=== PATIENT | female | born 1950 | race Caucasian/White ===

== ENCOUNTER 2023-05-15 15:44 | Inpatient (IN) | payer OTHER, SELFPAY ==
[2023-05-15] VITALS (9 sets, daily range): BP systolic 95–138; BP diastolic 51–61; BMI 40.7
--- NOTE | 2023-05-15 12:07 | ED.GENMED ---
History of Present Illness
<Rosenda Franco PA-C - Last Filed: 05/15/23 16:54>
General
Chief Complaint: Fatigue
Source: patient, snf and snf records
Exam Limitations: none
Time Seen by Provider: 05/15/23 12:07
Nursing documentation reviewed up to this point in time: agreed with
Travel History
Have you had any contact with someone who has COVID-19?: No
Do you have any symptoms of coronavirus? Fever > 100 degrees, chills, cough, shortness of breath, sore throat, loss of taste or smell, muscle aches, or headache?: No
History of Present Illness
History of Present Illness:
This is a 73-year-old female with a history of PE, hypertension, chronic kidney disease, asthma, dysphagia on TPN, presents to emergency department from senior living facility with complaints of fatigue. Patient does not provide much history and
only shakes her head yes or no to questions, but will occasionally provide an answer. When asked why she is here, she says she does not know. Asked her about the fatigue reported from the nursing facility, and she does state that she has been
tired the past few days. She denies shortness of breath, abdominal pain, dysuria, chest pain. Spoke to senior living facility on the phone who reports that patient has been feeling fatigued for the past few days and started developing a fever
yesterday. They stated that her fever was 102 F last night and they subsequently gave her Tylenol. They performed a chest x-ray, blood cultures, UA, and those results are currently pending. She was given a dose of ceftriaxone last night. At the
time, did not have a clear source of the fever. They sent her to the emergency department today due to the fact that she is ill-appearing and still has fevers. Of note, she was discharged from [facility] on May 06 for septic shock, encrusted right
ureteral stent,
Past History
<Rosenda Franco PA-C - Last Filed: 05/15/23 16:54>
Past History
ED Past Medical History: Asthma, HTN, Renal failure, Hypothyroidism and Other (ureteral stents, PE, ARF, One kidney, IVC filter, Cellulitis, UTI, Pancreatitis)
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
Social History
Tobacco: Non-smoker
Alcohol: None
Personal: Single
Living: alone
Family History
Family History: Other (Mother with endometrial cancer, father with coronary disease)
Review of Systems
<Rosenda Franco PA-C - Last Filed: 05/15/23 16:54>
Review of Systems
All Other Systems: ROS reviewed and negative except as documented in HPI and ROS
Phy Exam
<Rosenda Franco PA-C - Last Filed: 05/15/23 16:54>
Physical Exam
Physical Exam:
Vitals: Patient is febrile
General: Patient is very ill appearing, pale
Skin: warm and dry, no rashes or lesions
Peripheral Vascular: No lower extremity edema, extensive discoloration bilaterally from chronic venous stasis. 2+ DP/PT pulses b/l.
Cardiac: regular rate and rhythm, no murmurs
Pulm: normal respiratory effort, no wheezes, rales, or rhonchi
Abdomen: Umbilical hernia present. Abdomen non-tender to palpation. Small area of healing ecchymosis below the umbilicus.
Neuro: awake and alert. Oriented to person but not time. CN II-XII intact. GCS 15.
Course
<Rosenda Franco PA-C - Last Filed: 05/15/23 16:54>
Orders/Labs/Results
Orders:
Orders
05/15/23 12:02
EKG [Electrocardiogram (*1)] Urgent
Reason for Study: Fatigue / Weakness
Cardiac Monitoring- Treatment ONCE
EKG- Treatment ONCE
IV Insert/Care/Rem.- Treatment PRN
Straight cath- Treatment ONCE
O2 Therapy [RESP] Urgent
Titrate/Wean O2 to maintain O2 sat greater than (%): 93
Special Instructions: TO MAINTAIN CONTINUOUS O2 SATS > OR = 93%
Pulse Ox/cont/shift [RESP] Urgent
Quantity: 1
Special Instructions: CONTINUOUS
05/15/23 12:03
EKG- Treatment ONCE
CR Chest - 2 Views Urgent
Comment:
Reason For Exam: suspected infection
05/15/23 12:09
Complete Blood Count/With Diff Urgent
Comprehensive Metabolic Panel Urgent
Lactic Acid Q4H
Comment: ON ICE, CANCEL 2ND ORDER IF FIRST LACTIC ACID LEVEL <2
Urinalysis Reflex To Culture Urgent
Date Specimen was Collected: 05/15/23
Time Specimen was Collected: 12:03
Urine Microscopic Reflex Cult Urgent
Blood Culture Q30M
GABRIELLA Source: Blood/Venous
Specimen Description:
Comment: FROM 2 SEPARATE SITES
Blood Culture Q30M
GABRIELLA Source: Blood/Venous
Specimen Description:
Comment: FROM 2 SEPARATE SITES
Urine Culture Urgent
GABRIELLA Source: U
Specimen Description:
Date Specimen was Collected: 05/15/23
Time Specimen was Collected: 12:03
05/15/23 12:31
COVID-19 Antigen Urgent
Source: Nasal Swab
Influenza A+B Rapid Molecular Urgent
GABRIELLA Source: Nasal Swab
Specimen Description:
05/15/23 12:57
Blood Culture Urgent
GABRIELLA Source: Blood/Venous
Specimen Description:
05/15/23 13:04
Acetaminophen [Tylenol/Feverall] 325 mg RECTAL NOW STA
05/15/23 13:20
Cefepime HCl [Maxipime] 1,000 mg IV NOW STA
05/15/23 13:27
Prothrombin Time Urgent
05/15/23 13:28
Sterile Water [Sterile Water For Injection] 10 ml .ROUTE .[facility]
05/15/23 13:32
Vancomycin [Vancocin] 2,000 mg 0.9% Sodium Chloride 500 ml [Nss] 500 ml IV NOW
05/15/23 13:45
Vancomycin [Vancocin] 2,000 mg 0.9% Sodium Chloride 500 ml [Nss] 500 ml IV NOW
05/15/23 14:24
Admit/Transfer Patient As Directed
Co-Sign Provider:
Level of Care: Inpatient admission
Assign to:: Medical/Surgical
Physician / Group: Jaz newell
Diagnosis: UTI
Reason for Hospitalization: UTI
Expected length of stay greater than two midnights?: Yes
ELOS- Estimated Length of Stay in days: 3
I certify the patient meets the requirements for IP care: Yes
05/15/23 14:30
Code Status As Directed
Resuscitation Status: Do not resuscitate
Reached after discussion with pt or family/Healthcare POA: Yes
DNR Bracelet Application ONCE
05/15/23 14:44
INFECTIOUS DISEASE CONSULT Routine
Consulting Provider: Steven Ruano
Was physician already notified: Yes
Abnormal Lab Results
05/15/23 05/15/23
12:09 13:27
RBC 2.74 L 10^6/uL
(4.20-5.40)
Hgb 7.8 L g/dL
(12.0-16.0)
Hct 26.2 L %
(37.0-47.0)
MCHC 29.8 L g/dL
(33.0-37.0)
RDW 16.9 H %
(11.5-14.5)
MPV 11.0 H fL
(7.4-10.4)
Absolute Neuts (auto) 7.8 H 10^3/uL
(1.4-6.5)
Absolute Lymphs (auto) 1.0 L 10^3/uL
(1.2-3.4)
Absolute Monos (auto) 1.1 H 10^3/uL
(0.1-0.6)
Neutrophils % 77.6 H %
(42.2-75.2)
Lymphocytes % 9.5 L %
(20.5-51.1)
Monocytes % 10.6 H %
(1.7-9.3)
PT 19.1 H Sec
(11.4-14.6)
Chloride 116 H mmol/L
(98-107)
Carbon Dioxide 21 L mmol/L
(22-30)
BUN 63 H mg/dl
(7-17)
Glucose 111 H mg/dl
(70-99)
Lactic Acid 0.6 L mmol/L
(0.7-2.0)
Albumin 2.9 L g/dl
(3.5-5.0)
Ur Occult Blood Reflex 3+ A
(Negative)
Urine Nitrite (Reflex) Positive A
(Negative)
Leukocyte Esterase Rfl 2+ A
(Negative)
Urine RBC 11-15 A /HPF
(0-2)
Urine WBC (Reflex) 21-25 A /HPF
(0-5)
Urine Bacteria (Reflex) Moderate A
(Negative)
05/15/23 12:09
05/15/23 12:09
Vital Signs
Initial and Last Documented VS:
Initial Vital Signs
Temp Pulse Resp BP Pulse Ox
100.9 F H 84 13 120/58 91
05/15/23 12:06 05/15/23 12:06 05/15/23 12:06 05/15/23 12:06 05/15/23 12:06
Last Documented Vital Signs
Temp Pulse Resp BP Pulse Ox
100.9 F H 83 19 117/58 98
05/15/23 12:06 05/15/23 16:15 05/15/23 16:15 05/15/23 16:02 05/15/23 16:15
<Fredi Solomon, DO - Last Filed: 05/15/23 13:11>
Orders/Labs/Results
Orders:
Orders
05/15/23 12:02
EKG [Electrocardiogram (*1)] Urgent
Reason for Study: Fatigue / Weakness
Cardiac Monitoring- Treatment ONCE
EKG- Treatment ONCE
IV Insert/Care/Rem.- Treatment PRN
Straight cath- Treatment ONCE
O2 Therapy [RESP] Urgent
Titrate/Wean O2 to maintain O2 sat greater than (%): 93
Special Instructions: TO MAINTAIN CONTINUOUS O2 SATS > OR = 93%
Pulse Ox/cont/shift [RESP] Urgent
Quantity: 1
Special Instructions: CONTINUOUS
05/15/23 12:03
EKG- Treatment ONCE
CR Chest - 2 Views Urgent
Comment:
Reason For Exam: suspected infection
05/15/23 12:09
Complete Blood Count/With Diff Urgent
Comprehensive Metabolic Panel Urgent
Lactic Acid Q4H
Comment: ON ICE, CANCEL 2ND ORDER IF FIRST LACTIC ACID LEVEL <2
Urinalysis Reflex To Culture Urgent
Date Specimen was Collected: 05/15/23
Time Specimen was Collected: 12:03
Urine Microscopic Reflex Cult Urgent
Blood Culture Q30M
GABRIELLA Source: Blood/Venous
Specimen Description:
Comment: FROM 2 SEPARATE SITES
Blood Culture Q30M
GABRIELLA Source: Blood/Venous
Specimen Description:
Comment: FROM 2 SEPARATE SITES
Urine Culture Urgent
GABRIELLA Source: U
Specimen Description:
Date Specimen was Collected: 05/15/23
Time Specimen was Collected: 12:03
05/15/23 12:31
COVID-19 Antigen Urgent
Source: Nasal Swab
Influenza A+B Rapid Molecular Urgent
GABRIELLA Source: Nasal Swab
Specimen Description:
05/15/23 12:57
Blood Culture Urgent
GABRIELLA Source: Blood/Venous
Specimen Description:
05/15/23 13:04
Acetaminophen [Tylenol/Feverall] 325 mg RECTAL NOW STA
05/15/23 13:20
Cefepime HCl [Maxipime] 1,000 mg IV NOW STA
05/15/23 13:27
Prothrombin Time Urgent
05/15/23 13:28
Sterile Water [Sterile Water For Injection] 10 ml .ROUTE .[facility]
05/15/23 13:32
Vancomycin [Vancocin] 2,000 mg 0.9% Sodium Chloride 500 ml [Nss] 500 ml IV NOW
05/15/23 13:45
Vancomycin [Vancocin] 2,000 mg 0.9% Sodium Chloride 500 ml [Nss] 500 ml IV NOW
05/15/23 14:24
Admit/Transfer Patient As Directed
Co-Sign Provider:
Level of Care: Inpatient admission
Assign to:: Medical/Surgical
Physician / Group: Jaz newell
Diagnosis: UTI
Reason for Hospitalization: UTI
Expected length of stay greater than two midnights?: Yes
ELOS- Estimated Length of Stay in days: 3
I certify the patient meets the requirements for IP care: Yes
05/15/23 14:30
Code Status As Directed
Resuscitation Status: Do not resuscitate
Reached after discussion with pt or family/Healthcare POA: Yes
DNR Bracelet Application ONCE
05/15/23 14:44
INFECTIOUS DISEASE CONSULT Routine
Consulting Provider: Steven Ruano
Was physician already notified: Yes
Abnormal Lab Results
05/15/23 05/15/23
12:09 13:27
RBC 2.74 L 10^6/uL
(4.20-5.40)
Hgb 7.8 L g/dL
(12.0-16.0)
Hct 26.2 L %
(37.0-47.0)
MCHC 29.8 L g/dL
(33.0-37.0)
RDW 16.9 H %
(11.5-14.5)
MPV 11.0 H fL
(7.4-10.4)
Absolute Neuts (auto) 7.8 H 10^3/uL
(1.4-6.5)
Absolute Lymphs (auto) 1.0 L 10^3/uL
(1.2-3.4)
Absolute Monos (auto) 1.1 H 10^3/uL
(0.1-0.6)
Neutrophils % 77.6 H %
(42.2-75.2)
Lymphocytes % 9.5 L %
(20.5-51.1)
Monocytes % 10.6 H %
(1.7-9.3)
PT 19.1 H Sec
(11.4-14.6)
Chloride 116 H mmol/L
(98-107)
Carbon Dioxide 21 L mmol/L
(22-30)
BUN 63 H mg/dl
(7-17)
Glucose 111 H mg/dl
(70-99)
Lactic Acid 0.6 L mmol/L
(0.7-2.0)
Albumin 2.9 L g/dl
(3.5-5.0)
Ur Occult Blood Reflex 3+ A
(Negative)
Urine Nitrite (Reflex) Positive A
(Negative)
Leukocyte Esterase Rfl 2+ A
(Negative)
Urine RBC 11-15 A /HPF
(0-2)
Urine WBC (Reflex) 21-25 A /HPF
(0-5)
Urine Bacteria (Reflex) Moderate A
(Negative)
05/15/23 12:09
05/15/23 12:09
Vital Signs
Initial and Last Documented VS:
Initial Vital Signs
Temp Pulse Resp BP Pulse Ox
100.9 F H 84 13 120/58 91
05/15/23 12:06 05/15/23 12:06 05/15/23 12:06 05/15/23 12:06 05/15/23 12:06
Last Documented Vital Signs
Temp Pulse Resp BP Pulse Ox
100.9 F H 83 19 117/58 98
05/15/23 12:06 05/15/23 16:15 05/15/23 16:15 05/15/23 16:02 05/15/23 16:15
<Rosenda Franco PA-C - Last Filed: 05/15/23 16:54>
MDM/Problems Addressed
Differential Diagnosis Includes:
ddx PICC line infection, urinary tract infection, influenza, bronchitis, pneumonia, asthma exacerbation
MDM/Problems Addressed:
fatigue
fever
Chronic conditions affecting care: HTN, Asthma and Other (DVT/PE on warfarin)
<Rosenda Franco PA-C - Last Filed: 05/15/23 16:54>
*Pulse Oximetry
Comment: patient 91% on RA, placed on 3L with O2 sat 100%
*EKG
Interpreted by ED Provider?: Yes
EKG Intrepretation Date: 05/15/23
Interpretation: abnormal
Comparison EKG: changes noted (new fusion complexes)
Heart Rate: 85
Rate: normal
Rhythm: sinus
[place]: right axis deviation
Interval: normal interval
QRS Pattern: normal QRS
Ischemia: no ischemia
*Critical Care Note
Total Time (30-74mins, 75-104mins- exclusive of procedures): Not Applicable
Data Reviewed
Review of Other/Old Records Reveals: Discharge Summary (reviewed discharge summary from 03/19/23)
<Rosenda Franco PA-C - Last Filed: 05/15/23 16:54>
Patient Management
Escalation/DeEscalation of care consider admission/obs:
This is a 73 y/o female with a PMH of PE, DVT, hypertension, UTI sepsis is presenting emergency department today with complaints of fatigue and fever. Fever and fatigue started yesterday. Patient is slightly confused and is not able to answer all
questions. Spoke to snf who gave patient 1 dose of ceftriaxone yesterday because of her fever however fever has not resolved. Patient has no other symptoms. On exam, patient is pale, very ill-appearing, however has no abdominal
tenderness on exam, has normal respiratory effort, regular rate and rhythm on cards exam. Patient found to have UTI here, considering patient has PICC line will switch to IV vancomycin and Maxipime and admit to hospital for treatment and further
workup
ED Attending Note
<Rosenda Franco PA-C - Last Filed: 05/15/23 16:54>
-
Portions of this chart may have been created with voice recognition software.� Occasional wrong word or��sound alike� substitutions may have occurred due to the inherent limitations of voice recognition software.
<Fredi Solomon DO - Last Filed: 05/15/23 13:11>
ED Attending Note
Patient seen and examined by attending physician: Yes
I performed the substantive portion of visit, reviewed & personally made and approve the management plan that is documented in note by myself or MIKAYLA.: Yes
I performed a history and physical exam of patient and discussed management with resident, I reviewed resident's note and agree with documented findings and plan of care.: Yes
ED Attending Note:
I evaluated patient. Patient is chronically ill-appearing. I spoke to her sister at bedside. She had a Tmax of 101.1 at the facility in [place]. Temperature here today is 100.9. She recently had septic shock and was transferred to [place] as
there was concern for bowel obstruction however she was managed nonoperatively and sister nini does not want her to go back to [place]. Hemoglobin slightly lower than before, white count normal today, lactic is normal. They had already given her
Rocephin at the facility. Will switch to Maxipime and give a dose of vancomycin as she also has a PICC line. I did ask the nurse to obtain a culture from itself.
Discharge Plan
Departure
Patient Disposition: Admit
Date of Disposition: 05/15/23
Time of Disposition: 13:47
Admit to doctor: Dr. Newell
Presentation/result/management discussed w/ accepting MD/DO: Hospitalist
Condition: Fair
Discharge Problem:
Urinary tract infection, Altered mental status
Interventions
Interventions:
*Risk Screen - Suicide Last Done: 05/15/23 12:25
*General Assessment Last Done: 05/15/23 12:26
*Neglect/Abuse Screening Last Done: 05/15/23 12:25
ED- Fall Risk Assessment Last Done: 05/15/23 12:25
*ED COVID-19 Vaccine History Last Done: 05/15/23 12:24
[2023-05-15 12:21] LABS: % Basophils 0.4 % (0-2); % Eosinophils 1.5 % (0-6); % Immature Granulocytes 0.4 % (0-0.5); % Lymphocytes 9.5 % (20.5-51.1); % Monocytes 10.6 % (1.7-9.3); % Neutrophils 77.6 % (42.2-75.2); Absolute Eosinophils 0.2 10^3/uL (0-0.7); Absolute Monocytes 1.1 10^3/uL (0.1-0.6); Absolute Neutrophils 7.8 10^3/uL (1.4-6.5); Hematocrit 26.2 % (37.0-47.0); Hemoglobin 7.8 g/dL (12.0-16.0); Mean Corp Hgb Conc. 29.8 g/dL (33.0-37.0); Mean Corpuscular Hgb 28.5 pg (27.0-31.0); Mean Corpuscular Volume 95.6 fL (81.0-99.0); Nucleated Red Blood Cells % 0 %; Platelet Count 262 10^3/uL (130-400); Red Blood Cell Count 2.74 10^6/uL (4.20-5.40); Red Cell Dist. Width 16.9 % (11.5-14.5)
[2023-05-15 12:33] LABS: ALT (SGPT) 19 U/L (0-35); AST (SGOT) 28 U/L (14-36); Albumin 2.9 g/dl (3.5-5.0); Alkaline Phosphatase 70 U/L (38-126); Blood Urea Nitrogen 63 mg/dl (7-17); Calcium 8.4 mg/dl (8.4-10.2); Carbon Dioxide 21 mmol/L (22-30); Chloride 116 mmol/L (98-107); Estimated Creatinine Clearance 70 ml/min; Glucose 111 mg/dl (70-99); Potassium 3.9 mmol/L (3.5-5.1); Sodium 140 mmol/L (135-145); Total Bilirubin 0.7 mg/dl (0.2-1.3); Total Protein 6.4 g/dl (6.3-8.2); eGFR > 60.00
[2023-05-15 12:34] LABS: Lactic Acid 0.6 mmol/L (0.7-2.0)
[2023-05-15 12:53] LABS: Urine Albumin Trace (Neg - Trace); Urine Bilirubin Negative (Negative); Urine Character Clear (Clear); Urine Color Yellow; Urine Glucose Negative (Negative); Urine Ketone Negative (Negative); Urine Leukocyte 2+ (Negative); Urine Nitrite Positive (Negative); Urine Occult Blood 3+ (Negative); Urine Specific Gravity 1.015 (<1.030); Urine Urobilinogen Negative (Neg - 1+)
[2023-05-15 13:01] LABS: Urine Squamous Cell 16-20 /LPF (Few)
[2023-05-15 13:02] LABS: Urine Urothelial Cell 0-2 /LPF (FEW)
[2023-05-15 13:03] LABS: Urine White Cell 21-25 /HPF (0-5)
[2023-05-15 13:05] LABS: Urine Bacteria Moderate (Negative)
[2023-05-15 13:14] LABS: COVID-19 Antigen Negative (Negative)
[2023-05-15] MEDS: MAXIPIME 1000 MG IV (13:30)
[2023-05-15] MEDS: TYLENOL/FEVERALL 325 MG RECTAL (13:31)
--- NOTE | 2023-05-15 13:47 | HPS.HSE ---
Addendum entered and electronically signed by Jaz Zheng MD 05/15/23 16:56:
pt seen and examined--agree with PIANO REFINISHER note
GENERAL: chronically ill appearing female in no apparent distress, severely kyphotic and chin touches chest
HEENT: NC/AT--O2 NC in place
HEART: regular rate and rhythm, +S1, +S2
LUNGS : clear to auscultation bilaterally
ABDOM: soft, nontender, nondistended, + bowel sounds
EXT: no cyanosis, clubbing, or edema
NEUROLOGIC: grossly intact
SKIN: has right arm double lumen PICC in place
Fever/fatigue likely from urinary tract infection--other source could be PICC line (watch cultures for now)---History of complicated UTI with exchange right ureteral stent removal--Received a dose of ceftriaxone last night [place]--cont vanco/cefepime
here-Tylenol as needed for fever--PT/OT consult
Anemia of chronic disease--Hemoglobin 7.8--will check in AM, may need transfusion if still low--no active bleeding
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
HX PE/DVT on Warfarin--Daily PT/INR
HX Asthma/ COPD or restrictive lug dz due to severe thoracic spine kyphosis--Chronic respiratory failure--Patient using 2 L of oxygen--Continue supplemental oxygen to keep sat greater than 92- cont Nebs from home
Hypothyroid--cont synthroid
Dysphagia/ recurrent aspiration-- will ask speech to eval--chronic TPN not answer...may need GOC discussion moving forward
hx Incisional hernia with bowel obstruction--resolved
CODE STATUS--DNR
Original Note:
Family Physician
-
Family Physician: Nga Petty
Chief Complaint
-
fever
fatigue
History of Present Illness
73-year-old female with a history of PE, hypertension, chronic kidney disease, asthma, dysphagia on TPN, [facility] with complaints of fatigue, fever and weakness. she was noted to have temp of 102
last night. she was started on ceftriaxone last night. � She denies shortness of breath, abdominal pain, dysuria, chest pain. [facility] performed a chest x-ray, blood cultures, UA, and those results are currently pending.�she was admitted here in February
with complicated UTI due to overdue with exchange of right ureteral stents. patient was admitted to [facility] with [facility]. patient was noted have dysphagia and she is on TPN since then. patient denied any dysuria or hematuria.
positive UA in ER. received iv abx. admitting for further management.
Medical History
Past Medical History
Past Medical History: Reports Other
Additional Past Medical History:
Asthma, HTN, Renal failure, Hypothyroidism and Other (ureteral stents, PE, ARF, One kidney, IVC filter, Cellulitis, UTI, Pancreatits
Respiratory failure
Incisional hernia with bowel obstruction
Past Surgical History: Reports Other
Additional Past Surgical History:
IVC filter
Splenic artery aneurysm coiling
Ureteral stent
Social History
Tobacco: Non-smoker
Alcohol: None
Personal: Single
Living: Care Home
Employment: Employed
Family History
Family History: Not pertinent
Allergies / Home Medications
Allergies reflects when Allergies were last updated in [facility].
Home Medications with original date entered in [facility]
Allergy/Medication List:
Allergies
Allergy/AdvReac Type Severity Reaction Status Date / Time
animal dander Allergy Exacerbates Verified 03/11/23 23:13
asthma
banana Allergy Exacerbates Verified 03/11/23 23:13
asthma
cheese Allergy Exacerbates Verified 03/11/23 23:13
asthma
cigarette smoke Allergy Exacerbates Verified 03/11/23 23:13
asthma
house dust Allergy Exacerbates Verified 03/11/23 23:13
asthma
house dust mite Allergy Exacerbates Verified 03/11/23 23:13
asthma
latex [Latex] Allergy Exacerbates Verified 03/11/23 23:13
asthma
mold Allergy Exacerbates Verified 03/11/23 23:13
asthma
perfume Allergy Exacerbates Verified 03/11/23 23:13
asthma
pollen extracts Allergy Exacerbates Verified 03/11/23 23:13
asthma
ragweed pollen Allergy Exacerbates Verified 03/11/23 23:13
asthma
Home Medications
sertraline 100 mg tablet 100 mg PO DAILY Mental Health/Anxiety 07/10/21
levothyroxine 150 mcg tablet (Synthroid) 150 mcg PO DAILY Thyroid 03/11/23
warfarin 2 mg tablet 4 mg PO QPM Blood Clot Prevention/Tx 03/11/23
acetaminophen 325 mg tablet (Tylenol) 650 mg PO Q6HPRN PRN mild pain 05/15/23
albuterol sulfate 2.5 mg/3 mL (0.083 %) solution for nebulization 2.5 mg inhalation R Q6HPRN PRN sob 05/15/23
carboxymethylcellulose sodium 1 % eye liquid gel drops (Refresh Liquigel) 1 drp BOTH EYES Q8HPRN PRN dryness 05/15/23
dronabinol 5 mg capsule 5 mg PO DAILY 05/15/23
ipratropium 20 mcg-albuterol 100 mcg/actuation mist for inhalation (Combivent Respimat) 1 puff inhalation R Q4HPRN PRN sob 05/15/23
lansoprazole 30 mg delayed release,disintegrating tablet 30 mg PO DAILY 05/15/23
nystatin 100,000 unit/gram topical powder 1 applic topical BID fungal rash 05/15/23
ondansetron 4 mg disintegrating tablet 4 mg PO Q6H PRN nausea 05/15/23
sennosides 8.6 mg tablet (senna) 8.6 mg PO DAILY 05/15/23
zinc oxide 40 % topical ointment 1 applic topical DAILYPRN PRN sacrum 05/15/23
Review of Systems
-
Constitutional: Reports Fever and Fatigue
EENT: Reports No Symptoms
Respiratory: Reports No Symptoms
Cardiac: Reports No Symptoms
Abdomen/GI: Reports No Symptoms
: Reports No Symptoms
Musculoskeletal: Reports No Symptoms
Skin: Reports No Symptoms
Neurological: Reports No Symptoms
Endocrine: Reports No Symptoms
Hematologic/Lymphatic: Reports No Symptoms
Psych: Reports No Symptoms
Physical Exam
Vital Signs
Vital Signs
Temp Pulse Resp BP Pulse Ox
100.9 F H 84 13 120/58 99
05/15/23 12:06 05/15/23 12:06 05/15/23 12:06 05/15/23 12:06 05/15/23 12:07
Physical Exam
General: Well Developed, Well Nourished and No Apparent Distress
HEENT: NormoCephalic, Moist mucous membranes and Atraumatic
Respiratory: Clear
Cardiac: S1/S2 and Regular Rhythm; No Murmur or Rub
GI: Soft, Non Tender, Non Distended and Normal Bowel Sounds; No Organomegaly
Rectal: Deferred by Provider
Musculoskeletal: No Clubbing, No Cyanosis and No Edema
Skin: No Rash
Neuro: AO x 3 and Nonfocal/grossly intact
Psych: Calm
Laboratory Results
-
05/15/23 12:09
05/15/23 12:09
Laboratory Results
Lactic Acid Cancelled 05/15/23 16:15
Total Bilirubin 0.7 mg/dl (0.2-1.3) 05/15/23 12:09
AST 28 U/L (14-36) 05/15/23 12:09
ALT 19 U/L (0-35) 05/15/23 12:09
Alkaline Phosphatase 70 U/L (38-126) 05/15/23 12:09
Data Reviewed
-
Diagnostic Radiology: Report Reviewed by me
Lab Data: Labs Reviewed by me
Impression/Plan
-
# Fever/fatigue likely from urinary tract infection
-History of complicated UTI with exchange right ureteral stent removal
-Received a dose of ceftriaxone last night
-Today initiated on IV Vanco and Maxipime
-Urine culture sent from ER
-Blood culture sent from ER
-Tylenol as needed for fever
-PT/OT consult
# Anemia of chronic disease
-Hemoglobin 7.8
-No active bleeding
-Continue to monitor
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
#HX PE/DVT on Warfarin
-Daily PT/INR
HX Asthma/ COPD or restrictive lug dz due to severe thoracic spine kyphosis
-Chronic respiratory failure
-Patient using 2 L of oxygen
-Continue supplemental oxygen to keep sat greater than 92
-Wean as tolerated
- cont Nebs from home
Hypothyroid
- on LT4
# Dysphagia/ recurrent aspiration
-On TPN
-Speech eval
#Incisional hernia with bowel obstruction
# CODE STATUS
-DNR
#
[2023-05-15 13:52] LABS: INR 1.59; PT 19.1 Sec (11.4-14.6)
[2023-05-15] MEDS: VANCOCIN 540 MG IV (14:13)
--- NOTE | 2023-05-15 15:33 | CM ---
Patient seen at bedside with physician and patient sister. Patient is currently at [facility] and per Melyssa she can return there although there will not be a bed hold. Patient is on O2, TPN at facility. CM requested discharge
summary or H&P from [facility] from Melyssa. Per patient sister the watermelon harvesting supervisor plan is for patient to go home with her but per Melyssa patient was possible for watermelon harvesting supervisor care. CM will continue to follow for discharge planning needs.
Plan; return to SNF at [facility]; keep SNF updated.
--- NOTE | 2023-05-15 17:20 | CON.ID ---
Consultation
-
Date/Time Consultation Requested: 05/15/23 14:44
Date/Time Consultation Performed: 05/15/23 17:20
Requesting Provider: Elle CASPER
Performing Provider: Dr Curry
Reason for Consultation: uti
Chief Complaint / Past History
Chief Complaint
'I dont feel good'
History of Present Illness
Ms Herrera is a 73 year old female with history of chronic incarcerated incisional abdominal hernia and dysphagia on chronic TPN, renal obstruction (UL R kidney), class III obesity who was last seen here 03/19 during which admission she had a
chronic renal stent exchange and was transferred to [facility]. Patient is a fair historian however without specific complaints - only comment 'I just dont feel good.' She was noted a usp to have fever to 102 and was started on ceftriaxone. She
denies shortness of breath, abdominal pain, dysuria, chest pain.�
Since arrival here Tmax rectally 100.9 no hafsa fevers recorded yet, bP stable, HR stable, without leukocytosis wbc 10, plt 262, minimal L shift noted, eos are present, cr 0.9, t bili 0.7, ast 28, alt 19, alk phos 70, UA wbc 21-25, moderate
bacteria, covid ag neg, CXR possible pneumonia with effusion,
Past History
Allergy History:
animal dander Allergy (Verified 03/11/23 23:13)
Exacerbates asthma
banana Allergy (Verified 03/11/23 23:13)
Exacerbates asthma
cheese Allergy (Verified 03/11/23 23:13)
Exacerbates asthma
cigarette smoke Allergy (Verified 03/11/23 23:13)
Exacerbates asthma
house dust Allergy (Verified 03/11/23 23:13)
Exacerbates asthma
house dust mite Allergy (Verified 03/11/23 23:13)
Exacerbates asthma
latex [Latex] Allergy (Verified 03/11/23 23:13)
Exacerbates asthma
mold Allergy (Verified 03/11/23 23:13)
Exacerbates asthma
perfume Allergy (Verified 03/11/23 23:13)
Exacerbates asthma
pollen extracts Allergy (Verified 03/11/23 23:13)
Exacerbates asthma
ragweed pollen Allergy (Verified 03/11/23 23:13)
Exacerbates asthma
Review of Systems
Vital Signs
Temp Pulse Resp BP Pulse Ox
100.9 F H 83 17 117/58 97
05/15/23 12:06 05/15/23 16:45 05/15/23 16:45 05/15/23 16:02 05/15/23 16:45
Physical Exam
Physical Exam
Constitutional: No Acute Distress, Chronically Ill and Obese
Cardiovascular: Regular Rate and S1/S2; Negative Murmur or Rub
Pulmonary: Clear and Symmetric; Negative Wheezes, Rales or Rhonchi
Gastrointestinal: Soft, Non Tender, Non Distended and Normal Bowel Sounds
Genito-Urinary: Negative Suprapubic Tenderness
Skin: Warm and Dry; Negative Rash or Jaundice
Neurological: Awake
Lab / Diagnostic Study Results
05/15/23 12:09
05/15/23 12:09
Abs Immat Gran (auto) 0.0 10^3/uL (0-0.05) 05/15/23 12:09
Absolute Neuts (auto) 7.8 10^3/uL (1.4-6.5) H 05/15/23 12:09
Absolute Lymphs (auto) 1.0 10^3/uL (1.2-3.4) L 05/15/23 12:09
Absolute Monos (auto) 1.1 10^3/uL (0.1-0.6) H 05/15/23 12:09
Absolute Basos (auto) 0.0 10^3/uL (0-0.2) 05/15/23 12:09
Immature Gran % 0.4 % (0-0.5) 05/15/23 12:09
Neutrophils % 77.6 % (42.2-75.2) H 05/15/23 12:09
Lymphocytes % 9.5 % (20.5-51.1) L 05/15/23 12:09
Monocytes % 10.6 % (1.7-9.3) H 05/15/23 12:09
Eosinophils % 1.5 % (0-6) 05/15/23 12:09
Basophils % 0.4 % (0-2) 05/15/23 12:09
PT 19.1 Sec (11.4-14.6) H 05/15/23 13:27
INR 1.59 05/15/23 13:27
Lactic Acid Cancelled 05/15/23 16:15
Ur Squamous Epith Cells 16-20 /LPF (Few) 05/15/23 12:09
Microbiology Results
Micro:
05/15/23 12:31 Influenza Types A & B (MASOUD) - Final
Nasal Swab Negative for Influenza A & B, NAAT
Negative results must be combined with clinical observations
and patient history.
Nucleic Acid Amplification test (NAAT)performed on the
[employer] NOW platform.
05/15/23 12:57 Blood Culture - Pending
Blood/Venous
05/15/23 12:09 Urine Culture - Pending
Urine
05/15/23 12:09 Blood Culture - Pending
Blood/Venous
05/15/23 12:09 Blood Culture - Pending
Blood/Venous
Assessment / Plan
Fever
Chronic TPN usage
Chronic Renal Stents
Class III obesity
- blood cultures x2
- low threshold for PICC removal - agree that chronic TPN carries high risk of infection, endocarditis etc, additionally tells me shes eating anyways making risks > benefits of TPN
- UA with some pyuria - cx pending - follow up
- CXR - possible pneumonia and possible effusion
- US of the R chest to eval size of possible effusion
- agree with vanc/cefepime - added metronidazole pending above workup
- covid/influneza negative
- follow fever curve
I am unclear on what happened at [facility] re: chronic incarcerated abdominal hernia reportedly resolved - records requested
--- NOTE | 2023-05-15 18:55 | PTCARENOTE ---
pt arrives to floor in Er stretcher at 1835. pt required taffy puller into hospital bed. pt is aaox 2-3, needed help with date although knew what holiday just passed. pt is on 2L NC. mercedes present. CYN PICC line present. 20 G left hand PIV
present. no pressing issues at moment. VSS. call villarreal in reach.
--- NOTE | 2023-05-15 19:16 | PHA.VAN.IN ---
Assessment
- Assessment
Renal Function: Appears similar to baseline (12/22/18 BASELINE SCR: 1.0)
Concomitant Antimicrobials: CEFEPIME, FLAGYL
- Previous Dosing Experience
Previous Regimen: 1GM IV Q24H
Date of Regimen: 10/27/10
Provided Trough of: LESS THAN 5
Provided AUC of: UNKNOWN
Patient's SCR is: Decreased compared to previous dosing experience (10/27/10 SCR = 1.4)
Patient's weight is: Decreased compared to previous dosing experience (10/27/10 WT = 128 KG)
AUC Dosing Plan
- Dosing Variables
Dosing Weight (kg): 111
Dosing CrCl (ml/min): 70
Vd coefficient (L/kg): 0.5
- Empiric Dosing
Initial / Loading Dose: 2GM
Maintenance Regimen: 750MG IV Q12H
Estimated AUC (mcg*h/mL): 446
Estimated Peak (mcg*h/mL): 25.6
Estimated Trough (mcg/ml): 12.9
Estimated Half Life (H): 11.1
Pharmacokinetics Vancomycin I
- -
Patient Age: 73
Patient Sex: Female
Vancomycin Day #: 1
Indication: Genito-Urinary Tract
Requesting Provider: DISHA
Height / Weight:
Height 5 ft 5 in
Actual Weight 111 kg
Pertinent Past Medical History: CHRONIC TPN
- Vital Signs / Lab Results
Temp Pulse Resp BP Pulse Ox
97.9 F 76 16 95/56 98
05/15/23 18:54 05/15/23 18:54 05/15/23 18:54 05/15/23 18:54 05/15/23 18:54
Lab Results - Hematology
05/15/23
12:09
WBC 10.0
Lab Results - Chemistry
05/15/23
12:09
BUN 63 H
Creatinine 0.9
Estimated Creat Clear 70
Albumin 2.9 L
05/15/23 05/15/23
12:09 16:15
Lactic Acid 0.6 L Cancelled
Lab Results - Urine
05/15/23
12:09
Urine Nitrite (Reflex) Positive A
Leukocyte Esterase Rfl 2+ A
Urine WBC (Reflex) 21-25 A
Ur Squamous Epith Cells 16-20
Urine Bacteria (Reflex) Moderate A
Microbiology Results
05/15/23 12:31 Influenza Types A & B (MASOUD) - Final
Nasal Swab Negative for Influenza A & B, NAAT
Negative results must be combined with clinical observations
and patient history.
Nucleic Acid Amplification test (NAAT)performed on the
[employer] NOW platform.
[2023-05-15] MEDS: FLAGYL 500 MG 100 IV (20:07)
--- NOTE | 2023-05-15 20:20 | VATNOTE ---
upon rounds found pt. to have right arm picc. CXR from ER states 'SVC'; dsg changed as no biopatch was on site. Upon removing gauze over topof insertion site, found picc to be out approx. 4cm. Redressed per protocol with caps and stat lock changed.
Both lumens had adequate blood return. PCN encouraged to use picc. No information obtained on where and when picc was inserted. Information on transfer forms found TCL to be 44cm. VAT to follow.
[2023-05-15] MEDS: COUMADIN 4 MG PO (20:23)
[2023-05-15] MEDS: STERILE WATER FOR INJECTION 10 ML IV (22:16)
[2023-05-15] MEDS: MAXIPIME 2000 MG IV (22:18)
[2023-05-15] MEDS: DESENEX/MITRAZOL/ZEASORB 1 APPLIC TOPICAL (22:45)
[2023-05-16] MEDS: ZOFRAN ODT (ORALLY DISINTEGRATING) 4 MG PO ×2 (01:35→10:00)
[2023-05-16] MEDS: FLAGYL 500 MG 100 IV ×3 (04:23→20:01)
[2023-05-16 05:08] LABS: Hematocrit 26.8 % (37.0-47.0); Hemoglobin 7.8 g/dL (12.0-16.0); Mean Corp Hgb Conc. 29.1 g/dL (33.0-37.0); Mean Corpuscular Hgb 28.6 pg (27.0-31.0); Mean Corpuscular Volume 98.2 fL (81.0-99.0); Mean Platelet Volume 11.6 fL (7.4-10.4); Platelet Count 211 10^3/uL (130-400); Red Blood Cell Count 2.73 10^6/uL (4.20-5.40); Red Cell Dist. Width 16.8 % (11.5-14.5)
[2023-05-16 05:20] LABS: INR 1.57; PT 18.9 Sec (11.4-14.6)
[2023-05-16] MEDS: SYNTHROID 150 MCG PO (05:27)
[2023-05-16 05:28] LABS: Blood Urea Nitrogen 62 mg/dl (7-17); Calcium 8.3 mg/dl (8.4-10.2); Carbon Dioxide 21 mmol/L (22-30); Chloride 117 mmol/L (98-107); Estimated Creatinine Clearance 70 ml/min; Glucose 89 mg/dl (70-99); Phosphorus 4.8 mg/dl (2.5-4.5); Potassium 3.7 mmol/L (3.5-5.1); Sodium 145 mmol/L (135-145); eGFR > 60.00
[2023-05-16] MEDS: VANCOCIN 150 IV ×2 (05:28→17:12)
[2023-05-16 07:55] VITALS: BP 132/59
--- NOTE | 2023-05-16 08:08 | PHA.VAN.FU ---
Vancomycin Assessment / Plan
- Assessment
Renal Function: Stable (BUN is elevated)
WBC's are: WNL
Concomitant Antimicrobials: cefepime, metronidazole
- Dosing Plan
Adjust Regimen to: dosing by level - suspect estimated clearance may not be accurate
will stop 750mg after 1800 dose tonight to assess 12H level
- Monitoring Plan
Random Level: 05/17 0600
- Follow Up
Pharmacy will continue to follow.
Vancomycin Follow UP
- -
Patient Age: 73
Patient Sex: Female
Vancomycin Day #: 2
Indication: Genito-Urinary Tract
Requesting Provider: Flaquito Leung / Patricio
Pertinent Antimicrobial Allergies:
no pertinent antibiotic allergies
Height / Weight:
Height 5 ft 5 in
Actual Weight 111 kg
Pertinent Past Medical History: BMI ~41, TPN, CKD, nonfunctioning left kidney
- Vital Signs / Lab Results
Temp Pulse Resp BP Pulse Ox
97.9 F 79 20 115/61 95
05/15/23 23:30 05/15/23 23:30 05/15/23 23:30 05/15/23 23:30 05/15/23 23:30
Lab Results - Hematology
05/15/23 05/16/23
12:09 04:42
WBC 10.0 9.0
Lab Results - Chemistry
05/15/23 05/16/23
12:09 04:42
BUN 63 H 62 H
Creatinine 0.9 0.9
Estimated Creat Clear 70 70
Albumin 2.9 L
05/15/23 05/15/23
12:09 16:15
Lactic Acid 0.6 L Cancelled
Lab Results - Urine
05/15/23
12:09
Urine Nitrite (Reflex) Positive A
Leukocyte Esterase Rfl 2+ A
Ur Squamous Epith Cells 16-20
Microbiology Results
05/15/23 12:31 Influenza Types A & B (MASOUD) - Final
Nasal Swab Negative for Influenza A & B, NAAT
Negative results must be combined with clinical observations
and patient history.
Nucleic Acid Amplification test (NAAT)performed on the
[employer] platform.
[2023-05-16 08:20] VITALS: BP 132/59
--- NOTE | 2023-05-16 09:29 | PTOTSP ---
Dysphagia Evaluation
Per chart review, patient has a reported history of dysphagia and recurrent aspiration. Full records unavailable per discussion with staff at SNF and patient unable to provide a history at this time. Her baseline diet was Dysphagia Advanced, Thin
Liquids during the day and TPN at night - but reason for this is unknown to this GEOSPATIAL TECHNOLOGIST.
Patient has chronic (COPD) and acute (UTI which could cause confusion) risk factors for dysphagia. Chest x-ray 05/15/2023 with concern for a right sided PNA. Consider a video swallow study to rule out pharyngeal dysphagia and silent aspiration
given reported history of chronic dysphagia, recurrent aspiration, and current concerns for PNA.
Recommend:
1. IDDSI Level 6 (Soft and Bite Sized), IDDSI Level 0 (Thin Liquids)
2. Medications as best tolerated
3. Oral care 3-5x daily
4. Aspiration and reflux precautions
5. Video swallow study to rule out pharyngeal dysphagia and silent aspiration
[2023-05-16] MEDS: DESENEX/MITRAZOL/ZEASORB 1 APPLIC TOPICAL ×2 (09:44→20:00)
[2023-05-16] MEDS: SENOKOT 8.59999999999999964 MG PO (09:45)
[2023-05-16] MEDS: PREVACID 30 MG PO (09:45)
[2023-05-16] MEDS: MARINOL 5 MG PO (09:45)
[2023-05-16] MEDS: ZOLOFT 100 MG PO (09:45)
[2023-05-16] MEDS: MAXIPIME 2000 MG IV ×2 (09:45→21:07)
[2023-05-16] MEDS: STERILE WATER FOR INJECTION 10 ML IV ×2 (09:45→21:07)
[2023-05-16] MEDS: FLUSH (NSS) 1 FLUSH IV (09:46)
[2023-05-16 14:40] VITALS: BP 124/64; PULSE 75; O2SAT 97
[2023-05-16 14:41] VITALS: BP 124/64; PULSE 75; O2SAT 97
--- NOTE | 2023-05-16 14:44 | W.PN.ID1 ---
Date of Service
Date of Service: May 16, 2023
Today's Communication
Continue current abx
Assessment / Plan
Fever
Chronic TPN usage
Chronic Renal Stents
Class III obesity
- blood cultures pending. Growth (suspected CoNS) noted in 1 of 4 bottles
- UA with some pyuria - cx pending - follow up
- CXR - possible pneumonia and possible effusion
- US of the R chest to eval size of possible effusion
- Continue current empiric antibiotics pending further culture data.
- follow fever curve
Chief Complaint
-: Fever
Subjective / Review of Systems
Review of Systems: No Fever and No Chills
Vital Signs / Physical Exam
Vital Signs
Vital Signs
Temp Pulse Resp BP Pulse Ox
98.2 F 74 16 132/59 100
05/16/23 07:55 05/16/23 07:55 05/16/23 07:55 05/16/23 07:55 05/16/23 10:13
Physical Exam
Constitutional: No Acute Distress, Comfortable, Chronically Ill and Obese
Eyes: No Conjunctival Hemorrhage and Sclera Anicteric
Cardiovascular: S1/S2; Negative S3/S4 or Murmur
Pulmonary: Non Labored; Negative Wheezes or Rales
Gastrointestinal: Soft, Non Tender and Non Distended
Neurological: Awake, Alert and Oriented
Lines: PICC (RUE; no tenderness or erythema.)
Objective Data
Lab Data
Lab Results
05/16/23 04:42
05/16/23 04:42
PT 18.9 Sec (11.4-14.6) H 05/16/23 04:42
INR 1.57 05/16/23 04:42
Estimated Creat Clear 70 ml/min 05/16/23 04:42
Lactic Acid Cancelled 05/15/23 16:15
Total Bilirubin 0.7 mg/dl (0.2-1.3) 05/15/23 12:09
AST 28 U/L (14-36) 05/15/23 12:09
ALT 19 U/L (0-35) 05/15/23 12:09
Alkaline Phosphatase 70 U/L (38-126) 05/15/23 12:09
Most recent labs reviewed.
Micro Results:
05/15/23 12:09 Blood Culture - Preliminary
Blood/Venous No Growth in 24 hours- Final report to follow
05/15/23 12:09 Blood Culture - Preliminary
Blood/Venous No Growth in 24 hours- Final report to follow
05/15/23 12:09 Urine Culture - Final
Urine
05/15/23 12:57 Blood Culture - Preliminary
Blood/Venous Positive culture in progress
Gram Stain - Preliminary
05/15/23 23:44 MRSA Screen - Pending
Nose
05/15/23 12:31 Influenza Types A & B (MASOUD) - Final
Nasal Swab Negative for Influenza A & B, NAAT
Negative results must be combined with clinical observations
and patient history.
Nucleic Acid Amplification test (NAAT)performed on the
[employer] platform.
--- NOTE | 2023-05-16 15:05 | CM ---
Patient seen at bedside with physician. Patient plan is for her to return to SNF at [facility] but patient does not have a bed hold. Patient not medically appropriate for discharge at this time. CM will continue to follow for discharge
planning needs.
Plan; return to SNF; keep [facility] updated
[2023-05-16 15:19] VITALS: BMI 40.7
--- NOTE | 2023-05-16 15:27 | W.PN.HOSP.TC ---
Today's Communication/Plan
-
pt is a 73 year old female
Fever/fatigue likely from urinary tract infection--other source could be PICC line (blood culture with coag [facility] staff, possibly contaminant)---History of complicated UTI with exchange right ureteral stent removal--Received a dose of ceftri[facility]one last
[facility]--cont vanco/cefepime here--Tylenol as needed for fever--PT/OT consult--apprec ID
Anemia of chronic disease--Hemoglobin 7.8--will check in AM, may need transfusion if still low--no active bleeding
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
HX PE/DVT on Warfarin--Daily PT/INR
HX Asthma/ COPD or restrictive lug dz due to severe thoracic spine kyphosis--Chronic respiratory failure--Patient using 2 L of oxygen--Continue supplemental oxygen to keep sat greater than 92- cont Nebs from home
Hypothyroid--cont synthroid
Dysphagia/ recurrent aspiration-- will ask speech to eval, start on IDD6 diet--chronic TPN not answer...may need GOC discussion moving forward
hx Incisional hernia with bowel obstruction--resolved
CODE STATUS--DNR
Assessment / Plan
Assessment / Plan
Anticipated Discharge: > 48 hours
Subjective/Interval History
-
Date of Service: May 16, 2023
pt without c/o
Objective Data
-
Labs:
Laboratory Results
05/16/23
04:42
WBC 9.0
Hgb 7.8 L
Hct 26.8 L
Plt Count 211
PT 18.9 H
INR 1.57
Sodium 145
Potassium 3.7
Chloride 117 H
Carbon Dioxide 21 L
BUN 62 H
Creatinine 0.9
Glucose 89
Calcium 8.3 L
Vital Signs:
max temp for 24 hours
05/15/23
12:06
Temp 100.9 F H
Vital Signs
Temp Pulse Resp BP Pulse Ox
98.2 F 74 16 132/59 100
05/16/23 07:55 05/16/23 07:55 05/16/23 07:55 05/16/23 07:55 05/16/23 10:13
I&O
05/15/23 05/16/23 05/17/23
06:59 06:59 06:59
Output Total 400 / 400
Balance -400 / -400
Review of Systems
-
All other systems: Reviewed and negative
Physical Exam
-
General: Appears Chronically Ill
HEENT: Normocephalic, Atraumatic, Oxygen and Other (kyphotic)
Respiratory: Decreased Breath Sounds
Cardiac: Regular Rhythm and S1/S2; Negative Murmur
GI: Soft, Nontender, Nondistended and Normal Bowel Sounds
Musculoskeletal: No Clubbing, No Cyanosis and No Edema
Neuro: Awake and Alert
[2023-05-16 15:59] VITALS: BP 122/61
[2023-05-16] MEDS: COUMADIN 4 MG PO (17:12)
[2023-05-16 23:55] VITALS: BP 144/71
[2023-05-17] VITALS (7 sets, daily range): BP systolic 98–159; BP diastolic 50–75
[2023-05-17] MEDS: FLAGYL 500 MG 100 IV (04:46)
[2023-05-17] MEDS: ZOFRAN ODT (ORALLY DISINTEGRATING) 4 MG PO ×2 (05:28→21:59)
[2023-05-17] MEDS: SYNTHROID 150 MCG PO (05:38)
[2023-05-17 06:14] LABS: Hematocrit 26.4 % (37.0-47.0); Hemoglobin 7.7 g/dL (12.0-16.0); Mean Corp Hgb Conc. 29.2 g/dL (33.0-37.0); Mean Corpuscular Hgb 28.4 pg (27.0-31.0); Mean Corpuscular Volume 97.4 fL (81.0-99.0); Red Blood Cell Count 2.71 10^6/uL (4.20-5.40); Red Cell Dist. Width 16.8 % (11.5-14.5); White Blood Cell Count 6.8 10^3/uL (4.8-10.8)
[2023-05-17 06:29] LABS: INR 2.28
[2023-05-17 06:31] LABS: Vancomycin Random 23.3 ug/ml
[2023-05-17 06:32] LABS: Blood Urea Nitrogen 47 mg/dl (7-17); Calcium 7.9 mg/dl (8.4-10.2); Carbon Dioxide 22 mmol/L (22-30); Chloride 122 mmol/L (98-107); Estimated Creatinine Clearance 63 ml/min; Glucose 89 mg/dl (70-99); Phosphorus 4.3 mg/dl (2.5-4.5); Potassium 3.7 mmol/L (3.5-5.1); Sodium 147 mmol/L (135-145); eGFR 59.86
[2023-05-17] MEDS: MAXIPIME IV ×2 (09:18→10:40)
[2023-05-17] MEDS: DESENEX/MITRAZOL/ZEASORB 1 APPLIC TOPICAL ×2 (09:18→21:39)
[2023-05-17] MEDS: STERILE WATER FOR INJECTION 10 ML IV (09:18)
[2023-05-17] MEDS: MARINOL 5 MG PO (09:18)
[2023-05-17] MEDS: PREVACID 30 MG PO (09:18)
[2023-05-17] MEDS: SENOKOT 8.59999999999999964 MG PO (09:18)
[2023-05-17] MEDS: ZOLOFT 100 MG PO (09:18)
--- NOTE | 2023-05-17 10:18 | W.PN.ID1 ---
Date of Service
Date of Service: May 17, 2023
Today's Communication
D/C abx and observe
Assessment / Plan
Fever
- none since admit
Chronic TPN usage
Chronic Renal Stents
Class III obesity
- blood cultures with CoNS noted in 1 of 4 bottles. WBC normal. Urine culture negative.
- CXR - possible pneumonia and possible effusion
- US of the R chest without significant effusion.
- With normalization of white count and temperature curve and negative cultures, will discontinue further antibiotics and observe.
����������������������������������������������������������
Chief Complaint
-: Fever
Subjective / Review of Systems
Review of Systems: No Fever, No Chills, No Cough and Nausea
Vital Signs / Physical Exam
Vital Signs
Vital Signs
Temp Pulse Resp BP Pulse Ox
98.5 F 72 18 141/67 99
05/17/23 07:40 05/17/23 07:40 05/17/23 07:40 05/17/23 07:40 05/17/23 07:40
Physical Exam
Constitutional: Chronically Ill, Non-toxic and Obese
Eyes: Sclera Anicteric
Cardiovascular: S1/S2; Negative S3/S4
Pulmonary: Non Labored
Gastrointestinal: Soft and Non Distended
Extremities: Edema; Negative Erythema
Neurological: Awake and Alert
Psychological: Calm
Lines: PICC (Right upper extremity; exit site without tenderness or erythema.)
Objective Data
Lab Data
Lab Results
05/17/23 06:01
05/17/23 06:01
PT 25.0 Sec (11.4-14.6) H 05/17/23 06:01
INR 2.28 05/17/23 06:01
Estimated Creat Clear 63 ml/min 05/17/23 06:01
Lactic Acid Cancelled 05/15/23 16:15
Total Bilirubin 0.7 mg/dl (0.2-1.3) 05/15/23 12:09
AST 28 U/L (14-36) 05/15/23 12:09
ALT 19 U/L (0-35) 05/15/23 12:09
Alkaline Phosphatase 70 U/L (38-126) 05/15/23 12:09
Most recent labs reviewed.
Micro Results:
05/15/23 12:57 Blood Culture - Preliminary
Blood/Venous Coagulase neg. staphylococcus
Gram Stain - Final
05/15/23 23:44 MRSA Screen - Final
Nose No Methicillin Resistant Staphylococcus aureus isolated.
05/15/23 12:09 Blood Culture - Preliminary
Blood/Venous No Growth in 24 hours- Final report to follow
05/15/23 12:09 Blood Culture - Preliminary
Blood/Venous No Growth in 24 hours- Final report to follow
05/15/23 12:09 Urine Culture - Final
Urine
05/15/23 12:31 Influenza Types A & B (MASOUD) - Final
Nasal Swab Negative for Influenza A & B, NAAT
Negative results must be combined with clinical observations
and patient history.
Nucleic Acid Amplification test (NAAT)performed on the
[employer] platform.
[2023-05-17] MEDS: CATHFLO/ACTIVASE 2 MG IV (10:46)
--- NOTE | 2023-05-17 11:24 | W.PN.HOSP.TC ---
Today's Communication/Plan
-
d/c PICC
OBS series
abx stopped
transfuse pRBC
Assessment / Plan
Assessment / Plan
pt is a 73 year old female
Fever/fatigue --unknown source--all cultures negative--other source could be PICC line (blood culture with coag neg staff, possibly contaminant)--d/c PICC---History of complicated UTI with exchange right ureteral stent removal--apprec ID, stopping
ABX Tylenol as needed for fever--PT/OT
nausea--multifactorial--ABX, anemia, constipation? etc--abx stopped, check OBS series--transfuse--if no improvement then consult GI
Anemia of chronic disease--Hemoglobin 7.7--consent obtained by me--will transfuse
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
HX PE/DVT on Warfarin--Daily PT/INR
HX Asthma/ COPD or restrictive lug dz due to severe thoracic spine kyphosis--Chronic respiratory failure--Patient using 2 L of oxygen--Continue supplemental oxygen to keep sat greater than 92- cont Nebs from home
Hypothyroid--cont synthroid
Dysphagia/ recurrent aspiration-- will ask speech to eval, start on IDD6 diet--stopping TPN, pt eating
hx Incisional hernia with bowel obstruction--resolved
CODE STATUS--DNR
Anticipated Discharge: 24 - 48 hours
Subjective/Interval History
-
Date of Service: May 17, 2023
pt still has some nausea
Objective Data
-
Labs:
Laboratory Results
05/17/23
06:01
WBC 6.8
Hgb 7.7 L
Hct 26.4 L
Plt Count
PT 25.0 H
INR 2.28
Sodium 147 H
Potassium 3.7
Chloride 122 H
Carbon Dioxide 22
BUN 47 H
Creatinine 1.0
Glucose 89
Calcium 7.9 L
Vital Signs:
max temp for 24 hours
05/16/23
15:59
Temp 98.5 F
Vital Signs
Temp Pulse Resp BP Pulse Ox
98.5 F 72 18 141/67 99
05/17/23 07:40 05/17/23 07:40 05/17/23 07:40 05/17/23 07:40 05/17/23 07:40
I&O
05/16/23 05/17/23 05/18/23
06:59 06:59 06:59
Intake Total 3110 / 3110
Output Total 400 / 400 500 / 500 325 / 325
Balance -400 / -400 2610 / 2610 -325 / -325
Review of Systems
-
All other systems: Reviewed and negative
Physical Exam
-
General: Well Developed, Well Nourished and No Apparent Distress
HEENT: Normocephalic, Atraumatic and Oxygen
Respiratory: Clear to Auscultation; Negative Wheezes or Rhonchi
Cardiac: Regular Rhythm and S1/S2; Negative Murmur
GI: Soft, Nontender, Nondistended and Normal Bowel Sounds
Musculoskeletal: No Clubbing, No Cyanosis and No Edema
Skin: Warm
Neuro: Awake
Psych: Calm
--- NOTE | 2023-05-17 12:46 | VATNOTE ---
Red lumen of PICC line very difficult to flush this AM. Cathflo order obtained and instilled as per hospital policy at 1050. Brisk blood return obtained at 1230. 5mls blood and cathflo withdrawn and discarded. Flushed with 10 mls NSS. Primary care
RN made aware.
--- NOTE | 2023-05-17 15:55 | CON.GI ---
Consultation
-
Date/Time Consultation Requested: 05/17/2023, 2pm
Date/Time Consultation Performed: 05/17/2023, 4:30pm
Requesting Provider: Dr. Zheng
Performing Provider: Dr. Schmid
Reason for Consultation: nausea
Medical History
Chief Complaint / HPI
Chief Complaint: fatigue
History of Present Illness:
73 yo F living in nursing home facility pmh PE, CKD, asthma/COPD on O2, dysphagia on TPN p/w fatigue, fever, weakness, fever 102. FUO currently being followed by ID - plan to d/c PICC as patient taking PO and cultures negative. With history of
ACD, Hb 7s, no updated iron studies. GI being consulted for nausea. Primary team ordered obs series showed gaseous colonic distension and large hernia which then led to GI consult.
Today, patient is falling asleep as I am talking to her. She does state her fatigue is better. She has been nauseous for weeks with early satiety. She is unsure if she has lost any weight. She denies dysphagia, heartburn, irregular bowel
movements, bloating. Denies chest pain, shortness of breath, palpitations. Last fever 05/15 was 100.9. She is a poor historian in regards to her past medical history and this is all recorded and reviewed from prior histories.
Past Medical History
Past Medical History: Asthma, CAD, HTN, Hypothyroidism, Renal Failure and Other (PE, pancreatitis)
Past Surgical History: Other (ICV filter, splenic artery aneurysm coiling, ureteral stent)
Social History
Tobacco: Non-Smoker
Alcohol: None
Drug: None
Living: [facility]
Family History
Family History: Reviewed & Not Pertinent
Allergies / Home Medications
Allergy/AdvReac Type Severity Reaction Status Date / Time
animal dander Allergy Exacerbates Verified 03/11/23 23:13
asthma
banana Allergy Exacerbates Verified 03/11/23 23:13
asthma
cheese Allergy Exacerbates Verified 03/11/23 23:13
asthma
cigarette smoke Allergy Exacerbates Verified 03/11/23 23:13
asthma
house dust Allergy Exacerbates Verified 03/11/23 23:13
asthma
house dust mite Allergy Exacerbates Verified 03/11/23 23:13
asthma
latex [Latex] Allergy Exacerbates Verified 03/11/23 23:13
asthma
mold Allergy Exacerbates Verified 03/11/23 23:13
asthma
perfume Allergy Exacerbates Verified 03/11/23 23:13
asthma
pollen extracts Allergy Exacerbates Verified 03/11/23 23:13
asthma
ragweed pollen Allergy Exacerbates Verified 03/11/23 23:13
asthma
Medication Instructions Recorded
sertraline 100 mg tablet 100 mg PO DAILY Mental 07/10/21
Health/Anxiety
levothyroxine 150 mcg tablet 150 mcg PO DAILY Thyroid 03/11/23
(Synthroid)
warfarin 2 mg tablet 4 mg PO QPM Blood Clot 03/11/23
Prevention/Tx
acetaminophen 325 mg tablet 650 mg PO Q6HPRN PRN mild pain 05/15/23
(Tylenol)
albuterol sulfate 2.5 mg/3 mL 2.5 mg inhalation R Q6HPRN PRN sob 05/15/23
(0.083 %) solution for nebulization
carboxymethylcellulose sodium 1 % 1 drp BOTH EYES Q8HPRN PRN dryness 05/15/23
eye liquid gel drops (Refresh
Liquigel)
dronabinol 5 mg capsule 5 mg PO DAILY Gastrointestinal 05/15/23
Issue
ipratropium 20 mcg-albuterol 100 1 puff inhalation R Q4HPRN PRN sob 05/15/23
mcg/actuation mist for inhalation
(Combivent Respimat)
lansoprazole 30 mg delayed 30 mg PO DAILY Gastrointestinal 05/15/23
release,disintegrating tablet Issue
nystatin 100,000 unit/gram topical 1 applic topical BID fungal rash 05/15/23
powder
ondansetron 4 mg disintegrating 4 mg PO Q6H PRN nausea 05/15/23
tablet
sennosides 8.6 mg tablet (senna) 8.6 mg PO DAILY Constipation 05/15/23
zinc oxide 40 % topical ointment 1 applic topical DAILYPRN PRN 05/15/23
sacrum
Review of Systems
-
All other systems: A 12 pt ROS was Negative except as stated above in HPI
Vital Signs
Temp Pulse Resp BP Pulse Ox
98.7 F 75 16 122/55 99
05/17/23 15:39 05/17/23 15:39 05/17/23 15:39 05/17/23 15:39 05/17/23 07:40
Physical Exam
Exam
General: Other (dozing off while I am talking to her)
HEENT: Normocephalic
Respiratory: Clear
Cardiac: S1/S2
GI: Non Tender and Non Distended
Musculoskeletal: No Clubbing
Skin: Warm
Neuro: Awake (sleepy)
Psych: Calm
Results
WBC 6.8 10^3/uL (4.8-10.8) 05/17/23 06:01
Hgb 7.7 g/dL (12.0-16.0) L 05/17/23 06:01
Hct 26.4 % (37.0-47.0) L 05/17/23 06:01
MCV 97.4 fL (81.0-99.0) 05/17/23 06:01
Plt Count 10^3/uL (130-400) 05/17/23 06:01
Absolute Neuts (auto) 7.8 10^3/uL (1.4-6.5) H 05/15/23 12:09
PT 25.0 Sec (11.4-14.6) H 05/17/23 06:01
INR 2.28 05/17/23 06:01
Sodium 147 mmol/L (135-145) H 05/17/23 06:01
Potassium 3.7 mmol/L (3.5-5.1) 05/17/23 06:01
Chloride 122 mmol/L (98-107) H 05/17/23 06:01
Carbon Dioxide 22 mmol/L (22-30) 05/17/23 06:01
BUN 47 mg/dl (7-17) H 05/17/23 06:01
Creatinine 1.0 mg/dL (0.6-1.0) 05/17/23 06:01
Calcium 7.9 mg/dl (8.4-10.2) L 05/17/23 06:01
Total Bilirubin 0.7 mg/dl (0.2-1.3) 05/15/23 12:09
AST 28 U/L (14-36) 05/15/23 12:09
ALT 19 U/L (0-35) 05/15/23 12:09
Alkaline Phosphatase 70 U/L (38-126) 05/15/23 12:09
Diagnostic Image Results:
Prior GI Procedures:
Colonoscopy Dr. Puri 2014 done for rectal bleeding showed 10 mm polyp in the sigmoid, hemorrhoids, diverticulosis. Pathology showed tubular adenoma.
Upper endoscopy 2014 Dr. Puri showed long segment Frederick's, irregular Z-line, gaping lower esophageal sphincter, normal stomach biopsied, duodenum biopsy. Pathology showed normal small bowel, gastritis, Frederick's.
Assessment / Plan
-
73 yo F pmh as above here with fatigue, FUO also c/o nausea xweeks.
X-ray with gaseous distension of colon.
Recommendations:
- Get CT for further evaluation of any GI process, GFR 60, ordered with po/IV contrast
- Anemia - check iron studies
- Due for EGD for Frederick's and cscope for polyps both done 2014; seems unlikely patient candidate for screening at this point can address outpatient
-
-
Thank you for consultation and allowing me to participate in the patient's care. Please call the circulation sales representative GI physician during the after hours with any questions or concerns.
--- NOTE | 2023-05-17 16:26 | PTCARENOTE ---
Patient weaned off oxygen, P.O maintains 100% on RA. Blood transfusing, VSS. Patient appears drowsy, is falling asleep mid conversation with RN. Patient is AAOx3 when awake, and appropriately responds. Patient quickly awakes with verbal stimuli.
Patient states she is not hungry, only ate a cup of applesauce and is drinking wally rivera. Patient denies nausea at this time. Will continue to encourage meals. MD updated. Calorie count ordered.
[2023-05-17] MEDS: COUMADIN 4 MG PO (18:26)
[2023-05-18] MEDS: COMPAZINE 5 MG IV (00:30)
[2023-05-18] MEDS: SYNTHROID 150 MCG PO (05:47)
[2023-05-18 06:28] LABS: Hematocrit 28.6 % (37.0-47.0); Hemoglobin 8.7 g/dL (12.0-16.0); Mean Corp Hgb Conc. 30.4 g/dL (33.0-37.0); Mean Corpuscular Hgb 28.3 pg (27.0-31.0); Mean Corpuscular Volume 93.2 fL (81.0-99.0); Platelet Count 227 10^3/uL (130-400); Red Blood Cell Count 3.07 10^6/uL (4.20-5.40); Red Cell Dist. Width 17.9 % (11.5-14.5); White Blood Cell Count 5.9 10^3/uL (4.8-10.8)
[2023-05-18 06:42] LABS: INR 3.06; PT 31.6 Sec (11.4-14.6)
[2023-05-18 06:52] LABS: ALT (SGPT) 30 U/L (0-35); AST (SGOT) 30 U/L (14-36); Albumin 2.5 g/dl (3.5-5.0); Alkaline Phosphatase 74 U/L (38-126); Blood Urea Nitrogen 36 mg/dl (7-17); Calcium 7.9 mg/dl (8.4-10.2); Carbon Dioxide 24 mmol/L (22-30); Chloride 121 mmol/L (98-107); Estimated Creatinine Clearance 70 ml/min; Glucose 115 mg/dl (70-99); Iron 48 ug/dl (37-170); Magnesium 2.7 mg/dl (1.6-2.3); Phosphorus 2.9 mg/dl (2.5-4.5); Potassium 3.4 mmol/L (3.5-5.1); Sodium 146 mmol/L (135-145); Total Bilirubin 0.8 mg/dl (0.2-1.3); eGFR > 60.00
[2023-05-18 07:01] LABS: Percent Saturation 17 % (20-50); Total Iron Binding Capacity 272 ug/dl (265-497)
[2023-05-18 07:27] LABS: Ferritin 41.9 ng/ml (11.1-264.0)
[2023-05-18 08:00] VITALS: BP 159/73
[2023-05-18] MEDS: KCL 40 MEQ PO (08:31)
[2023-05-18] MEDS: ZOLOFT 100 MG PO ×2 (08:33→08:51)
[2023-05-18] MEDS: SENOKOT 8.59999999999999964 MG PO (08:33)
[2023-05-18] MEDS: PREVACID 30 MG PO (08:36)
[2023-05-18] MEDS: DESENEX/MITRAZOL/ZEASORB 1 APPLIC TOPICAL ×2 (08:53→19:57)
--- NOTE | 2023-05-18 10:46 | VATNOTE ---
05/18 RT PICC removed per order and tip sent for culture. right arm peripheral IV placed.
[2023-05-18 12:09] VITALS: BP 161/80
--- NOTE | 2023-05-18 12:26 | W.PN.ID1 ---
Date of Service
Date of Service: May 18, 2023
Today's Communication
Observe off antibiotics.
Assessment / Plan
Fever
- none since admit
Chronic TPN usage
Chronic Renal Stents
Class III obesity
- blood cultures with CoNS noted in 1 of 4 bottles. WBC normal. Urine culture negative.
- CXR - possible pneumonia and possible effusion
- US of the R chest without significant effusion.
-Continue off antibiotics.
����������������������������������������������������������
Chief Complaint
-: Fever
Subjective / Review of Systems
Review of Systems: No Fever and No Chills
Vital Signs / Physical Exam
Vital Signs
Vital Signs
Temp Pulse Resp BP Pulse Ox
99.1 F 74 16 161/80 96
05/18/23 12:09 05/18/23 12:09 05/18/23 12:09 05/18/23 12:09 05/18/23 12:09
Physical Exam
Constitutional: No Acute Distress, Comfortable, Chronically Ill and Non-toxic
Eyes: Sclera Anicteric
Cardiovascular: S1/S2; Negative S3/S4
Pulmonary: Non Labored
Neurological: Awake, Alert and Oriented
Objective Data
Lab Data
Lab Results
05/18/23 06:20
05/18/23 06:20
PT 31.6 Sec (11.4-14.6) H 05/18/23 06:20
INR 3.06 05/18/23 06:20
Estimated Creat Clear 70 ml/min 05/18/23 06:20
Lactic Acid Cancelled 05/15/23 16:15
Total Bilirubin 0.8 mg/dl (0.2-1.3) 05/18/23 06:20
AST 30 U/L (14-36) 05/18/23 06:20
ALT 30 U/L (0-35) 05/18/23 06:20
Alkaline Phosphatase 74 U/L (38-126) 05/18/23 06:20
Most recent labs reviewed.
Micro Results:
05/15/23 12:09 Blood Culture - Preliminary
Blood/Venous No Growth in 72 hours- Final report to follow
05/15/23 12:09 Blood Culture - Preliminary
Blood/Venous No Growth in 72 hours- Final report to follow
05/18/23 09:14 Catheter Tip Culture - Pending
Picc
05/15/23 12:57 Blood Culture - Preliminary
Blood/Venous Coagulase neg. staphylococcus
Additional testing on request
Gram Stain - Final
05/15/23 23:44 MRSA Screen - Final
Nose No Methicillin Resistant Staphylococcus aureus isolated.
05/15/23 12:09 Urine Culture - Final
Urine
05/15/23 12:31 Influenza Types A & B (MASOUD) - Final
Nasal Swab Negative for Influenza A & B, NAAT
Negative results must be combined with clinical observations
and patient history.
Nucleic Acid Amplification test (NAAT)performed on the
[employer] platform.
--- NOTE | 2023-05-18 14:04 | W.PN.GI.CBS2 ---
Today's Communication / Plan
-
CT, bowel regimen
Assessment / Plan
-
73 yo F pmh as above here with fatigue, FUO also c/o nausea for a few weeks. Diff diagnosis: constipation, hernia, medication induced (antibiotics, marinol), gastroparesis.
X-ray with gaseous distension of colon.
Recommendations:
- Get CT for further evaluation of any GI process, GFR 60, ordered with po/IV contrast - patient refusing po contrast will do with just IV
- Anemia - check iron studies - normal ferritin, low %sat but done after blood transfusion
- Per nursing only having mucous BM - will add on miralax, on senna currently, could be constipation leading to nausea.
- I d/w Dr. Zheng she is doing a calorie count.
- Due for EGD for Frederick's and cscope for polyps both done 2014; seems unlikely patient candidate for screening at this point can address outpatient
Subjective
Subjective
Date of Service: May 18, 2023
Nausea a little better
Objective
Data Reviewed
Laboratory Data:
Laboratory Results
05/18/23 06:20
05/18/23 06:20
Laboratory Results
PT 31.6 Sec (11.4-14.6) H 05/18/23 06:20
INR 3.06 05/18/23 06:20
Phosphorus 2.9 mg/dl (2.5-4.5) 05/18/23 06:20
Magnesium 2.7 mg/dl (1.6-2.3) H 05/18/23 06:20
Total Bilirubin 0.8 mg/dl (0.2-1.3) 05/18/23 06:20
AST 30 U/L (14-36) 05/18/23 06:20
ALT 30 U/L (0-35) 05/18/23 06:20
Alkaline Phosphatase 74 U/L (38-126) 05/18/23 06:20
Vital Signs and I&O:
Vital Signs
Temp Pulse Resp BP Pulse Ox
99.1 F 74 16 161/80 96
05/18/23 12:09 05/18/23 12:09 05/18/23 12:09 05/18/23 12:09 05/18/23 12:09
I&O
05/17/23 05/18/23 05/19/23
06:59 06:59 06:59
Intake Total 3110 / 3110 250 / 250
Output Total 500 / 500 325 / 325 150 / 150
Balance 2610 / 2610 -75 / -75 -150 / -150
Physical Exam
Physical Exam
GI: Non Distended and Non Tender
--- NOTE | 2023-05-18 14:11 | W.PN.HOSP.TC ---
Today's Communication/Plan
-
once nausea better and pt eating can d/c back to NH off TPN
apprec GI input
getting CT scan
Assessment / Plan
Assessment / Plan
pt is a 73 year old female
Fever/fatigue --unknown source--all cultures negative--other source could be PICC line (blood culture with coag neg staff, possibly contaminant)-- PICC d/c'd and tip cultured---History of complicated UTI with exchange right ureteral stent
removal--apprec ID, stopping ABX-- Tylenol as needed for fever--PT/OT
nausea--multifactorial--ABX, anemia, constipation? etc--abx stopped, stopped marinol--OBS series shows hernia no obstruction--apprec GI
Anemia of chronic disease--Hemoglobin 7.7--consent obtained by me--s/p pRBC --HGB 8.7
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
HX PE/DVT on Warfarin--Daily PT/INR
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
Hypothyroid--cont synthroid
Dysphagia/ recurrent aspiration-- apprec speech-- start on IDD6 diet--was d/c to NH on TPN--stopped TPN, pt eating--3 day calorie count pending
hx Incisional hernia with bowel obstruction--resolved--was sent to [facility] to get surgery, did not get surgery as resolved on own...see paperwork from [facility] on chart
CODE STATUS--DNR
Anticipated Discharge: 24 - 48 hours
Subjective/Interval History
-
Date of Service: May 18, 2023
pt still nauseous--had compazine last night but gave her an asthma attack--does not want it anymore
Objective Data
-
Labs:
Laboratory Results
05/18/23
06:20
WBC 5.9
Hgb 8.7 L
Hct 28.6 L
Plt Count 227
PT 31.6 H
INR 3.06
Sodium 146 H
Potassium 3.4 L
Chloride 121 H
Carbon Dioxide 24
BUN 36 H
Creatinine 0.9
Glucose 115 H
Calcium 7.9 L
Total Bilirubin 0.8
AST 30
ALT 30
Alkaline Phosphatase 74
Vital Signs:
max temp for 24 hours
05/17/23
19:34
Temp 98.8 F
Vital Signs
Temp Pulse Resp BP Pulse Ox
99.1 F 74 16 161/80 96
05/18/23 12:09 05/18/23 12:09 05/18/23 12:09 05/18/23 12:09 05/18/23 12:09
I&O
05/17/23 05/18/23 05/19/23
06:59 06:59 06:59
Intake Total 3110 / 3110 250 / 250
Output Total 500 / 500 325 / 325 150 / 150
Balance 2610 / 2610 -75 / -75 -150 / -150
Review of Systems
-
All other systems: Reviewed and negative
Abdomen/GI: Reports Nausea
Physical Exam
-
General: Well Developed, Well Nourished and No Apparent Distress
HEENT: Normocephalic and Atraumatic; Negative Oxygen
Respiratory: Clear to Auscultation; Negative Wheezes, Rhonchi or Crackles
Cardiac: Regular Rhythm and S1/S2; Negative Murmur
GI: Soft, Nontender, Nondistended, Normal Bowel Sounds and Other (hernia)
Musculoskeletal: No Clubbing, No Cyanosis and No Edema
Neuro: Awake
Psych: Calm
[2023-05-18 15:20] VITALS: BP 152/71
[2023-05-18] MEDS: COUMADIN 4 MG PO (18:18)
[2023-05-18 22:53] VITALS: BP 129/63
[2023-05-19] MEDS: ZOFRAN ODT (ORALLY DISINTEGRATING) 4 MG PO ×2 (01:12→15:37)
[2023-05-19] MEDS: SYNTHROID 150 MCG PO (06:02)
[2023-05-19 07:00] VITALS: BP 137/75
[2023-05-19 07:24] LABS: Hematocrit 32.9 % (37.0-47.0); Hemoglobin 9.6 g/dL (12.0-16.0); Mean Corp Hgb Conc. 29.2 g/dL (33.0-37.0); Mean Corpuscular Hgb 27.7 pg (27.0-31.0); Mean Corpuscular Volume 95.1 fL (81.0-99.0); Mean Platelet Volume 11.1 fL (7.4-10.4); Platelet Count 229 10^3/uL (130-400); Red Blood Cell Count 3.46 10^6/uL (4.20-5.40); Red Cell Dist. Width 17.5 % (11.5-14.5); White Blood Cell Count 5.5 10^3/uL (4.8-10.8)
[2023-05-19 07:32] LABS: INR 3.51; PT 35.2 Sec (11.4-14.6)
[2023-05-19 08:53] LABS: Blood Urea Nitrogen 23 mg/dl (7-17); Calcium 7.9 mg/dl (8.4-10.2); Carbon Dioxide 22 mmol/L (22-30); Chloride 118 mmol/L (98-107); Estimated Creatinine Clearance 79 ml/min; Glucose 105 mg/dl (70-99); Potassium 3.5 mmol/L (3.5-5.1); Sodium 144 mmol/L (135-145); eGFR > 60.00
[2023-05-19] MEDS: SENOKOT PO (09:03)
[2023-05-19] MEDS: PREVACID PO (09:03)
[2023-05-19] MEDS: DESENEX/MITRAZOL/ZEASORB 1 APPLIC TOPICAL ×2 (09:03→20:02)
--- NOTE | 2023-05-19 09:04 | CON.GS ---
Addendum entered and electronically signed by Neno George MD 05/19/23 10:05:
I saw and examined the patient independently.
The Debt Collection Specialist's note was reviewed and I agree with the note, assessment and plan except where noted below.
Comment: This is a 73-year-old female with a history of PE/DVT on Coumadin, right pyeloplasty with chronic ureteral stent in an extremely large, chronically incarcerated right incisional hernia with loss of domain. CT scan reviewed, much of her
small intestine and colon are in the hernia defect. There appears to be no obstruction and all the bowel appears viable. On exam the hernia is soft but irreducible. There is no overlying skin changes.
Had a hafsa discussion with the patient regarding options moving forward. She did see specialists at [facility] but was concerned about the possible postoperative complications and was dissuaded from surgery. I explained that if she were to need
emergency surgery in the future, risks of postoperative complications including prolonged intubation/respiratory failure/ would be even higher. She maintains she is not interested in surgery at this time.
As there are no signs of obstruction currently, okay for p.o. diet.
Recommend daily stool softeners/bowel regimen.
Out of bed and ambulate as able.
Extra-large abdominal binder may be helpful in support.
No acute general surgery intervention warranted at this time.
Please call with questions or concerns.
Original Note:
Consultation
-
Date/Time Consultation Requested: 05.19.23805
Requesting Provider: aster
Performing Provider: chris george
Reason for Consultation: Right sided spigelian hernia
Medical History
-
Chief Complaint: nausea
History of Present Illness:
This is a 73 yo female with h/o PE/DVT on warfarin, dysphagia/aspiration, UTI's, right pyeloplasty with chronic ureteral stent and large chronically incarcerated spigelian hernia with loss of domain who is known to our service from admission in
February of 2023 where she presented with a SBO secondary to the large hernia. She was eventually transferred to [facility] as she failed expectant management and is not a candidate for surgery at this facility. She did not proceed with hernia repair at
[facility] either and was eventually transferred to SNF with plan for chronic TPN. She presents this admission with fevers and is being treated for possible pna vs line infection. She has been resumed on a dysphagia diet and is now off TPN. She reports
some nausea and became nauseated during abdominal exam. She is passing some minimal stools with flatus.
Past Medical History
Past Medical History: COPD, HTN, Hypothyroidism, Renal Failure and Other (dysphagia/recurrent aspiration, nonfunctioning left kidney, anemia of chronic dz, incisional Spigelian hernia with prior pSBO, PE/DVT on warfarin)
Past Surgical History: Urological (right pyeloplasty with chronic stent)
Social History
Tobacco: Non-Smoker
Alcohol: None
Family History
Family History: Reviewed & Not Pertinent
Allergies / Home Medications
Allergy/AdvReac Type Severity Reaction Status Date / Time
animal dander Allergy Exacerbates Verified 03/11/23 23:13
asthma
banana Allergy Exacerbates Verified 03/11/23 23:13
asthma
cheese Allergy Exacerbates Verified 03/11/23 23:13
asthma
cigarette smoke Allergy Exacerbates Verified 03/11/23 23:13
asthma
house dust Allergy Exacerbates Verified 03/11/23 23:13
asthma
house dust mite Allergy Exacerbates Verified 03/11/23 23:13
asthma
latex [Latex] Allergy Exacerbates Verified 03/11/23 23:13
asthma
mold Allergy Exacerbates Verified 03/11/23 23:13
asthma
perfume Allergy Exacerbates Verified 03/11/23 23:13
asthma
pollen extracts Allergy Exacerbates Verified 03/11/23 23:13
asthma
ragweed pollen Allergy Exacerbates Verified 03/11/23 23:13
asthma
Medication Instructions Recorded Confirmed Type
sertraline 100 mg tablet 100 mg PO DAILY Mental 07/10/21 05/15/23 History
Health/Anxiety
levothyroxine 150 mcg tablet 150 mcg PO DAILY Thyroid 03/11/23 05/15/23 History
(Synthroid)
warfarin 2 mg tablet 4 mg PO QPM Blood Clot 03/11/23 05/15/23 History
Prevention/Tx
acetaminophen 325 mg tablet 650 mg PO Q6HPRN PRN mild pain 05/15/23 05/15/23 History
(Tylenol)
albuterol sulfate 2.5 mg/3 mL 2.5 mg inhalation R Q6HPRN PRN sob 05/15/23 05/15/23 History
(0.083 %) solution for nebulization
carboxymethylcellulose sodium 1 % 1 drp BOTH EYES Q8HPRN PRN dryness 05/15/23 05/15/23 History
eye liquid gel drops (Refresh
Liquigel)
dronabinol 5 mg capsule 5 mg PO DAILY Gastrointestinal 05/15/23 05/15/23 History
Issue
ipratropium 20 mcg-albuterol 100 1 puff inhalation R Q4HPRN PRN sob 05/15/23 05/15/23 History
mcg/actuation mist for inhalation
(Combivent Respimat)
lansoprazole 30 mg delayed 30 mg PO DAILY Gastrointestinal 05/15/23 05/15/23 History
release,disintegrating tablet Issue
nystatin 100,000 unit/gram topical 1 applic topical BID fungal rash 05/15/23 05/15/23 History
powder
ondansetron 4 mg disintegrating 4 mg PO Q6H PRN nausea 05/15/23 05/15/23 History
tablet
sennosides 8.6 mg tablet (senna) 8.6 mg PO DAILY Constipation 05/15/23 05/15/23 History
zinc oxide 40 % topical ointment 1 applic topical DAILYPRN PRN 05/15/23 05/15/23 History
sacrum
Review of Systems
-
History Source: Patient
All other systems: Negative unless noted
A 10 point review of systems was completed, and was negative except as per HPI.
Physical Exam
Vital Signs
Temp Pulse Resp BP Pulse Ox
98.4 F 75 18 137/75 94
05/19/23 07:00 05/19/23 07:00 05/19/23 07:00 05/19/23 07:00 05/19/23 07:00
Body Mass Index (BMI) 40.7
Lab Results
05/19/23 06:49
05/19/23 06:49
WBC 5.5 10^3/uL (4.8-10.8) 05/19/23 06:49
Hgb 9.6 g/dL (12.0-16.0) L 05/19/23 06:49
Hct 32.9 % (37.0-47.0) L 05/19/23 06:49
Plt Count 229 10^3/uL (130-400) 05/19/23 06:49
Abs Immat Gran (auto) 0.0 10^3/uL (0-0.05) 05/15/23 12:09
Neutrophils % 77.6 % (42.2-75.2) H 05/15/23 12:09
Physical Exam
General: Comfortable
HEENT: Moist Mucous Membranes and Other (torticollis)
Respiratory: Non Labored Respirations
GI: Soft, Non Tender and Other (Large right sided abdominal wall hernia)
Skin: Warm and Dry
Neuro: Awake, Alert and AO x 3
Psych: Calm
Data Reviewed
-
CT Scan: Image Personally Visualized and interpreted, Report Reviewed by me, Discussed with Physician and Discussed with Patient
Labs: Labs Reviewed by me, Discussed with Physician and Discussed with Patient
Old Records: Reviewed
Assessment / Plan
-
73 yo female with h/o PE/DVT on warfarin, dysphagia/aspiration, UTI's, right pyeloplasty with chronic ureteral stent and large chronically incarcerated spigelian hernia with loss of domain who is known to our service from admission in February of
2022 where she presented with a SBO secondary to the large hernia. She was transferred to [facility] that admission to discuss surgical options as she is not a candidate for surgery here. She did not pursue surgery there and was initiated on chronic TPN
and transferred to a SNF. She presented with suspected infection from facility and line was removed. She is currently on a diet with minimal nausea and no abdominal pain. She is passing some small stools with flatus.
No radiographic evidence of immediate bowel threat or compromise such as ischemia, closed-loop obstruction.� No radiographic evidence of pneumatosis, free air or free fluid. Unfortunately from a hernia standpoint this appears to be a end-stage
hernia that is likely not surgically correctable due to loss of domain. Patient says she is 'not sure' if she would ever pursue surgery but is not pursuing this now. Should patient and family wish to proceed with any type of repair or if she would
need surgery in an emergency basis, would need transfer to a tertiary care center with a hernia specialist for further evaluation and surgery if feasible.
There is likely an element of a partial SBO given the size of her hernia. H/O aspiration as well. Continued currently on a dysphagia diet and bowel regimen and thus far tolerating. If not tolerating would consider chronic TPN vs palliative care.
--- NOTE | 2023-05-19 11:32 | W.PN.GI.CBS2 ---
Addendum entered and electronically signed by Robbie Schmid MD 05/19/23 17:19:
I saw and examined the patient.
The CIRCULAR RIPSAW OPERATOR or PA's note was reviewed and I agree with the note.
Comment: 73 yo F pmh as above here with fatigue, FUO also c/o nausea for a few weeks.� Diff diagnosis: hernia (of note, had n/v last admit with hernia), constipation, medication induced (antibiotics, marinol), gastroparesis.
X-ray with gaseous distension of colon.
CT reviewed I personally interpreted images large complex hernia
Recommendations:
- Patient refusing all meds for constipation
- Will change zofran to standing
- Surgery consult reviewed
- Patient/family did not want to pursue hospice last admission, this may need to be readdressed
- Suspect nausea related to this large hernia - not much to order beyond symptomatic management
GI will sign off please call with ?s
Original Note:
Today's Communication / Plan
-
CT as noted
appreciate surgical evaluation-- discussed risk and benefits of surgery-- pt does not want to proceed
remain on oral diet but noted vomiting chocolate ice cream she just ate
cont senna and miralax
coumadin remains on hold
abd binder recommended per surgery
Due for EGD for [facility] and cscope for polyps both done 2014; seems unlikely patient candidate for screening at this point can address outpatient
Assessment / Plan
-
73 yo F pmh as above here with fatigue, FUO also c/o nausea for a few weeks. Diff diagnosis: constipation, hernia, medication induced (antibiotics, marinol), gastroparesis.
05/17/23 X-ray with gaseous distension of colon.
05/19/23 CT a/p with IV contrast
1. Remonstration of a large right-sided spigelian hernia. Improved small bowel dilatation in the hernia sac, but increased stool in the right colon within the hernia and short segment narrowing of the colon as it transitions from the hernia into the
abdomen. Increased moderate gaseous distention of colon further distally in the abdomen, as seen on the previous obstruction series from 05/17/2023.
2. Subacute pelvic hematoma with decreased size and density compared to the prior CT.
-fever of unknown origin
-chronic TPN use
-anemia
-large chronically incarcerated spegelian right incisional hernia
-PE/DVT on coumadin
-right pyeloplasty with chronic ureteral stent
PLAN:
CT as noted
appreciate surgical evaluation-- discussed risk and benefits of surgery-- pt does not want to proceed
remain on oral diet but noted vomiting chocolate ice cream she just ate
cont senna and miralax
coumadin remains on hold
abd binder recommended per surgery
Due for EGD for [facility] and c scope for polyps both done 2014; seems unlikely patient candidate for screening at this point can address outpatient
Subjective
Subjective
Date of Service: May 19, 2023
05/18 mucoid stool, IDDS 6 diet but vomited chocolate ice cream during exam 1 hour after eating , she relates she vomiting as least one time daily prior to admission when she was NPO
Objective
Data Reviewed
Laboratory Data:
Laboratory Results
05/19/23 06:49
05/19/23 06:49
Laboratory Results
PT 35.2 Sec (11.4-14.6) H 05/19/23 06:49
INR 3.51 05/19/23 06:49
Phosphorus 2.9 mg/dl (2.5-4.5) 05/18/23 06:20
Magnesium 2.7 mg/dl (1.6-2.3) H 05/18/23 06:20
Total Bilirubin 0.8 mg/dl (0.2-1.3) 05/18/23 06:20
AST 30 U/L (14-36) 05/18/23 06:20
ALT 30 U/L (0-35) 05/18/23 06:20
Alkaline Phosphatase 74 U/L (38-126) 05/18/23 06:20
Vital Signs and I&O:
Vital Signs
Temp Pulse Resp BP Pulse Ox
98.4 F 75 18 137/75 94
05/19/23 07:00 05/19/23 07:00 05/19/23 07:00 05/19/23 07:00 05/19/23 07:00
I&O
05/18/23 05/19/23 05/20/23
06:59 06:59 06:59
Intake Total 250 / 250 1280 / 1280 840 / 840
Output Total 325 / 325 150 / 150
Balance -75 / -75 1130 / 1130 840 / 840
Physical Exam
Physical Exam
HEENT: Anicteric and Moist mucous membranes
Cardiology: Normal Sinus Rhythm
Pulmonary: Clear
GI: Soft, Non Distended, Non Tender and Other (large abdomen )
Neuro: Non Focal
--- NOTE | 2023-05-19 14:18 | W.PN.ID1 ---
Date of Service
Date of Service: May 19, 2023
Today's Communication
-Continue off antibiotics.
ID service will no longer actively follow this patient please recall for further questions
Assessment / Plan
Fever
- none since admit
Chronic TPN usage
Chronic Renal Stents
Class III obesity
- blood cultures with CoNS noted in 1 of 4 bottles. WBC normal. Urine culture negative.
- cath tip negative
-Continue off antibiotics.
ID service will no longer actively follow this patient please recall for further questions
����������������������������������������������������������
Chief Complaint
-: Fever
Subjective / Review of Systems
afebrile
bp stable
remains without leukocytosis
cr stable
cath tip culture negative
Vital Signs / Physical Exam
Vital Signs
Vital Signs
Temp Pulse Resp BP Pulse Ox
98.4 F 75 18 137/75 94
05/19/23 07:00 05/19/23 07:00 05/19/23 07:00 05/19/23 07:00 05/19/23 07:00
Physical Exam
Constitutional: No Acute Distress
Cardiovascular: Regular Rate and S1/S2; Negative Murmur or Rub
Pulmonary: Clear and Symmetric; Negative Wheezes or Rales
Gastrointestinal: Soft, Non Tender, Non Distended and Normal Bowel Sounds
Skin: Warm and Dry; Negative Rash or Jaundice
Objective Data
Lab Data
Lab Results
05/19/23 06:49
05/19/23 06:49
PT 35.2 Sec (11.4-14.6) H 05/19/23 06:49
INR 3.51 05/19/23 06:49
Estimated Creat Clear 79 ml/min 05/19/23 06:49
Lactic Acid Cancelled 05/15/23 16:15
Total Bilirubin 0.8 mg/dl (0.2-1.3) 05/18/23 06:20
AST 30 U/L (14-36) 05/18/23 06:20
ALT 30 U/L (0-35) 05/18/23 06:20
Alkaline Phosphatase 74 U/L (38-126) 05/18/23 06:20
Most recent labs reviewed.
Micro Results:
05/15/23 12:09 Blood Culture - Preliminary
Blood/Venous No Growth in 4 days- Final report to follow
05/15/23 12:09 Blood Culture - Preliminary
Blood/Venous No Growth in 4 days- Final report to follow
05/18/23 09:14 Catheter Tip Culture - Preliminary
Picc No Growth After 18-24 Hours
05/15/23 12:57 Blood Culture - Final
Blood/Venous Coagulase neg. staphylococcus
Additional testing on request
Gram Stain - Final
05/15/23 23:44 MRSA Screen - Final
Nose No Methicillin Resistant Staphylococcus aureus isolated.
05/15/23 12:09 Urine Culture - Final
Urine
05/15/23 12:31 Influenza Types A & B ([facility]) - Final
Nasal Swab Negative for Influenza A & B, NAAT
Negative results must be combined with clinical observations
and patient history.
Nucleic Acid Amplification test (NAAT)performed on the
[employer] platform.
[2023-05-19 15:00] VITALS: BP 129/73
--- NOTE | 2023-05-19 16:29 | W.PN.HOSP.TC ---
Today's Communication/Plan
-
guarded prognosis
continue conservative management
will re-discuss GOC with patient/family
Assessment / Plan
Assessment / Plan
CT a/p
1. Re-demonstration of a large right-sided spigelian hernia. Improved small bowel dilatation in the hernia sac, but increased stool in the right colon within the hernia and short segment narrowing of the colon as it transitions from the hernia into
the abdomen. Increased moderate gaseous distention of colon further distally in the abdomen, as seen on the previous obstruction series from 05/17/2023.
2. Subacute pelvic hematoma with decreased size and density compared to the prior CT.

Right sided spigelian hernia
Nausea/vomiting
-Patient was transferred to [facility] in March 22 for surgical treatment of hernia although patient declined sx.
-GI and general surgery evaluated
-CT abdomen pelvis showing increased stool burden in bowel located in hernia, dilated colon loop in abdomen - see CT scan above
-Discussed with patient for potential need of surgery if needed strangulated or any other complication arise, patient have declined to undergo surgery. Patient understands may require comfort care if not improved.
Fever/fatigue
-unknown source
-all cultures negative
-PICC line has been removed and tip cultured
-Patient has been taken off of IV antibiotics per ID recommendation, continue monitor
HX PE/DVT on Warfarin
-INR supratherapeutic, hold warfarin dose today
-Monitor INR and will restart once in range
Dysphagia/ recurrent aspiration
- appreciated speech
- start on IDD6 diet
- was d/c to NH on TPN, currently off of TPN. Poor caloric intake.
Anemia of chronic disease
-S/p 1 unit of PRBC for hemoglobin of 7.7
Unilateral Rt Kidney with CKD 3b/4
HX Asthma/ COPD
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
Chronic hypoxic respiratory failure- on 2L o2
Hypothyroidism
CODE STATUS--DNR
Anticipated Discharge: > 48 hours
Subjective/Interval History
-
Date of Service: May 19, 2023
Continues to have nausea, episode of vomiting as well
No bowel movement still
No other acute issues reported
Objective Data
-
Labs:
Laboratory Results
05/19/23
06:49
WBC 5.5
Hgb 9.6 L
Hct 32.9 L
Plt Count 229
PT 35.2 H
INR 3.51
Sodium 144
Potassium 3.5
Chloride 118 H
Carbon Dioxide 22
BUN 23 H
Creatinine 0.8
Glucose 105 H
Calcium 7.9 L
Vital Signs:
Vital Signs
Temp Pulse Resp BP Pulse Ox
97.9 F 73 18 129/73 98
05/19/23 15:00 05/19/23 15:00 05/19/23 15:00 05/19/23 15:00 05/19/23 15:00
I&O
05/18/23 05/19/23 05/20/23
06:59 06:59 06:59
Intake Total 250 / 250 1280 / 1280 840 / 840
Output Total 325 / 325 150 / 150
Balance -75 / -75 1130 / 1130 840 / 840
Review of Systems
-
All other systems: Reviewed and negative
Physical Exam
-
General: No Apparent Distress
HEENT: Negative Oxygen
Respiratory: Clear to Auscultation; Negative Wheezes
Cardiac: Regular Rhythm and S1/S2; Negative Murmur
GI: Soft and Other (right lower quadarant hernia, soft , non tender on exam); Negative Normal Bowel Sounds (Tympanic Bowel sounds)
Musculoskeletal: No Edema
Neuro: Awake, Alert and Oriented
Psych: Calm
[2023-05-19 22:00] VITALS: BP 117/13
[2023-05-19] MEDS: ZOFRAN 4 MG PO (23:19)
[2023-05-20] MEDS: SYNTHROID 150 MCG PO (05:21)
[2023-05-20 07:00] VITALS: BP 133/71
[2023-05-20 07:51] LABS: Mean Corp Hgb Conc. 29.4 g/dL (33.0-37.0); Mean Corpuscular Volume 95.2 fL (81.0-99.0); Mean Platelet Volume 11.4 fL (7.4-10.4); Platelet Count 256 10^3/uL (130-400); Red Blood Cell Count 3.57 10^6/uL (4.20-5.40); Red Cell Dist. Width 17.2 % (11.5-14.5); White Blood Cell Count 6.3 10^3/uL (4.8-10.8)
[2023-05-20 07:59] LABS: INR 3.59; PT 35.8 Sec (11.4-14.6)
[2023-05-20] MEDS: SENOKOT PO (08:05)
[2023-05-20] MEDS: PREVACID 30 MG PO (08:07)
[2023-05-20] MEDS: ZOLOFT 100 MG PO (08:07)
[2023-05-20] MEDS: DESENEX/MITRAZOL/ZEASORB 1 APPLIC TOPICAL (08:07)
[2023-05-20] MEDS: ZOFRAN 4 MG PO ×3 (08:07→23:57)
[2023-05-20 08:28] LABS: Blood Urea Nitrogen 23 mg/dl (7-17); Calcium 8.2 mg/dl (8.4-10.2); Carbon Dioxide 23 mmol/L (22-30); Chloride 114 mmol/L (98-107); Estimated Creatinine Clearance 79 ml/min; Glucose 115 mg/dl (70-99); Potassium 3.6 mmol/L (3.5-5.1); Sodium 144 mmol/L (135-145); eGFR > 60.00
--- NOTE | 2023-05-20 08:39 | PN.CDI ---
CDI
- -
CDI:
Physician Documentation Request
Admit Date: 05/15/23 15:44
Dear Doctor Prasanth,
Please review the following and provide your response in the progress notes.
Clinical Indicators:
- 05/18 Potassium level 3.4
- 05/18 40meq PO potassium chloride given
- 05/19 Potassium level 3.5
Please provide a diagnosis for the above lab values that were monitored and treatment rendered:
Hypokalemia
Clinically insignificant abnormal lab value
Other
Use of terms such as suspected, likely, concern for, or probable (associated with a specific diagnosis that is being evaluated, monitored, or treated as if it exists) are acceptable and can be coded in the inpatient setting, when documented at the
time of discharge.
Thank you,
Cristal Rosa RN
CDI Specialist
Please use your independent medical judgment in providing your response.
--- NOTE | 2023-05-20 10:03 | PN.CDI ---
CDI
- -
CDI:
Physician Documentation Request
Admit Date: 05/15/23 15:44
Dear Doctor Prasanth
Please review the following and provide your response in the progress notes.
Clinical Indicators:
The diagnosis of UTI was documented on 05/16 PN but is not consistently noted in subsequent documentation.
- 05/16 PN 'Fever/fatigue likely from urinary tract infection...History of complicated UTI with exchange right ureteral stent removal'
- 05/19 PN 'Fever/fatigue...-unknown source...Patient has been taken off of IV antibiotics per ID recommendation'
- per ER Physician 'She was given a dose of ceftriaxone' by nursing facility
Please clarify the following:
____ - UTI was present on admission and is now resolved.
____ - UTI was present on admission and is still being monitored, evaluated or treated
____ - UTI was ruled out
____ - Other
Use of terms such as suspected, likely, concern for, or probable (associated with a specific diagnosis that is being evaluated, monitored, or treated as if it exists) are acceptable and can be coded in the inpatient setting, when documented at the
time of discharge.
Thank you,
Cristal Rosa RN
CDI Specialist
Please use your independent medical judgment in providing your response.
--- NOTE | 2023-05-20 10:03 | W.PN.HOSP.TC ---
Addendum entered and electronically signed by Jaydon Rader MD 05/20/23 15:21:
UTI was ruled out
Hypokalemia - replace as needed
Original Note:
Today's Communication/Plan
-
continue stool softeners, expect diarrhea
starting on reglan scheduled
Assessment / Plan
Assessment / Plan
CT a/p
1. Re-demonstration of a large right-sided spigelian hernia. Improved small bowel dilatation in the hernia sac, but increased stool in the right colon within the hernia and short segment narrowing of the colon as it transitions from the hernia into
the abdomen. Increased moderate gaseous distention of colon further distally in the abdomen, as seen on the previous obstruction series from 05/17/2023.
2. Subacute pelvic hematoma with decreased size and density compared to the prior CT.

Right sided spigelian hernia
Nausea/vomiting
-Patient was transferred to [facility] in March 22 for surgical treatment of hernia although patient declined sx.
-GI and general surgery evaluated
-CT abdomen pelvis showing increased stool burden in bowel located in hernia, dilated colon loop in abdomen - see CT scan above
-Discussed with patient for potential need of surgery if needed strangulated or any other complication arise, patient have declined to undergo surgery. Patient understands may require comfort care if not improved.
-Patient had 4 BMs last night, will continue stool softeners.
-Adding reglan scheduled for now. continue prn zofran,
Fever/fatigue
-unknown source
-all cultures negative
-PICC line has been removed and tip cultured
-Patient has been taken off of IV antibiotics per ID recommendation, continue monitor
HX PE/DVT on Warfarin
-INR supratherapeutic, hold warfarin dose today
-Monitor INR and will restart once in range
Dysphagia/ recurrent aspiration
- appreciated speech
- start on IDD6 diet
- was d/c to NH on TPN, currently off of TPN. Poor caloric intake.
Anemia of chronic disease
-S/p 1 unit of PRBC for hemoglobin of 7.7
Unilateral Rt Kidney with CKD 3b/4
HX Asthma/ COPD
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
Chronic hypoxic respiratory failure- on 2L o2
Hypothyroidism
CODE STATUS--DNR
05/20 Sister updated about difficult patient situation and need for emegergnt surgery if patient hernia strangulates/obstructs. As patient have declined surgery in the past if patient have complication from hernia , comfort care will be required.
Sister understands.
I have discussed the same with patient.
Anticipated Discharge: 24 - 48 hours
Subjective/Interval History
-
Date of Service: May 20, 2023
RN reported 4 large BM yesterday
no abd pain
continues to have some nausea/vomiting
Objective Data
-
Labs:
Laboratory Results
05/20/23
06:56
WBC 6.3
Hgb 10.0 L
Hct 34.0 L
Plt Count 256
PT 35.8 H
INR 3.59
Sodium 144
Potassium 3.6
Chloride 114 H
Carbon Dioxide 23
BUN 23 H
Creatinine 0.8
Glucose 115 H
Calcium 8.2 L
Vital Signs:
Vital Signs
Temp Pulse Resp BP Pulse Ox
98.1 F 82 18 133/71 98
05/20/23 07:00 05/20/23 07:00 05/20/23 07:00 05/20/23 07:00 05/20/23 07:00
I&O
05/19/23 05/20/23 05/21/23
06:59 06:59 06:59
Intake Total 1280 / 1280 2219
Output Total 150 / 150
Balance 1130 / 1130 2219
Review of Systems
-
Respiratory: Reports No Symptoms
Cardiac: Reports No Symptoms
Abdomen/GI: Reports Nausea and Vomiting
Physical Exam
-
General: No Apparent Distress
HEENT: Negative Oxygen
Respiratory: Clear to Auscultation; Negative Wheezes
Cardiac: Regular Rhythm and S1/S2; Negative Murmur
GI: Soft and Other (right lower quadrant hernia, soft , non tender on exam); Negative Normal Bowel Sounds (Tympanic Bowel sounds)
Musculoskeletal: No Edema
Neuro: Awake, Alert and Oriented
Psych: Calm
[2023-05-20] MEDS: REGLAN 5 MG IV ×2 (11:05→17:14)
[2023-05-20 15:00] VITALS: BP 140/74
[2023-05-20 23:57] VITALS: BP 134/74
[2023-05-21] MEDS: DESENEX/MITRAZOL/ZEASORB 1 APPLIC TOPICAL ×3 (00:44→19:54)
[2023-05-21] MEDS: REGLAN 5 MG IV ×3 (00:45→17:29)
[2023-05-21] MEDS: FLUSH (NSS) 2 FLUSH IV (00:46)
--- NOTE | 2023-05-21 04:43 | DOWNTIME ---
There was a [employer] Client [employer]ing Teacher Downtime on 05/21/2023 from 0111 to 05/21/2023 at 0405. Downtime documentation of patient's care, including medication administrations, has been reconciled in the electronic record per guidelines. Refer to the
patient's paper chart under the miscellaneous tab to see printed paper medication records and downtime forms.
[2023-05-21] MEDS: SYNTHROID 150 MCG PO (06:23)
[2023-05-21 07:20] VITALS: BP 164/84
[2023-05-21] MEDS: SENOKOT PO (08:20)
[2023-05-21] MEDS: ZOLOFT 100 MG PO (08:21)
[2023-05-21] MEDS: ZOFRAN 4 MG PO ×2 (08:21→15:50)
[2023-05-21] MEDS: PREVACID 30 MG PO (08:22)
--- NOTE | 2023-05-21 10:02 | PTOTSP ---
Chart reviewed and spoke with RN; whom cleared patient to participate in session.
Discussed goals of therapy with patient and asked if she wants to participate in working towards her goals.
Patient states, 'I'm too tired.' Educated on importance of participation despite fatigue. Continues to refuse.
Discussed with patient; will discharge from case load at this time and she will tell nursing when she is ready to begin participating in therapy. She verbalized understanding. Will discharge at this time. When patient is willing to participate;
please re-consult.
[2023-05-21 10:27] LABS: INR 3.63; PT 36.7 Sec (11.4-14.6)
[2023-05-21 10:31] LABS: Blood Urea Nitrogen 17 mg/dl (7-17); Calcium 7.8 mg/dl (8.4-10.2); Carbon Dioxide 24 mmol/L (22-30); Chloride 114 mmol/L (98-107); Estimated Creatinine Clearance 70 ml/min; Glucose 96 mg/dl (70-99); Potassium 3.4 mmol/L (3.5-5.1); Sodium 140 mmol/L (135-145); eGFR > 60.00
--- NOTE | 2023-05-21 15:03 | W.PN.HOSP.TC ---
Today's Communication/Plan
-
continue monitor oral intake
continue symptomatic care for nausea
monitor Bowel function
Assessment / Plan
Assessment / Plan
CT a/p
1. Re-demonstration of a large right-sided spigelian hernia. Improved small bowel dilatation in the hernia sac, but increased stool in the right colon within the hernia and short segment narrowing of the colon as it transitions from the hernia into
the abdomen. Increased moderate gaseous distention of colon further distally in the abdomen, as seen on the previous obstruction series from 05/17/2023.
2. Subacute pelvic hematoma with decreased size and density compared to the prior CT.

Right sided spigelian hernia
Nausea/vomiting
-Patient was transferred to [facility] in March 22 for surgical treatment of hernia although patient declined sx.
-GI and general surgery evaluated
-CT abdomen pelvis showing increased stool burden in bowel located in hernia, dilated colon loop in abdomen - see CT scan above
-Discussed with patient for potential need of surgery if needed strangulated or any other complication arise, patient have declined to undergo surgery. Patient understands may require comfort care if not improved.
-Patient started having significant liquid stool from laxative use. Will continue daily stool softeners
-Follow-up abdominal x-ray showing decrease stool burden
Fever/fatigue - resolved
-unknown source
-all cultures negative
-PICC line has been removed and tip cultured
-Patient has been taken off of IV antibiotics per ID recommendation, continue monitor
HX PE/DVT on Warfarin
-INR remains supratherapeutic, hold warfarin dose for now
-Monitor INR and will restart once in range
Dysphagia/ recurrent aspiration
- appreciated speech
- start on IDD6 diet
- was d/c to NH on TPN, currently off of TPN. Poor caloric intake.
Anemia of chronic disease
-S/p 1 unit of PRBC for hemoglobin of 7.7
-Hbg stable close to 10, remains stable
-Would NOT give iron pills as constipating in nature
Unilateral Rt Kidney with CKD 3b/4
HX Asthma/ COPD
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
Chronic hypoxic respiratory failure- on 2L o2
Hypothyroidism
CODE STATUS--DNR
05/20 Sister updated about difficult patient situation and need for emegergnt surgery if patient hernia strangulates/obstructs. As patient have declined surgery in the past if patient have complication from hernia , comfort care will be required.
Sister understands.
I have discussed the same with patient.
05/21 Sister updated at bedside. Images reviewed in person and discussed pathophysiology of spigelian hernia in person.
Anticipated Discharge: Within 24 hours
Subjective/Interval History
-
Date of Service: May 21, 2023
Having good bowel movements
Still have some nausea, poor appetite
Objective Data
-
Labs:
Laboratory Results
05/21/23
10:03
PT 36.7 H
INR 3.63
Sodium 140
Potassium 3.4 L
Chloride 114 H
Carbon Dioxide 24
BUN 17
Creatinine 0.9
Glucose 96
Calcium 7.8 L
Vital Signs:
Vital Signs
Temp Pulse Resp BP Pulse Ox
98.6 F 76 20 164/84 96
05/21/23 07:20 05/21/23 07:20 05/21/23 07:20 05/21/23 07:20 05/21/23 07:20
I&O
05/20/23 05/21/23 05/22/23
06:59 06:59 06:59
Intake Total 2219 0 0
Balance 2219 0 0
Review of Systems
-
All other systems: Reviewed and negative
Physical Exam
-
General: No Apparent Distress
HEENT: Negative Oxygen
Respiratory: Clear to Auscultation; Negative Wheezes
Cardiac: Regular Rhythm and S1/S2; Negative Murmur
GI: Soft and Other (right lower quadrant hernia, soft , non tender on exam); Negative Normal Bowel Sounds (Tympanic Bowel sounds)
Musculoskeletal: No Edema
Neuro: Awake, Alert and Oriented
Psych: Calm
[2023-05-21 15:35] VITALS: BP 134/66
[2023-05-21 23:49] VITALS: BP 128/72
[2023-05-22] MEDS: ZOFRAN 4 MG PO ×4 (00:15→23:04)
[2023-05-22] MEDS: REGLAN 5 MG IV ×3 (02:28→17:17)
[2023-05-22] MEDS: SYNTHROID 150 MCG PO (05:50)
[2023-05-22 07:30] VITALS: BP 127/68
[2023-05-22 08:21] LABS: INR 3.54
[2023-05-22] MEDS: SENOKOT PO (08:47)
[2023-05-22] MEDS: PREVACID 30 MG PO (08:47)
[2023-05-22] MEDS: DESENEX/MITRAZOL/ZEASORB 1 APPLIC TOPICAL ×2 (08:47→19:40)
[2023-05-22] MEDS: ZOLOFT 100 MG PO (08:47)
[2023-05-22 10:23] LABS: Blood Urea Nitrogen 17 mg/dl (7-17); Calcium 7.9 mg/dl (8.4-10.2); Carbon Dioxide 25 mmol/L (22-30); Chloride 110 mmol/L (98-107); Estimated Creatinine Clearance 79 ml/min; Glucose 94 mg/dl (70-99); Potassium 3.4 mmol/L (3.5-5.1); Sodium 140 mmol/L (135-145); eGFR > 60.00
[2023-05-22 13:49] VITALS: BP 122/51; PULSE 78; O2SAT 97
[2023-05-22 13:50] VITALS: BP 122/51; PULSE 78; O2SAT 96
--- NOTE | 2023-05-22 14:22 | W.PN.HOSP.TC ---
Today's Communication/Plan
-
Continue encourage oral intake
Medication compliance remains an issue
Discharge planning for snf rehab
Assessment / Plan
Assessment / Plan
CT a/p
1. Re-demonstration of a large right-sided spigelian hernia. Improved small bowel dilatation in the hernia sac, but increased stool in the right colon within the hernia and short segment narrowing of the colon as it transitions from the hernia into
the abdomen. Increased moderate gaseous distention of colon further distally in the abdomen, as seen on the previous obstruction series from 05/17/2023.
2. Subacute pelvic hematoma with decreased size and density compared to the prior CT.

Right sided spigelian hernia
Nausea/vomiting
-Patient was transferred to [facility] in March 22 for surgical treatment of hernia although patient declined sx.
-GI and general surgery evaluated
-CT abdomen pelvis showing increased stool burden in bowel located in hernia, dilated colon loop in abdomen - see CT scan above
-Discussed with patient for potential need of surgery if needed strangulated or any other complication arise, patient have declined to undergo surgery. Patient understands may require comfort care if not improved.
-Medication compliance remains a problem, patient continues to decline stool softener/laxative. Discussed at length with patient with patient high risk of recurrence of GI issues/hernia complication if gets constipated
Fever/fatigue - resolved
-unknown source
-all cultures negative
-PICC line has been removed and tip cultured
-Patient has been taken off of IV antibiotics per ID recommendation, continue monitor
HX PE/DVT on Warfarin
-INR remains supratherapeutic, hold warfarin dose for now
-Monitor INR and will restart once in range
Dysphagia/ recurrent aspiration
- appreciated speech
- start on IDD6 diet
- was d/c to NH on TPN, currently off of TPN. Poor caloric intake.
Anemia of chronic disease
-S/p 1 unit of PRBC for hemoglobin of 7.7
-Hbg stable close to 10, remains stable
-Would NOT give iron pills as constipating in nature
Generalized weakness
-Patient unable to sit up in bed. Requesting to be discharged home. No care provider at home and will need to go SNF rehab.
Unilateral Rt Kidney with CKD 3b/4
HX Asthma/ COPD
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
Chronic hypoxic respiratory failure- on 2L o2
Hypothyroidism
CODE STATUS--DNR
05/20 Sister updated about difficult patient situation and need for emegergnt surgery if patient hernia strangulates/obstructs. As patient have declined surgery in the past if patient have complication from hernia , comfort care will be required.
Sister understands.
I have discussed the same with patient.
05/21 Sister updated at bedside. Images reviewed in person and discussed pathophysiology of spigelian hernia in person.
05/22 Sister/POA updated.
Anticipated Discharge: Within 24 hours
Subjective/Interval History
-
Date of Service: May 22, 2023
Continues to have poor appetite
Medication compliance remains a problem
Stated of nausea better with medication, no reported vomiting
Objective Data
-
Labs:
Laboratory Results
05/22/23 05/22/23
06:29 09:00
PT 36.0 H
INR 3.54
Sodium Cancelled 140
Potassium Cancelled 3.4 L
Chloride Cancelled 110 H
Carbon Dioxide Cancelled 25
BUN Cancelled 17
Creatinine Cancelled 0.8
Glucose Cancelled 94
Calcium Cancelled 7.9 L
Vital Signs:
Vital Signs
Temp Pulse Resp BP Pulse Ox
98.3 F 74 20 127/68 93
05/22/23 07:30 05/22/23 07:30 05/22/23 07:30 05/22/23 07:30 05/22/23 09:50
I&O
05/21/23 05/22/23 05/23/23
06:59 06:59 06:59
Intake Total 0 / 0 720 / 720
Output Total 200 / 200
Balance 0 / 0 520 / 520
Review of Systems
-
Respiratory: Reports No Symptoms
Cardiac: Reports No Symptoms
Abdomen/GI: Denies Abdominal Pain, Nausea or Vomiting
Physical Exam
-
General: No Apparent Distress
HEENT: Negative Oxygen
Respiratory: Clear to Auscultation; Negative Wheezes
Cardiac: Regular Rhythm and S1/S2; Negative Murmur
GI: Soft, Nondistended and Normal Bowel Sounds; Negative Tender
Musculoskeletal: No Edema
Neuro: Awake, Alert and Oriented
Psych: Calm
[2023-05-22 15:25] VITALS: BP 136/76
--- NOTE | 2023-05-22 16:26 | CM ---
CM following re: d/c planning
Chart reviewed
Pt discharge anticipated within the next 24 hours
Pt had been refusing PT/OT; today she did participate somewhat and CM will place updated therapy notes in care port for [facility] to review and admissions will obtain insurance auth
CM spoke with the patient's sister August and asked for additional facilities to place referrals and she requested referrals be sent to [facility]
CM will continue to remain available to the patient and assist with d/c needs as indicated
PLAN; d/c to SNF
[2023-05-22 23:00] VITALS: BP 133/69
[2023-05-23] MEDS: REGLAN 5 MG IV ×3 (01:37→17:40)
[2023-05-23] MEDS: SYNTHROID 150 MCG PO (04:42)
[2023-05-23 07:00] VITALS: BP 129/73
[2023-05-23 07:54] LABS: INR 3.54; PT 35.5 Sec (11.4-14.6)
[2023-05-23 08:26] LABS: Blood Urea Nitrogen 13 mg/dl (7-17); Calcium 7.8 mg/dl (8.4-10.2); Carbon Dioxide 22 mmol/L (22-30); Chloride 113 mmol/L (98-107); Estimated Creatinine Clearance 70 ml/min; Glucose 94 mg/dl (70-99); Potassium 3.3 mmol/L (3.5-5.1); Sodium 139 mmol/L (135-145); eGFR > 60.00
[2023-05-23] MEDS: PREVACID 30 MG PO (09:02)
[2023-05-23] MEDS: DESITIN MAXIMUM STRENGTH PASTE 1 APPLIC TOPICAL (09:02)
[2023-05-23] MEDS: DESENEX/MITRAZOL/ZEASORB 1 APPLIC TOPICAL (09:02)
[2023-05-23] MEDS: ZOLOFT 100 MG PO (09:02)
[2023-05-23] MEDS: ZOFRAN 4 MG PO ×2 (09:02→17:40)
[2023-05-23] MEDS: SENOKOT PO (09:03)
--- NOTE | 2023-05-23 09:36 | W.PN.HOSP.TC ---
Today's Communication/Plan
-
continues to decline some meds
d/c planning for rehab
Assessment / Plan
Assessment / Plan
CT a/p
1. Re-demonstration of a large right-sided spigelian hernia. Improved small bowel dilatation in the hernia sac, but increased stool in the right colon within the hernia and short segment narrowing of the colon as it transitions from the hernia into
the abdomen. Increased moderate gaseous distention of colon further distally in the abdomen, as seen on the previous obstruction series from 05/17/2023.
2. Subacute pelvic hematoma with decreased size and density compared to the prior CT.

Right sided spigelian hernia
Nausea/vomiting
-Patient was transferred to [facility] in March 22 for surgical treatment of hernia although patient declined sx.
-GI and general surgery evaluated
-CT abdomen pelvis showing increased stool burden in bowel located in hernia, dilated colon loop in abdomen - see CT scan above
-Discussed with patient for potential need of surgery if needed strangulated or any other complication arise, patient have declined to undergo surgery. Patient understands may require comfort care if not improved.
-Medication compliance remains a problem, patient continues to decline stool softener/laxative. Discussed at length with patient with patient high risk of recurrence of GI issues/hernia complication if gets constipated
Fever/fatigue - resolved
-unknown source
-all cultures negative
-PICC line has been removed and tip cultured
-Patient has been taken off of IV antibiotics per ID recommendation, continue monitor
HX PE/DVT on Warfarin
-INR remains supratherapeutic, hold warfarin dose for now
-Monitor INR and will restart once in range
Dysphagia/ recurrent aspiration
- appreciated speech
- start on IDD6 diet
- was d/c to NH on TPN, currently off of TPN. Poor caloric intake.
Anemia of chronic disease
-S/p 1 unit of PRBC for hemoglobin of 7.7
-Hbg stable close to 10, remains stable
-Would NOT give iron pills as constipating in nature
Generalized weakness
-Patient unable to sit up in bed. Requesting to be discharged home. No care provider at home and will need to go SNF rehab.
Hypokalemia
-replace PRN
Unilateral Rt Kidney with CKD 3b/4
HX Asthma/ COPD
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
Chronic hypoxic respiratory failure- on 2L o2
Hypothyroidism
CODE STATUS--DNR
05/20 Sister updated about difficult patient situation and need for emegergnt surgery if patient hernia strangulates/obstructs. As patient have declined surgery in the past if patient have complication from hernia , comfort care will be required.
Sister understands.
I have discussed the same with patient.
05/21 Sister updated at bedside. Images reviewed in person and discussed pathophysiology of spigelian hernia in person.
05/22 Sister/POA updated.
Anticipated Discharge: Today
Subjective/Interval History
-
Date of Service: May 23, 2023
Continues to have bowel movement
minimal nausea
poor appetite
Objective Data
-
Labs:
Laboratory Results
05/23/23
06:53
PT 35.5 H
INR 3.54
Sodium 139
Potassium 3.3 L
Chloride 113 H
Carbon Dioxide 22
BUN 13
Creatinine 0.9
Glucose 94
Calcium 7.8 L
Vital Signs:
Vital Signs
Temp Pulse Resp BP Pulse Ox
98.2 F 77 18 129/73 97
05/23/23 07:00 05/23/23 07:00 05/23/23 07:00 05/23/23 07:00 05/23/23 07:00
I&O
05/22/23 05/23/23 05/24/23
06:59 06:59 06:59
Intake Total 720 / 720 1920 / 1920
Output Total 200 / 200 300 / 300
Balance 520 / 520 1620 / 1620
Review of Systems
-
Respiratory: Reports No Symptoms
Cardiac: Reports No Symptoms
Abdomen/GI: Reports Nausea; Denies Abdominal Pain or Vomiting
Physical Exam
-
General: No Apparent Distress
HEENT: Negative Oxygen
Respiratory: Clear to Auscultation; Negative Wheezes
Cardiac: Regular Rhythm and S1/S2; Negative Murmur
GI: Soft, Normal Bowel Sounds and Other (Right flank hernia - soft/nontender); Negative Tender
Musculoskeletal: No Edema
Neuro: Awake, Alert and Oriented
Psych: Calm
--- NOTE | 2023-05-23 15:30 | CM ---
CM following re: d/c planning
Chart reviewed
Pt is medically stable for d/c and will be transferred to [facility]; authorization obtained by [facility]ong at [facility]
CM called and spoke with the patient's sister August to update her on patient status
IMM was reviewed with the patient and copy left at bedside
LOMN & inhouse transport forms were completed and provided to and transport time confirmed for 6:30p
GENEVIEVE sent a message to Bong Grant/blaire at the facility with transport time
No additional d/c needs noted
PLAN; d/c to [facility]
Report: [phone] ask for nursing supervisor [employer]

Pt approved for 5 days
SOC 05/23/23 with NRD 05/27/23
Authorization# [id number]
[facility] has the number(s) to call for concurrent reviews
--- NOTE | 2023-05-23 18:30 | PTCARENOTE ---
Called and gave report to Nursing Facility. Awaiting transfer.
--- NOTE | 2023-05-24 07:13 | W.DCSUMMARY ---
Discharge Summary
Discharge Data
Date of Admission: 05/15/23
Date of Discharge: 05/23/23
-
Pending Results: No
Hospital Course
Discharging Physician : Dr Jaydon Rader
Disposition : SNF rehab
Primary care physician : Dr Nga Petty
Principal Discharge diagnosis :
Right-sided spigelian hernia
Nausea and vomiting
Severe constipation
Fever of unknown origin
History of pulmonary embolism/deep venous thrombosis on warfarin
Chronic Discharge diagnosis :
Dysphagia
History of recurrent aspiration
Anemia of chronic disease
Chronic ambulatory dysfunction
Unilateral right kidney
Chronic kidney disease stage IIIb
History of asthma/chronic obstructive pulmonary disease
Restrictive lung disease
Severe kyphosis
Chronic hypoxic respiratory failure
Hypothyroidism
Morbid obesity
Hospital Course :
Patient is a 73-year-old female with above-mentioned past medical history was sent in from half-way facility after patient was noted to having generalized weakness and fever. Patient had chest x-ray/blood culture/urinalysis insulin nursing
facility. In ER patient had repeat sepsis evaluation.
Infection disease physicians were consulted and patient started on broad-spectrum antibiotics. Patient was started on TPN in February with history of large Spigelian hernia. Clinically there was concern of patient likely having transient
bacteremia through PICC line. Serial blood cultures were collected and 1 set of blood culture was positive for staph epidermis. PICC line was removed and catheter tip was cultured although was negative as well. In light of unclear fever source
and ruled out bacteremia patient was taken off of antibiotics and was monitored further. No repeat episodes of fever occurred.
Patient was evaluated by speech therapist and was cleared to be started on IDDSI 6 diet.
Patient also having significant nausea and decreased appetite. Gastroenterology was involved in care and concern of patient being constipated. Repeat CT abdomen pelvis was done which showed an increased stool burden in bowel located in hernia and
dilated colon loop in abdomen. General surgery was consulted and reviewed images, in light of no clear signs of obstruction recommended to do conservative management. Patient maintained on oral laxatives and had slow response. After improvement of
constipation patient nausea improved as well. Unfortunately patient compliance has remained a problem this hospitalization, multiple discussion with patient regarding importance of compliant with stool softeners or laxatives have failed. Patient
is a high risk for constipation/obstruction with underlying extensive spigelian hernia. Of note patient did decline surgery in March 22 when patient was transferred to [facility]. This was discussed again this
hospitalization if patient condition would not have improved, although patient have declined again.
Post improvement patient was discharged to half-way facility for rehab.
Important imaging findings :
None
Procedure findings :
None
Discharge Plan
-
Patient Disposition: Long-Term/SNF
Discharge Diagnosis/Procedures: Right spigelian hernia, nausea/vomiting from constipation
Condition: Fair
Diet: Regular
Activity: As tolerated
Driving Restrictions: No driving
Bathing Restrictions: OK to Shower
Blood Work: INR on Friday
Referrals:
Nga Petty DO [Family Provider] - in one week
Prescriptions:
New
polyethylene glycol 3350 [HealthyLax] 17 gram Powder In Packet
17 g PO DAILY Qty: 30 0RF
ondansetron 4 mg tablet,disintegrating
4 mg PO Q8H PRN (Reason: nausea/vomiting) 5 Days Qty: 90 0RF
Continued
sertraline 100 MG tablet
100 mg PO DAILY
warfarin 2 mg tablet
4 mg PO QPM
levothyroxine [Synthroid] 150 mcg tablet
150 mcg PO DAILY
sennosides [senna] 8.6 mg Tablet
8.6 mg PO DAILY
acetaminophen [Tylenol] 325 mg Tablet
650 mg PO Q6HPRN PRN (Reason: mild pain)
albuterol sulfate 2.5 mg /3 mL (0.083 %) Solution For Nebulization
2.5 mg INHALATION R Q6HPRN PRN (Reason: sob)
nystatin 100,000 unit/gram Powder
1 applic TOPICAL BID
ondansetron 4 mg Tablet,Disintegrating
4 mg PO Q6H PRN (Reason: nausea)
carboxymethylcellulose sodium [Refresh Liquigel] 1 % Drops, Liquid Gel
1 drp BOTH EYES Q8HPRN PRN (Reason: dryness)
lansoprazole 30 mg Tablet,Disintegrat, Delay Rel
30 mg PO DAILY
zinc oxide 40 % Ointment
1 applic TOPICAL DAILYPRN PRN (Reason: sacrum)
Combivent Respimat 20-100 mcg/actuation Mist
1 puff INHALATION R Q4HPRN PRN (Reason: sob)
Discontinued
dronabinol 5 mg Capsule
5 mg PO DAILY
Discharge Orders:
Discharge Patient (As Directed); Ordered 05/23/23
Ordered By: Jaydon Rader
Discharge Date and Time
Discharge Date/Time: 05/23/23 19:28
== END 2023-05-23 19:28 | DRG 394 ==
LOC: 4 EAST ACU 15:44
PROVIDERS: Physician Assistant; Registered Nurse; ADMITTING PHYSICIAN Internal Medicine; ATTENDING PHYSICIAN Hospitalist; CONSULT PHYSICIAN Internal Medicine Gastroenterology; CONSULT PHYSICIAN Surgery; EMERGENCY PHYSICIAN Emergency Medicine; FAMILY PHYSICIAN Internal Medicine; OTHER PHYSICIAN Student in an Organized Health Care Education/Training Program
PROC: 30243N1 Transfusion of Nonautologous Red Blood Cells into Central Vein, Percutaneous Approach (ICD-10-PCS; 2023-05-17)
PROC: 3E04317 Introduction of Other Thrombolytic into Central Vein, Percutaneous Approach (ICD-10-PCS; 2023-05-17)
DX: K43.9 Ventral hernia without obstruction or gangrene (principal); J96.11 Chronic respiratory failure with hypoxia; Z68.41 Body mass index [BMI] 40.0-44.9, adult; K59.39 Other megacolon; I12.9 Hypertensive chronic kidney disease with stage 1 through stage 4 chronic kidney disease, or unspecified chronic kidney disease; N18.32 Chronic kidney disease, stage 3b; J44.89 Other specified chronic obstructive pulmonary disease; D63.8 Anemia in other chronic diseases classified elsewhere; I25.10 Atherosclerotic heart disease of native coronary artery without angina pectoris; R50.9 Fever, unspecified; R13.19 Other dysphagia; E66.01 Morbid (severe) obesity due to excess calories; K59.00 Constipation, unspecified; M40.294 Other kyphosis, thoracic region; K22.70 Barrett's esophagus without dysplasia; J45.909 Unspecified asthma, uncomplicated; E87.6 Hypokalemia; I72.8 Aneurysm of other specified arteries; E03.9 Hypothyroidism, unspecified; Z80.49 Family history of malignant neoplasm of other genital organs; Z82.49 Family history of ischemic heart disease and other diseases of the circulatory system; Z66 Do not resuscitate; Z86.711 Personal history of pulmonary embolism; Z87.440 Personal history of urinary (tract) infections; Z99.81 Dependence on supplemental oxygen; Z11.52 Encounter for screening for COVID-19; Z91.040 Latex allergy status; Z91.018 Allergy to other foods; Z86.718 Personal history of other venous thrombosis and embolism; Z79.890 Hormone replacement therapy; Z79.01 Long term (current) use of anticoagulants
CPT/HCPCS: 51701; 71046; 74018; 74022; 74177; 76604; 80048; 80053; 80202; 81003; 81015; 82728; 83540; 83550; 83605; 83735; 84100; 85025; 85027; 85610; 86850; 86900; 86901; 86920; 87040; 87070; 87084; 87086; 87150; 87205; 87502; 87811; 92507; 92610; 93005; 96365; 96366; 96375; 97110; 97163; 97164; 97167; 97530; 97535; 99285; J2997; P9016; Q9967

== ENCOUNTER 2023-08-01 21:48 | Inpatient (IN) | payer OTHER, SELFPAY ==
[2023-08-01] VITALS (7 sets, daily range): BP systolic 134–172; BP diastolic 71–97; BMI 36.7; BMI 35.9
--- NOTE | 2023-08-01 16:40 | ED.GENMED ---
History of Present Illness
General
Chief Complaint: Urinary Symptoms
Time Seen by Provider: 08/01/23 16:40
Travel History
Have you had any contact with someone who has COVID-19?: No
Do you have any symptoms of coronavirus? Fever > 100 degrees, chills, cough, shortness of breath, sore throat, loss of taste or smell, muscle aches, or headache?: No
History of Present Illness
History of Present Illness:
HPI: Patient presents with nausea and poor p.o. intake. She was recently here in the hospital on antibiotics then discharged to rehab and then to home. She has been doing poorly at home. She is found to be febrile here. Sister spoke with
Tyshawn who recommended the patient come into the hospital for further evaluation and there was some talk of changing the stent. 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
kidney.
EXAM:
GENERAL: The patient appears generally weak and debilitated
HEENT: Slightly dry oral mucosa
CARDIOVASCULAR: No murmurs, tachycardic heart rate, regular rhythm, No chest wall tenderness
PULMONARY: No respiratory distress, breath sounds are clear and equal
ABDOMEN: Soft with no peritoneal signs, no tenderness
NEUROLOGIC: Excellent strength all extremities, no coordination deficits
PSYCHIATRIC: Appropriate mental status, normal insight and judgement
EXTREMITIES: Nontender, no edema, moves all extremities equally
SKIN: No rash, no lesions
TIME OF INITIAL ENCOUNTER: 5 PM
NUMBER AND COMPLEXITY OF PROBLEMS ADDRESSED AT THE ENCOUNTER
� Chronic conditions affecting care: Asthma, COPD, PE, DVT, high blood pressure, chronic ureteral stent, AAA
� Acute Exacerbation and/or Progression of Chronic Illness: This is an acute problem
� Differential Diagnosis includes: Sepsis, UTI, pyelonephritis, viral syndrome, bacteremia
AMOUNT AND/OR COMPLEXITY OF DATA TO BE REVIEWED AND ANALYZED
� I performed an independent evaluation of and my interpretation is:
EKG:
CT: I personally viewed CT imaging and see that the right ureteral stent is in place, hernia again seen
X-rays:
Laboratory Studies: White blood cell count is 17.8, hemoglobin 10.7, mild renal impairment noted, lactic normal
Other:
� Review of other/old records: I reviewed records, the patient was admitted here approximately 10 weeks ago and was admitted for sepsis. There was concern for bacteremia: The PICC line that she had was removed then she was
monitored off antibiotics.
� Clinical information was obtained by an independent historian: I spoke to sister at bedside
� Prescriptions/Medications Considered but not given:
� Further testing considered but not performed:
RISK OF COMPLICATIONS AND/OR MORBIDITY OR MORTALITY OF PATIENT MANAGEMENT
� Social determinants of health affecting care: Lives at home
� Discussion with other providers: I discussed case with Dr. Stokes recommends admission to hospitalist service; hospitalist for admission, Dr. Gonzales at 8:42 PM
� Escalation of care including admission/observation vs risk of discharge considered: The patient came in by ambulance and appears very weak and debilitated. She is found to be febrile. I am concerned for sepsis. She
ultimately sent for catheterized urine specimen and there is concern for infection�I ordered Rocephin in addition to IV fluids. She does have some ongoing nausea and was given Zofran. Leukocytosis is noted and is new in comparison to prior studies.
Past History
Past History
ED Past Medical History: Asthma, HTN, Renal failure, Hypothyroidism and Other (ureteral stents, PE, ARF, One kidney, IVC filter, Cellulitis, UTI, Pancreatitis)
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
Social History
Tobacco: Non-smoker
Alcohol: None
Personal: Single
Living: alone
Family History
Family History: Other (Mother with endometrial cancer, father with coronary disease)
Phy Exam
Physical Exam
Physical Exam:
See HPI
Course
Orders/Labs/Results
Orders:
Orders
08/01/23 16:37
Electrocardiogram (*1) Urgent
Reason for Study: Other
Other Reason for Exam: Possible Sepsis
08/01/23 16:38
EKG- Treatment ONCE
08/01/23 16:56
Blood Culture Q30M
GABRIELLA Source: Blood/Venous
Specimen Description:
Comment: FROM 2 SEPARATE SITES
08/01/23 16:57
Comprehensive Metabolic Panel Urgent
Lactic Acid Q4H
Comment: ON ICE, CANCEL 2ND ORDER IF FIRST LACTIC ACID LEVEL <2
Blood Culture Q30M
GABRIELLA Source: Blood/Venous
Specimen Description:
Comment: FROM 2 SEPARATE SITES
08/01/23 17:03
CT Abd/pel Without Iv Or Oral Urgent
Comment:
Reason For Exam: nausea abd pain fever ureteral stent
08/01/23 17:04
Straight cath- Treatment ONCE
08/01/23 17:37
COVID-19 Antigen Urgent
Source: Nasal Swab
Complete Blood Count/With Diff Urgent
Prothrombin Time Urgent
Urinalysis Reflex To Culture Urgent
Date Specimen was Collected: 08/01/23
Time Specimen was Collected: 17:11
Urine Microscopic Reflex Cult Urgent
Influenza A+B Rapid Molecular Urgent
GABRIELLA Source: Nasal Swab
Specimen Description:
Urine Culture Urgent
GABRIELLA Source: U
Specimen Description:
Date Specimen was Collected: 08/01/23
Time Specimen was Collected: 17:11
08/01/23 18:10
CefTRIAXone [Rocephin] 1,000 mg IV NOW STA
08/01/23 19:06
Acetaminophen [Tylenol] 1,000 mg PO NOW STA
08/01/23 19:09
Sterile Water [Sterile Water For Injection] 10 ml .ROUTE .[facility]
08/01/23 20:18
Ondansetron Injectable [Zofran] 4 mg IV NOW STA
Abnormal Lab Results
08/01/23 08/01/23
16:57 17:37
WBC 17.8 H 10^3/uL
(4.8-10.8)
RBC 4.12 L 10^6/uL
(4.20-5.40)
Hgb 10.7 L g/dL
(12.0-16.0)
Hct 35.2 L %
(37.0-47.0)
MCH 26.0 L pg
(27.0-31.0)
MCHC 30.4 L g/dL
(33.0-37.0)
RDW 17.3 H %
(11.5-14.5)
MPV 10.5 H fL
(7.4-10.4)
Abs Immat Gran (auto) 0.1 H 10^3/uL
(0-0.05)
Absolute Neuts (auto) 15.9 H 10^3/uL
(1.4-6.5)
Absolute Lymphs (auto) 0.5 L 10^3/uL
(1.2-3.4)
Absolute Monos (auto) 1.3 H 10^3/uL
(0.1-0.6)
Immature Gran % 0.6 H %
(0-0.5)
Neutrophils % 89.3 H %
(42.2-75.2)
Lymphocytes % 2.7 L %
(20.5-51.1)
PT 41.1 H Sec
(11.4-14.6)
BUN 33 H mg/dl
(7-17)
Creatinine 1.1 H mg/dL
(0.6-1.0)
Glucose 119 H mg/dl
(70-99)
Ur Occult Blood Reflex 4+ A
(Negative)
Leukocyte Esterase Rfl 2+ A
(Negative)
Urine RBC 40-50 A /HPF
(0-2)
Urine WBC (Reflex) 50-60 A /HPF
(0-5)
Urine Bacteria (Reflex) Many A
(Negative)
08/01/23 17:37
08/01/23 16:57
Vital Signs
Initial and Last Documented VS:
Initial Vital Signs
Temp Pulse Pulse Ox
102.8 F H 111 95
08/01/23 16:21 08/01/23 16:21 08/01/23 16:21
Last Documented Vital Signs
Temp Pulse Resp BP Pulse Ox
102.8 F H 102 19 157/81 95
08/01/23 16:21 08/01/23 19:00 08/01/23 19:00 08/01/23 18:00 08/01/23 19:00
*Critical Care Note
Total Time (30-74mins, 75-104mins- exclusive of procedures): Not Applicable
ED Attending Note
-
Portions of this chart may have been created with voice recognition software.� Occasional wrong word or��sound alike� substitutions may have occurred due to the inherent limitations of voice recognition software.
Discharge Plan
Departure
Patient Disposition: Admit
Date of Disposition: 08/01/23
Time of Disposition: 20:41
Presentation/result/management discussed w/ accepting MD/DO: Hospitalist
Discharge Problem:
Sepsis
Prescriptions:
No Action
sertraline 100 MG tablet
50 mg PO DAILY
warfarin 2 mg tablet
2 mg PO DAILY
levothyroxine [Synthroid] 150 mcg tablet
150 mcg PO [id number]
ondansetron 4 mg Tablet,Disintegrating
4 mg PO Q6HPRN PRN (Reason: nausea)
cyanocobalamin (vitamin B-12) 1,000 mcg Tablet
1,000 mcg PO DAILY
acetaminophen [Tylenol Extra Strength] 500 mg Tablet
1,000 mg PO Q6HPRN PRN (Reason: mild pain)
famotidine [Pepcid] 20 mg Tablet
20 mg PO BIDPRN PRN (Reason: gerd)
montelukast [Singulair] 10 mg Tablet
10 mg PO DAILY
fluticasone propionate [Flovent HFA] 220 mcg/actuation HFA aerosol inhaler
3 puff INHALATION R DAILY
lisinopril 5 mg Tablet
10 mg PO DAILY
levothyroxine [Synthroid] 150 mcg Tablet
225 mcg PO CHISHOLM
Referrals:
UNKNOWN - PT DOES,NOT KNOW [Family Provider] -
Interventions
Interventions:
*Risk Screen - Suicide Last Done: 08/01/23 16:21
*General Assessment Last Done: 08/01/23 16:21
*Neglect/Abuse Screening Last Done: 08/01/23 16:21
ED- Fall Risk Assessment Last Done: 08/01/23 16:38
*ED COVID-19 Vaccine History Last Done: 08/01/23 16:21
ED-Female Genitourinary Assessment Last Done: 08/01/23 16:38
Discharge Date and Time
Print Language: RUSSIAN
[2023-08-01 17:28] LABS: Lactic Acid 1.1 mmol/L (0.7-2.0)
[2023-08-01 17:38] LABS: ALT (SGPT) < 10 U/L (0-35); AST (SGOT) 22 U/L (14-36); Albumin 3.5 g/dl (3.5-5.0); Alkaline Phosphatase 92 U/L (38-126); Blood Urea Nitrogen 33 mg/dl (7-17); Calcium 9.2 mg/dl (8.4-10.2); Carbon Dioxide 24 mmol/L (22-30); Chloride 106 mmol/L (98-107); Estimated Creatinine Clearance 54 ml/min; Glucose 119 mg/dl (70-99); Potassium 4.1 mmol/L (3.5-5.1); Sodium 139 mmol/L (135-145); eGFR 53.39
[2023-08-01 18:03] LABS: % Basophils 0.3 % (0-2); % Immature Granulocytes 0.6 % (0-0.5); % Lymphocytes 2.7 % (20.5-51.1); % Monocytes 7.1 % (1.7-9.3); % Neutrophils 89.3 % (42.2-75.2); Absolute Basophils 0.1 10^3/uL (0-0.2); Absolute Immature Granulocytes 0.1 10^3/uL (0-0.05); Absolute Lymphocytes 0.5 10^3/uL (1.2-3.4); Absolute Monocytes 1.3 10^3/uL (0.1-0.6); Absolute Neutrophils 15.9 10^3/uL (1.4-6.5); Hematocrit 35.2 % (37.0-47.0); Hemoglobin 10.7 g/dL (12.0-16.0); Mean Corp Hgb Conc. 30.4 g/dL (33.0-37.0); Mean Corpuscular Volume 85.4 fL (81.0-99.0); Mean Platelet Volume 10.5 fL (7.4-10.4); Nucleated Red Blood Cells % 0 %; Platelet Count 262 10^3/uL (130-400); Red Blood Cell Count 4.12 10^6/uL (4.20-5.40); Red Cell Dist. Width 17.3 % (11.5-14.5); Urine Albumin Trace (Neg - Trace); Urine Bilirubin Negative (Negative); Urine Character Clear (Clear); Urine Color Yellow; Urine Glucose Negative (Negative); Urine Ketone Negative (Negative); Urine Leukocyte 2+ (Negative); Urine Nitrite Negative (Negative); Urine Occult Blood 4+ (Negative); Urine Specific Gravity 1.015 (<1.030); Urine Urobilinogen Negative (Neg - 1+); White Blood Cell Count 17.8 10^3/uL (4.8-10.8)
[2023-08-01 18:12] LABS: Urine Bacteria Many (Negative); Urine Red Blood Cell 40-50 /HPF (0-2); Urine White Cell 50-60 /HPF (0-5)
[2023-08-01 18:14] LABS: INR 4.26; PT 41.1 Sec (11.4-14.6)
[2023-08-01 18:35] LABS: COVID-19 Antigen Negative (Negative)
[2023-08-01] MEDS: ROCEPHIN 1000 MG IV (19:10)
[2023-08-01] MEDS: TYLENOL 1000 MG PO (19:11)
[2023-08-01] MEDS: ZOFRAN 4 MG IV (20:38)
--- NOTE | 2023-08-01 21:43 | HPS.HSE ---
Family Physician
-
Family Physician: NOT KNOW UNKNOWN - PT DOES
Chief Complaint
-
Fever, N/V
History of Present Illness
Patient is a 73y F with PMH significant for CKD III with chronically non-functioning L kidney and chronic R ureteral stent who presents to ED complaining of fever and N/V. Patient states that she has had these symptoms for the past 1-2 weeks.
She initially noted urinary symptoms including dysuria and frequency. She spoke with her Urologist and was placed on levofloxacin x 10 days - which she completed this past Friday. Patient states that her symptoms did not significantly improve.
She presented to the ED this evening for further evaluation and treatment.
She has spoken with her Urologist and there are tentative plans to exchange her ureteral stent (most recently changed in 02/2023).
Patient denies any abdominal pain, constipation. No cough or SOB. No other focal / specific complaints.
Medical History
Past Medical History
Past Medical History: Reports Other
Additional Past Medical History:
Asthma / Restrictive Lung Disease
Hypertension
CKD III / Non-Functioning L Kidney
Chronic Right Ureteral Stenosis
Hypothyroidism
History of DVT / PE
Incisional hernia with bowel obstruction
Spigelian Hernia
Anemia of Chronic Disease
Obesity
Past Surgical History: Reports Other
Additional Past Surgical History:
IVC filter
Splenic artery aneurysm coiling
Right Ureteral Stent
Social History
Tobacco: Non-smoker
Alcohol: None
Personal: Single
Living: Skilled Nursing
Employment: Employed
Family History
Family History: Not pertinent
Allergies / Home Medications
Allergies reflects when Allergies were last updated in [facility].
Home Medications with original date entered in [facility]
Allergy/Medication List:
Allergies
Allergy/AdvReac Type Severity Reaction Status Date / Time
animal dander Allergy Exacerbates Verified 03/11/23 23:13
asthma
banana Allergy Exacerbates Verified 03/11/23 23:13
asthma
cheese Allergy Exacerbates Verified 03/11/23 23:13
asthma
cigarette smoke Allergy Exacerbates Verified 03/11/23 23:13
asthma
house dust Allergy Exacerbates Verified 03/11/23 23:13
asthma
house dust mite Allergy Exacerbates Verified 03/11/23 23:13
asthma
latex [Latex] Allergy Exacerbates Verified 03/11/23 23:13
asthma
mold Allergy Exacerbates Verified 03/11/23 23:13
asthma
perfume Allergy Exacerbates Verified 03/11/23 23:13
asthma
pollen extracts Allergy Exacerbates Verified 03/11/23 23:13
asthma
ragweed pollen Allergy Exacerbates Verified 03/11/23 23:13
asthma
Home Medications
sertraline 100 mg tablet 50 mg PO DAILY Mental Health/Anxiety 07/10/21
levothyroxine 150 mcg tablet (Synthroid) 150 mcg PO MOTUWETHFRSA Thyroid 03/11/23
warfarin 2 mg tablet 2 mg PO DAILY Blood Clot Prevention/Tx 03/11/23
ondansetron 4 mg disintegrating tablet 4 mg PO Q6HPRN PRN nausea 05/15/23
acetaminophen 500 mg tablet (Tylenol Extra Strength) 1,000 mg PO Q6HPRN PRN mild pain 08/01/23
cyanocobalamin (vitamin B-12) 1,000 mcg tablet 1,000 mcg PO DAILY 08/01/23
famotidine 20 mg tablet (Pepcid) 20 mg PO BIDPRN PRN gerd 08/01/23
fluticasone propionate 220 mcg/actuation HFA aerosol inhaler 3 puff inhalation R DAILY 08/01/23
levothyroxine 150 mcg tablet (Synthroid) 225 mcg PO CHISHOLM 08/01/23
lisinopril 5 mg tablet 10 mg PO DAILY 08/01/23
montelukast 10 mg tablet (Singulair) 10 mg PO DAILY 08/01/23
Review of Systems
-
History Source: Patient
A 12 point ROS was completed and negative except as noted: Yes
Constitutional: Reports Fever, Fatigue and Chills
EENT: Denies Sore Throat
Respiratory: Denies Cough or Trouble Breathing
Cardiac: Denies Chest Pain or Palpitations
Abdomen/GI: Reports Nausea and Vomiting; Denies Abdominal Pain, Diarrhea, Constipated, Bloody Stools or Black Stools
: Reports Dysuria, Frequency and Urgency; Denies Bleeding
Musculoskeletal: Reports Edema; Denies Joint Pain
Skin: Reports Other (LLE posterior skin tear / wound)
Neurological: Denies Dizzy or Headache
Psych: Denies Depression or Anxiety
Physical Exam
Vital Signs
Vital Signs
Temp Pulse Resp BP Pulse Ox
102.8 F H 102 19 157/81 95
08/01/23 16:21 08/01/23 19:00 08/01/23 19:00 08/01/23 18:00 08/01/23 19:00
Physical Exam
General: Other (Obese 73y F in no acute distress. Mild pallor.)
HEENT: Moist mucous membranes and PERRLA
Respiratory: Other (Decreased at bases - otherwise clear.)
Cardiac: S1/S2 and Regular Rhythm; No Murmur
GI: Other (Large R sided hernia. Bowel sounds are present. No focal tenderness.)
Musculoskeletal: No Clubbing and Other (Chronic skin changes of venous stasis / Coumadin use. Posterior superficial wound on the L lower leg with scant bleeding. No erythema / induration / etc.)
Neuro: AO x 3
Laboratory Results
-
08/01/23 17:37
08/01/23 16:57
Laboratory Results
PT 41.1 Sec (11.4-14.6) H 08/01/23 17:37
INR 4.26 08/01/23 17:37
Lactic Acid Cancelled 08/01/23 20:45
Total Bilirubin 1.0 mg/dl (0.2-1.3) 08/01/23 16:57
AST 22 U/L (14-36) 08/01/23 16:57
ALT < 10 U/L (0-35) 08/01/23 16:57
Alkaline Phosphatase 92 U/L (38-126) 08/01/23 16:57
Impression/Plan
-
A/P: Patient is a 73y F with PMH significant for CKD II, non-functioning L kidney and chronic R ureteral stent who presents to ED complaining of 1-2 weeks of urinary symptoms and N/V.
Pyelonephritis
Sepsis secondary to the above
- Admit for further evaluation and treatment.
- Patient presents with clinical pyelo with urinary symptoms, abnormal UA and N/V.
- Patient presents with fever, leukocytosis and tachycardia in the presence of suspected urinary source of infection.
- Continue IV abx and follow-up culture data.
- Urology evaluation for probable stent exchange during this admission.
- Follow for clinical improvement.
- Supportive care including IVFs, antiemetics, etc.
CKD III
Non-Functioning Left Kidney
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
- Renal function is fairly stable with SCR near known baseline.
- Follow for any changes.
- Urology eval / stent exchange as noted above.
Large Abdominal Hernia
- Patient denies any abdominal pain, issues moving bowels / constipation, etc.
- Bowel regimen.
- Follow for any new issue s/ complaints.
- Patient has previously declined surgical interventions for this very large hernia on multiple occasions.
Anemia of Chronic Disease
- Stable. Hgb is at / near known baseline.
- Check iron studies, etc.
- Follow for any changes in H&H.
Asthma
Restrictive Lung Disease
- Stable. No subjective dyspnea or hypoxemia noted at this time.
- Continue Flovent. Nebs PRN.
Hypothyroidism
- Stable. Continue T4 supplementation.
Obesity due to excess calories
- Affects all aspects of care.
- Encourage healthy diet and activity as tolerated with goal of weight loss.
History of DVT / PE
DVT Prophylaxis
- INR is presently supratherapeutic.
- Hold Coumadin for now in anticipation of Urologic procedure.
- IVC filter is in place.
- Resume Coumadin post-procedure. Follow INR.
Code Status: Full
[2023-08-01] MEDS: NSS 1000 IV (23:50)
[2023-08-01] MEDS: COMPAZINE 5 MG IV (23:51)
[2023-08-02] MEDS: VENTOLIN NEBULES 2.5 MG INH (00:57)
[2023-08-02] MEDS: TYLENOL 650 MG PO ×6 (01:19→22:22)
[2023-08-02 03:27] VITALS: BP 128/81
--- NOTE | 2023-08-02 04:08 | PTCARENOTE ---
Receive pt from ER. Pt alert oriented X3, in no distress. Pt pulled over to her bed from the stretcher. Pt oriented to the room, call villarreal within reach. Pt presents with pressure ulcer to buttocks and a left lower post leg venous wound. Pt on NSR on
telemonitor. VSS (T=99.1, HR=94, RR=20, LQ=961/72, SpO2=97% on RA). Pt complains about chills, nausea and asks for breathing treatment for her asthma. Compazine 5mg IV given for nausea, Tylenol given for chills, and breathing treatment given. Pt
refuses senokot and milk and molasses enema. Pt states that she doesn't need them especially at night and she just have bowel movement in the morning. Pt refused bowel regimen despite explanation about the need to treat her constipation. IVFs
infusing as per order. Will continue to monitor the pt.
[2023-08-02 05:53] VITALS: BMI 36.1
[2023-08-02] MEDS: SYNTHROID 150 MCG PO (05:56)
[2023-08-02 06:26] LABS: Hematocrit 32.1 % (37.0-47.0); Hemoglobin 10.1 g/dL (12.0-16.0); Mean Corp Hgb Conc. 31.5 g/dL (33.0-37.0); Mean Corpuscular Hgb 26.4 pg (27.0-31.0); Mean Platelet Volume 10.4 fL (7.4-10.4); Platelet Count 248 10^3/uL (130-400); Red Blood Cell Count 3.82 10^6/uL (4.20-5.40); Red Cell Dist. Width 17.4 % (11.5-14.5)
[2023-08-02 06:35] LABS: PT 47.2 Sec (11.4-14.6)
[2023-08-02 06:37] LABS: INR 5.07
[2023-08-02 06:55] LABS: Blood Urea Nitrogen 33 mg/dl (7-17); Calcium 8.9 mg/dl (8.4-10.2); Carbon Dioxide 20 mmol/L (22-30); Chloride 110 mmol/L (98-107); Estimated Creatinine Clearance 59 ml/min; Glucose 101 mg/dl (70-99); Iron 30 ug/dl (37-170); Potassium 3.8 mmol/L (3.5-5.1); Sodium 141 mmol/L (135-145); eGFR 59.86
[2023-08-02 07:03] LABS: Percent Saturation 13 % (20-50); Total Iron Binding Capacity 225 ug/dl (265-497)
[2023-08-02 07:04] VITALS: BP 136/78
[2023-08-02 07:24] LABS: TSH Reflex To Free T4 1.14 uIU/ml (0.47-4.68)
[2023-08-02 07:43] LABS: Vitamin B12 > 1000 pg/ml (239-931)
[2023-08-02] MEDS: FLOVENT 220MCG 3 PUFF INH (07:53)
[2023-08-02] MEDS: SINGULAIR 10 MG PO (08:15)
[2023-08-02] MEDS: ZOLOFT 50 MG PO (08:15)
[2023-08-02] MEDS: COMPAZINE 5 MG IV ×3 (08:23→22:36)
--- NOTE | 2023-08-02 08:32 | VATNOTE ---
Called to assess right AC infiltrate. +2 edema noted. Elevated on pillows. Warm compress applied. Will monitor closely.
[2023-08-02] MEDS: MEPHYTON 2.5 MG PO (09:21)
[2023-08-02 11:43] VITALS: BP 134/75
--- NOTE | 2023-08-02 13:28 | W.PN.URO.CBU ---
Today's Communication / Plan
-
sepsi adelfo try and change jj stent once stabilizes bu if geting worse may haveto change stent unnder subptimal conditions
Assessment / Plan
-
pt sepsiis and has foreign body apears stable inr 5 will need jj syent ec=xchange and not good candidate for perc tube even if ir normaized Adelfo observe and put on op scheduli coming days but if does not respond to iv abs may need to
change stent even with inr 5 and pt not in best physiological condition
Diagnosis
-
Date of Service: August 02, 2023
-
Patient Diagnosis:sepsis
Post Op Day:
Subjective
-
feeling better
Objective
-
Vital Signs
Temp Pulse Resp BP Pulse Ox
99.0 F 103 16 134/75 94
08/02/23 11:43 08/02/23 11:43 08/02/23 11:43 08/02/23 11:43 08/02/23 11:43
Intake and Output
08/01/23 08/02/23 08/03/23
06:59 06:59 06:59
Intake Total 680 / 680
Balance 680 / 680
Intake:
Oral fluids 240 / 240
IV fluids (Total) 440 / 440
Other:
How many times incontinent 1
SMALL amount urine
How many times incontinent 1
SATURATED amount urine
Laboratory Results
08/02/23 05:57
08/02/23 05:57
Review of Systems
-
Constitutional: Fatigue, Night Sweats and Chills
Physical Exam
-
General - well developed, well nourished, no acute distress
Chest - clear bilaterally
Abdomen - soft, non-tender, positive bowel sounds, no CVAT, no incisional pain or distention
Genitalia - normal
Rectal - normal
Skin - warm & dry with no rash
Neuro - AOx3, no motor deficits
Extremities - no clubbing, no cyanosis, no edema
Incision - clean, dry
Dressing - clean, dry, intact
Care Review
Data Reviewed
Discussed with: Hospitalist and Nursing
CT Scan: Image Pers Reviewed
--- NOTE | 2023-08-02 13:40 | W.PN.HOSP.TC ---
Today's Communication/Plan
-
continue abx
encourage laxative intake, avoid constipation
resume diet
Assessment / Plan
Assessment / Plan
Patient is a 73y F with PMH significant for CKD II, non-functioning L kidney and chronic R ureteral stent who presents to ED complaining of 1-2 weeks of urinary symptoms and N/V.
Pyelonephritis
Sepsis secondary to the above
- Admit for further evaluation and treatment.
- Patient presents with clinical pyelo with urinary symptoms, abnormal UA and N/V.
- Patient presents with fever, leukocytosis and tachycardia in the presence of suspected urinary source of infection.
- Urology evaluated and plan for patient to go to the OR on Friday for stent exchange.
- Continue on antibiotics.
- f/u culture report
GPC in 1 set blood cs
- suspecting contaminant
- wait further Identification
CKD III
Non-Functioning Left Kidney
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
- Renal function is fairly stable with SCR near known baseline.
- Follow for any changes.
Coagulopathy
History of DVT / PE
History of IVC filter
- Patient INR 5.07 today, f/u INR
- giving oral vit k 2.5 mg and f/u INR tomorrow
Large Spigelian Hernia
- Patient denies any abdominal pain, issues moving bowels / constipation, etc.
- Patient has previously declined surgical interventions for this very large hernia on multiple occasions.
- Continue on oral laxative therapy. Patient has habit of declining oral laxative.
Anemia of Chronic Disease
- Stable. Hgb is at / near known baseline.
- Iron sat 13%,
- Follow for any changes in H&H.
Asthma
Restrictive Lung Disease
- Stable. No subjective dyspnea or hypoxemia noted at this time.
- Continue Flovent. Nebs PRN.
Hypothyroidism
- Stable. Continue T4 supplementation.
Obesity due to excess calories
- Affects all aspects of care.
- Encourage healthy diet and activity as tolerated with goal of weight loss.
Code Status: Full
Anticipated Discharge: > 48 hours
Subjective/Interval History
-
Date of Service: August 02, 2023
Resting comfortably
Patient have some right arm swelling from IV line infiltration, denies of having excessive pain
No nausea or vomiting
Patient continues to decline oral medication
Objective Data
-
Labs:
Laboratory Results
08/02/23
05:57
WBC 17.0 H
Hgb 10.1 L
Hct 32.1 L
Plt Count 248
PT 47.2 H
INR 5.07 H*
Sodium 141
Potassium 3.8
Chloride 110 H
Carbon Dioxide 20 L
BUN 33 H
Creatinine 1.0
Glucose 101 H
Calcium 8.9
Vital Signs:
Vital Signs
Temp Pulse Resp BP Pulse Ox
99.0 F 103 16 134/75 94
08/02/23 11:43 08/02/23 11:43 08/02/23 11:43 08/02/23 11:43 08/02/23 11:43
I&O
08/01/23 08/02/23 08/03/23
06:59 06:59 06:59
Intake Total 680 / 680
Balance 680 / 680
Review of Systems
-
Respiratory: Reports No Symptoms
Cardiac: Reports No Symptoms
Abdomen/GI: Reports No Symptoms
Physical Exam
-
General: No Apparent Distress and Morbidly Obese
HEENT: Negative Oxygen
Respiratory: Clear to Auscultation; Negative Wheezes
Cardiac: Regular Rhythm and S1/S2; Negative Murmur
GI: Soft, Normal Bowel Sounds and Other (Right flank hernia - soft/nontender); Negative Tender
Musculoskeletal: Edema, Right Upper Extrem
Neuro: Awake, Alert and Oriented
Psych: Calm
[2023-08-02] MEDS: NSS 1000 IV ×2 (14:09→22:22)
[2023-08-02 15:00] VITALS: BP 146/77
[2023-08-02] MEDS: ROCEPHIN 1000 MG IV (17:33)
[2023-08-02] MEDS: STERILE WATER FOR INJECTION 10 ML IV (17:34)
[2023-08-02 19:30] VITALS: BP 136/71
[2023-08-02 23:35] VITALS: BP 176/92
[2023-08-03] MEDS: TYLENOL 650 MG PO ×5 (02:20→20:15)
[2023-08-03 03:00] VITALS: BP 153/96
[2023-08-03 06:00] VITALS: BMI 36.6
[2023-08-03] MEDS: SYNTHROID 225 MCG PO (06:23)
[2023-08-03] MEDS: FLOVENT 220MCG 3 PUFF INH (06:33)
[2023-08-03 06:54] LABS: INR 2.06
[2023-08-03 07:00] VITALS: BP 149/82
[2023-08-03] MEDS: ZOLOFT 50 MG PO (09:15)
[2023-08-03] MEDS: SINGULAIR 10 MG PO (09:15)
--- NOTE | 2023-08-03 09:59 | W.PN.URO.CBU ---
Today's Communication / Plan
-
for op room friday if stable
Assessment / Plan
-
pt sepsiis and has foreign body apears stable inr coming down will exchange jj stent friday if remains stable follow blood cxs
Diagnosis
-
Date of Service: August 03, 2023
-
Patient Diagnosis:
Post Op Day:
Patient Diagnosis:sepsis
Post Op Day:
Subjective
-
feling better
Objective
-
Vital Signs
Temp Pulse Resp BP Pulse Ox
98.6 F 91 16 149/82 95
08/03/23 07:00 08/03/23 07:00 08/03/23 07:00 08/03/23 07:00 08/03/23 07:00
Intake and Output
08/02/23 08/03/23 08/04/23
06:59 06:59 06:59
Intake Total 680 / 680 250 / 250
Balance 680 / 680 250 / 250
Intake:
Oral fluids 240 / 240 250 / 250
IV fluids (Total) 440 / 440
Other:
How many times incontinent 1
SMALL amount urine
How many times incontinent 1
MODERATE amount urine
How many times incontinent 1 1
SATURATED amount urine
Laboratory Results
08/02/23 05:57
08/02/23 05:57
Review of Systems
-
Constitutional: Fever and Chills
Physical Exam
-
General - well developed, well nourished, no acute distress
Chest - clear bilaterally
Abdomen - soft, non-tender, positive bowel sounds, no CVAT, no incisional pain or distention
Genitalia - normal
Rectal - normal
Skin - warm & dry with no rash
Neuro - AOx3, no motor deficits
Extremities - no clubbing, no cyanosis, no edema
Incision - clean, dry
Dressing - clean, dry, intact
Care Review
Data Reviewed
Discussed with: Hospitalist and Nursing
--- NOTE | 2023-08-03 10:58 | VATNOTE ---
Right AC continues with swelling. Offered warm compress. Patient feels better and did not want warm compress at this time. Will continue to monitor.
[2023-08-03 11:02] VITALS: BP 163/99
--- NOTE | 2023-08-03 12:53 | W.PN.HOSP.TC ---
Today's Communication/Plan
-
see note
Assessment / Plan
Assessment / Plan
Patient is a 73y F with PMH significant for CKD II, non-functioning L kidney and chronic R ureteral stent who presents to ED complaining of 1-2 weeks of urinary symptoms and N/V.
Pyelonephritis from Enterococcus
Sepsis secondary to the above
- Admit for further evaluation and treatment.
- Patient presents with clinical pyelo with urinary symptoms, abnormal UA and N/V.
- Patient presents with fever, leukocytosis and tachycardia in the presence of suspected urinary source of infection.
- Urology evaluated and plan for patient to go to the OR on Friday for stent exchange.
- Start patient on vancomycin for Enterococcus UTI for the susceptibility pending
GPC in 1 set blood cs
- 1 set of blood culture growing staph epi, likely contaminant
- Second set growing gram-positive bacilli suspecting diphtheroid
- repeat blood culture ordered
CKD III
Non-Functioning Left Kidney
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
- Renal function is fairly stable with SCR near known baseline.
- Follow for any changes.
Coagulopathy
History of DVT / PE
History of IVC filter
- got oral vit K 2.5mg > INR came down to 2.5 from 5.07
Large Spigelian Hernia
- Patient denies any abdominal pain, issues moving bowels / constipation, etc.
- Patient has previously declined surgical interventions for this very large hernia on multiple occasions.
- Continue on oral laxative therapy. Patient has habit of declining oral laxative.
Anemia of Chronic Disease
- Stable. Hgb is at / near known baseline.
- Iron sat 13%,
- Follow for any changes in H&H.
Asthma
Restrictive Lung Disease
- Stable. No subjective dyspnea or hypoxemia noted at this time.
- Continue Flovent. Nebs PRN.
Hypothyroidism
- Stable. Continue T4 supplementation.
Obesity due to excess calories
- Affects all aspects of care.
- Encourage healthy diet and activity as tolerated with goal of weight loss.
Code Status: Full
Discussed care plan with urology
Anticipated Discharge: > 48 hours
Subjective/Interval History
-
Date of Service: August 03, 2023
Resting comfortably in bed
continues to have fever overnight
Objective Data
-
Labs:
Laboratory Results
08/03/23
06:03
PT 23.0 H
INR 2.06 D
Vital Signs:
Vital Signs
Temp Pulse Resp BP Pulse Ox
98.8 F 91 16 163/99 96
08/03/23 11:02 08/03/23 11:02 08/03/23 11:02 08/03/23 11:02 08/03/23 11:02
I&O
08/02/23 08/03/23 08/04/23
06:59 06:59 06:59
Intake Total 680 / 680 250 / 250
Balance 680 / 680 250 / 250
Review of Systems
-
Respiratory: Reports No Symptoms
Cardiac: Reports No Symptoms
Abdomen/GI: Reports No Symptoms
Physical Exam
-
General: No Apparent Distress and Morbidly Obese
HEENT: Negative Oxygen
Respiratory: Clear to Auscultation; Negative Wheezes
Cardiac: Regular Rhythm and S1/S2; Negative Murmur
GI: Soft, Normal Bowel Sounds and Other (Right flank hernia - soft/nontender); Negative Tender
Musculoskeletal: Edema, Right Upper Extrem
Neuro: Awake, Alert and Oriented
Psych: Calm
--- NOTE | 2023-08-03 13:32 | PHA.VAN.IN ---
Assessment
- Assessment
Renal Function: Appears similar to baseline
Renal Function may be Overestimated due to: obesity
Maximum Temperature: 102.1 - 08/02/23 23:35
AUC Dosing Plan
- Dosing Variables
Dosing Weight (kg): 99.8
Dosing CrCl (ml/min): 59
Vd coefficient (L/kg): 0.6
- Empiric Dosing
Initial / Loading Dose: 2000 mg x 1 dose - administration pending
Maintenance Regimen: 1500 mg q24h - first dose 08/04/23 0600
Estimated AUC (mcg*h/mL): 488
Estimated Peak (mcg*h/mL): 34.7
Estimated Trough (mcg/ml): 10.4
Estimated Half Life (H): 13
- Monitoring
No levels ordered at this time: consider levels when pt nears steady state
Pharmacokinetics Vancomycin I
- -
Patient Age: 73
Patient Sex: Female
Vancomycin Day #: 1
Indication: Bacteremia
Requesting Provider: EVELIO
Height / Weight:
Height 5 ft 5 in
Actual Weight 99.875 kg
Pertinent Past Medical History: BMI ~37; non functioning L kidney, CKDII
- Vital Signs / Lab Results
Temp Pulse Resp BP Pulse Ox
98.8 F 91 16 163/99 96
08/03/23 11:02 08/03/23 11:02 08/03/23 11:02 08/03/23 11:02 08/03/23 11:02
Lab Results - Hematology
08/01/23 08/01/23 08/02/23
16:57 17:37 05:57
WBC Cancelled 17.8 H 17.0 H
Lab Results - Chemistry
08/01/23 08/02/23
16:57 05:57
BUN 33 H 33 H
Creatinine 1.1 H 1.0
Estimated Creat Clear 54 59
Albumin 3.5
08/01/23 08/01/23
16:57 20:45
Lactic Acid 1.1 Cancelled
Lab Results - Urine
08/01/23
17:37
Urine Nitrite (Reflex) Negative
Leukocyte Esterase Rfl 2+ A
Urine WBC (Reflex) 50-60 A
Ur Squamous Epith Cells 3-5
Urine Bacteria (Reflex) Many A
Microbiology Results
08/01/23 17:37 Urine Culture - Preliminary
Urine Enterococcus species
08/01/23 16:57 Blood Culture - Preliminary
Blood/Venous Coagulase neg. staphylococcus
Additional testing on request
Gram Stain - Final
08/01/23 16:56 Blood Culture - Preliminary
Blood/Venous Positive culture in progress
Gram Stain - Preliminary
08/01/23 17:37 Influenza Types A & B ([facility]) - Final
Nasal Swab Negative for Influenza A & B, NAAT
Negative results must be combined with clinical observations
and patient history.
Nucleic Acid Amplification test (NAAT)performed on the
[employer] platform.
[2023-08-03] MEDS: VANCOCIN 540 MG IV (14:07)
[2023-08-03 15:01] VITALS: BP 172/103
[2023-08-03 19:30] VITALS: BP 153/94
[2023-08-03 23:48] VITALS: BP 160/89
[2023-08-04] MEDS: TYLENOL 650 MG PO ×4 (00:26→20:22)
[2023-08-04] MEDS: COMPAZINE 5 MG IV ×2 (00:29→10:20)
[2023-08-04 03:58] VITALS: BP 164/87
[2023-08-04 04:04] VITALS: BMI 37.2
[2023-08-04 05:15] LABS: Hematocrit 29.4 % (37.0-47.0); Hemoglobin 9.2 g/dL (12.0-16.0); Mean Corp Hgb Conc. 31.3 g/dL (33.0-37.0); Mean Corpuscular Hgb 25.9 pg (27.0-31.0); Mean Corpuscular Volume 82.8 fL (81.0-99.0); Mean Platelet Volume 10.4 fL (7.4-10.4); Platelet Count 270 10^3/uL (130-400); Red Blood Cell Count 3.55 10^6/uL (4.20-5.40); White Blood Cell Count 10.4 10^3/uL (4.8-10.8)
[2023-08-04 05:34] LABS: PT 19.8 Sec (11.4-14.6)
[2023-08-04 05:39] LABS: Blood Urea Nitrogen 27 mg/dl (7-17); Calcium 8.5 mg/dl (8.4-10.2); Carbon Dioxide 21 mmol/L (22-30); Chloride 112 mmol/L (98-107); Estimated Creatinine Clearance 67 ml/min; Glucose 93 mg/dl (70-99); Potassium 3.4 mmol/L (3.5-5.1); Sodium 140 mmol/L (135-145); eGFR > 60.00
[2023-08-04] MEDS: SYNTHROID 150 MCG PO (05:44)
[2023-08-04] MEDS: VANCOCIN 300 ML IV (05:44)
[2023-08-04] MEDS: VANCOCIN 300 MG IV (05:44)
[2023-08-04 06:00] VITALS: BMI 37.2
[2023-08-04 07:00] VITALS: BP 142/90
[2023-08-04] MEDS: ZOLOFT 50 MG PO (07:58)
[2023-08-04] MEDS: SINGULAIR 10 MG PO (07:58)
--- NOTE | 2023-08-04 08:16 | VATNOTE ---
Patient with reported antecubital infiltrate two days ago. Area with minimal swelling, tender to touch, but patient states, 'it is a lot better'. No redness or drainage noted.
--- NOTE | 2023-08-04 08:39 | PTOTSP ---
attempted intervention, pt refusing to participate in therapy in hospital. pt reports walking with PT 2x/week at home. pt reports she came to the hospital in an ambulance and will be returning home in an ambulance. will sign off due to poor
participation.
[2023-08-04] MEDS: FLOVENT 220MCG 3 PUFF INH (09:07)
--- NOTE | 2023-08-04 10:21 | W.PN.URO.CBU ---
Today's Communication / Plan
-
npo at hs iv ordere per hospitaist
Assessment / Plan
-
pt sepsiis and has foreign body apears stable inr coming down will exchange jj stent friday if remains stable
Diagnosis
-
Date of Service: August 04, 2023
-
Patient Diagnosis:
Post Op Day:
Patient Diagnosis:
Post Op Day:
Patient Diagnosis:sepsis
Post Op Day:
Subjective
-
feeeling better no fevr chils
Objective
-
Vital Signs
Temp Pulse Resp BP Pulse Ox
98.0 F 68 18 142/90 96
08/04/23 07:00 08/04/23 07:00 08/04/23 07:00 08/04/23 07:00 08/04/23 07:00
Intake and Output
08/03/23 08/04/23 08/05/23
06:59 06:59 06:59
Intake Total 250 / 250 0 / 1890
Balance 250 / 250 0 / 1890
Intake:
Oral fluids 250 / 250 660 / 660
IV fluids (Total) 960 / 960
IV piggybacks 270 / 270
Other:
How many times incontinent 1 2
MODERATE amount urine
How many times incontinent 1 2
SATURATED amount urine
Laboratory Results
08/04/23 04:38
08/04/23 04:38
Review of Systems
-
: No Symptoms
Physical Exam
-
General - well developed, well nourished, no acute distress
Chest - clear bilaterally
Abdomen - soft, non-tender, positive bowel sounds, no CVAT, no incisional pain or distention
Genitalia - normal
Rectal - normal
Skin - warm & dry with no rash
Neuro - AOx3, no motor deficits
Extremities - no clubbing, no cyanosis, no edema
Incision - clean, dry
Dressing - clean, dry, intact
Counseling
-
did consent for op room pros cons alt txs discussed
Care Review
Data Reviewed
Discussed with: Hospitalist
--- NOTE | 2023-08-04 10:28 | PTCARENOTE ---
Patient refusing PO potassium this am to correct K of 3.4. Patient educated on importance of electrolyte levels. Hospitalist made aware.
--- NOTE | 2023-08-04 10:45 | WOUNDNOTE ---
L LATERAL LOWER LEG
--- NOTE | 2023-08-04 10:46 | WOUNDNOTE ---
WON RN note: Patient admitted with Sepsis.
See H&P for complete history. Lives alone.
PMH: Obesity, venous leg ulcers, b/l ureteral stents, PE, COPD, DVT, IVC filter, Kyphosis, balance issues.
Wound Location and type/assessment: Patient admitted with: L lateral lower leg healing venous ulcer, pink and shallow base, scant drainage. Both legs with hemosiderin staining evident, history of venous leg ulcers. + palpable pedal pulses, leg
edema, skin flaky and dry. Patient reports she does not use compression at home and does not want to wear it while in hospital. R heel intact, L heel blanchable red and boggy. Patient refusing pillow under calves due to L knee pain. Patient refused
for me to assess buttocks. Staff reports patient refusing turning and has not been oob, also refused PT care. Nurse Confirmed buttocks red but no open wounds, will check again when turned later.
Appetite: Good.
Pressure redistribution devices in place: On [employer], Patient given option of either allowing staff to turn her q 2 hrs or will have to change bed to an air mattress. Nurse reports after I saw patient she allowed staff to turn patient.
Plan: Applied silicone foam on L lateral leg. Adhesive foams placed on heels to protect. Offered to order moisturizer for legs, patient declined. Will confirm orders with hospitalist and updated nurse Haily.
Updated care plan and will follow as needed.
Note to case management of equipment requested for discharge: VN or caregivers if home.
Recommend follow up at wound care center upon discharge.
[2023-08-04 11:00] VITALS: BP 153/91
--- NOTE | 2023-08-04 11:07 | CM ---
Addendum entered by Kenna Lindo 08/04/23 14:03:
IMM Discussed via phone with Zakiya's daughter who understands the right to appeal if not agreeable to discharge.
Original Note:
Attempted to meet with Zakiya this AM, however she was fast asleep. Call placed to her sister, Dana, to discuss IMM and discharge plans. Dana stated understanding of the IMM.
Per August, Zakiya will return home at discharge. Zakiya has [facility] for RN and PT. Dana has also hired 2 caregivers. A senior project engineer from [facility] will be coming out tomorrow to discuss potential services for which Zakiya may be eligible.
Case Management will continue to follow.
--- NOTE | 2023-08-04 11:13 | PHA.VAN.FU ---
Vancomycin Assessment / Plan
- Assessment
Renal Function: Stable
WBC's are: Trending Down
In the past 24 hrs, patient has been: Afebrile
- Dosing Plan
Continue: 1500mg Q24H
- Monitoring Plan
No level(s) ordered at this time: Consider levels at steady state
- Follow Up
Pharmacy will continue to follow.
Vancomycin Follow UP
- -
Patient Age: 73
Patient Sex: Female
Vancomycin Day #: 2
Indication: Bacteremia
Requesting Provider: EVELIO
Height / Weight:
Height 5 ft 5 in
Actual Weight 101.264 kg
Pertinent Past Medical History: BMI ~37; non functioning L kidney, CKDII
- Vital Signs / Lab Results
Temp Pulse Resp BP Pulse Ox
98.0 F 78 18 142/90 98
08/04/23 07:00 08/04/23 09:00 08/04/23 09:00 08/04/23 07:00 08/04/23 09:00
Lab Results - Hematology
08/01/23 08/01/23 08/02/23
16:57 17:37 05:57
WBC Cancelled 17.8 H 17.0 H
08/04/23
04:38
WBC 10.4
Lab Results - Chemistry
08/01/23 08/02/23 08/04/23
16:57 05:57 04:38
BUN 33 H 33 H 27 H
Creatinine 1.1 H 1.0 0.9
Estimated Creat Clear 54 59 67
Albumin 3.5
08/01/23 08/01/23
16:57 20:45
Lactic Acid 1.1 Cancelled
Lab Results - Urine
08/01/23
17:37
Urine Nitrite (Reflex) Negative
Leukocyte Esterase Rfl 2+ A
Ur Squamous Epith Cells 3-5
Microbiology Results
08/01/23 16:57 Blood Culture - Preliminary
Blood/Venous Coagulase neg. staphylococcus
Additional testing on request
Gram Stain - Final
08/01/23 17:37 Urine Culture - Preliminary
Urine Enterococcus species
08/01/23 16:56 Blood Culture - Preliminary
Blood/Venous Positive culture in progress
Gram Stain - Preliminary
--- NOTE | 2023-08-04 13:45 | W.PN.HOSP.TC ---
Today's Communication/Plan
-
cont vanc
f/u final cultures
IVF
Plan for stent exchange tomorrow, no contraindications to procedure;
Ensure electrolytes adequately repleted
Assessment / Plan
Assessment / Plan
Patient is a 73y F with PMH significant for CKD II, non-functioning L kidney and chronic R ureteral stent who presents to ED complaining of 1-2 weeks of urinary symptoms and N/V.
Pyelonephritis from Enterococcus
Sepsis secondary to the above
Hydronephrosis
- Admit for further evaluation and treatment.
- Patient presents with clinical pyelo with urinary symptoms, abnormal UA and N/V.
- Patient presents with fever, leukocytosis and tachycardia in the presence of suspected urinary source of infection.
- Urology evaluated and plan for patient to go to the OR on Friday for stent exchange.
- Start patient on vancomycin for Enterococcus UTI for the susceptibility pending
Bacteremia
-coag neg staph, diptheroids
-most likely contaminant
-f/u final cultures
#Hypokalemia
-monitor and replete
CKD III
Non-Functioning Left Kidney
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
- Renal function is fairly stable with SCR near known baseline.
- Follow for any changes.
Coagulopathy
History of DVT / PE
History of IVC filter
- got oral vit K 2.5mg
-Holding for today until procedure tomorrow, restart after
Large Spigelian Hernia
- Patient denies any abdominal pain, issues moving bowels / constipation, etc.
- Patient has previously declined surgical interventions for this very large hernia on multiple occasions.
- Continue on oral laxative therapy. Patient has habit of declining oral laxative.
Anemia of Chronic Disease
- Stable. Hgb is at / near known baseline.
- Iron sat 13%,
- Follow for any changes in H&H.
Asthma
Restrictive Lung Disease
- Stable. No subjective dyspnea or hypoxemia noted at this time.
- Continue Flovent. Nebs PRN.
Hypothyroidism
- Stable. Continue T4 supplementation.
Obesity due to excess calories
- Affects all aspects of care.
- Encourage healthy diet and activity as tolerated with goal of weight loss.
Code Status: Full
Anticipated Discharge: > 48 hours
Subjective/Interval History
-
Date of Service: August 04, 2023
no acute events overnight
Objective Data
-
Labs:
Laboratory Results
08/04/23
04:38
WBC 10.4
Hgb 9.2 L
Hct 29.4 L
Plt Count 270
PT 19.8 H
INR 1.70
Sodium 140
Potassium 3.4 L
Chloride 112 H
Carbon Dioxide 21 L
BUN 27 H
Creatinine 0.9
Glucose 93
Calcium 8.5
Vital Signs:
Vital Signs
Temp Pulse Resp BP Pulse Ox
98.1 F 85 18 153/91 97
08/04/23 11:00 08/04/23 11:00 08/04/23 11:00 08/04/23 11:00 08/04/23 12:48
I&O
08/03/23 08/04/23 08/05/23
06:59 06:59 06:59
Intake Total 250 / 250 1889
Balance 250 / 250 1889
Review of Systems
-
History Source: Patient
All other systems: Not reviewed unless documented
Physical Exam
-
General: No Apparent Distress and Morbidly Obese
HEENT: Negative Oxygen
Respiratory: Clear to Auscultation; Negative Wheezes
Cardiac: Regular Rhythm and S1/S2; Negative Murmur
GI: Soft, Normal Bowel Sounds and Other (Right flank hernia - soft/nontender); Negative Tender
Musculoskeletal: Edema, Right Upper Extrem
Neuro: Awake, Alert and Oriented
Psych: Calm
Data Reviewed
-
CT Scan: Image personally visualized and interpreted and Report Reviewed by me
Labs: Labs Reviewed by me
[2023-08-04] MEDS: KCL 270 MEQ IV (14:17)
[2023-08-04] MEDS: LR 1000 IV (14:17)
[2023-08-04 15:00] VITALS: BP 148/75
[2023-08-04] MEDS: VENTOLIN NEBULES 2.5 MG INH (15:20)
[2023-08-04 19:15] VITALS: BP 141/69
[2023-08-04 23:08] VITALS: BP 138/72
[2023-08-05] VITALS (12 sets, daily range): BP systolic 133–188; BP diastolic 52–110; BMI 37.7
[2023-08-05] MEDS: LR 1000 IV ×2 (03:13→22:06)
[2023-08-05 04:56] LABS: Hematocrit 30.1 % (37.0-47.0); Hemoglobin 9.2 g/dL (12.0-16.0); Mean Corp Hgb Conc. 30.6 g/dL (33.0-37.0); Mean Corpuscular Hgb 25.9 pg (27.0-31.0); Mean Corpuscular Volume 84.8 fL (81.0-99.0); Mean Platelet Volume 10.3 fL (7.4-10.4); Platelet Count 299 10^3/uL (130-400); Red Blood Cell Count 3.55 10^6/uL (4.20-5.40); Red Cell Dist. Width 17.7 % (11.5-14.5); White Blood Cell Count 6.9 10^3/uL (4.8-10.8)
[2023-08-05 05:10] LABS: INR 1.73; PT 20.1 Sec (11.4-14.6)
[2023-08-05 05:26] LABS: Blood Urea Nitrogen 24 mg/dl (7-17); Calcium 8.5 mg/dl (8.4-10.2); Carbon Dioxide 20 mmol/L (22-30); Chloride 114 mmol/L (98-107); Estimated Creatinine Clearance 86 ml/min; Glucose 89 mg/dl (70-99); Potassium 4.2 mmol/L (3.5-5.1); Sodium 137 mmol/L (135-145); eGFR > 60.00
[2023-08-05] MEDS: VANCOCIN 300 ML IV (05:41)
[2023-08-05] MEDS: VANCOCIN 300 MG IV (05:41)
[2023-08-05] MEDS: SYNTHROID 150 MCG PO (05:56)
[2023-08-05] MEDS: TYLENOL 650 MG PO ×2 (06:00→21:13)
[2023-08-05] MEDS: COMPAZINE 5 MG IV (06:03)
[2023-08-05] MEDS: FLOVENT 220MCG 3 PUFF INH (08:01)
--- NOTE | 2023-08-05 08:55 | PHA.VAN.FU ---
Vancomycin Assessment / Plan
- Assessment
Renal Function: SCR Decreasing
WBC's are: WNL
In the past 24 hrs, patient has been: Afebrile
- Dosing Plan
Adjust Regimen to: Vanc 1000mg Q12H for improving SCR
New Regimen Predicts: AUC (448), Peak (27.4), Trough (11.9)
Dosing Comments: give 500mg x1 tonight and start new regimen 08/05 599
- Monitoring Plan
No level(s) ordered at this time: consider levels in next few days
- Follow Up
Pharmacy will continue to follow.
Vancomycin Follow UP
- -
Patient Age: 73
Patient Sex: Female
Vancomycin Day #: 3
Indication: Bacteremia
Requesting Provider: Dr. Rader
Pertinent Antimicrobial Allergies:
no pertinent antibiotic allergies
Height / Weight:
Height 5 ft 5 in
Actual Weight 102.682 kg
Pertinent Past Medical History: BMI ~37, CKD (non-functioning left kidney)
- Vital Signs / Lab Results
Temp Pulse Resp BP Pulse Ox
97.5 F 87 16 150/93 98
08/05/23 07:55 08/05/23 08:04 08/05/23 08:04 08/05/23 07:55 08/05/23 08:04
Lab Results - Hematology
08/04/23 08/05/23
04:38 04:45
WBC 10.4 6.9
Lab Results - Chemistry
08/04/23 08/05/23
04:38 04:45
BUN 27 H 24 H
Creatinine 0.9 0.7
Estimated Creat Clear 67 86
Microbiology Results
08/01/23 17:37 Urine Culture - Final
Urine Enterococcus faecalis
08/03/23 13:25 Blood Culture - Preliminary
Blood/Venous No Growth in 24 hours- Final report to follow
08/01/23 16:57 Blood Culture - Final
Blood/Venous Coagulase neg. staphylococcus
Diptheroids
Additional testing on request
Gram Stain - Final
08/01/23 16:56 Blood Culture - Preliminary
Blood/Venous Diptheroids
Gram Stain - Preliminary
[2023-08-05] MEDS: SINGULAIR 10 MG PO (09:12)
[2023-08-05] MEDS: ZOLOFT 50 MG PO (09:12)
--- NOTE | 2023-08-05 10:48 | CM ---
Patient seen at bedside. Patient indicated that she was feeling slightly better, Plan continues to be home with VN and possible supports from [facility]. CM will continue to follow for discharge planning needs.
Plan home with VN; [facility]
--- NOTE | 2023-08-05 13:35 | W.PN.HOSP.TC ---
Today's Communication/Plan
-
cont abx
stent exchange
Assessment / Plan
Assessment / Plan
Patient is a 73y F with PMH significant for CKD II, non-functioning L kidney and chronic R ureteral stent who presents to ED complaining of 1-2 weeks of urinary symptoms and N/V.
Pyelonephritis from Enterococcus
Sepsis secondary to the above
Hydronephrosis
- Admit for further evaluation and treatment.
- Patient presents with clinical pyelo with urinary symptoms, abnormal UA and N/V.
- Patient presents with fever, leukocytosis and tachycardia in the presence of suspected urinary source of infection.
- Urology evaluated and plan for patient to go to the OR today for stent exchange.
- Start patient on vancomycin for Enterococcus UTI - switch to PO tomorrow
Bacteremia
-coag neg staph, diptheroids
-most likely contaminant
#Hypokalemia
-monitor and replete
CKD III
Non-Functioning Left Kidney
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
- Renal function is fairly stable with SCR near known baseline.
- Follow for any changes.
Coagulopathy
History of DVT / PE
History of IVC filter
- got oral vit K 2.5mg
-Holding for today until procedure tomorrow, restart tomorrow
Large Spigelian Hernia
- Patient denies any abdominal pain, issues moving bowels / constipation, etc.
- Patient has previously declined surgical interventions for this very large hernia on multiple occasions.
- Continue on oral laxative therapy. Patient has habit of declining oral laxative.
Anemia of Chronic Disease
- Stable. Hgb is at / near known baseline.
- Iron sat 13%,
- Follow for any changes in H&H.
Asthma
Restrictive Lung Disease
- Stable. No subjective dyspnea or hypoxemia noted at this time.
- Continue Flovent. Nebs PRN.
Hypothyroidism
- Stable. Continue T4 supplementation.
Obesity due to excess calories
- Affects all aspects of care.
- Encourage healthy diet and activity as tolerated with goal of weight loss.
Code Status: Full
Anticipated Discharge: Within 24 hours
Subjective/Interval History
-
Date of Service: August 05, 2023
no acute changes
Objective Data
-
Labs:
Laboratory Results
08/05/23
04:45
WBC 6.9
Hgb 9.2 L
Hct 30.1 L
Plt Count 299
PT 20.1 H
INR 1.73
Sodium 137
Potassium 4.2
Chloride 114 H
Carbon Dioxide 20 L
BUN 24 H
Creatinine 0.7
Glucose 89
Calcium 8.5
Vital Signs:
Vital Signs
Temp Pulse Resp BP Pulse Ox
97.5 F 87 16 150/93 97
08/05/23 07:55 08/05/23 08:04 08/05/23 08:04 08/05/23 07:55 08/05/23 11:46
I&O
08/04/23 08/05/23 08/06/23
06:59 06:59 06:59
Intake Total 1889 720 / 720
Balance 1889 720 / 720
Review of Systems
-
History Source: Patient
All other systems: Not reviewed unless documented
Data Reviewed
-
CT Scan: Image personally visualized and interpreted and Report Reviewed by me
Labs: Labs Reviewed by me
--- NOTE | 2023-08-05 14:28 | W.SUR.POST ---
Surgical Immediate Post Op
Note
Pre Op Diagnosis: rt upj obstruction
Post Op Diagnosis: same
Procedure Performed:cysto rt jj stent exchange
Primary Surgeon: denis
Secondary Surgeons:
Anesthesia: jososn/ general
Estimated Blood Loss: 1cc
Fluids:
Drains/Shunts: 6 fr 24 cc rt jj stent
Specimens/Cultures:
Doppler/Duplex/Angio (Y/N):
Complications: 0
Operative Findings: rt upj obstruction
[2023-08-05] MEDS: VANCOCIN HCL 500 MG 100 IV (17:19)
[2023-08-05] MEDS: ZESTRIL 10 MG PO (22:05)
[2023-08-05] MEDS: VENTOLIN NEBULES 2.5 MG INH (22:08)
[2023-08-06] VITALS (7 sets, daily range): BP systolic 111–200; BP diastolic 68–118; BMI 38.3
--- NOTE | 2023-08-06 01:08 | W.PN.UPDATE ---
Update Note
Progress Note Update
Manual BP 188/104 HR 93, home med Lisinopril 10mg PO dose given x1 .BP 156/94 HR 98 an hour later.
[2023-08-06] MEDS: SYNTHROID 150 MCG PO (05:44)
[2023-08-06] MEDS: VANCOCIN 200 IV (05:44)
[2023-08-06] MEDS: FLOVENT 220MCG 3 PUFF INH (07:33)
[2023-08-06 08:02] LABS: Hematocrit 30.5 % (37.0-47.0); Hemoglobin 9.8 g/dL (12.0-16.0); Mean Corp Hgb Conc. 32.1 g/dL (33.0-37.0); Mean Corpuscular Hgb 26.3 pg (27.0-31.0); Mean Platelet Volume 10.4 fL (7.4-10.4); Platelet Count 359 10^3/uL (130-400); Red Blood Cell Count 3.72 10^6/uL (4.20-5.40); Red Cell Dist. Width 17.6 % (11.5-14.5)
[2023-08-06 08:23] LABS: Blood Urea Nitrogen 27 mg/dl (7-17); Calcium 8.7 mg/dl (8.4-10.2); Carbon Dioxide 20 mmol/L (22-30); Chloride 114 mmol/L (98-107); Estimated Creatinine Clearance 51 ml/min; Glucose 149 mg/dl (70-99); Potassium 4.5 mmol/L (3.5-5.1); Sodium 137 mmol/L (135-145); eGFR 48.09
[2023-08-06] MEDS: APRESOLINE 10 MG IV (09:28)
[2023-08-06] MEDS: SINGULAIR 10 MG PO (09:30)
[2023-08-06] MEDS: ZOLOFT 50 MG PO (09:30)
[2023-08-06] MEDS: FLUSH (NSS) 1 FLUSH IV (09:31)
[2023-08-06] MEDS: AMOXIL 1000 MG PO ×2 (09:31→18:01)
[2023-08-06] MEDS: LR IV (09:32)
--- NOTE | 2023-08-06 09:40 | PTCARENOTE ---
BP this am 187/118, rechecked manually left arm 200/118, right arm 200/112. Dr Wells notified. orders received fro PRN hydralazine. 10 mg IV given. Plan of care on going.
[2023-08-06] MEDS: TYLENOL 650 MG PO ×2 (09:41→18:05)
--- NOTE | 2023-08-06 12:33 | W.PN.URO.CBU ---
Today's Communication / Plan
-
per hospita[facility]
Assessment / Plan
-
pt sepsiis and has foreign body apears stable inr low jj stent exchanged plan for inr per hospitalist
Diagnosis
-
Date of Service: August 06, 2023
-
Patient Diagnosis:
Post Op Day:
Patient Diagnosis:
Post Op Day:
Patient Diagnosis:
Post Op Day:
Patient Diagnosis:sepsis
Post Op Day:
Subjective
-
some htn no new c=gu sx no fev chills voidn=ig normaly
Objective
-
Vital Signs
Temp Pulse Resp BP Pulse Ox
98.5 F 109 20 125/83 95
08/06/23 11:18 08/06/23 11:18 08/06/23 11:18 08/06/23 11:18 08/06/23 11:18
Intake and Output
08/05/23 08/06/23 08/07/23
06:59 06:59 06:59
Intake Total 720 / 720 1240 / 1240
Balance 720 / 720 1240 / 1240
Intake:
Oral fluids 720 / 720 240 / 240
IV fluids (Total) 800 / 800
normosol 50 / 50
IV piggybacks 200 / 200
Other:
Number of approximated MODERATE 2
amounts of urine
How many times incontinent 2
MODERATE amount urine
How many times incontinent 2 3
SATURATED amount urine
Number of unmeasured liquid
stools
Rectum 1
Laboratory Results
08/06/23 07:20
08/06/23 07:20
Review of Systems
-
: No Symptoms
Physical Exam
-
General - well developed, well nourished, no acute distress
Chest - clear bilaterally
Abdomen - soft, non-tender, positive bowel sounds, no CVAT, no incisional pain or distention
Genitalia - normal
Rectal - normal
Skin - warm & dry with no rash
Neuro - AOx3, no motor deficits
Extremities - no clubbing, no cyanosis, no edema
Incision - clean, dry
Dressing - clean, dry, intact
--- NOTE | 2023-08-06 14:27 | W.PN.HOSP.TC ---
Today's Communication/Plan
-
switch to amoxicillin for 14 day course
dc ready
resume warfarin
Assessment / Plan
Assessment / Plan
Patient is a 73y F with PMH significant for CKD II, non-functioning L kidney and chronic R ureteral stent who presents to ED complaining of 1-2 weeks of urinary symptoms and N/V.
Pyelonephritis from Enterococcus
Sepsis secondary to the above
Hydronephrosis
- Admit for further evaluation and treatment.
- Patient presents with clinical pyelo with urinary symptoms, abnormal UA and N/V.
- Patient presents with fever, leukocytosis and tachycardia in the presence of suspected urinary source of infection.
- Urology evaluated and plan for patient to go to the OR today for stent exchange.
- Start patient on vancomycin for Enterococcus UTI - switch amoxicillin TID to complete 14 day course
Bacteremia
-coag neg staph, diptheroids
-most likely contaminant
#Hypokalemia
-monitor and replete
CKD III
Non-Functioning Left Kidney
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
- Renal function is fairly stable with SCR near known baseline.
- Follow for any changes.
Coagulopathy
History of DVT / PE
History of IVC filter
- got oral vit K 2.5mg
-resume warfarin
Large Spigelian Hernia
- Patient denies any abdominal pain, issues moving bowels / constipation, etc.
- Patient has previously declined surgical interventions for this very large hernia on multiple occasions.
- Continue on oral laxative therapy. Patient has habit of declining oral laxative.
Anemia of Chronic Disease
- Stable. Hgb is at / near known baseline.
- Iron sat 13%,
- Follow for any changes in H&H.
Asthma
Restrictive Lung Disease
- Stable. No subjective dyspnea or hypoxemia noted at this time.
- Continue Flovent. Nebs PRN.
Hypothyroidism
- Stable. Continue T4 supplementation.
Obesity due to excess calories
- Affects all aspects of care.
- Encourage healthy diet and activity as tolerated with goal of weight loss.
Code Status: Full
More than 30 minutes spent in discharge including
Final examination of the patient
Summarizing hospital stay
Instructions for continuing care to all relevant caregivers
Preparation of discharge records, prescriptions, and referral forms
Total time spent (35 in minutes):
Anticipated Discharge: Today
Subjective/Interval History
-
Date of Service: August 06, 2023
no acute events
Objective Data
-
Labs:
Laboratory Results
08/06/23
07:20
WBC 6.0
Hgb 9.8 L
Hct 30.5 L
Plt Count 359 D
Sodium 137
Potassium 4.5
Chloride 114 H
Carbon Dioxide 20 L
BUN 27 H
Creatinine 1.2 H
Glucose 149 H
Calcium 8.7
Vital Signs:
Vital Signs
Temp Pulse Resp BP Pulse Ox
98.5 F 109 20 125/83 95
08/06/23 11:18 08/06/23 11:18 08/06/23 11:18 08/06/23 11:18 08/06/23 11:18
I&O
08/05/23 08/06/23 08/07/23
06:59 06:59 06:59
Intake Total 720 / 720 1240 / 1240
Balance 720 / 720 1240 / 1240
Review of Systems
-
History Source: Patient
All other systems: Not reviewed unless documented
Physical Exam
-
General: No Apparent Distress and Morbidly Obese
HEENT: Negative Oxygen
Respiratory: Clear to Auscultation; Negative Wheezes
Cardiac: Regular Rhythm and S1/S2; Negative Murmur
GI: Soft, Normal Bowel Sounds and Other (Right flank hernia - soft/nontender); Negative Tender
Musculoskeletal: Edema, Right Upper Extrem
Neuro: Awake, Alert and Oriented
Psych: Calm
Data Reviewed
-
CT Scan: Image personally visualized and interpreted and Report Reviewed by me
Labs: Labs Reviewed by me
[2023-08-06] MEDS: VENTOLIN NEBULES 2.5 MG INH (16:19)
[2023-08-06] MEDS: COUMADIN 2 MG PO (18:01)
[2023-08-07] VITALS (10 sets, daily range): BP systolic 117–175; BP diastolic 70–110; BMI 38.9
[2023-08-07] MEDS: AMOXIL 1000 MG PO (01:11)
[2023-08-07] MEDS: SYNTHROID 150 MCG PO (05:28)
[2023-08-07] MEDS: TYLENOL 650 MG PO ×2 (05:31→18:25)
[2023-08-07 06:28] LABS: Hematocrit 30.6 % (37.0-47.0); Hemoglobin 9.3 g/dL (12.0-16.0); Mean Corp Hgb Conc. 30.4 g/dL (33.0-37.0); Mean Corpuscular Hgb 25.5 pg (27.0-31.0); Mean Corpuscular Volume 83.8 fL (81.0-99.0); Mean Platelet Volume 10.5 fL (7.4-10.4); Platelet Count 382 10^3/uL (130-400); Red Blood Cell Count 3.65 10^6/uL (4.20-5.40); White Blood Cell Count 7.3 10^3/uL (4.8-10.8)
[2023-08-07 06:30] LABS: INR 1.84; PT 21.4 Sec (11.4-14.6)
[2023-08-07 07:00] LABS: Blood Urea Nitrogen 37 mg/dl (7-17); Carbon Dioxide 19 mmol/L (22-30); Chloride 113 mmol/L (98-107); Estimated Creatinine Clearance 32 ml/min; Glucose 93 mg/dl (70-99); Potassium 4.5 mmol/L (3.5-5.1); Sodium 140 mmol/L (135-145); eGFR 27.71
[2023-08-07] MEDS: FLOVENT 220MCG INH (07:35)
[2023-08-07] MEDS: AMOXIL 500 MG PO ×2 (09:23→18:25)
[2023-08-07] MEDS: SINGULAIR 10 MG PO (09:23)
[2023-08-07] MEDS: ZOLOFT 50 MG PO (09:23)
[2023-08-07] MEDS: LR 1000 IV (09:24)
[2023-08-07] MEDS: FLUSH (NSS) 1 FLUSH IV (09:26)
--- NOTE | 2023-08-07 09:27 | W.PN.URO.CBU ---
Today's Communication / Plan
-
to op room
Assessment / Plan
-
pt with increasing creatinine renal u/s revealed jj stent below upj will need replacement pt aware
Diagnosis
-
Date of Service: August 07, 2023
-
Patient Diagnosis:
Post Op Day:
Patient Diagnosis:rt upj obstruction migrated jj stent
Post Op Day:
Patient Diagnosis:
Post Op Day:
Patient Diagnosis:
Post Op Day:
Patient Diagnosis:sepsis
Post Op Day:
Subjective
-
less urination
Objective
-
Vital Signs
Temp Pulse Resp BP Pulse Ox
98.4 F 75 18 145/83 98
08/07/23 07:55 08/07/23 07:55 08/07/23 07:55 08/07/23 07:55 08/07/23 07:55
Intake and Output
08/06/23 08/07/23 08/08/23
06:59 06:59 06:59
Intake Total 1240 / 1240 1560 / 1560
Balance 1240 / 1240 1560 / 1560
Intake:
Oral fluids 240 / 240 1560 / 1560
IV fluids (Total) 800 / 800
normosol 50 / 50
IV piggybacks 200 / 200
Other:
How many times incontinent 2 3
MODERATE amount urine
How many times incontinent 3 2
SATURATED amount urine
Number of unmeasured liquid
stools
Rectum 1
Laboratory Results
08/07/23 05:21
08/07/23 05:21
Review of Systems
-
: No Symptoms
Physical Exam
-
General - well developed, well nourished, no acute distress
Chest - clear bilaterally
Abdomen - soft, non-tender, positive bowel sounds, no CVAT, no incisional pain or distention
Genitalia - normal
Rectal - normal
Skin - warm & dry with no rash
Neuro - AOx3, no motor deficits
Extremities - no clubbing, no cyanosis, no edema
Incision - clean, dry
Dressing - clean, dry, intact
Care Review
Data Reviewed
Discussed with: Hospitalist and Nursing
Ultrasound: Image Pers Reviewed
[2023-08-07] MEDS: COUMADIN PO (10:00)
--- NOTE | 2023-08-07 10:06 | PN.CDI ---
CDI
- -
CDI:
Physician Documentation Request
Admit Date: 08/01/23 21:48
Dear Doctor Tyshawn
Patient admitted with sepsis secondary to Pyelonephritis from Enterococcus.
Urology note states 'pt sepsis and has foreign body'
5/ pt underwent right jj stent exchange
Please clarify if a relationship exist between these conditions:
Yes, sepsis/pyelonephritis is related to/associated with/due to stents
No, sepsis/pyelonephritis is not related to/associated with/due to stents
Unable to determine
Use of terms such as suspected, likely, concern for, or probable (associated with a specific diagnosis that is being evaluated, monitored, or treated as if it exists) are acceptable and can be coded in the inpatient setting, when documented at the
time of discharge.
Thank you,
Jeannette Odom RN, BSN
CDI Specialist
tiger text
Please use your independent medical judgment in providing your response.
[2023-08-07] MEDS: FLOVENT 220MCG 3 PUFF INH (10:17)
--- NOTE | 2023-08-07 10:19 | PN.CDI ---
CDI
- -
CDI:
Physician Documentation Request
Admit Date: 08/01/23 21:48
Dear Doctor Russell,
Patient admitted for Sepsis secondary to pyelonephritis from Enterococcus.
08/04 patient underwent double J stent exchange.
Creatinine results:
Laboratory Tests
08/01/23 08/02/23 08/04/23
16:57 05:57 04:38
Creatinine 1.1 H 1.0 0.9
08/05/23 08/06/23 08/07/23
04:45 07:20 05:21
Creatinine 0.7 1.2 H 1.9 H
Could you provide a diagnosis that supports the above lab abnormalities and additional evaluation/monitoring:
JACKIE
Abnormal lab values clinically insignificant
Other
Criteria for JACKIE*
1 Increase in serum creatinine by > or = to 0.3 mg/dL (> or = to 26.5 micromol/L) within 48 hours, OR
2 Increase in serum creatinine to > or = to 1.5 times baseline, which is known or presumed to have occurred within 7 days, OR
3 Urine volume < 0.5 nL/kg/hour for six hours
Use of terms such as suspected, likely, concern for, or probable (associated with a specific diagnosis that is being evaluated, monitored, or treated as if it exists) are acceptable and can be coded in the inpatient setting, when documented at the
time of discharge.
Thank you,
Jeannette Odom RN, BSN
CDI Specialist
tiger text
Please use your independent medical judgment in providing your response.
[2023-08-07] MEDS: APRESOLINE 10 MG IV (13:13)
--- NOTE | 2023-08-07 13:27 | PTCARENOTE ---
Pre-op checklist completed. Provided report to Yasemin in the OR. Made Yasemin aware that pt's BP elevated at 175/110 at 1310. Pt asymptomatic. Administered PRN Hydralazine 10mg IV at 1313. Also, reported to Yasemin that pt refused to have Betadine nasal
swabs done on floor prior to transport. Transported pt at this time to OR.
--- NOTE | 2023-08-07 14:10 | W.PN.HOSP.TC ---
Today's Communication/Plan
-
start amlodipine, IV Hydral PRN
OR today for stent eval
cont abx
IVF
Monitor Scr
Assessment / Plan
Assessment / Plan
Patient is a 73y F with PMH significant for CKD II, non-functioning L kidney and chronic R ureteral stent who presents to ED complaining of 1-2 weeks of urinary symptoms and N/V.
Pyelonephritis from Enterococcus
Sepsis secondary to the above
Hydronephrosis
- Admit for further evaluation and treatment.
- Patient presents with clinical pyelo with urinary symptoms, abnormal UA and N/V.
- Patient presents with fever, leukocytosis and tachycardia in the presence of suspected urinary source of infection.
- Urology evaluated and plan for patient to go to the OR today for stent exchange 08/05 - will go in to OR again today due to possible migration and rising Scr
- Start patient on vancomycin for Enterococcus UTI - switch amoxicillin TID to complete 14 day course
Bacteremia
-coag neg staph, diptheroids
-most likely contaminant
#Hypokalemia
-monitor and replete
#Hypertension
-holding ACEI
-Start Amlodipine 5mg
JACKIE on CKD III
Non-Functioning Left Kidney
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
- OR today - possibly 2/2 to stent migration
-Cont fluids
-CTM
-Stop Lisinopril
Coagulopathy
History of DVT / PE
History of IVC filter
- got oral vit K 2.5mg
-resume warfarin
Large Spigelian Hernia
- Patient denies any abdominal pain, issues moving bowels / constipation, etc.
- Patient has previously declined surgical interventions for this very large hernia on multiple occasions.
- Continue on oral laxative therapy. Patient has habit of declining oral laxative.
Anemia of Chronic Disease
- Stable. Hgb is at / near known baseline.
- Iron sat 13%,
- Follow for any changes in H&H.
Asthma
Restrictive Lung Disease
- Stable. No subjective dyspnea or hypoxemia noted at this time.
- Continue Flovent. Nebs PRN.
Hypothyroidism
- Stable. Continue T4 supplementation.
Obesity due to excess calories
- Affects all aspects of care.
- Encourage healthy diet and activity as tolerated with goal of weight loss.
Code Status: Full
Total time spent on today's encounter was 50 minutes which included time spent in counseling the patient/family regarding diagnosis and treatment plan as listed above, goals of care, and symptom management. Case was discussed with nursing staff,
specialists, and care coordinators/case management. All labs and imaging personally reviewed by me. Remainder the time spent in detailed review of previous records, lab data, imaging, and other medical provider documentation.
Anticipated Discharge: 24 - 48 hours
Subjective/Interval History
-
Date of Service: August 07, 2023
Scr rising - stent appears to be slightly migrated
Objective Data
-
Labs:
Laboratory Results
08/07/23
05:21
WBC 7.3
Hgb 9.3 L
Hct 30.6 L
Plt Count 382
PT 21.4 H
INR 1.84
Sodium 140
Potassium 4.5
Chloride 113 H
Carbon Dioxide 19 L
BUN 37 H
Creatinine 1.9 H
Glucose 93
Calcium 9.0
Vital Signs:
Vital Signs
Temp Pulse Resp BP Pulse Ox
98.8 F 85 18 175/110 98
08/07/23 13:00 08/07/23 13:13 08/07/23 13:00 08/07/23 13:13 08/07/23 13:00
I&O
08/06/23 08/07/23 08/08/23
06:59 06:59 06:59
Intake Total 1240 / 1240 1560 / 1560
Balance 1240 / 1240 1560 / 1560
Review of Systems
-
History Source: Patient
All other systems: Not reviewed unless documented
Physical Exam
-
General: No Apparent Distress and Morbidly Obese
HEENT: Negative Oxygen
Respiratory: Clear to Auscultation; Negative Wheezes
Cardiac: Regular Rhythm and S1/S2; Negative Murmur
GI: Soft, Normal Bowel Sounds and Other (Right flank hernia - soft/nontender); Negative Tender
Musculoskeletal: Edema, Right Upper Extrem
Neuro: Awake, Alert and Oriented
Psych: Calm
Data Reviewed
-
CT Scan: Image personally visualized and interpreted and Report Reviewed by me
Labs: Labs Reviewed by me
--- NOTE | 2023-08-07 15:15 | W.SUR.POST ---
Surgical Immediate Post Op
Note
Pre Op Diagnosis: rt upj obstruction mkigratyed stebnt
Post Op Diagnosis:
same
Procedure Performert uretroscopy rgp exchange of stentd:
Primary Surgeon: denis
Secondary Surgeons:
Anesthesia: gen
Estimated Blood Loss: 2
Fluids:
Drains/Shunts:
4.7 fr jj stent
Specimens/Cultures:
Doppler/Duplex/Angio (Y/N):
Complications:
0
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
[2023-08-07] MEDS: NORVASC 5 MG PO (16:23)
--- NOTE | 2023-08-07 17:01 | PTCARENOTE ---
Received report from Constance in the PACU. Pt arrived back to 410-1 at 1610, AAOx3, lungs remain diminished at the bases, no SOB. No complaints of pain. 18 FR antunez draining clear, yellow urine. No complaints of urinary discomfort. Vital signs noted.
BP 172/94 on arrival back to , asymptomatic. Administered ordered Norvasc, will continue to monitor BP. Pt denying any nausea, tolerating liquids and looking to order dinner. Call villarreal within reach.
[2023-08-07] MEDS: VENTOLIN NEBULES 2.5 MG INH (17:57)
[2023-08-07] MEDS: COUMADIN 2 MG PO (18:26)
[2023-08-08] MEDS: AMOXIL 500 MG PO ×3 (02:29→17:56)
[2023-08-08] MEDS: LR 1000 IV ×2 (02:29→14:49)
[2023-08-08 03:33] VITALS: BP 134/84
[2023-08-08 03:57] LABS: Hematocrit 26.4 % (37.0-47.0); Hemoglobin 8.5 g/dL (12.0-16.0); Mean Corp Hgb Conc. 32.2 g/dL (33.0-37.0); Mean Corpuscular Hgb 25.9 pg (27.0-31.0); Mean Corpuscular Volume 80.5 fL (81.0-99.0); Mean Platelet Volume 9.4 fL (7.4-10.4); Platelet Count 339 10^3/uL (130-400); Red Blood Cell Count 3.28 10^6/uL (4.20-5.40); Red Cell Dist. Width 17.9 % (11.5-14.5); White Blood Cell Count 5.5 10^3/uL (4.8-10.8)
[2023-08-08 04:11] LABS: INR 1.99; PT 22.8 Sec (11.4-14.6)
[2023-08-08 04:22] LABS: Blood Urea Nitrogen 39 mg/dl (7-17); Calcium 8.5 mg/dl (8.4-10.2); Carbon Dioxide 19 mmol/L (22-30); Chloride 114 mmol/L (98-107); Estimated Creatinine Clearance 44 ml/min; Glucose 130 mg/dl (70-99); Potassium 5.4 mmol/L (3.5-5.1); Sodium 138 mmol/L (135-145); eGFR 39.97
[2023-08-08] MEDS: SYNTHROID 150 MCG PO (05:43)
[2023-08-08 06:00] VITALS: BMI 39.0
[2023-08-08 07:55] VITALS: BP 166/98
--- NOTE | 2023-08-08 08:28 | CM ---
patient with inc cr.right jj stent replaced per urology,cont abx for uti.patient refusing therapy.plan is home with sister and vn.
--- NOTE | 2023-08-08 08:34 | CM ---
patient with inc cr.had real us.per urology jj stent replaced,cont abx for uti,patient refusing physical therapy.plan is home with sister and vn
[2023-08-08] MEDS: FLOVENT 220MCG 3 PUFF INH (08:35)
[2023-08-08] MEDS: NORVASC 5 MG PO (10:37)
[2023-08-08] MEDS: SINGULAIR 10 MG PO (10:37)
[2023-08-08] MEDS: ZOLOFT 50 MG PO (10:38)
[2023-08-08] MEDS: TYLENOL 650 MG PO (10:39)
[2023-08-08 11:37] VITALS: BP 146/86
--- NOTE | 2023-08-08 13:15 | W.PN.URO.CBU ---
Today's Communication / Plan
-
remove antunez
Assessment / Plan
-
pt with resolvng elizabeth after replacemt of rt jj stent
Diagnosis
-
Date of Service: August 08, 2023
-
Patient Diagnosis:urosepsis on admit due to infected jj stent which was replaced months ago replace d for sepsis now new stent migrated
with elizabeth
Post Op Day:
Patient Diagnosis:
Post Op Day:
Patient Diagnosis:rt upj obstruction migrated jj stent
Post Op Day:
Patient Diagnosis:
Post Op Day:
Patient Diagnosis:
Post Op Day:
Patient Diagnosis:sepsis due to infected original rtjj stent on admt
Post Op Day:
Subjective
-
feels well
Objective
-
Vital Signs
Temp Pulse Resp BP Pulse Ox
98.0 F 96 18 146/86 97
08/08/23 11:37 08/08/23 11:37 08/08/23 11:37 08/08/23 11:37 08/08/23 11:37
Intake and Output
08/07/23 08/08/23 08/09/23
06:59 06:59 06:59
Intake Total 1560 / 1560 1850 / 1850
Output Total 2224 / 2224
Balance 1560 / 1560 -375 / -375
Intake:
Oral fluids 1560 / 1560 1200 / 1200
IV fluids (Total) 650 / 650
normosol 200 / 200
Output:
Urine, Antunez 2224 / 2224
Other:
How many times incontinent 3 1
MODERATE amount urine
How many times incontinent 2 1
SATURATED amount urine
Laboratory Results
08/08/23 03:46
08/08/23 03:46
Review of Systems
-
Abdomen/GI: No Symptoms
: No Symptoms
Physical Exam
-
General - well developed, well nourished, no acute distress
Chest - clear bilaterally
Abdomen - soft, non-tender, positive bowel sounds, no CVAT, no incisional pain or distention
Genitalia - normal
Rectal - normal
Skin - warm & dry with no rash
Neuro - AOx3, no motor deficits
Extremities - no clubbing, no cyanosis, no edema
Incision - clean, dry
Dressing - clean, dry, intact
Care Review
Data Reviewed
Discussed with: Nursing
--- NOTE | 2023-08-08 13:57 | W.PN.HOSP.TC ---
Today's Communication/Plan
-
remove antunez
monitor scr
lokelma
abx
Assessment / Plan
Assessment / Plan
Patient is a 73y F with PMH significant for CKD II, non-functioning L kidney and chronic R ureteral stent who presents to ED complaining of 1-2 weeks of urinary symptoms and N/V.
Pyelonephritis from Enterococcus
Sepsis secondary to the above
Hydronephrosis
- Admit for further evaluation and treatment.
- Patient presents with clinical pyelo with urinary symptoms, abnormal UA and N/V.
- Patient presents with fever, leukocytosis and tachycardia in the presence of suspected urinary source of infection.
- Urology evaluated and plan for patient to go to the OR today for stent exchange 08/05 - went to OR again 08/06 for JJ stent replacement with rising Scr
- Start patient on vancomycin for Enterococcus UTI - switch amoxicillin TID to complete 14 day course
- Remove Antunez
Bacteremia
-coag neg staph, diptheroids
-most likely contaminant
#Hypokalemia, now #Hyperkalemia
-monitor and treat
#Hypertension
-holding ACEI
-Start Amlodipine 5mg
JACKIE on CKD III
Non-Functioning Left Kidney
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
- JJ stetnt replacement 08/06 - improving
-Cont fluids
-CTM
-Stop Lisinopril
Coagulopathy
History of DVT / PE
History of IVC filter
- got oral vit K 2.5mg
-resume warfarin
Large Spigelian Hernia
- Patient denies any abdominal pain, issues moving bowels / constipation, etc.
- Patient has previously declined surgical interventions for this very large hernia on multiple occasions.
- Continue on oral laxative therapy. Patient has habit of declining oral laxative.
Anemia of Chronic Disease
- Stable. Hgb is at / near known baseline.
- Iron sat 13%,
- Follow for any changes in H&H.
Asthma
Restrictive Lung Disease
- Stable. No subjective dyspnea or hypoxemia noted at this time.
- Continue Flovent. Nebs PRN.
Hypothyroidism
- Stable. Continue T4 supplementation.
Obesity due to excess calories
- Affects all aspects of care.
- Encourage healthy diet and activity as tolerated with goal of weight loss.
Code Status: Full
Anticipated Discharge: Within 24 hours
Subjective/Interval History
-
Date of Service: August 08, 2023
Placement of JJ stent yesterday, no acute events otherwise
Objective Data
-
Labs:
Laboratory Results
08/08/23
03:46
WBC 5.5
Hgb 8.5 L
Hct 26.4 L
Plt Count 339
PT 22.8 H
INR 1.99
Sodium 138
Potassium 5.4 H
Chloride 114 H
Carbon Dioxide 19 L
BUN 39 H
Creatinine 1.4 H
Glucose 130 H
Calcium 8.5
Vital Signs:
Vital Signs
Temp Pulse Resp BP Pulse Ox
98.0 F 96 18 146/86 97
08/08/23 11:37 08/08/23 11:37 08/08/23 11:37 08/08/23 11:37 08/08/23 11:37
I&O
08/07/23 08/08/23 08/09/23
06:59 06:59 06:59
Intake Total 1560 / 1560 1850 / 1850
Output Total 2225 / 2225
Balance 1560 / 1560 -375 / -375
Review of Systems
-
History Source: Patient
All other systems: Not reviewed unless documented
Data Reviewed
-
CT Scan: Image personally visualized and interpreted and Report Reviewed by me
Labs: Labs Reviewed by me
--- NOTE | 2023-08-08 14:58 | PTCARENOTE ---
patient refused lokelma- 'it will make me vomit, I am not taking it'. Dr Wells made aware.
[2023-08-08 15:55] VITALS: BP 152/83
[2023-08-08] MEDS: COUMADIN 2 MG PO (17:56)
[2023-08-08] MEDS: VENTOLIN NEBULES 2.5 MG INH (18:21)
[2023-08-08 23:53] VITALS: BP 136/78
[2023-08-09] MEDS: AMOXIL 500 MG PO ×3 (02:01→17:54)
[2023-08-09] MEDS: LR 1000 IV (04:32)
[2023-08-09 06:00] VITALS: BMI 40.0
[2023-08-09] MEDS: SYNTHROID 150 MCG PO (06:05)
[2023-08-09 07:00] VITALS: BP 176/95
[2023-08-09 08:28] LABS: Hematocrit 28.2 % (37.0-47.0); Hemoglobin 8.5 g/dL (12.0-16.0); Mean Corp Hgb Conc. 30.1 g/dL (33.0-37.0); Mean Corpuscular Hgb 25.4 pg (27.0-31.0); Mean Corpuscular Volume 84.2 fL (81.0-99.0); Platelet Count 339 10^3/uL (130-400); Red Blood Cell Count 3.35 10^6/uL (4.20-5.40); Red Cell Dist. Width 18.2 % (11.5-14.5); White Blood Cell Count 6.7 10^3/uL (4.8-10.8)
[2023-08-09] MEDS: FLOVENT 220MCG 3 PUFF INH (08:54)
[2023-08-09 09:05] LABS: Blood Urea Nitrogen 34 mg/dl (7-17); Calcium 8.5 mg/dl (8.4-10.2); Carbon Dioxide 22 mmol/L (22-30); Chloride 112 mmol/L (98-107); Estimated Creatinine Clearance 57 ml/min; Glucose 82 mg/dl (70-99); Potassium 4.8 mmol/L (3.5-5.1); Sodium 141 mmol/L (135-145); eGFR 53.39
[2023-08-09 09:19] LABS: INR 2.11; PT 23.5 Sec (11.4-14.6)
[2023-08-09] MEDS: NORVASC 5 MG PO (10:25)
[2023-08-09] MEDS: ZOLOFT 50 MG PO (10:26)
[2023-08-09] MEDS: SINGULAIR 10 MG PO (10:26)
[2023-08-09] MEDS: TYLENOL 650 MG PO (10:37)
[2023-08-09] MEDS: COMPAZINE 5 MG IV (10:43)
[2023-08-09] MEDS: VENTOLIN NEBULES 2.5 MG INH (11:43)
--- NOTE | 2023-08-09 12:15 | W.PN.HOSP.TC ---
Addendum entered and electronically signed by Chon Wells MD 08/09/23 16:11:
[id number]
Original Note:
Today's Communication/Plan
-
amlodipine
amoxicillin to complete 14 day course
can hold lisinopril until followed up by pcp and monitored Scr
F/u pcp, urology outpatient
Assessment / Plan
Assessment / Plan
Patient is a 73y F with PMH significant for CKD II, non-functioning L kidney and chronic R ureteral stent who presents to ED complaining of 1-2 weeks of urinary symptoms and N/V.
Pyelonephritis from Enterococcus
Sepsis secondary to the above
Hydronephrosis
- Admit for further evaluation and treatment.
- Patient presents with clinical pyelo with urinary symptoms, abnormal UA and N/V.
- Patient presents with fever, leukocytosis and tachycardia in the presence of suspected urinary source of infection.
- Urology evaluated and plan for patient to go to the OR today for stent exchange 08/05 - went to OR again 08/06 for JJ stent replacement with rising Scr ; now much improved after replacement
- Start patient on vancomycin for Enterococcus UTI - switch amoxicillin TID to complete 14 day course
Bacteremia
-coag neg staph, diptheroids
-most likely contaminant
#Hypokalemia, now #Hyperkalemia
-monitor and treat
#Hypertension
-holding ACEI
-Start Amlodipine 5mg
JACKIE on CKD III
Non-Functioning Left Kidney
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
- JJ stetnt replacement 08/06 - improving
-Cont fluids
-CTM
-Stop Lisinopril; can consider restarting outpatient
-Start amlodipine - can assess continuation once ACEI started
Coagulopathy
History of DVT / PE
History of IVC filter
- got oral vit K 2.5mg
-resume warfarin
-F/u INR outpatient
Large Spigelian Hernia
- Patient denies any abdominal pain, issues moving bowels / constipation, etc.
- Patient has previously declined surgical interventions for this very large hernia on multiple occasions.
- Continue on oral laxative therapy. Patient has habit of declining oral laxative.
Anemia of Chronic Disease
- Stable. Hgb is at / near known baseline.
- Iron sat 13%,
- Follow for any changes in H&H.
Asthma
Restrictive Lung Disease
- Stable. No subjective dyspnea or hypoxemia noted at this time.
- Continue Flovent. Nebs PRN.
Hypothyroidism
- Stable. Continue T4 supplementation.
Obesity due to excess calories
- Affects all aspects of care.
- Encourage healthy diet and activity as tolerated with goal of weight loss.
Code Status: Full
More than 30 minutes spent in discharge including
Final examination of the patient
Summarizing hospital stay
Instructions for continuing care to all relevant caregivers
Preparation of discharge records, prescriptions, and referral forms
Total time spent (35 in minutes):
Anticipated Discharge: Today
Subjective/Interval History
-
Date of Service: August 09, 2023
no acute events
Objective Data
-
Labs:
Laboratory Results
08/09/23
07:04
WBC 6.7
Hgb 8.5 L
Hct 28.2 L
Plt Count 339
PT 23.5 H
INR 2.11
Sodium 141
Potassium 4.8
Chloride 112 H
Carbon Dioxide 22
BUN 34 H
Creatinine 1.1 H
Glucose 82
Calcium 8.5
Vital Signs:
Vital Signs
Temp Pulse Resp BP Pulse Ox
98.5 F 82 16 176/95 98
08/09/23 07:00 08/09/23 11:44 08/09/23 11:44 08/09/23 07:00 08/09/23 11:44
I&O
08/08/23 08/09/23 08/10/23
06:59 06:59 06:59
Intake Total 1850 / 1850 3260 / 3260
Output Total 2225 / 2225 450 / 450
Balance -375 / -375 2810 / 2810
Review of Systems
-
History Source: Patient
All other systems: Not reviewed unless documented
Physical Exam
-
General: No Apparent Distress and Morbidly Obese
HEENT: Negative Oxygen
Respiratory: Clear to Auscultation; Negative Wheezes
Cardiac: Regular Rhythm and S1/S2; Negative Murmur
GI: Soft, Normal Bowel Sounds and Other (Right flank hernia - soft/nontender); Negative Tender
Musculoskeletal: Edema, Right Upper Extrem
Neuro: Awake, Alert and Oriented
Psych: Calm
Data Reviewed
-
CT Scan: Image personally visualized and interpreted and Report Reviewed by me
Labs: Labs Reviewed by me
--- NOTE | 2023-08-09 12:19 | W.DS.TRANS ---
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
-
Discharge Instructions:
Discharge Diagnosis/Procedures Pyelonephritis from Enterococcus
Sepsis secondary to the above
Hydronephrosis
Diet Low Fat,Low Cholesterol
Activity As tolerated
Blood Work cbc and bmp in 3-5 days; INR in 2 days
Instructions:
Stand-Alone Forms:
Changes to Home Medications: Yes
Discharge Medications:
DC Medications w/original date entered in [facility]
sertraline 100 mg tablet 50 mg PO DAILY Mental Health/Anxiety 07/10/21
levothyroxine 150 mcg tablet (Synthroid) 150 mcg PO MOTUWETHFRSA@06 Thyroid 03/11/23
warfarin 2 mg tablet 2 mg PO QPM Blood Clot Prevention/Tx 03/11/23
ondansetron 4 mg disintegrating tablet 4 mg PO Q6HPRN PRN nausea 05/15/23
acetaminophen 500 mg tablet (Tylenol Extra Strength) 1,000 mg PO Q6HPRN PRN mild pain 08/01/23
cyanocobalamin (vitamin B-12) 1,000 mcg tablet 1,000 mcg PO DAILY Supplement 08/01/23
famotidine 20 mg tablet (Pepcid) 20 mg PO BIDPRN PRN gerd 08/01/23
fluticasone propionate 220 mcg/actuation HFA aerosol inhaler 3 puff inhalation R DAILY Allergies 08/01/23
levothyroxine 150 mcg tablet (Synthroid) 225 mcg PO CHISHOLM@06 Thyroid 08/01/23
lisinopril 5 mg tablet 10 mg PO DAILY Blood Pressure 08/01/23
montelukast 10 mg tablet (Singulair) 10 mg PO DAILY Lung/Breathing Issues 08/01/23
amlodipine 5 mg tablet 5 mg PO DAILY 30 days #30 tabs 08/09/23
amoxicillin 500 mg capsule 500 mg PO Q8H 8 days #24 caps 08/09/23
Home Medication Changes
hold lisinopril
start
amlodipine 5 mg tablet 5 mg PO DAILY 30 days #30 tabs 08/09/23
amoxicillin 500 mg capsule 500 mg PO Q8H 8 days #24 caps 08/09/23
Pending Results: No
--- NOTE | 2023-08-09 12:23 | W.PN.URO.CBU ---
Today's Communication / Plan
-
OK for d/c from urology standpoint
Assessment / Plan
-
pt with resolvng elizabeth after replacemt of rt jj stent
Diagnosis
-
Date of Service: August 09, 2023
-
Patient Diagnosis:urosepsis on admit due to infected jj stent which was replaced months ago replace d for sepsis now new stent migrated
with elizabeth
Objective
-
Vital Signs
Temp Pulse Resp BP Pulse Ox
98.5 F 82 16 176/95 98
08/09/23 07:00 08/09/23 11:44 08/09/23 11:44 08/09/23 07:00 08/09/23 11:44
Intake and Output
08/08/23 08/09/23 08/10/23
06:59 06:59 06:59
Intake Total 1850 / 1850 3260 / 3260
Output Total 2225 / 2225 450 / 450
Balance -375 / -375 2810 / 2810
Intake:
Oral fluids 1200 / 1200 1560 / 1560
IV fluids (Total) 650 / 650 900 / 900
normosol 200 / 200
IV piggybacks 800 / 800
Output:
Urine, Obrien 2225 / 2225 450 / 450
Other:
How many times incontinent 1 1
MODERATE amount urine
How many times incontinent 1 2
SATURATED amount urine
Number of unmeasured liquid
stools
Rectum 1
Laboratory Results
08/09/23 07:04
08/09/23 07:04
Physical Exam
-
General - well developed, well nourished, no acute distress
Chest - clear bilaterally
Abdomen - soft, non-tender, positive bowel sounds, no CVAT, no incisional pain or distention
Genitalia - normal
Rectal - normal
Skin - warm & dry with no rash
Neuro - AOx3, no motor deficits
Extremities - no clubbing, no cyanosis, no edema
Incision - clean, dry
Dressing - clean, dry, intact
Care Review
Data Reviewed
Discussed with: Hospitalist
--- NOTE | 2023-08-09 13:27 | CM ---
Addendum entered by Jazmine Rob 08/09/23 14:30:
Transport Auth# [id number]
Valid thru 08/10 for 1way transport
Original Note:
Pt for dc today.
Pt will be transported home via ambulance; 4 chuy. Medical Necessity completed for dc.
SW made referral back to [facility] for JAZMIN.
SW presented IMM to sister via phone. Transport after 4pm.
[2023-08-09] MEDS: LR IV (15:03)
[2023-08-09 15:30] VITALS: BP 124/69
[2023-08-09] MEDS: COUMADIN 2 MG PO (17:54)
== END 2023-08-09 18:21 | DRG 659 ==
LOC: 4 EAST ACU 21:48
PROVIDERS: Hospitalist; ADMITTING PHYSICIAN Hospitalist; ATTENDING PHYSICIAN Internal Medicine; CONSULT PHYSICIAN Specialist; EMERGENCY PHYSICIAN Emergency Medicine
PROC: 0T768DZ Dilation of Right Ureter with Intraluminal Device, Via Natural or Artificial Opening Endoscopic (ICD-10-PCS; 2023-08-07)
PROC: 0TP98DZ Removal of Intraluminal Device from Ureter, Via Natural or Artificial Opening Endoscopic (ICD-10-PCS; 2023-08-07)
PROC: BT1D1ZZ Fluoroscopy of Right Kidney, Ureter and Bladder using Low Osmolar Contrast (ICD-10-PCS; 2023-08-07)
DX: T83.592A Infection and inflammatory reaction due to indwelling ureteral stent, initial encounter (principal); A41.81 Sepsis due to Enterococcus; N13.6 Pyonephrosis; N17.9 Acute kidney failure, unspecified; Z68.41 Body mass index [BMI] 40.0-44.9, adult; Y73.8 Miscellaneous gastroenterology and urology devices associated with adverse incidents, not elsewhere classified; E66.09 Other obesity due to excess calories; B95.2 Enterococcus as the cause of diseases classified elsewhere; Z79.01 Long term (current) use of anticoagulants
CPT/HCPCS: 74018; 74176; 74420; 76000; 76775; 80048; 80053; 81003; 81015; 82607; 83540; 83550; 83605; 84443; 85025; 85027; 85610; 87040; 87077; 87086; 87149; 87186; 87205; 87502; 87811; 93005; 94640; 96374; 96375; 99285; A4300; C1894; C2617

== ENCOUNTER 2023-11-11 16:43 | Inpatient (IN) | payer OTHER, SELFPAY ==
[2023-11-11] VITALS (7 sets, daily range): BP systolic 156–197; BP diastolic 76–114
--- NOTE | 2023-11-11 12:59 | ED.GENMED ---
History of Present Illness
<Rosenda Franco PA-C - Last Filed: 11/11/23 16:04>
General
Chief Complaint: Abdominal Symptoms
Source: patient
Exam Limitations: none
Time Seen by Provider: 11/11/23 12:57
Nursing documentation reviewed up to this point in time: agreed with
History of Present Illness
History of Present Illness:
This is a 73 y/o female with a PMH of bilateral congenital ureteropelvic junction obstruction with 1 functioning kidney on the right presenting to emergency department today with concerns of right sided abdominal pain, decreased urinary output, and
nausea/dry heaving. Patient reports that she has chronic stent in place in her right kidney, she follows with Dr. Villagran and will have this in replaced every 3 to 6 months. Patient's sister is present in the room with her and reports that
patient has had recurring problems with infection and obstruction. Patient herself reports that these are typical symptoms she has when she has obstruction. Patient states that she has been feeling well the past few days. She denies fevers or
chills, decreased appetite, chest pain, shortness of breath, back pain, burning with urination, pelvic pain. Patient reports that she drank a lot of water and wally rivera today and noted that she did not have as much urinary output as she normally
would when she drinks this much. She denies constipation, diarrhea.
Past History
<Rosenda Franco PA-C - Last Filed: 11/11/23 16:04>
Past History
ED Past Medical History: Asthma, HTN, Renal failure, Hypothyroidism and Other (ureteral stents, PE, ARF, One kidney, IVC filter, Cellulitis, UTI, Pancreatitis)
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
Social History
Tobacco: Non-smoker
Alcohol: None
Personal: Single
Living: alone
Family History
Family History: Other (Mother with endometrial cancer, father with coronary disease)
Review of Systems
<Rosenda Franco PA-C - Last Filed: 11/11/23 16:04>
Review of Systems
All Other Systems: ROS reviewed and negative except as documented in HPI and ROS
Phy Exam
<Rosenda Franco PA-C - Last Filed: 11/11/23 16:04>
Physical Exam
Physical Exam:
General: Patient is well appearing and in no acute distress; non-toxic
Skin: Warm and dry, no rashes or lesions
Head: Normocephalic, atraumatic
Eyes: Sclera non-icteric. EOMs intact.
Cardiac: Patient is tachycardic otherwise regular rhythm, no murmur
Pulm: Normal respiratory effort, no wheezes, rales, rhonchi
Abdomen: Large right sided spigelian hernia noted. Mild right sided abdominal tenderness and flank tenderness to palpation.
Neuro: CN II-XII intact, no focal neurologic deficits.
Psychiatric: Appropriate mood and affect.
Course
<Rosenda Franco PA-C - Last Filed: 11/11/23 16:04>
Orders/Labs/Results
Orders:
Orders
11/11/23 13:20
IV Insert/Care/Rem.- Treatment PRN
11/11/23 13:28
Complete Blood Count/With Diff Urgent
Comprehensive Metabolic Panel Urgent
Lactic Acid Urgent
11/11/23 13:31
0.9% Sodium Chloride 500 ml [Nss] 500 ml IV BOLUS
11/11/23 13:32
CT Abd/pel Without Iv Or Oral Urgent
Comment:
Reason For Exam: right sided ab pain, decreased urinary output
11/11/23 13:33
Ondansetron Injectable [Zofran] 4 mg IV NOW STA
11/11/23 14:44
Piperacillin/Tazo 3.375 Gram [Zosyn] 3.375 gram in 50 ml IV NOW
11/11/23 14:53
Urinalysis Reflex To Culture Urgent
Date Specimen was Collected: 11/11/23
Time Specimen was Collected: 14:47
Urine Microscopic Reflex Cult Urgent
Urine Culture Urgent
GABRIELLA Source: U
Specimen Description:
Date Specimen was Collected: 11/11/23
Time Specimen was Collected: 14:47
11/11/23 15:53
UROLOGY CONSULT Urgent
Consulting Provider: Boris Rosen
Was physician already notified: Yes
Abnormal Lab Results
11/11/23 11/11/23
13:28 14:53
WBC 18.6 H 10^3/uL
(4.8-10.8)
MCV 80.0 L fL
(81.0-99.0)
MCH 24.9 L pg
(27.0-31.0)
MCHC 31.2 L g/dL
(33.0-37.0)
RDW 17.3 H %
(11.5-14.5)
Abs Immat Gran (auto) 0.1 H 10^3/uL
(0-0.05)
Absolute Neuts (auto) 15.9 H 10^3/uL
(1.4-6.5)
Absolute Lymphs (auto) 0.7 L 10^3/uL
(1.2-3.4)
Absolute Monos (auto) 1.8 H 10^3/uL
(0.1-0.6)
Immature Gran % 0.6 H %
(0-0.5)
Neutrophils % 85.2 H %
(42.2-75.2)
Lymphocytes % 3.8 L %
(20.5-51.1)
Monocytes % 9.7 H %
(1.7-9.3)
Chloride 109 H mmol/L
(98-107)
BUN 30 H mg/dl
(7-17)
Creatinine 1.5 H mg/dL
(0.6-1.0)
Glucose 107 H mg/dl
(70-99)
Lactic Acid 2.2 H mmol/L
(0.7-2.0)
Ur Occult Blood Reflex 3+ A
(Negative)
Leukocyte Esterase Rfl 2+ A
(Negative)
Urine RBC 11-15 A /HPF
(0-2)
Urine WBC (Reflex) 60-70 A /HPF
(0-5)
Urine Bacteria (Reflex) Moderate A
(Negative)
Urine Albumin (Reflex) 1+ A
(Neg - Trace)
11/11/23 13:28
11/11/23 13:28
Vital Signs
Initial and Last Documented VS:
Initial Vital Signs
Temp Pulse Resp BP Pulse Ox
99.2 F 97 18 197/110 95
11/11/23 12:57 11/11/23 12:57 11/11/23 12:57 11/11/23 12:57 11/11/23 12:57
Last Documented Vital Signs
Temp Pulse Resp BP Pulse Ox
99.2 F 98 18 177/86 95
11/11/23 12:57 11/11/23 14:00 11/11/23 14:00 11/11/23 14:02 11/11/23 14:00
<Fan Burrows MD - Last Filed: 11/11/23 13:39>
Orders/Labs/Results
Orders:
Orders
11/11/23 13:20
IV Insert/Care/Rem.- Treatment PRN
11/11/23 13:28
Complete Blood Count/With Diff Urgent
Comprehensive Metabolic Panel Urgent
Lactic Acid Urgent
11/11/23 13:31
0.9% Sodium Chloride 500 ml [Nss] 500 ml IV BOLUS
11/11/23 13:32
CT Abd/pel Without Iv Or Oral Urgent
Comment:
Reason For Exam: right sided ab pain, decreased urinary output
11/11/23 13:33
Ondansetron Injectable [Zofran] 4 mg IV NOW STA
11/11/23 14:44
Piperacillin/Tazo 3.375 Gram [Zosyn] 3.375 gram in 50 ml IV NOW
11/11/23 14:53
Urinalysis Reflex To Culture Urgent
Date Specimen was Collected: 11/11/23
Time Specimen was Collected: 14:47
Urine Microscopic Reflex Cult Urgent
Urine Culture Urgent
GABRIELLA Source: U
Specimen Description:
Date Specimen was Collected: 11/11/23
Time Specimen was Collected: 14:47
11/11/23 15:53
UROLOGY CONSULT Urgent
Consulting Provider: Boris Rosen
Was physician already notified: Yes
Abnormal Lab Results
11/11/23 11/11/23
13:28 14:53
WBC 18.6 H 10^3/uL
(4.8-10.8)
MCV 80.0 L fL
(81.0-99.0)
MCH 24.9 L pg
(27.0-31.0)
MCHC 31.2 L g/dL
(33.0-37.0)
RDW 17.3 H %
(11.5-14.5)
Abs Immat Gran (auto) 0.1 H 10^3/uL
(0-0.05)
Absolute Neuts (auto) 15.9 H 10^3/uL
(1.4-6.5)
Absolute Lymphs (auto) 0.7 L 10^3/uL
(1.2-3.4)
Absolute Monos (auto) 1.8 H 10^3/uL
(0.1-0.6)
Immature Gran % 0.6 H %
(0-0.5)
Neutrophils % 85.2 H %
(42.2-75.2)
Lymphocytes % 3.8 L %
(20.5-51.1)
Monocytes % 9.7 H %
(1.7-9.3)
Chloride 109 H mmol/L
(98-107)
BUN 30 H mg/dl
(7-17)
Creatinine 1.5 H mg/dL
(0.6-1.0)
Glucose 107 H mg/dl
(70-99)
Lactic Acid 2.2 H mmol/L
(0.7-2.0)
Ur Occult Blood Reflex 3+ A
(Negative)
Leukocyte Esterase Rfl 2+ A
(Negative)
Urine RBC 11-15 A /HPF
(0-2)
Urine WBC (Reflex) 60-70 A /HPF
(0-5)
Urine Bacteria (Reflex) Moderate A
(Negative)
Urine Albumin (Reflex) 1+ A
(Neg - Trace)
11/11/23 13:28
11/11/23 13:28
Vital Signs
Initial and Last Documented VS:
Initial Vital Signs
Temp Pulse Resp BP Pulse Ox
99.2 F 97 18 197/110 95
11/11/23 12:57 11/11/23 12:57 11/11/23 12:57 11/11/23 12:57 11/11/23 12:57
Last Documented Vital Signs
Temp Pulse Resp BP Pulse Ox
99.2 F 98 18 177/86 95
11/11/23 12:57 11/11/23 14:00 11/11/23 14:00 11/11/23 14:02 11/11/23 14:00
<Rosenda Franco PA-C - Last Filed: 11/11/23 16:04>
MDM/Problems Addressed
Differential Diagnosis Includes:
ddx include pyelonephritis, nephrolithiasis, stent obstruction, sepsis, ureteral stent migration
MDM/Problems Addressed:
Nausea, abdominal pain, decreased urinary output:
73 y/o female with a PMH of bilateral congenital ureteropelvic junction obstruction with 1 functioning kidney on the right presenting to emergency department today with concerns of right sided abdominal pain, decreased urinary output, and nausea/dry
heaving. Afebrile but tachycardic. She has a WBC count of 18.6k, her BUN is 30, creatinine is 1.5 which is bumped from baseline, CT shows moderate right hydro with surrounding perinephric stranding but no focal fluid collection. My attending
Markos saw patient as well, Sid oliveros. Urology consulted. Patient referred for admission.
Chronic conditions affecting care:
chronic UPJ obstruction, splegian hernia, hypothyroidism, COPD
<BELEN Crain Last Filed: 11/11/23 16:04>
*Pulse Oximetry
Patient hypoxic: no
*Critical Care Note
Total Time (30-74mins, 75-104mins- exclusive of procedures): Not Applicable
Data Reviewed
Review of Other/Old Records Reveals: Records (Reviewed ER physician documentation from 08/01/2023, where patient was seen for urosepsis, patient has recurrent urosepsis) and Discharge Summary (Reviewed discharge summary from 08/10/23)
Source: patient and records
<BELEN Crain Last Filed: 11/11/23 16:04>
Patient Management
Discussion with other providers: Hospitalist and Riveting Machine Operator (urology)
Escalation/DeEscalation of care consider admission/obs:
Patient referred for admission
ED Attending Note
<Rosenda Franco PA-C - Last Filed: 11/11/23 16:04>
-
Portions of this chart may have been created with voice recognition software.� Occasional wrong word or��sound alike� substitutions may have occurred due to the inherent limitations of voice recognition software.
<Fan Burrows MD - Last Filed: 11/11/23 13:39>
ED Attending Note
Patient seen and examined by attending physician: Yes
ED Attending Note:
I have seen and evaluated the patient with a [id number] encounter. I have spoken to the advance practicer provider and involved in the medical history, the physical exam, medical decision making.
Evaluation and management service: agree unless noted differently below.
Results interpretation: agree unless noted differently below.
Focused HPI: 73-year-old female with a past medical history as documented presents to the emergency room for evaluation of decreased urine output and nausea since last night. She has a history of congenital ureteral obstruction with nonfunctioning
left kidney and chronic ureteral stent on the right that is exchanged every 3 to 6 months (sees Dr. Villagran for urology); she says these are her typical symptoms when she has stent obstruction. She says she has some aching pain in the right flank
but denies any other complaints. No fevers or chills.
Physical exam: Awake and alert not in distress. Hypertensive otherwise normal vitals. She has large abdominal wall hernia, soft and nontender to deep palpation.
Medical Decision Makin-year-old female presents with nausea and decreased urine output consistent with prior issues with right ureteral stent obstruction. Vitals and exam as noted. Will send labs including a CBC and a CMP, urinalysis. Check
noncontrast CT abdomen pelvis. Discuss with urology pending initial workup.
Discharge Plan
Departure
Patient Disposition: Admit
Date of Disposition: 11/11/23
Time of Disposition: 15:48
Admit to: Med/Surg
Presentation/result/management discussed w/ accepting MD/DO: Hospitalist
Condition: Fair
Discharge Problem:
Pyelonephritis, Congenital obstruction of ureteropelvic junction (UPJ)
Prescriptions:
No Action
sertraline 100 MG tablet
50 mg PO DAILY
levothyroxine [Synthroid] 150 mcg tablet
150 mcg PO DAILY
ondansetron 4 mg Tablet,Disintegrating
4 mg PO Q6HPRN PRN (Reason: nausea)
cyanocobalamin (vitamin B-12) 1,000 mcg Tablet
1,000 mcg PO DAILY
acetaminophen [Tylenol Extra Strength] 500 mg Tablet
1,000 mg PO Q6HPRN PRN (Reason: mild pain)
famotidine [Pepcid] 20 mg Tablet
20 mg PO BIDPRN PRN (Reason: gerd)
montelukast [Singulair] 10 mg Tablet
10 mg PO DAILY
warfarin 3 mg Tablet
3 mg PO DAILY
lisinopril 5 mg Tablet
10 mg PO DAILY
albuterol sulfate [Ventolin HFA] 90 mcg/actuation Hfa Aerosol Inhaler
2 puff INHALATION R Q6HPRN PRN (Reason: sob)
Referrals:
UNKNOWN - PT DOES,NOT KNOW [Family Provider] -
Interventions
Interventions:
*Risk Screen - Suicide Last Done: 11/11/23 12:58
*General Assessment Last Done: 11/11/23 13:20
*Neglect/Abuse Screening Last Done: 11/11/23 12:58
*ED COVID-19 Vaccine History Last Done: 11/11/23 13:20
LT-Syseut-Sdwxbrtdwn Assessment Last Done: 11/11/23 13:21
ED-Female Genitourinary Assessment Last Done: 11/11/23 13:21
Discharge Date and Time
Print Language: [place]
[2023-11-11 13:36] LABS: % Basophils 0.3 % (0-2); % Eosinophils 0.4 % (0-6); % Immature Granulocytes 0.6 % (0-0.5); % Lymphocytes 3.8 % (20.5-51.1); % Monocytes 9.7 % (1.7-9.3); % Neutrophils 85.2 % (42.2-75.2); Absolute Basophils 0.1 10^3/uL (0-0.2); Absolute Eosinophils 0.1 10^3/uL (0-0.7); Absolute Immature Granulocytes 0.1 10^3/uL (0-0.05); Absolute Lymphocytes 0.7 10^3/uL (1.2-3.4); Absolute Monocytes 1.8 10^3/uL (0.1-0.6); Absolute Neutrophils 15.9 10^3/uL (1.4-6.5); Hematocrit 38.5 % (37.0-47.0); Mean Corp Hgb Conc. 31.2 g/dL (33.0-37.0); Mean Corpuscular Hgb 24.9 pg (27.0-31.0); Nucleated Red Blood Cells % 0 %; Platelet Count 303 10^3/uL (130-400); Red Blood Cell Count 4.81 10^6/uL (4.20-5.40); Red Cell Dist. Width 17.3 % (11.5-14.5); White Blood Cell Count 18.6 10^3/uL (4.8-10.8)
[2023-11-11] MEDS: NSS 500 IV (13:41)
[2023-11-11] MEDS: ZOFRAN 4 MG IV ×2 (13:41→18:15)
[2023-11-11 13:58] LABS: ALT (SGPT) 20 U/L (0-35); AST (SGOT) 27 U/L (14-36); Albumin 3.7 g/dl (3.5-5.0); Alkaline Phosphatase 114 U/L (38-126); Blood Urea Nitrogen 30 mg/dl (7-17); Carbon Dioxide 27 mmol/L (22-30); Chloride 109 mmol/L (98-107); Glucose 107 mg/dl (70-99); Potassium 4.6 mmol/L (3.5-5.1); Sodium 141 mmol/L (135-145); Total Protein 6.6 g/dl (6.3-8.2)
[2023-11-11 14:00] LABS: Lactic Acid 2.2 mmol/L (0.7-2.0)
[2023-11-11] MEDS: ZOSYN 50 IV (14:56)
[2023-11-11 15:01] LABS: Urine Albumin 1+ (Neg - Trace); Urine Bilirubin Negative (Negative); Urine Character Very Cloudy (Clear); Urine Color Yellow; Urine Glucose Negative (Negative); Urine Ketone Negative (Negative); Urine Leukocyte 2+ (Negative); Urine Nitrite Negative (Negative); Urine Occult Blood 3+ (Negative); Urine Urobilinogen Negative (Neg - 1+); Urine pH 6.5 (5.0-9.0)
[2023-11-11 15:13] LABS: Urine Squamous Cell 0-2 /LPF (Few)
[2023-11-11 15:15] LABS: Urine Bacteria Moderate (Negative); Urine White Cell 60-70 /HPF (0-5)
--- NOTE | 2023-11-11 15:46 | CONS.URO ---
Consultation
-
Performing Provider: Silas
Reason for Consultation: Right hydronephrosis
Medical History
History of Present Illness
73 year old female born with bilateral UPJ obstruction. Left kidney is non-functional. Her
right kidney underwent an unsuccessful dismembered pyeloplasty -- she has been managed ever since
with double-J stent exchanges -- most recently 08/08/2023.
Past Medical History
Past Medical History: Other (Asthma / Restrictive Lung Disease Hypertension CKD III / Non-Functioning L Kidney Chronic Right Ureteral Stenosis Hypothyroidism History of DVT / PE Incisional hernia with bowel obstruction Spigelian Hernia Anemia of
Chronic Disease Morbid Obesity)
Past Surgical History: Other (right open dismembered pyeloplasty; numerous right ureteral stent exchanges; IVC filter, AAA repair)
Allergies/Home Medications
Allergies
Allergy/AdvReac Type Severity Reaction Status Date / Time
animal dander Allergy Exacerbates Verified 03/11/23 23:13
asthma
banana Allergy Exacerbates Verified 03/11/23 23:13
asthma
cheese Allergy Exacerbates Verified 03/11/23 23:13
asthma
cigarette smoke Allergy Exacerbates Verified 03/11/23 23:13
asthma
house dust Allergy Exacerbates Verified 03/11/23 23:13
asthma
house dust mite Allergy Exacerbates Verified 03/11/23 23:13
asthma
latex [Latex] Allergy Exacerbates Verified 03/11/23 23:13
asthma
mold Allergy Exacerbates Verified 03/11/23 23:13
asthma
perfume Allergy Exacerbates Verified 03/11/23 23:13
asthma
pollen extracts Allergy Exacerbates Verified 03/11/23 23:13
asthma
ragweed pollen Allergy Exacerbates Verified 03/11/23 23:13
asthma
Home Medications
�Medication �Instructions �Recorded �Confirmed �Type
sertraline 100 mg tablet 50 mg PO DAILY Mental 07/10/21 11/11/23 History
Health/Anxiety
levothyroxine 150 mcg tablet 150 mcg PO DAILY Thyroid 03/11/23 11/11/23 History
(Synthroid)
ondansetron 4 mg disintegrating 4 mg PO Q6HPRN PRN nausea 05/15/23 11/11/23 History
tablet
acetaminophen 500 mg tablet 1,000 mg PO Q6HPRN PRN mild pain 08/01/23 11/11/23 History
(Tylenol Extra Strength)
cyanocobalamin (vitamin B-12) 1,000 mcg PO DAILY Supplement 08/01/23 11/11/23 History
1,000 mcg tablet
famotidine 20 mg tablet (Pepcid) 20 mg PO BIDPRN PRN gerd 08/01/23 11/11/23 History
montelukast 10 mg tablet 10 mg PO DAILY Lung/Breathing 08/01/23 11/11/23 History
(Singulair) Issues
albuterol sulfate 90 mcg/actuation 2 puff inhalation R Q6HPRN PRN sob 11/11/23 11/11/23 History
aerosol inhaler (Ventolin HFA)
lisinopril 5 mg tablet 10 mg PO DAILY 11/11/23 11/11/23 History
warfarin 3 mg tablet 3 mg PO DAILY 11/11/23 11/11/23 History
Physical Exam
Vital Signs
Vital Signs
Temp Pulse Resp BP Pulse Ox
99.2 F 98 18 177/86 95
11/11/23 12:57 11/11/23 14:00 11/11/23 14:00 11/11/23 14:02 11/11/23 14:00
Lab / Testing Results
Laboratory Results
11/11/23 13:28
11/11/23 13:28
Physical Exam
morbidly obese female asleep in ED bed
General: No Apparent Distress
Assessment / Plan
-
recurrent urosepsis
chronic right UPJO managed by indwelling ureteral stent
Rec:
tx sepsis
adelfo post for OR tomorrow to exchange right ureteral stent [which is in proper position currently but presumptively encased in biofilm]
Data Reviewed
-
CT Scan: Image personally visualized and interpreted
Lab Data: Labs Reviewed
Old Records: Reviewed
--- NOTE | 2023-11-11 16:27 | HPS.HSE ---
Family Physician
-
Family Physician: NOT KNOW UNKNOWN - PT DOES
Chief Complaint
-
decreased urination, abdominal pain
History of Present Illness
73-year-old female past medical history of CKD 3, bilateral congenital ureteropelvic junction obstruction with nonfunctioning left kidney and chronic right ureteral stent, recent Enterococcus pyelonephritis, hypertension, history of DVT/PE, IVC
filter, anemia of chronic disease, asthma, restrictive lung disease, hypothyroidism, obesity, presenting with right-sided abdominal pain over the site of her large hernia, decreased urinary output and nausea and dry heaving since today. Denies
fevers or chills, decreased appetite, chest pain or shortness of breath or back pain or dysuria.
Patient has a chronic stent in her right ureter and follows Dr. Tyshawn hewitt every 3 to 6 months. Patient has had recurrent difficulties with ureteral obstruction and infection. The current symptoms are typical symptoms when she has an
obstruction.
She denies smoking or alcohol use.
Medical History
Past Medical History
Past Medical History: Reports Other (CKD 3, bilateral congenital ureteropelvic junction obstruction with nonfunctioning left kidney and chronic right ureteral stent, recent Enterococcus pyelonephritis, hypertension, history of DVT/PE, IVC filter,
anemia of chronic disease, asthma, restrictive lung disease, hypothyroidism, obesity)
Past Surgical History: Reports Other (Tonsilectomy (with adnoids), Urological (Ureteral stent) and Other (IVC filter, 19 coils near spleen for aneurysm))
Social History
Tobacco: Non-smoker
Alcohol: None
Drug: None
Family History
Family History: Not pertinent
Allergies / Home Medications
Allergies reflects when Allergies were last updated in [facility].
Home Medications with original date entered in [facility]
Allergy/Medication List:
Allergies
Allergy/AdvReac Type Severity Reaction Status Date / Time
animal dander Allergy Exacerbates Verified 03/11/23 23:13
asthma
banana Allergy Exacerbates Verified 03/11/23 23:13
asthma
cheese Allergy Exacerbates Verified 03/11/23 23:13
asthma
cigarette smoke Allergy Exacerbates Verified 03/11/23 23:13
asthma
house dust Allergy Exacerbates Verified 03/11/23 23:13
asthma
house dust mite Allergy Exacerbates Verified 03/11/23 23:13
asthma
latex [Latex] Allergy Exacerbates Verified 03/11/23 23:13
asthma
mold Allergy Exacerbates Verified 03/11/23 23:13
asthma
perfume Allergy Exacerbates Verified 03/11/23 23:13
asthma
pollen extracts Allergy Exacerbates Verified 03/11/23 23:13
asthma
ragweed pollen Allergy Exacerbates Verified 03/11/23 23:13
asthma
Home Medications
sertraline 100 mg tablet 50 mg PO DAILY Mental Health/Anxiety 07/10/21
levothyroxine 150 mcg tablet (Synthroid) 150 mcg PO DAILY Thyroid 03/11/23
ondansetron 4 mg disintegrating tablet 4 mg PO Q6HPRN PRN nausea 05/15/23
acetaminophen 500 mg tablet (Tylenol Extra Strength) 1,000 mg PO Q6HPRN PRN mild pain 08/01/23
cyanocobalamin (vitamin B-12) 1,000 mcg tablet 1,000 mcg PO DAILY Supplement 08/01/23
famotidine 20 mg tablet (Pepcid) 20 mg PO BIDPRN PRN gerd 08/01/23
montelukast 10 mg tablet (Singulair) 10 mg PO DAILY Lung/Breathing Issues 08/01/23
albuterol sulfate 90 mcg/actuation aerosol inhaler (Ventolin HFA) 2 puff inhalation R Q6HPRN PRN sob 11/11/23
lisinopril 5 mg tablet 10 mg PO DAILY 11/11/23
warfarin 3 mg tablet 3 mg PO DAILY 11/11/23
Review of Systems
-
History Source: Patient
A 12 point ROS was completed and negative except as noted: Yes
Constitutional: Reports No Symptoms
EENT: Reports No Symptoms
Respiratory: Reports No Symptoms
Cardiac: Reports No Symptoms
Abdomen/GI: Reports See HPI
: Reports No Symptoms
Musculoskeletal: Reports No Symptoms
Skin: Reports No Symptoms
Neurological: Reports No Symptoms
Endocrine: Reports No Symptoms
Hematologic/Lymphatic: Reports No Symptoms
Psych: Reports No Symptoms
Physical Exam
Vital Signs
Vital Signs
Temp Pulse Resp BP Pulse Ox
99.2 F 98 18 177/86 95
11/11/23 12:57 11/11/23 14:00 11/11/23 14:00 11/11/23 14:02 11/11/23 14:00
Physical Exam
General: Well Developed, Well Nourished and No Apparent Distress
HEENT: NormoCephalic, Moist mucous membranes and Atraumatic
Respiratory: Clear
Cardiac: S1/S2 and Regular Rhythm; No Murmur or Rub
GI: Soft, Non Distended, Normal Bowel Sounds and Tender (RLQ ); No Organomegaly
Rectal: Deferred by Provider
Musculoskeletal: No Clubbing, No Cyanosis and No Edema
Skin: No Rash
Neuro: Nonfocal/grossly intact
Laboratory Results
-
11/11/23 13:28
11/11/23 13:28
Laboratory Results
Lactic Acid 2.2 mmol/L (0.7-2.0) H 11/11/23 13:28
Total Bilirubin 1.0 mg/dl (0.2-1.3) 11/11/23 13:28
AST 27 U/L (14-36) 11/11/23 13:28
ALT 20 U/L (0-35) 11/11/23 13:28
Alkaline Phosphatase 114 U/L (38-126) 11/11/23 13:28
Data Reviewed
-
Lab Data: Labs Reviewed by me
Old Records: Reviewed
Impression/Plan
-
IMPRESSION:
PLAN:
# Recurrent right pyelonephritis
# Bilateral congenital ureteropelvic junction obstruction with nonfunctioning left kidney and chronic right ureteral stent
-CT abdomen pelvis shows moderate right hydronephrosis similar to prior CT scan, right ureteral stent appears appropriately positioned, surrounding perinephric stranding is present
-UA indicating infection
-Urine culture pending
-IV fluids
-Ceftriaxone
-Urology planning on exchange of right ureteral stent tomorrow
-N.p.o. past midnight
-Check INR, hold Coumadin
#JACKIE on CKD 3
-Monitor with IV fluids
-Hold lisinopril
-As needed hydralazine for elevated blood pressure
History of large spigelian hernia
-patient with occasional pain at site including today
-Stable on CT scan
-Patient has previously declined surgical interventions several times
Essential hypertension
History of DVT/PE
-Patient has IVC filter
-Hold Coumadin
Anemia of chronic disease
Asthma/restrictive lung disease
-Continue albuterol, montelukast
Hypothyroidism
-Continue levothyroxine
Obesity
Anxiety/depression
-Continue sertraline
Full code
DVT prophylaxis�heparin
N.p.o. past midnight
[2023-11-11] MEDS: ProAIR HFA INHALER 2 PUFF INH (18:03)
[2023-11-11] MEDS: NSS 1000 IV (18:04)
[2023-11-11] MEDS: LOVENOX 40 MG SC (18:05)
[2023-11-11] MEDS: TYLENOL 650 MG PO (18:06)
[2023-11-11] MEDS: ROCEPHIN 1000 MG IV (18:07)
[2023-11-11] MEDS: STERILE WATER FOR INJECTION 10 ML IV (18:07)
[2023-11-11] MEDS: APRESOLINE 5 MG IV (18:08)
[2023-11-11 20:48] LABS: INR 1.52; PT 18.1 Sec (11.4-14.6)
[2023-11-11] MEDS: HEPARIN 5000 UNITS SC (22:37)
[2023-11-12] VITALS (10 sets, daily range): BP systolic 141–175; BP diastolic 55–98
[2023-11-12] MEDS: SYNTHROID 150 MCG PO (05:52)
[2023-11-12] MEDS: NSS 1000 IV ×2 (06:23→15:01)
[2023-11-12 06:31] LABS: INR 1.59; PT 18.8 Sec (11.4-14.6)
[2023-11-12 06:33] LABS: % Basophils 0.3 % (0-2); % Eosinophils 0.5 % (0-6); % Immature Granulocytes 0.5 % (0-0.5); % Neutrophils 85.7 % (42.2-75.2); Absolute Eosinophils 0.1 10^3/uL (0-0.7); Absolute Immature Granulocytes 0.1 10^3/uL (0-0.05); Absolute Lymphocytes 0.6 10^3/uL (1.2-3.4); Absolute Monocytes 1.3 10^3/uL (0.1-0.6); Absolute Neutrophils 12.6 10^3/uL (1.4-6.5); Hematocrit 32.4 % (37.0-47.0); Hemoglobin 10.2 g/dL (12.0-16.0); Mean Corp Hgb Conc. 31.5 g/dL (33.0-37.0); Mean Corpuscular Volume 79.4 fL (81.0-99.0); Mean Platelet Volume 10.6 fL (7.4-10.4); Nucleated Red Blood Cells % 0 %; Platelet Count 215 10^3/uL (130-400); Red Blood Cell Count 4.08 10^6/uL (4.20-5.40); Red Cell Dist. Width 17.4 % (11.5-14.5); White Blood Cell Count 14.7 10^3/uL (4.8-10.8)
[2023-11-12 06:48] LABS: ALT (SGPT) 20 U/L (0-35); AST (SGOT) 28 U/L (14-36); Alkaline Phosphatase 97 U/L (38-126); Blood Urea Nitrogen 33 mg/dl (7-17); Calcium 8.3 mg/dl (8.4-10.2); Carbon Dioxide 24 mmol/L (22-30); Chloride 110 mmol/L (98-107); Estimated Creatinine Clearance 39 ml/min; Glucose 93 mg/dl (70-99); Potassium 4.7 mmol/L (3.5-5.1); Sodium 139 mmol/L (135-145); Total Bilirubin 1.1 mg/dl (0.2-1.3); Total Protein 5.6 g/dl (6.3-8.2); eGFR 34.05
[2023-11-12] MEDS: VITAMIN B-12 1000 MCG PO (07:55)
[2023-11-12] MEDS: HEPARIN 5000 UNITS SC ×2 (07:55→21:20)
[2023-11-12] MEDS: SINGULAIR 10 MG PO (07:55)
[2023-11-12] MEDS: ZOLOFT 50 MG PO (07:55)
--- NOTE | 2023-11-12 08:52 | VNURNOTE ---
[facility], [facility]. Will continue to follow hospital course.
--- NOTE | 2023-11-12 11:08 | PTCARENOTE ---
resident notified of high BP pt reports 'this is actually a good one for me'
--- NOTE | 2023-11-12 11:42 | PHA.VAN.IN ---
Addendum entered and electronically signed by Radha Ramsay [facility] 11/12/23 11:53:
Agree with nursing resident's assessment and plan below.
Original Note:
Assessment
- Assessment
Renal Function: Unknown baseline (Scr elevated)
Plan
- Plan
Initial / Loading Dose: 2000mg - Administration pending
Maintenance Regimen: dosing by level
Monitoring: random 11/12 06
Pharmacokinetics Vancomycin I
- -
Patient Age: 73
Patient Sex: Female
Vancomycin Day #: 1
Indication: Bacteremia
Requesting Provider: Dr Glynn (Resident)
Pertinent Antimicrobial Allergies:
No pertinent antimicrobial allergies
Height / Weight:
Height 5 ft 5 in
Actual Weight 107.3 kg
Pertinent Past Medical History: BMI~39
- Vital Signs / Lab Results
Temp Pulse Resp BP Pulse Ox
99.7 F 94 17 170/80 96
11/12/23 07:00 11/12/23 07:00 11/12/23 07:00 11/12/23 11:09 11/12/23 08:14
Lab Results - Hematology
11/11/23 11/12/23
13:28 05:22
WBC 18.6 H 14.7 H
Lab Results - Chemistry
11/11/23 11/12/23
13:28 05:22
BUN 30 H 33 H
Creatinine 1.5 H 1.6 H
Estimated Creat Clear 39
Albumin 3.7 3.0 L
11/11/23
13:28
Lactic Acid 2.2 H
Lab Results - Urine
11/11/23
14:53
Urine Nitrite (Reflex) Negative
Leukocyte Esterase Rfl 2+ A
Urine WBC (Reflex) 60-70 A
Ur Squamous Epith Cells 0-2
Urine Bacteria (Reflex) Moderate A
Microbiology Results
11/11/23 14:53 Urine Culture - Preliminary
Urine Enterococcus species
--- NOTE | 2023-11-12 12:12 | W.PN.HOSP.TC ---
Addendum entered and electronically signed by Ricci Rader MD 11/12/23 15:04:
pyelonephritis in the setting of blocked uretral stent. uro plans to take to the OR for Uretral stent exchange
-hx of enterococcus that is relatively resitant. stop ctx. start vanc. on dc would consider sending amox tid for 14days
jackie on ckd stage III. expect to improve once stent has been exchanged. avoid nephrotoxins/hypotension.
hx of vte. on coumadin. hx of ivc filter. subtx inr. coumadin held, will resume as unlikley will be therapeautic by the time stent is exchanged
Original Note:
Today's Communication/Plan
-
Antibiotic changed to vancomycin.
Resume diet after the procedure.
Resume lisinopril after the procedure.
Assessment / Plan
Assessment / Plan
Gpspkmpetf-89-cfzp-old female with PMHx significant for CKD stage III, admitted finish this
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
lung disease, hypothyroidism, obesity presents to the hospital for right-sided abdominal pain decreased urinary output and nausea.-Diagnosed with acute pyelonephritis.
Plan-
Recurrent right pyelonephritis-
Bilateral congenital ureteropelvic junction obstruction with nonfunctioning left kidney, chronic renal stent, stent replacement every 4 to 6 months.
Recent history of right-sided pyelonephritis with Enterococcus resistant for aminoglycosides and floroquinolones.
CT abdomen and pelvis evidence for moderate right hydronephrosis with perinephric fat stranding present-similar to previous CT scan
Urine analysis evidence at for infection.
Urine cultures pending.
IV fluids, given her Enterococcus history, patient is changed to vancomycin from ceftriaxone.
She is planned to get a stent exchange in the p.m. today.
N.p.o. past midnight, can advance diet from night today.
INR is subtherapeutic, at 1.5-1.7, hold Coumadin.
JACKIE on CKD stage III-
Monitor with IV fluids
Lisinopril on hold, will resume lisinopril after the procedure.
As needed hydralazine for elevated blood pressure.
Essential hypertension
Blood pressure not well-controlled, resume lisinopril immediately after the procedure.
As needed hydralazine for elevated blood pressure greater than 180/100
History of large spigelian hernia-
Her pain over the hernia site resolved.
Stable on CT scan
Patient refuses surgical intervention in the past
History of DVT/PE-
IVC filter placed, hold Coumadin.
Anemia of chronic disease-
Some component of iron deficiency anemia likely.
Add iron studies in the a.m. tomorrow.
DVT prophylaxis-heparin 2 times a day.
CODE STATUS full code
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
Asthma/restrictive lung disease
Hypothyroidism
Obesity
Anxiety/depression
Continue home medication regimen for conditions prior to admission.
Anticipated Discharge: 24 - 48 hours
Subjective/Interval History
-
Date of Service: November 12, 2023
Patient denies having nausea, abdominal pain, suprapubic pain which were present upon admission.
Objective Data
-
Labs:
Laboratory Results
11/12/23
05:22
WBC 14.7 H
Hgb 10.2 L
Hct 32.4 L
Plt Count 215 D
PT 18.8 H
INR 1.59
Sodium 139
Potassium 4.7
Chloride 110 H
Carbon Dioxide 24
BUN 33 H
Creatinine 1.6 H
Glucose 93
Calcium 8.3 L
Total Bilirubin 1.1
AST 28
ALT 20
Alkaline Phosphatase 97
Vital Signs:
Vital Signs
Temp Pulse Resp BP Pulse Ox
99.7 F 94 17 170/80 96
11/12/23 07:00 11/12/23 07:00 11/12/23 07:00 11/12/23 11:09 11/12/23 08:14
I&O
11/11/23 11/12/23 11/13/23
06:59 06:59 06:59
Intake Total 480 / 480
Balance 480 / 480
Review of Systems
-
Unable to obtain full review of systems at this time due to: Other (Could not perform complete review of systems as patient refused to talk to her training physician.)
Physical Exam
-
General: Well Developed, Well Nourished and No Apparent Distress
HEENT: Normocephalic, Atraumatic and Moist Mucous Membranes
Neuro: AO x 3
Data Reviewed
-
CT Scan: Image personally visualized and interpreted and Report Reviewed by me
Labs: Labs Reviewed by me and Discussed with Physician
[2023-11-12] MEDS: VANCOCIN 540 MG IV (12:51)
--- NOTE | 2023-11-12 13:51 | W.SUR.PREOP ---
Pre-Operative Surgical Note
-
I have examined this patient prior to the performance of the scheduled procedure.
Surgical consent signed in pre-op holding.
[2023-11-12] MEDS: APRESOLINE 5 MG IV (16:05)
--- NOTE | 2023-11-12 17:14 | CM ---
Pt was in OR. LM with Dana mcbride . Spoke with Jazmine mcbride Pt lives alone in a 2 story home with 3 steps to enter and bed bath on first floor. She is independent in driving and in all activities of daily living as per sister.
[facility] hx /SNF
Pharmacy [facility]
PCP Dr Petty
PLAN Will need PT OT for dc planning
[2023-11-12] MEDS: COUMADIN 4 MG PO (17:37)
[2023-11-12] MEDS: STERILE WATER FOR INJECTION IV (17:38)
[2023-11-12] MEDS: ProAIR HFA INHALER 2 PUFF INH (21:34)
[2023-11-12] MEDS: TYLENOL 650 MG PO (23:00)
[2023-11-13] MEDS: NSS IV (02:25)
[2023-11-13 06:00] VITALS: BMI 38.0
[2023-11-13 06:15] LABS: Hematocrit 31.1 % (37.0-47.0); Mean Corp Hgb Conc. 32.2 g/dL (33.0-37.0); Mean Corpuscular Hgb 24.7 pg (27.0-31.0); Mean Corpuscular Volume 76.8 fL (81.0-99.0); Mean Platelet Volume 10.3 fL (7.4-10.4); Platelet Count 211 10^3/uL (130-400); Red Blood Cell Count 4.05 10^6/uL (4.20-5.40); Red Cell Dist. Width 17.4 % (11.5-14.5); White Blood Cell Count 10.1 10^3/uL (4.8-10.8)
[2023-11-13] MEDS: SYNTHROID 150 MCG PO (06:18)
[2023-11-13 06:46] LABS: ALT (SGPT) 17 U/L (0-35); AST (SGOT) 18 U/L (14-36); Alkaline Phosphatase 98 U/L (38-126); Blood Urea Nitrogen 31 mg/dl (7-17); Calcium 8.8 mg/dl (8.4-10.2); Carbon Dioxide 24 mmol/L (22-30); Chloride 111 mmol/L (98-107); Estimated Creatinine Clearance 47 ml/min; Glucose 116 mg/dl (70-99); Sodium 140 mmol/L (135-145); Total Bilirubin 0.6 mg/dl (0.2-1.3); Total Protein 5.7 g/dl (6.3-8.2); eGFR 43.69
--- NOTE | 2023-11-13 07:02 | W.PN.HOSP.TC ---
Addendum entered and electronically signed by Ricci Rader MD 11/14/23 16:43:
sepsis
pyelo secondary to uretal stent malfunction
Addendum entered and electronically signed by Nubia Glynn MD, Resident 11/13/23 18:56:
Sepsis -
Resolved.
SIRS with elevated lactic acid levels.
Secondary to Pyelonephritis is because of UTI.
Pyelonephritis can be worsened if the stent is occluded, and it can also be a cause of pyelonephritis.
Addendum entered and electronically signed by Ricci Rader MD 11/13/23 14:31:
add norvasc 2.5mg
continue lisinopril
increase warfarin
send vn to home for inr check
dc on amox 1000mg tid for 14days once seen and cleared from/by uro.
Original Note:
Today's Communication/Plan
-
Resume Coumadin.
Resume diet.
Switch to oral amoxicillin after today's vancomycin.
Add amlodipine 2.5 Mg to current medication regimen.
Plan for discharge.
Assessment / Plan
Assessment / Plan
Fqextuxntd-77-ndrs-old female with PMHx significant for CKD stage III, admitted finish this
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
lung disease, hypothyroidism, obesity presents to the hospital for right-sided abdominal pain decreased urinary output and nausea.-Diagnosed with acute pyelonephritis.
Plan-
Recurrent right pyelonephritis-
Bilateral congenital ureteropelvic junction obstruction with nonfunctioning left kidney, chronic renal stent, stent replacement every 4 to 6 months.
Recent history of right-sided pyelonephritis with Enterococcus resistant for aminoglycosides and floroquinolones.
CT abdomen and pelvis evidence for moderate right hydronephrosis with perinephric fat stranding present-similar to previous CT scan
Urine analysis evidence at for infection.
Urine cultures positive for Enterococcus.
S/p stent replacement in the p.m. on 11/11.
Vancomycin day 2, switch to oral amoxicillin based on culture sensitivity for 14 days and plan for discharge.
INR is subtherapeutic, at 1.5-1.7, increase the dose of INR to 4. Visiting home nursing for INR monitoring.
JACKIE on CKD stage III-
Monitor with IV fluids
Lisinopril on hold, will resume lisinopril after the procedure.
As needed hydralazine for elevated blood pressure.
Essential hypertension
Blood pressure not well-controlled, resume lisinopril immediately after the procedure.
As needed hydralazine for elevated blood pressure greater than 180/100
History of large spigelian hernia-
Her pain over the hernia site resolved.
Stable on CT scan
Patient refuses surgical intervention in the past
History of DVT/PE-
IVC filter placed, resume Coumadin.
Anemia of chronic disease-
Some component of iron deficiency anemia likely.
Add iron studies in the a.m. tomorrow.
DVT prophylaxis-heparin 2 times a day.
CODE STATUS full code
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
Asthma/restrictive lung disease
Hypothyroidism
Obesity
Anxiety/depression
Continue home medication regimen for conditions prior to admission.
Anticipated Discharge: Today
Subjective/Interval History
-
Date of Service: November 13, 2023
Patient reports to be feeling better today.
Denies having nausea, abdominal pain, classic UTI symptoms
Objective Data
-
Labs:
Laboratory Results
11/13/23
05:05
WBC 10.1
Hgb 10.0 L
Hct 31.1 L
Plt Count 211
Sodium 140
Potassium 5.0
Chloride 111 H
Carbon Dioxide 24
BUN 31 H
Creatinine 1.3 H
Glucose 116 H
Calcium 8.8
Total Bilirubin 0.6
AST 18
ALT 17
Alkaline Phosphatase 98
Vital Signs:
Vital Signs
Temp Pulse Resp BP Pulse Ox
99.5 F 85 18 175/93 95
11/12/23 23:25 11/12/23 23:25 11/12/23 23:25 11/12/23 23:25 11/12/23 23:25
I&O
11/12/23 11/13/23 11/14/23
06:59 06:59 06:59
Intake Total 480 / 480 1180 / 1180
Balance 480 / 480 1180 / 1180
Review of Systems
-
History Source: Patient
Constitutional: Reports No Symptoms
EENT: Reports No Symptoms Reported
Respiratory: Reports No Symptoms
Cardiac: Reports No Symptoms
Abdomen/GI: Reports No Symptoms
Genitourinary: Reports No Symptoms
Musculoskeletal: Reports No Symptoms
Neuro: Reports No Symptoms
Endocrine: Reports No Symptoms
Hematologic / Lymphatic: Reports No Symptoms
Physical Exam
-
General: Well Developed, Well Nourished, No Apparent Distress and Comfortable (On room air.)
HEENT: Normocephalic, Atraumatic and Moist Mucous Membranes
Respiratory: Clear to Auscultation; Negative Wheezes, Rales or Rhonchi
Cardiac: S1/S2 and Murmur; Negative Rub or Gallop
GI: Soft, Nontender, Nondistended and Normal Bowel Sounds
Genito-urinary: No Costovertebral Tender
Musculoskeletal: No Clubbing, No Cyanosis and No Edema
Skin: Warm
Neuro: AO x 3
Psych: Calm
[2023-11-13 08:07] VITALS: BP 180/90
[2023-11-13] MEDS: HEPARIN 5000 UNITS SC (09:12)
[2023-11-13] MEDS: SINGULAIR 10 MG PO (09:12)
[2023-11-13] MEDS: VITAMIN B-12 1000 MCG PO (09:12)
[2023-11-13] MEDS: ZOLOFT 50 MG PO (09:12)
[2023-11-13] MEDS: ProAIR HFA INHALER 2 PUFF INH ×2 (09:21→16:30)
--- NOTE | 2023-11-13 11:45 | W.DCSUMMARY ---
Documented by User: Nubia Glynn MD, Resident 11/13/23 11:53
Discharge Summary
Discharge Data
Date of Admission: 11/11/23
Date of Discharge: 11/13/23
-
Pending Results: No
Hospital Course
Admission diagnosis-
Pyelonephritis, ureteral stent occlusion.
JACKIE
Subtherapeutic INR, on long-term warfarin management.
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
Hypertension
Spigelian hernia
DVT/PE
Anemia of chronic disease
Asthma/restrictive lung disease
Hypothyroidism
Obesity
Anxiety/depression.
Hospital course -during her 3-day hospital course patient was diagnosed with pyelonephritis and her JACKIE secondary to pyelonephritis. Received 1 dose of ceftriaxone, 2 doses of vancomycin and patient's leukocytosis significantly improved. Her
ureteral stent was replaced on 11/11. Patient's warfarin dosing was subtherapeutic, and discussed with the patient to bump her warfarin dose to 4 mg from 3 mg. Her urine cultures were positive for Enterococcus, her cultures in the past were
positive for Enterococcus as well with sensitivity for vancomycin and ampicillin. Hence patient was given ampicillin 875 mg twice a day for 14 days.
Her blood pressure was also found to be high and is not well-controlled on lisinopril 5 mg. Hence Norvasc 2.5 mg added to her home medication regimen and patient is advised to follow-up with her primary care within next 2 weeks.
All medication changes reviewed with the patient, and the visiting nurses arranged to monitor the patient's INR closely twice a week. She was also found to have an JACKIE and her JACKIE improved significantly with her antibiotic coverage, stent
replacement. Repeat BMP in 2 weeks.
Data from hospital admission-
CT abdomen and pelvis-11/11/2023-
Moderate right hydronephrosis, similar appearance seen on CT from 08/01/2023. Right ureteral stent appears appropriately positioned with the proximal pigtail in the renal pelvis. Surrounding perinephric stranding is present, however no focal fluid
collection. 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
Large right lateral ventral hernia containing nonobstructed bowel loops and mesenteric fat and vasculature, unchanged. No evidence of superimposed inflammatory changes. There is trace fluid in the dependent portion of the hernia sac.
Discharge Plan
-
Patient Disposition: Home (Routine Discharge)
Discharge Diagnosis/Procedures: pyelonephritis
Condition: Fair
Diet: As tolerated
Activity: As tolerated
Driving Restrictions: As prior to admission
Blood Work: PT/INR every 3 days, check Tomorrow(friday and Friday)
Other Services: VN, PT and OT
Referrals:
Boris Rosen MD [Active] -
UNKNOWN - PT DOES,NOT KNOW [Family Provider] -
Additional Discharge Medication Instructions: Warfarin dose increased to 4mg. Monitor INR. Follow up with Urology in 4-8 weeks
Prescriptions:
New
amoxicillin 875 mg tablet
875 mg PO Q12H 14 Days Qty: 28 0RF
amlodipine 2.5 mg tablet
2.5 mg PO DAILY 30 Days Qty: 30 0RF
warfarin 4 mg tablet
4 mg PO DAILY 30 Days Qty: 30 2RF
Continued
sertraline 100 MG tablet
50 mg PO DAILY
levothyroxine [Synthroid] 150 mcg tablet
150 mcg PO DAILY
ondansetron 4 mg Tablet,Disintegrating
4 mg PO Q6HPRN PRN (Reason: nausea)
cyanocobalamin (vitamin B-12) 1,000 mcg Tablet
1,000 mcg PO DAILY
acetaminophen [Tylenol Extra Strength] 500 mg Tablet
1,000 mg PO Q6HPRN PRN (Reason: mild pain)
famotidine [Pepcid] 20 mg Tablet
20 mg PO BIDPRN PRN (Reason: gerd)
montelukast [Singulair] 10 mg Tablet
10 mg PO DAILY
lisinopril 5 mg Tablet
10 mg PO DAILY
albuterol sulfate [Ventolin HFA] 90 mcg/actuation Hfa Aerosol Inhaler
2 puff INHALATION R Q6HPRN PRN (Reason: sob)
Discontinued
warfarin 3 mg Tablet
3 mg PO DAILY
Discharge Orders:
Discharge Patient (As Directed); Ordered 11/13/23
Ordered By: Nubia Glynn
Discharge Date and Time
Print Language: PUERTO RICAN

Documented by User: Ricci Rader MD 11/13/23 14:30
Discharge Summary
Discharge Data
Date of Admission: 11/11/23
Date of Discharge: 11/13/23
Discharge Plan
-
Patient Disposition: Home (Routine Discharge)
Discharge Diagnosis/Procedures: pyelonephritis
Condition: Fair
Diet: As tolerated
Activity: As tolerated
Driving Restrictions: As prior to admission
Blood Work: PT/INR every 3 days, check Tomorrow(friday and Friday)
Other Services: VN, PT and OT
Referrals:
Boris Rosen MD [Active] -
UNKNOWN - PT DOES,NOT KNOW [Family Provider] -
Additional Discharge Medication Instructions: Warfarin dose increased to 4mg. Monitor INR. Follow up with Urology in 4-8 weeks
Prescriptions:
New
amoxicillin 875 mg tablet
875 mg PO Q12H 14 Days Qty: 28 0RF
amlodipine 2.5 mg tablet
2.5 mg PO DAILY 30 Days Qty: 30 0RF
warfarin 4 mg tablet
4 mg PO DAILY 30 Days Qty: 30 2RF
Continued
sertraline 100 MG tablet
50 mg PO DAILY
levothyroxine [Synthroid] 150 mcg tablet
150 mcg PO DAILY
ondansetron 4 mg Tablet,Disintegrating
4 mg PO Q6HPRN PRN (Reason: nausea)
cyanocobalamin (vitamin B-12) 1,000 mcg Tablet
1,000 mcg PO DAILY
acetaminophen [Tylenol Extra Strength] 500 mg Tablet
1,000 mg PO Q6HPRN PRN (Reason: mild pain)
famotidine [Pepcid] 20 mg Tablet
20 mg PO BIDPRN PRN (Reason: gerd)
montelukast [Singulair] 10 mg Tablet
10 mg PO DAILY
lisinopril 5 mg Tablet
10 mg PO DAILY
albuterol sulfate [Ventolin HFA] 90 mcg/actuation Hfa Aerosol Inhaler
2 puff INHALATION R Q6HPRN PRN (Reason: sob)
Discontinued
warfarin 3 mg Tablet
3 mg PO DAILY
Discharge Orders:
Discharge Patient (As Directed); Ordered 11/13/23
Ordered By: Nubia Glynn
Discharge Date and Time
Print Language: PUERTO RICAN
--- NOTE | 2023-11-13 12:51 | PN.CDI ---
CDI
- -
CDI:
Physician Documentation Request
Admit Date: 11/11/23 16:43
Dear Doctor Renard,
Please review the following and provide your response in the progress notes.
Clinical Indicators:
Pt admitted with Acute pyelonephritis and JACKIE.
The following conditions now have an assumed link:
pyelonephritis is assumed to be related to/associated with/due to ureteral stent.
11/11 progress note: 'pyelonephritis in the setting of blocked uretral stent. uro plans to take to the OR for Uretral stent exchange.'
Please clarify the relationship between these conditions:
Yes, pyelonephritis is related to/associated with/due to ureteral stent.
No, pyelonephritis is not related to/associated with/due to ureteral stent.
Other
Use of terms such as suspected, likely, concern for, or probable (associated with a specific diagnosis that is being evaluated, monitored, or treated as if it exists) are acceptable and can be coded in the inpatient setting, when documented at the
time of discharge.
Thank you,
Torie Willis RN, BSN
CDI Specialist
Available via [place] [employer]
Please use your independent medical judgment in providing your response.
--- NOTE | 2023-11-13 13:02 | PN.CDI ---
CDI
- -
CDI:
Physician Documentation Request
Admit Date: 11/11/23 16:43
Dear Doctor Renard,
Please review the following and provide your response in the progress notes.
Clinical Indicators:
Pt admitted with acute pyelonephritis and elizabeth.
Selected Entries
11/11/23
12:57 11/11/23
18:10
Temp 100.8 H
Pulse 97 102
Laboratory Tests
11/11/23 11/12/23
: 05:22
WBC 18.6 H 14.7 H
Lactic Acid 2.2 H
Please clarify which of the following most accurately describes the status of the patient's infection:
Sepsis
- Systemic manifestations of infection, with 2 or more SIRS criteria which include:
- Fever >100.4 degrees F or hypothermia < 96.8 degrees F
- Leukocytosis - WBC > 12,000 or leukopenia - WBC < 4,000 or > 10% bands
- Tachycardia > 90 beats per minute
- Tachypnea - RR > 20 breaths per minute or PaCO2 , 32mmHg
Source: Merck Manual 2013
Acute pyelonephritis ( localized infection)
Other
Use of terms such as suspected, likely, concern for, or probable (associated with a specific diagnosis that is being evaluated, monitored, or treated as if it exists) are acceptable and can be coded in the inpatient setting, when documented at the
time of discharge.
Thank you,
Torie Willis RN, BSN
CDI Specialist
Available via [place] [employer]
Please use your independent medical judgment in providing your response.
--- NOTE | 2023-11-13 15:54 | PHA.VAN.FU ---
Vancomycin Assessment / Plan
- Assessment
Renal Function: SCR Decreasing
WBC's are: WNL
In the past 24 hrs, patient has been: Afebrile
- Assessment - Therapeutic Drug Monitoring
Random Level: 17 - drawn ~17H after 2g loading dose
- Dosing Plan
Dosing by Level: Hold off on dosing today (patient's maitaining level longer and higher than anticipated with improving SCR)
- Monitoring Plan
No level(s) ordered at this time: re-dose tomorrow if remains on vancomycin
- Follow Up
Pharmacy will continue to follow.
Vancomycin Follow UP
- -
Patient Age: 73
Patient Sex: Female
Vancomycin Day #: 2
Indication: Bacteremia
Requesting Provider: Dr Glynn (Resident)
Pertinent Antimicrobial Allergies:
no pertinent antibiotic allergies
Height / Weight:
Height 5 ft 5 in
Actual Weight 103.691 kg
Pertinent Past Medical History: BMI~39
- Vital Signs / Lab Results
Temp Pulse Resp BP Pulse Ox
98.1 F 84 16 180/90 96
11/13/23 08:07 11/13/23 09:23 11/13/23 09:23 11/13/23 08:07 11/13/23 09:23
Lab Results - Hematology
11/11/23 11/12/23 11/13/23
13:28 05:22 05:05
WBC 18.6 H 14.7 H 10.1
Lab Results - Chemistry
11/11/23 11/12/23 11/13/23
13:28 05:22 05:05
BUN 30 H 33 H 31 H
Creatinine 1.5 H 1.6 H 1.3 H
Estimated Creat Clear 39 47
Albumin 3.7 3.0 L 3.0 L
11/11/23
13:28
Lactic Acid 2.2 H
Microbiology Results
11/11/23 14:53 Urine Culture - Final
Urine Enterococcus faecalis
Therapeutic Drug Monitoring
Random Vancomycin 17.0 ug/ml 11/13/23 05:05
--- NOTE | 2023-11-13 16:08 | CM ---
MD entered order for discharge.
Sister gave misinformation for [place]. Pt is homebound she has wheelchair ,aids daily in am and pm and August other sister assists as needed.
Pt will need Ambulance for dc home.
Pt agrees with dc today to home . 4 steps to enter.
[facility] resumption set up by Alicja Johnson. Pt will need INR checks [facility] aware.
Pt followed by [facility] [phone]. Inform given to Crystal [facility] rep.
PLAN Home with [facility] .
[2023-11-13 16:13] VITALS: BP 169/82
[2023-11-13] MEDS: NORVASC 2.5 MG PO (16:25)
[2023-11-13] MEDS: ZESTRIL 2.5 MG PO (16:25)
--- NOTE | 2023-11-19 13:03 | W.IMMPOSTOP ---
Surgical Immed Post Op Note
-
Primary Surgeon: Silas
Pre-op Diagnosis: Riight UPJO with chronic Hydronephrosis; complex UTI
Post-op Diagnosis: same
Procedure Performed: Cysto, RGP, exchange or right ureteral stent
Anesthesia Type:gen
== END 2023-11-13 18:03 | disposition home health service (06) | DRG 659 ==
LOC: 3 WEST ACU 16:43
PROVIDERS: Physician Assistant; Student in an Organized Health Care Education/Training Program; ADMITTING PHYSICIAN Hospitalist; ATTENDING PHYSICIAN Hospitalist; CONSULT PHYSICIAN Specialist; EMERGENCY PHYSICIAN Emergency Medicine
PROC: 0TP98DZ Removal of Intraluminal Device from Ureter, Via Natural or Artificial Opening Endoscopic (ICD-10-PCS; 2023-11-12)
PROC: 0T768DZ Dilation of Right Ureter with Intraluminal Device, Via Natural or Artificial Opening Endoscopic (ICD-10-PCS; 2023-11-12)
DX: T83.592A Infection and inflammatory reaction due to indwelling ureteral stent, initial encounter (principal); A41.81 Sepsis due to Enterococcus; N10 Acute pyelonephritis; Q62.39 Other obstructive defects of renal pelvis and ureter; N17.9 Acute kidney failure, unspecified; T83.192A Other mechanical complication of indwelling ureteral stent, initial encounter; I12.9 Hypertensive chronic kidney disease with stage 1 through stage 4 chronic kidney disease, or unspecified chronic kidney disease; E03.9 Hypothyroidism, unspecified; D63.1 Anemia in chronic kidney disease; F32.A Depression, unspecified; F41.9 Anxiety disorder, unspecified; J45.909 Unspecified asthma, uncomplicated; E66.01 Morbid (severe) obesity due to excess calories; Z86.718 Personal history of other venous thrombosis and embolism; Z86.711 Personal history of pulmonary embolism; Z79.899 Other long term (current) drug therapy; Z91.040 Latex allergy status; Z79.01 Long term (current) use of anticoagulants; Z79.890 Hormone replacement therapy; Y73.2 Prosthetic and other implants, materials and accessory gastroenterology and urology devices associated with adverse incidents; N18.30 Chronic kidney disease, stage 3 unspecified; R79.1 Abnormal coagulation profile; K21.9 Gastro-esophageal reflux disease without esophagitis; J98.4 Other disorders of lung; Y83.1 Surgical operation with implant of artificial internal device as the cause of abnormal reaction of the patient, or of later complication, without mention of misadventure at the time of the procedure; Z95.828 Presence of other vascular implants and grafts; Z68.38 Body mass index [BMI] 38.0-38.9, adult
CPT/HCPCS: 74018; 74176; 76000; 80053; 80202; 81003; 81015; 83605; 85025; 85027; 85610; 87077; 87086; 87186; 94640; 96361; 96374; 96375; 99285; A4300; C2617

== ENCOUNTER 2024-02-12 06:26 | Day surgery (SDC) | payer OTHER, SELFPAY ==
[2024-02-12] VITALS (11 sets, daily range): BP systolic 113–190; BP diastolic 54–89; BMI 38.3
== END 2024-02-12 12:15 | disposition home or self-care (01) ==
LOC: SDS 06:26
PROVIDERS: ATTENDING PHYSICIAN Specialist; FAMILY PHYSICIAN Internal Medicine
DX: N13.30 Unspecified hydronephrosis (principal); Q62.39 Other obstructive defects of renal pelvis and ureter
CPT/HCPCS: 52332; 74018; 76000; 87077; 87086; 87186; 93005; C2617

== ENCOUNTER 2024-07-01 06:19 | Day surgery (SDC) | payer OTHER, SELFPAY ==
[2024-07-01 08:16] VITALS: BMI 39.5
[2024-07-01 08:18] VITALS: BP 188/90; BMI 39.5
[2024-07-01] MEDS: NORMOSOL-R/PLASMALYTE-A 1000 IV (08:30)
[2024-07-01 08:47] LABS: Hematocrit 38.2 % (37.0-47.0); Mean Corp Hgb Conc. 28.8 g/dL (33.0-37.0); Mean Corpuscular Hgb 23.5 pg (27.0-31.0); Mean Corpuscular Volume 81.4 fL (81.0-99.0); Mean Platelet Volume 9.7 fL (7.4-10.4); Platelet Count 231 10^3/uL (130-400); Red Blood Cell Count 4.69 10^6/uL (4.20-5.40); Red Cell Dist. Width 18.1 % (11.5-14.5); White Blood Cell Count 8.3 10^3/uL (4.8-10.8)
[2024-07-01 08:52] LABS: INR 1.81; PT 21.5 Sec (11.4-14.6)
[2024-07-01 09:01] LABS: ALT (SGPT) 13 U/L (0-35); AST (SGOT) 17 U/L (14-36); Albumin 3.1 g/dl (3.5-5.0); Alkaline Phosphatase 95 U/L (38-126); Blood Urea Nitrogen 25 mg/dl (7-17); Calcium 8.6 mg/dl (8.4-10.2); Carbon Dioxide 34 mmol/L (22-30); Chloride 109 mmol/L (98-107); Estimated Creatinine Clearance 74 ml/min; Glucose 86 mg/dl (70-99); Potassium 5.1 mmol/L (3.5-5.1); Sodium 146 mmol/L (135-145); Total Bilirubin 0.7 mg/dl (0.2-1.3); Total Protein 5.7 g/dl (6.3-8.2); eGFR > 60.00
[2024-07-01 11:30] VITALS: BP 122/66
[2024-07-01 11:45] VITALS: BP 109/64
[2024-07-01 12:00] VITALS: BP 137/82
== END 2024-07-01 12:39 | disposition home or self-care (01) ==
LOC: SDS 06:19
PROVIDERS: Student in an Organized Health Care Education/Training Program; ATTENDING PHYSICIAN Specialist
DX: N13.1 Hydronephrosis with ureteral stricture, not elsewhere classified (principal)
CPT/HCPCS: 52332; 74420; 76000; 80053; 85027; 85610; J1580

== ENCOUNTER 2024-10-09 22:50 | Inpatient (IN) | payer OTHER, SELFPAY ==
[2024-10-09 17:02] VITALS: BP 96/49
[2024-10-09 18:00] VITALS: BP 97/40
--- NOTE | 2024-10-09 18:28 | ED.GENMED ---
History of Present Illness
<TREVIN Herman - Last Filed: 10/09/24 21:16>
General
Chief Complaint: Urinary Symptoms
Source: patient and family
Exam Limitations: none
Time Seen by Provider: 10/09/24 18:17
Nursing documentation reviewed up to this point in time: agreed with
History of Present Illness
History of Present Illness:
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
hydronephrosis antiphospholipid syndrome on Coumadin presents to the ER for evaluation. Sister reports patient lives in her own home with caregivers. She has not been eating for the past week and typically when she does not feel well heart right
stent needs to be changed. Patient has no complaints of fever chills. She does complain of nausea and decreased appetite. s Denies any back pain.
Sister reports patient is scheduled for a stent replacement October [address] Villagran. And as documented by Dr. Villagran plan is to give her broad-spectrum antibiotics remove the stent and do a retrograde pyelogram and replaced the right double-J
stent.
Past History
<TREVIN Herman - Last Filed: 10/09/24 21:16>
Past History
ED Past Medical History: Asthma, HTN, Renal failure, Hypothyroidism and Other (ureteral stents, PE, ARF, One kidney, IVC filter, Cellulitis, UTI, Pancreatitis)
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
Social History
Tobacco: Non-smoker
Alcohol: None
Personal: Single
Living: alone
Family History
Family History: Other (Mother with endometrial cancer, father with coronary disease)
Phy Exam
<TREVIN Herman - Last Filed: 10/09/24 21:16>
General Physical Exam
General Presentation: no apparent distress
General age: appears older than age
General Skin: warm and dry
General Habitus: elderly and obese
General Mental: alert
General Hydration: dry mucous membranes
Cardiovascular Exam
Cardiovascular Exam: regular rate/rhythm, no murmur and normal peripheral pulses
Pulmonary Exam
Pulmonary Exam: lungs clear and no respiratory distress
Gastrointestinal Exam
Gastrointestinal Exam: non tender, soft and other (Brown stool heme negative)
Neurological Exam
Neurological Exam: alert and oriented x3
Musculoskeletal Exam
Musculoskeletal Exam: other (Chronic open wounds to bilateral lower extremities + skin breakdown to buttocks)
Skin Exam
Skin Exam: normal color and warm/dry
Course
<TREVIN Herman - Last Filed: 10/09/24 21:16>
Orders/Labs/Results
Orders:
Orders
10/09/24 18:42
CT Abd/pel Without Iv Or Oral Urgent
Comment:
Reason For Exam: nausea dec appetite stent in place
10/09/24 18:43
Straight cath- Treatment ONCE
10/09/24 18:45
Complete Blood Count/With Diff Urgent
Comprehensive Metabolic Panel Urgent
10/09/24 19:10
UA Reflex to Culture [Urinalysis Reflex To Culture] Urgent
Date Specimen was Collected: 10/09/24
Time Specimen was Collected: 19:09
Urine Microscopic Reflex Cult Urgent
Urine Culture Urgent
GABRIELLA Source: U
Specimen Description:
Date Specimen was Collected: 10/09/24
Time Specimen was Collected: 19:09
10/09/24 20:57
Vancomycin [Vancocin] 2,000 mg 0.9% Sodium Chloride 500 ml [Nss] 500 ml IV NOW
10/09/24 21:12
0.9% Sodium Chloride 500 ml [Nss] 500 ml IV BOLUS
10/09/24 21:26
Lactic Acid Q4H
Comment: CANCEL 2nd LACTIC ACID IF 1st LACTIC ACID IS LESS THAN 2
PT/INR [Prothrombin Time] Urgent
Blood Culture Q30M
GABRIELLA Source: Blood/Venous
Specimen Description:
Blood Culture Q30M
GABRIELLA Source: Blood/Venous
Specimen Description:
10/09/24 22:19
Phytonadione [Mephyton] 2.5 mg PO NOW STA
10/10/24 01:00
Lactic Acid Q4H
Comment: CANCEL 2nd LACTIC ACID IF 1st LACTIC ACID IS LESS THAN 2
Abnormal Lab Results
10/09/24 10/09/24 10/09/24
18:45 19:10 21:26
RBC 3.50 L 10^6/uL
(4.20-5.40)
Hgb 8.0 L g/dL
(12.0-16.0)
Hct 28.8 L %
(37.0-47.0)
MCH 22.9 L pg
(27.0-31.0)
MCHC 27.8 L g/dL
(33.0-37.0)
RDW 17.9 H %
(11.5-14.5)
Absolute Lymphs (auto) 0.5 L 10^3/uL
(1.2-3.4)
Neutrophils % 80.9 H %
(42.2-75.2)
Lymphocytes % 6.5 L %
(20.5-51.1)
PT 65.7 H Sec
(11.4-14.6)
INR > 8.0 H*
Chloride 111 H mmol/L
(98-107)
BUN 24 H mg/dl
(7-17)
Creatinine 1.2 H mg/dL
(0.6-1.0)
Glucose 113 H mg/dl
(70-99)
Lactic Acid 0.6 L mmol/L
(0.7-2.0)
Calcium 8.2 L mg/dl
(8.4-10.2)
AST 12 L U/L
(14-36)
Total Protein 5.4 L g/dl
(6.3-8.2)
Albumin 2.8 L g/dl
(3.5-5.0)
Urine Ketones 1+ A
(Negative)
Ur Occult Blood Reflex 4+ A
(Negative)
Urine Nitrite (Reflex) Positive A
(Negative)
Leukocyte Esterase Rfl 3+ A
(Negative)
Urine RBC >100 A /HPF
(0-2)
Urine Albumin (Reflex) 3+ A
(Neg - Trace)
10/09/24 18:45
10/09/24 18:45
Vital Signs
Initial and Last Documented VS:
Initial Vital Signs
Temp Pulse Resp BP Pulse Ox
97.6 F 80 15 96/49 92
10/09/24 17:02 10/09/24 17:02 10/09/24 17:02 10/09/24 17:02 10/09/24 17:02
Last Documented Vital Signs
Temp Pulse Resp BP Pulse Ox
97.3 F 82 19 108/47 100
10/09/24 19:25 10/09/24 19:15 10/09/24 19:15 10/09/24 19:00 10/09/24 19:15
<Boris Manjarrez, DO - Last Filed: 10/09/24 22:23>
Orders/Labs/Results
Orders:
Orders
10/09/24 18:42
CT Abd/pel Without Iv Or Oral Urgent
Comment:
Reason For Exam: nausea dec appetite stent in place
10/09/24 18:43
Straight cath- Treatment ONCE
10/09/24 18:45
Complete Blood Count/With Diff Urgent
Comprehensive Metabolic Panel Urgent
10/09/24 19:10
UA Reflex to Culture [Urinalysis Reflex To Culture] Urgent
Date Specimen was Collected: 10/09/24
Time Specimen was Collected: 19:09
Urine Microscopic Reflex Cult Urgent
Urine Culture Urgent
GABRIELLA Source: U
Specimen Description:
Date Specimen was Collected: 10/09/24
Time Specimen was Collected: 19:09
10/09/24 20:57
Vancomycin [Vancocin] 2,000 mg 0.9% Sodium Chloride 500 ml [Nss] 500 ml IV NOW
10/09/24 21:12
0.9% Sodium Chloride 500 ml [Nss] 500 ml IV BOLUS
10/09/24 21:26
Lactic Acid Q4H
Comment: CANCEL 2nd LACTIC ACID IF 1st LACTIC ACID IS LESS THAN 2
PT/INR [Prothrombin Time] Urgent
Blood Culture Q30M
GABRIELLA Source: Blood/Venous
Specimen Description:
Blood Culture Q30M
GABRIELLA Source: Blood/Venous
Specimen Description:
10/09/24 22:19
Phytonadione [Mephyton] 2.5 mg PO NOW STA
10/10/24 01:00
Lactic Acid Q4H
Comment: CANCEL 2nd LACTIC ACID IF 1st LACTIC ACID IS LESS THAN 2
Abnormal Lab Results
10/09/24 10/09/24 10/09/24
18:45 19:10 21:26
RBC 3.50 L 10^6/uL
(4.20-5.40)
Hgb 8.0 L g/dL
(12.0-16.0)
Hct 28.8 L %
(37.0-47.0)
MCH 22.9 L pg
(27.0-31.0)
MCHC 27.8 L g/dL
(33.0-37.0)
RDW 17.9 H %
(11.5-14.5)
Absolute Lymphs (auto) 0.5 L 10^3/uL
(1.2-3.4)
Neutrophils % 80.9 H %
(42.2-75.2)
Lymphocytes % 6.5 L %
(20.5-51.1)
PT 65.7 H Sec
(11.4-14.6)
INR > 8.0 H*
Chloride 111 H mmol/L
(98-107)
BUN 24 H mg/dl
(7-17)
Creatinine 1.2 H mg/dL
(0.6-1.0)
Glucose 113 H mg/dl
(70-99)
Lactic Acid 0.6 L mmol/L
(0.7-2.0)
Calcium 8.2 L mg/dl
(8.4-10.2)
AST 12 L U/L
(14-36)
Total Protein 5.4 L g/dl
(6.3-8.2)
Albumin 2.8 L g/dl
(3.5-5.0)
Urine Ketones 1+ A
(Negative)
Ur Occult Blood Reflex 4+ A
(Negative)
Urine Nitrite (Reflex) Positive A
(Negative)
Leukocyte Esterase Rfl 3+ A
(Negative)
Urine RBC >100 A /HPF
(0-2)
Urine Albumin (Reflex) 3+ A
(Neg - Trace)
10/09/24 18:45
10/09/24 18:45
Vital Signs
Initial and Last Documented VS:
Initial Vital Signs
Temp Pulse Resp BP Pulse Ox
97.6 F 80 15 96/49 92
10/09/24 17:02 10/09/24 17:02 10/09/24 17:02 10/09/24 17:02 10/09/24 17:02
Last Documented Vital Signs
Temp Pulse Resp BP Pulse Ox
97.3 F 82 19 108/47 100
10/09/24 19:25 10/09/24 19:15 10/09/24 19:15 10/09/24 19:00 10/09/24 19:15
<TREVIN Herman - Last Filed: 10/09/24 21:16>
MDM/Problems Addressed
MDM/Problems Addressed:
As documented patient is a 74-year-old female with a with congenital bilateral UPJ obstruction managed with a double-J stent in her right kidney presents to the ER for evaluation. She has not been feeling well for the past week and typically when
she gets infection her stent needs to be replaced and this is how she presents. She has not had any recent fevers and is afebrile with a normal white count hemoglobin is low at 8.0(she is on coumadin and her last HGB was 11.0 Aprl 3rd.
patient's INR was elevated recently she has been decreasing her dose as instructed. INR ordered and currently pending.
Rectal done brown stool heme-negative
urine with large blood. CAT scan shows right double-J ureteral stent with no obstructive urolithiasis no obstruction or bowel thickening.
Patient is scheduled to have her stent replaced October [address] Villagran. Will admit and treat for UTI previous micro culture of urine reviewed will treat with broad-spectrum antibiotics, Vanco ordered. Will check cultures. As documented patient
has chronic skin wounds to bilateral legs skin breakdown to buttocks
<TREVIN Herman - Last Filed: 10/09/24 21:16>
*Radiology
Radiology exam reviewed: radiology read reviewed
*Pulse Oximetry
SaO2: 98
Nasal Cannula flow liters per minute: 3
Oxygen Mode of Delivery: Room air
Patient hypoxic: no
*Critical Care Note
Total Time (30-74mins, 75-104mins- exclusive of procedures): Not Applicable
<Boris Manjarrez DO - Last Filed: 10/09/24 22:23>
Update Note
Update Note:
10:20 PM Case discussed with admitting hospitalist. Given her elevated INR and her anemia and evidence of bleeding and oozing from her leg wounds, we will give oral dose of vitamin K
ED Attending Note
<TREVIN Herman - Last Filed: 10/09/24 21:16>
-
Portions of this chart may have been created with voice recognition software.� Occasional wrong word or��sound alike� substitutions may have occurred due to the inherent limitations of voice recognition software.
<Boris Manjarrez DO - Last Filed: 10/09/24 22:23>
ED Attending Note
Patient seen and examined by attending physician: Yes
I performed the substantive portion of visit, reviewed & personally made and approve the management plan that is documented in note by myself or MIKAYLA.: Yes
ED Attending Note:
I have seen and evaluated the patient with a [id number] encounter. I have spoken to the advance practicer provider and involved in the medical history, the physical exam, medical decision making.
Evaluation and management service: agree unless noted differently below.
Results interpretation: agree unless noted differently below.
Focused HPI: 74-year-old female presenting for evaluation of weakness and fatigue. Family indicating that when she gets like this, she usually needs her ureteral stents replaced
Physical exam: Elevated BMI, appears mildly confused, sleepy, edematous and weeping legs
Medical Decision Making: Urine concerning for UTI. In the setting of foreign body with the ureter stents, will start antibiotics. Patient ultimately requires admission
Discharge Plan
Departure
Patient Disposition: Admit
Date of Disposition: 10/09/24
Time of Disposition: 21:12
Admit to: Med/Surg
Admit to doctor: hospitalist
Presentation/result/management discussed w/ accepting MD/DO: Hospitalist
Patient with high blood pressure during this ER visit?: No
Condition: Fair
Covid-19: Not Applicable
Discharge Problem:
Acute UTI, Anemia
Prescriptions:
No Action
sertraline 100 MG tablet
50 mg PO DAILY
levothyroxine [Synthroid] 150 mcg tablet
150 mcg PO DAILY
cyanocobalamin (vitamin B-12) 1,000 mcg Tablet
1,000 mcg PO DAILY
acetaminophen [Tylenol Extra Strength] 500 mg Tablet
1,000 mg PO Q6HPRN PRN (Reason: mild pain)
famotidine [Pepcid] 20 mg Tablet
20 mg PO PRN PRN (Reason: gerd)
montelukast [Singulair] 10 mg Tablet
10 mg PO DAILY
lisinopril 5 mg Tablet
5 mg PO BID
albuterol sulfate [Ventolin HFA] 90 mcg/actuation Hfa Aerosol Inhaler
2 puff INHALATION R Q6HPRN PRN (Reason: sob)
amlodipine 2.5 mg tablet
2.5 mg PO DAILY 30 Days Qty: 30 0RF
warfarin 4 mg tablet
4 mg PO DAILY 30 Days Qty: 30 2RF
Referrals:
PRIVATE,PHYSICIAN [Family Provider, Internal Medicine]
Interventions
Interventions:
*Risk Screen - Suicide Last Done: 10/09/24 17:02
*General Assessment Last Done: 10/09/24 17:02
*Neglect/Abuse Screening Last Done: 10/09/24 17:02
*ED- Fall Risk Assessment Last Done: 10/09/24 18:08
*ED COVID-19 Vaccine History Last Done: 10/09/24 18:08
ED-Female Genitourinary Assessment Last Done: 10/09/24 18:08
Discharge Date and Time
Print Language: MALTESE
[2024-10-09 18:57] LABS: Hematocrit 28.8 % (37.0-47.0); Hemoglobin 8.0 g/dL (12.0-16.0); Mean Corp Hgb Conc. 27.8 g/dL (33.0-37.0); Mean Corpuscular Volume 82.3 fL (81.0-99.0); Nucleated Red Blood Cells % 0 %; Platelet Count 286 10^3/uL (130-400); Red Cell Dist. Width 17.9 % (11.5-14.5)
[2024-10-09 19:00] VITALS: BP 108/47
[2024-10-09 19:11] LABS: AST (SGOT) 12 U/L (14-36); Albumin 2.8 g/dl (3.5-5.0); Blood Urea Nitrogen 24 mg/dl (7-17); Carbon Dioxide 29 mmol/L (22-30); Glucose 113 mg/dl (70-99); eGFR 47.80
[2024-10-09 19:20] LABS: Urine Character Bloody (Clear)
[2024-10-09 19:27] LABS: Urine Red Blood Cell >100 /HPF (0-2)
[2024-10-09 19:39] LABS: ALT (SGPT) < 10 U/L (0-35); Alkaline Phosphatase 88 U/L (38-126); Calcium 8.2 mg/dl (8.4-10.2); Chloride 111 mmol/L (98-107); Potassium 4.2 mmol/L (3.5-5.1); Sodium 142 mmol/L (135-145); Total Protein 5.4 g/dl (6.3-8.2)
[2024-10-09 21:30] VITALS: BP 130/54
--- NOTE | 2024-10-09 21:32 | HPS.HSE ---
Family Physician
-
Family Physician: PHYSICIAN PRIVATE
Chief Complaint
-
Decreased oral intake
History of Present Illness
The patient is a 74-year-old woman with past medical history significant for congenital bilateral UPJ obstruction, nonfunctioning left kidney, managed with a double-J stent on her right, due to be replaced on October [address] Villagran, hypertension,
renal failure, hypothyroidism, pulmonary embolism on coumadin, IVC filter, asthma who presents to the emergency department secondary to anorexia and nausea, not feeling well for several days. She notes that she feels this way typically when she
needs her double-J stent replaced. She is somnolent in the ED. Sister is not currently at bedside, and patient falls asleep quickly after answering simple questions. She denies fevers, no chills, no vomiting, no diarrhea, no abdominal pain, she has
chronic skin wounds to bilateral legs skin breakdown to buttocks. INR > 8.0
Medical History
Past Medical History
Past Medical History: Reports Other (CKD 3, bilateral congenital ureteropelvic junction obstruction with nonfunctioning left kidney and chronic right ureteral stent, recent Enterococcus pyelonephritis, hypertension, history of DVT/PE, IVC filter,
anemia of chronic disease, asthma, restrictive lung disease, hypothyroidism, obesity)
Past Surgical History: Reports Other (Tonsilectomy (with adnoids), Urological (Ureteral stent) and Other (IVC filter, 19 coils near spleen for aneurysm))
Social History
Tobacco: Non-smoker
Alcohol: None
Drug: None
Family History
Family History: Not pertinent
Allergies / Home Medications
Allergies reflects when Allergies were last updated in [email or web address].
Home Medications with original date entered in [email or web address]
Allergy/Medication List:
Allergies
Allergy/AdvReac Type Severity Reaction Status Date / Time
animal dander Allergy Exacerbates Verified 10/09/24 20:58
asthma
banana Allergy Exacerbates Verified 07/12/25 20:58
asthma
cheese Allergy Exacerbates Verified 10/09/24 20:58
asthma
cigarette smoke Allergy Exacerbates Verified 10/09/24 20:58
asthma
house dust Allergy Exacerbates Verified 10/09/24 20:58
asthma
house dust mite Allergy Exacerbates Verified 10/09/24 20:58
asthma
latex (Latex) Allergy Exacerbates Verified 10/09/24 20:58
asthma
mold Allergy Exacerbates Verified 10/09/24 20:58
asthma
perfume Allergy Exacerbates Verified 10/09/24 20:58
asthma
pollen extracts Allergy Exacerbates Verified 10/09/24 20:58
asthma
ragweed pollen Allergy Exacerbates Verified 10/09/24 20:58
asthma
Home Medications
sertraline 100 mg tablet 50 mg PO DAILY Mental Health/Anxiety 07/10/21
levothyroxine 150 mcg tablet (Synthroid) 150 mcg PO DAILY Thyroid 03/11/23
acetaminophen 500 mg tablet (Tylenol Extra Strength) 1,000 mg PO Q6HPRN PRN mild pain 08/01/23
cyanocobalamin (vitamin B-12) 1,000 mcg tablet 1,000 mcg PO DAILY Supplement 08/01/23
famotidine 20 mg tablet (Pepcid) 20 mg PO PRN PRN gerd 08/01/23
montelukast 10 mg tablet (Singulair) 10 mg PO DAILY Lung/Breathing Issues 08/01/23
albuterol sulfate 90 mcg/actuation aerosol inhaler (Ventolin HFA) 2 puff inhalation R Q6HPRN PRN sob 11/11/23
lisinopril 5 mg tablet 5 mg PO BID 11/11/23
amlodipine 2.5 mg tablet 2.5 mg PO DAILY Blood pressure 30 days #30 tabs 11/13/23
warfarin 4 mg tablet 4 mg PO DAILY 30 days #30 tabs 11/13/23
Review of Systems
-
A 12 point ROS was completed and negative except as noted: Yes
Physical Exam
Vital Signs
Vital Signs
Temp Pulse Resp BP Pulse Ox
97.3 F 82 19 108/47 100
10/09/24 19:25 10/09/24 19:15 10/09/24 19:15 10/09/24 19:00 10/09/24 19:15
Physical Exam
General: Appears Chronically Ill and Morbidly Obese
HEENT: Other (severe cervical kyphosis)
Respiratory: Clear
Cardiac: S1/S2 and Regular Rhythm
GI: Soft, Non Tender and Non Distended
Musculoskeletal: No Clubbing, No Cyanosis and Other (massive lymphadenopathy b/l LE with venous stasis changes and bloody weeping sores)
Skin: Warm, Dry and Lesions (as above)
Neuro: Other (somnolent, awakens to voice/questions then falls promptly back to sleep)
Psych: Calm
Laboratory Results
-
10/09/24 18:45
10/09/24 18:45
Laboratory Results
Total Bilirubin 0.5 mg/dl (0.2-1.3) 10/09/24 18:45
AST 12 U/L (14-36) L 10/09/24 18:45
ALT < 10 U/L (0-35) 10/09/24 18:45
Alkaline Phosphatase 88 U/L (38-126) 10/09/24 18:45
Data Reviewed
-
CT Scan: Report Reviewed by me (Prelim report CT a/p- right double J stent with no obstructive urolithiasis, stable cystic appearance of the left kidney, large right lateral wall abdominal hernia containing bowel )
Impression/Plan
-
IMPRESSION:
#UTI, based on prior urine cultures, multiple cultures were positive for Enterococcus Faecalis, will continue IV Vanco started in the ED
-Urology consultation
-urine culture
-Blood cultures pending
- IV vancomycin
#Bilateral congenital ureteropelvic junction obstruction with nonfunctioning left kidney and chronic right ureteral stent
- Due to be replaced October [address] Villagran
- Urology consultation appreciated
# Anemia, hemoglobin 8.0, likely from hematuria and b/l LE weeping/blood chronic leg ulcers/sores in setting of supratherapeutic INR on Warfarin, with INR of greater than 8.0
-Vitamin K 2.5 mg p.o. given in the ED
-Monitor hemoglobin with repeat laboratory in the morning
-hold Warfarin
-repeat INR in am
-Transfuse for hemoglobin less than 7
# Chronic kidney disease, stage III, creatinine 1.2 on admission, likely close to the patient's baseline, no obstructive process on CT of the abdomen and pelvis
-Monitor with repeat creatinine in the morning and avoid nephrotoxic agents
-gentle IVF while NPO tonight
# Chronic skin wounds to bilateral legs skin breakdown to buttocks
- Wound care consultation
#Prelim report CT a/p- right double J stent with no obstructive urolithiasis, stable cystic appearance of the left kidney, large right lateral wall abdominal hernia containing bowel
- Discussed the patient with urology, urology consultation appreciated
- Will keep the patient n.p.o. past midnight tonight
- Possible stent replacement tomorrow pending repeat INR, clinical course, and consultation with urology in the morning
# Medication reconciliation is pending at this time
Chronic medical conditions:
Recent Enterococcus pyelonephritis
Essential hypertension, stable
DVT/PE,
-IVC filter,
- On warfarin
- Check INR
Anemia of chronic disease, normal MCV
asthma, restrictive lung disease, stable
hypothyroidism
- Synthroid
Obesity
DVT prophylaxis -on Coumadin
Full code
[2024-10-09] MEDS: VANCOCIN 540 MG IV (21:49)
[2024-10-09] MEDS: NSS 500 IV (21:53)
[2024-10-09 22:00] VITALS: BP 138/51
[2024-10-09 22:04] LABS: PT 65.7 Sec (11.4-14.6)
[2024-10-09 22:11] LABS: INR > 8.0
[2024-10-09 23:00] VITALS: BP 132/53
[2024-10-09] MEDS: MEPHYTON 2.5 MG PO (23:28)
[2024-10-10] VITALS (79 sets, daily range): BP systolic 63–156; BP diastolic 33–116; PULSE 2–88; BMI 44.9
--- NOTE | 2024-10-10 00:30 | PTCARENOTE ---
New admit to 2S from ER via stretcher and pulled over to room bed. Pt. A&Ox3, in NAD, noted to be orthopneic, O2 99% on 2L NC, VSS. Bed locked and in lowest position, side rails in place, and call light within reach.
[2024-10-10] MEDS: NSS 1000 IV ×2 (01:58→12:16)
[2024-10-10 06:42] LABS: Hematocrit 28.4 % (37.0-47.0); Hemoglobin 7.6 g/dL (12.0-16.0); Mean Corp Hgb Conc. 26.8 g/dL (33.0-37.0); Mean Corpuscular Volume 85.3 fL (81.0-99.0); Nucleated Red Blood Cells % 0 %; PT 50.2 Sec (11.4-14.6); Platelet Count 272 10^3/uL (130-400); Red Cell Dist. Width 18.0 % (11.5-14.5)
[2024-10-10 06:55] LABS: INR 5.67
[2024-10-10 06:57] LABS: Blood Urea Nitrogen 23 mg/dl (7-17); Calcium 7.5 mg/dl (8.4-10.2); Carbon Dioxide 28 mmol/L (22-30); Chloride 113 mmol/L (98-107); Estimated Creatinine Clearance 51 ml/min; Glucose 108 mg/dl (70-99); Potassium 4.4 mmol/L (3.5-5.1); Sodium 144 mmol/L (135-145); eGFR 43.42
--- NOTE | 2024-10-10 07:00 | CONS.URO ---
Consultation
-
Date/Time Consultation Performed: 10/10/24 0700
Performing Provider: Peffer
Reason for Consultation: UTI
Medical History
History of Present Illness
74F with solitary kidney and chronic R ureteral stent
Scheduled for routine stent exchange with Dr. Villagran 10/19
Brought to hospital due to poor PO intake and nausea
Concern for UTI on admission and with worsening JACKIE
CT showed no clear obstruction or hydronephrosis
Past Medical History
Past Medical History: Other (CKD 3, bilateral congenital ureteropelvic junction obstruction with nonfunctioning left kidney and chronic right ureteral stent, recent Enterococcus pyelonephritis, hypertension, history of DVT/PE, IVC filter, anemia of
chronic disease, asthma, restrictive lung disease, hypothyroidism, obesity)
Past Surgical History: Other (Tonsilectomy (with adnoids), Urological (Ureteral stent) and Other (IVC filter, 19 coils near spleen for aneurysm)
Social History
Tobacco: Non-smoker
Alcohol: None
Drug: None
Allergies/Home Medications
Allergies
Allergy/AdvReac Type Severity Reaction Status Date / Time
animal dander Allergy Exacerbates Verified 10/09/24 20:58
asthma
banana Allergy Exacerbates Verified 10/09/24 20:58
asthma
cheese Allergy Exacerbates Verified 10/09/24 20:58
asthma
cigarette smoke Allergy Exacerbates Verified 10/09/24 20:58
asthma
house dust Allergy Exacerbates Verified 10/09/24 20:58
asthma
house dust mite Allergy Exacerbates Verified 10/09/24 20:58
asthma
latex (Latex) Allergy Exacerbates Verified 10/09/24 20:58
asthma
mold Allergy Exacerbates Verified 10/09/24 20:58
asthma
perfume Allergy Exacerbates Verified 10/09/24 20:58
asthma
pollen extracts Allergy Exacerbates Verified 10/09/24 20:58
asthma
ragweed pollen Allergy Exacerbates Verified 10/09/24 20:58
asthma
Home Medications
�Medication �Instructions �Recorded �Confirmed �Type
sertraline 100 mg tablet 50 mg PO DAILY Mental 07/10/21 10/10/24 History
Health/Anxiety
levothyroxine 150 mcg tablet 150 mcg PO CHISHOLM Thyroid 03/11/23 10/10/24 History
(Synthroid)
acetaminophen 500 mg tablet 1,000 mg PO Q6HPRN PRN mild pain 08/01/23 10/10/24 History
(Tylenol Extra Strength)
cyanocobalamin (vitamin B-12) 1,000 mcg PO DAILY Supplement 08/01/23 10/10/24 History
1,000 mcg tablet
famotidine 20 mg tablet (Pepcid) 20 mg PO DAILY 08/01/23 10/10/24 History
montelukast 10 mg tablet 10 mg PO DAILY Lung/Breathing 08/01/23 10/10/24 History
(Singulair) Issues
albuterol sulfate 90 mcg/actuation 2 puff inhalation R Q6HPRN PRN sob 11/11/23 10/10/24 History
aerosol inhaler (Ventolin HFA)
lisinopril 5 mg tablet 10 mg PO DAILY 11/11/23 10/10/24 History
amlodipine 2.5 mg tablet 2.5 mg PO DAILY Blood pressure 30 11/13/23 10/10/24 Rx
days #30 tabs
warfarin 4 mg tablet 4 mg PO DAILY 30 days #30 tabs 11/13/23 10/10/24 Rx
levothyroxine 100 mcg tablet See Rx Instructions .Route .COMPLEX 10/09/24 10/10/24 History
(Synthroid)
prednisone 10 mg tablet 10 mg PO DAILY 10/09/24 10/10/24 History
Physical Exam
Vital Signs
Vital Signs
Temp Pulse Resp BP Pulse Ox
99 F 110 18 123/74 90
10/10/24 03:00 10/10/24 03:00 10/10/24 03:00 10/10/24 03:00 10/10/24 03:00
Lab / Testing Results
Laboratory Results
10/10/24 05:33
10/10/24 05:33
Physical Exam
General: Well Developed, Well Nourished and No Apparent Distress
Respiratory: Clear
GI: Soft and Non Tender
Genito-urinary: No Costovertebral Tend
Neuro: AO x 3
Psych: Calm and Intact Judgement
Assessment / Plan
-
74F with solitary kidney and chronic R ureteral stent for chronic UPJ obstruction
Hx of recurrent enterococcus UTI
Admitted with JACKIE and suspected UTI
- OR for R ureteral stent exchange
- Elevated INR but will proceed with low risk of bleeding during stent exchange procedure
- Okay to resume warfarin once INR returns to therapeutic level
- Follow up urine culture
- Continue vancomycin
- Outpatient follow up with Dr. Villagran after discharge
[2024-10-10 07:28] LABS: TSH 3.32 uIU/ml (0.47-4.68)
[2024-10-10 07:46] LABS: Anisocytosis 1+; Hypochromasia 1+; Normal RBC Morphology No; Ovalocytes Slight
--- NOTE | 2024-10-10 08:10 | W.IMMPOSTOP ---
Surgical Immed Post Op Note
-
Primary Surgeon: Peffer
Assisting Surgeon: none
Pre-op Diagnosis: R ureteral obstruction
Post-op Diagnosis: same
Procedure Performed: cystoscopy, R ureteroscopy, stone manipulation, R ureteral stent change
Anesthesia Type: general
Specimen / Cultures: none
Estimated Blood Loss: none
Complications: none
Operative Findings:
Stent difficult to remove due to encrustation
Required ureteroscopy alongside the stent to dislodge stone at the proximal ureter
Stent replaced without difficulty after
--- NOTE | 2024-10-10 08:47 | PHA.VAN.IN ---
Assessment
- Assessment
Renal Function: SCR Appears Elevated from baseline (1.3)
Maximum Temperature: 99
Minimum Temperature: 97.3
Plan
- Plan
Initial / Loading Dose: vancomycin 2000 mg x 1 on 10/09
Maintenance Regimen: vancomycin 750 mg x 1 on 10/10 (dose by level)
Monitoring: random level ordered for 10/11 @ 0600
MRSA Screen: Ordered per protocol
Pharmacokinetics Vancomycin I
- -
Patient Age: 74
Patient Sex: Female
Vancomycin Day #: 2
Indication: Genito-Urinary Tract
Requesting Provider: Dr. Shawnee Mariscal
Height / Weight:
Height 5 ft 5 in
Actual Weight 122.425 kg
IBW in k
Adjusted BW in k.2
Pertinent Past Medical History: CKD 3, nonfunctioning left kidney
- Vital Signs / Lab Results
Temp Pulse Resp BP Pulse Ox
97.8 F 92 15 96/47 100
10/10/24 08:00 10/10/24 08:15 10/10/24 08:15 10/10/24 08:15 10/10/24 08:15
Lab Results - Hematology
10/09/24 10/10/24
18:45 05:33
WBC 7.4 11.0 H
Lab Results - Chemistry
10/09/24 10/10/24
18:45 05:33
BUN 24 H 23 H
Creatinine 1.2 H 1.3 H
Estimated Creat Clear 51
Albumin 2.8 L
10/09/24
21:26
Lactic Acid 0.6 L
Lab Results - Urine
10/09/24
19:10
Urine Nitrite (Reflex) Positive A
Leukocyte Esterase Rfl 3+ A
Urine WBC (Reflex)
Ur Squamous Epith Cells
Urine Bacteria (Reflex)
[2024-10-10] MEDS: VANCOCIN 150 IV (09:03)
[2024-10-10] MEDS: NEO-SYNEPHRINE 250 IV (10:09)
[2024-10-10 10:34] LABS: Hematocrit 30.7 % (37.0-47.0); Hemoglobin 8.1 g/dL (12.0-16.0)
--- NOTE | 2024-10-10 10:46 | W.PN.HOSP.TC ---
Today's Communication/Plan
-
IV fluids, IV antibiotics, pressors. See rest of the plan
Assessment / Plan
Assessment / Plan
Physical exam:
General: Acutely ill
HEENT: Pupils equal round reactive to light accommodation. Normocephalic, Atraumatic and dry mucous Membranes
Respiratory: Decreased breath sounds bilateral; Clear to Auscultation; Negative Wheezes, Rales or Rhonchi
Cardiac: Regular Rhythm and S1/S2
GI: Soft, Nontender and Distended, Obese
Musculoskeletal: No Clubbing, No Cyanosis. Bilateral lower extremity edema and wounds present.
Neuro: Semi-obtunded, does not respond to verbal stimuli but responds to painful stimuli.
A/P:
Shock, likely sepsis versus distributive vs other:
Persistent postop hypotension
Septic IV fluid stat and then continue with IV pressors
Stat blood cultures
Stat lactic acid
Check cortisol levels
Stress doses of IV steroids
IV antibiotics
Transfer to ICU
Security Services Manager consult-discussed with link trainer teacher today via [place] text today
ID consult-discussed with ID today via [place] text
Acute toxic-metabolic encephalopathy:
Obtain stat ABG
Obtain urgent CT scan of the head once more stable
Monitor mental status closely
Ureteral stent and bilateral congenital ureteropelvic junction obstruction:
Urology consulted and taken to the OR status post ureteral stent exchanged today
Discussed with urology via [place] text earlier this morning
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
INR 5.67 today
Hold warfarin
Anemia of chronic disease:
Rule out acute blood loss anemia
Hemoglobin 7.6--> repeated today stat and it came back 8.1
Continue to monitor hemoglobin closely
DVT prophylaxis:
On warfarin and INR supratherapeutic
CODE STATUS:
Full code
Total Critical Care Time___55__ minutes. I was immediately available to the patient and staff. I personally examined, reviewed labs, diagnostic images/reports, interpretations, treatment plans, discussed patient care with other providers and
family or caregivers (if patient is unable to make decisions), entered orders as appropriate and documented the medical record.
Anticipated Discharge: > 48 hours
Subjective/Interval History
-
Date of Service: October 10, 2024
Received a call from PACU that patient is persistently hypotensive. Came immediately to evaluate her.
Objective Data
-
Labs:
Laboratory Results
10/10/24 10/10/24 10/10/24
05:33 10:27 10:43
WBC 11.0 H
Hgb 7.6 L 8.1 L
Hct 28.4 L 30.7 L
Plt Count 272
PT 50.2 H
INR 5.67 H* D
HCO3 Pending
Sodium 144
Potassium 4.4
Chloride 113 H
Carbon Dioxide 28
BUN 23 H
Creatinine 1.3 H
Glucose 108 H
Calcium 7.5 L
Vital Signs:
Vital Signs
Temp Pulse Resp BP Pulse Ox
97.8 F 86 22 104/50 96
10/10/24 08:00 10/10/24 09:45 10/10/24 09:45 10/10/24 09:45 10/10/24 09:45
--- NOTE | 2024-10-10 10:49 | CON.ID ---
Consultation
-
Date/Time Consultation Requested: October 10, 2024 0818
Date/Time Consultation Performed: October 10, 2024 1050
Requesting Provider: Dr. Jay Jay Alejandre
Performing Provider: Dr. Narcisa Mcneil
Reason for Consultation: Complicated UTI
Chief Complaint / Past History
Chief Complaint
Weakness and malaise
History of Present Illness
History obtained from review medical records since patient is currently very lethargic and minimally responsive. She is a 74-year-old female with class III obesity, asthma, restrictive lung disease, congenital bilateral UPJ obstruction with
nonfunctioning left kidney and chronic right ureter stent who presented to the hospital October 09 with several day history of weakness, malaise, poor appetite, overall feeling unwell. Urine analysis positive nitrite 3+ leukocyte esterase more than
100 red blood cells. CAT scan of the abdomen pelvis no acute change. This morning she was taken to the OR status post cystoscopy, ureteroscopy, stone manipulation, right ureter stent exchange. Postprocedure patient with decreased mental status,
blood pressure low in the 60s. ABG with pCO2 70. Patient transferred to ICU and currently on BiPAP. She is also on stress dose steroid Levophed.
Past History
Additional Past Medical History:
Asthma
Restrictive lung disease
CKD 3
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
DVT/PE status post IVC filter placement
Hypothyroidism
Class III obesity BMI 45
Suspected sleep apnea
Chronic LE wounds
History of splenic aneurysm status post coiling
Allergy History:
animal dander Allergy (Verified 10/09/24 20:58)
Exacerbates asthma
banana Allergy (Verified 10/09/24 20:58)
Exacerbates asthma
cheese Allergy (Verified 10/09/24 20:58)
Exacerbates asthma
cigarette smoke Allergy (Verified 10/09/24 20:58)
Exacerbates asthma
house dust Allergy (Verified 10/09/24 20:58)
Exacerbates asthma
house dust mite Allergy (Verified 10/09/24 20:58)
Exacerbates asthma
latex (Latex) Allergy (Verified 10/09/24 20:58)
Exacerbates asthma
mold Allergy (Verified 10/09/24 20:58)
Exacerbates asthma
perfume Allergy (Verified 10/09/24 20:58)
Exacerbates asthma
pollen extracts Allergy (Verified 10/09/24 20:58)
Exacerbates asthma
ragweed pollen Allergy (Verified 10/09/24 20:58)
Exacerbates asthma
Medications Reviewed: Yes
Current Antibiotics:
Vancomycin day 2
Social History
Tobacco: Non-Smoker
Alcohol: None
Drug: None
Family History
Family History: Not Pertinent
Review of Systems
Review of Systems
Unable to obtain due to decreased mental status
Vital Signs
Temp Pulse Resp BP Pulse Ox
97.8 F 86 22 104/50 96
10/10/24 08:00 10/10/24 09:45 10/10/24 09:45 10/10/24 09:45 10/10/24 09:45
Physical Exam
Physical Exam
Constitutional: Acutely Ill and Obese
Eyes: Sclera Anicteric
Cardiovascular: Regular Rate and S1/S2
Pulmonary: Clear
Gastrointestinal: Soft, Non Tender, Non Distended and Normal Bowel Sounds
Extremities: Edema (BLE lymphdedema) and Venous Insufficiency
Wound: Other (Chronic wounds BLE)
Neurological: Other (Lethargic)
Lab / Diagnostic Study Results
10/10/24 10:27
10/10/24 05:33
Abs Immat Gran (auto) 0.1 10^3/uL (0-0.05) H 10/10/24 05:33
Absolute Neuts (auto) 10.0 10^3/uL (1.4-6.5) H 10/10/24 05:33
Absolute Lymphs (auto) 0.2 10^3/uL (1.2-3.4) L 10/10/24 05:33
Absolute Monos (auto) 0.5 10^3/uL (0.1-0.6) 10/10/24 05:33
Absolute Basos (auto) 0.0 10^3/uL (0-0.2) 10/10/24 05:33
Immature Gran % 0.5 % (0-0.5) 10/10/24 05:33
Neutrophils % 90.7 % (42.2-75.2) H 10/10/24 05:33
Lymphocytes % 2.0 % (20.5-51.1) L 10/10/24 05:33
Monocytes % 4.8 % (1.7-9.3) 10/10/24 05:33
Eosinophils % 1.7 % (0-6) 10/10/24 05:33
Basophils % 0.3 % (0-2) 10/10/24 05:33
PT 50.2 Sec (11.4-14.6) H 10/10/24 05:33
INR 5.67 H* D 10/10/24 05:33
Lactic Acid 0.6 mmol/L (0.7-2.0) L 10/09/24 21:26
Ur Squamous Epith Cells /LPF (Few) 10/09/24 19:10
Microbiology Results
Micro:
10/10/24 06:45 MRSA Screen - Pending
Nose
10/09/24 21:26 Blood Culture - Pending
Blood/Venous
10/09/24 21:26 Blood Culture - Pending
Blood/Venous
10/09/24 19:10 Urine Culture - Pending
Urine
10/10/24 CXR: No acute disease of the chest.
10/09/24 CT a/p: Right ureteral JJ stent is in appropriate position. No right hydronephrosis. Chronic long-standing severe hydronephrosis of the left kidney, with severe left renal cortical atrophy. Large right-sided lateral abdominal hernia,
containing multiple loops of small and large intestine. No evidence of incarceration or intestinal obstruction, and no significant change compared to prior CT.
Assessment / Plan
# Post urological procedure septic shock on pressor
# Hypercapnic resp failure on BiPAP
# Chronic right ureter stent s/p cystoscopy, R ureteroscopy, stone manipulation, R ureteral stent change 10/10/24
# hx recurrent Enterocccous UTI
-CXR neg
- Blood cx's pending
- await Ucx.
- DC Vancomycin
-Start Unasyn 3g IV q6h.
- Continue ICU support.
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
Asthma
Restrictive lung disease
CKD 3
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
DVT/PE status post IVC filter placement
Hypothyroidism
Class III obesity BMI 45
Suspected sleep apnea
Chronic LE wounds
History of splenic aneurysm status post coiling
Care Review
Plan reviewed with: Physician (Dr. Morton)
[2024-10-10 10:55] LABS: B.E. -1.9 mmol/L; HCO3 26.7 mmol/L (21-28); O2 Saturation % 98.9 % (94-98); PCO2 70 mmHg (32-35); PO2 97 mmHg (83-108)
[2024-10-10 10:58] LABS: O2 Therapy room air
--- NOTE | 2024-10-10 11:03 | CON.INTV ---
Consultation
Consultation Request
Date/Time Consultation Requested: 10/10
Date/Time Consultation Performed: 10/10
Reason for Consultation: Critical care
Medical History
-
History of Present Illness:
History obtained from the patient and reviewing both outpatient and inpatient records. Patient is a 74-year-old female with complex medical history including congenital bilateral UPJ obstruction, essentially nonfunctioning left kidney, history of
double-J stent on the right, history of DVT/PE with IVC filter, asthma, restrictive lung disease, strongly suspected sleep apnea, essentially bedridden, history of recurrent pyelonephritis who presents to the ER with nausea, anorexia, lethargy.
Patient afebrile, pulse 80, breathing at 15, blood pressure 96/49, 92%. Patient was given vancomycin, IV fluids, vitamin K. Hemoglobin 8, INR greater than 8, creatinine 1.2. Imaging showed right double-J ureteral stent with no obvious
obstruction. Patient was seen by urology, underwent right ureteral stent change for chronic UPJ obstruction. Postoperatively, patient was noted to be hypotensive in the PACU requiring IV fluids, pressors, transferred to ICU 10/10
Upon my evaluation, patient is arousable, answering few questions but is lethargic. She is moving extremities, opens eyes
ABG reviewed
.
PMH: Moderate persistent asthma, self treats with steroids, chronic bronchitis, right upper lobe nodule, chronic lymphedema, history of pulm embolism/DVT with IVC filter 2008 on chronic Coumadin therapy, possible hypercoagulable state with
antiphospholipid NIV syndrome based on prior workup at [place] (details unlcear), severe restrictive lung disease, FVC 47%, kyphoscoliosis, strongly suspected sleep apnea refusing workup, nocturnal hypoxia on oxygen, hypothyroidism, hypertension,
hypercholesterolemia, GERD, atrial fibrillation, chronic kidney disease stage III, obesity, history of pyelonephritis with double-J stent, recurrent sepsis with interval stent changes in the right. History of splenic hemorrhage 2018 with splenic
coils
Past Medical History
Past Medical History: None (See above)
Past Surgical History: None (See above)
Social History
Tobacco: Non-smoker
Alcohol: None
Living: Alone (There is an aide and her sister helps out)
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
Family History
Family History: Other (Mother and father , sister healthy)
Allergies / Home Medications
Allergies
Allergy/AdvReac Type Severity Reaction Status Date / Time
animal dander Allergy Exacerbates Verified 10/09/24 20:58
asthma
banana Allergy Exacerbates Verified 10/09/24 20:58
asthma
cheese Allergy Exacerbates Verified 10/09/24 20:58
asthma
cigarette smoke Allergy Exacerbates Verified 10/09/24 20:58
asthma
house dust Allergy Exacerbates Verified 10/09/24 20:58
asthma
house dust mite Allergy Exacerbates Verified 10/09/24 20:58
asthma
latex (Latex) Allergy Exacerbates Verified 10/09/24 20:58
asthma
mold Allergy Exacerbates Verified 10/09/24 20:58
asthma
perfume Allergy Exacerbates Verified 10/09/24 20:58
asthma
pollen extracts Allergy Exacerbates Verified 10/09/24 20:58
asthma
ragweed pollen Allergy Exacerbates Verified 10/09/24 20:58
asthma
Home Medications
�Medication �Instructions �Recorded �Confirmed �Last Taken �Type
sertraline 100 mg tablet 50 mg PO DAILY Mental 07/10/21 10/10/24 1 Day Ago History
Health/Anxiety ~10/09/24
levothyroxine 150 mcg tablet 150 mcg PO CHISHOLM Thyroid 03/11/23 10/10/24 10/03/24 History
(Synthroid)
acetaminophen 500 mg tablet 1,000 mg PO Q6HPRN PRN mild pain 08/01/23 10/10/24 1 Week Ago History
(Tylenol Extra Strength) ~06/24/24
cyanocobalamin (vitamin B-12) 1,000 mcg PO DAILY Supplement 08/01/23 10/10/24 1 Day Ago History
1,000 mcg tablet ~10/09/24
famotidine 20 mg tablet (Pepcid) 20 mg PO DAILY Gastrointestinal 08/01/23 10/10/24 1 Day Ago History
Issue ~10/09/24
montelukast 10 mg tablet 10 mg PO DAILY Lung/Breathing 08/01/23 10/10/24 1 Day Ago History
(Singulair) Issues ~10/09/24
albuterol sulfate 90 mcg/actuation 2 puff inhalation R Q6HPRN PRN sob 11/11/23 10/10/24 07/01/24 05:00 History
aerosol inhaler (Ventolin HFA)
lisinopril 5 mg tablet 10 mg PO DAILY Blood Pressure 11/11/23 10/10/24 1 Day Ago History
~10/09/24
amlodipine 2.5 mg tablet 2.5 mg PO DAILY Blood pressure 30 11/13/23 10/10/24 1 Day Ago Rx
days #30 tabs ~10/09/24
warfarin 4 mg tablet 4 mg PO DAILY 30 days #30 tabs 11/13/23 10/10/24 1 Day Ago Rx
~10/09/24
levothyroxine 100 mcg tablet See Rx Instructions .Route 10/09/24 10/10/24 10/03/24 History
(Synthroid) .COMPLEX Thyroid
prednisone 10 mg tablet 10 mg PO DAILY INFLAMMATION 10/09/24 10/10/24 1 Day Ago History
~10/09/24
Review of Systems
Vitals / Labs / Diagnostic Testing
Vital Signs
Temp Pulse Resp BP Pulse Ox
97.8 F 80 24 111/47 99
10/10/24 08:00 10/10/24 10:40 10/10/24 10:40 10/10/24 10:45 10/10/24 10:45
Lab Data
10/10/24 10:27
10/10/24 05:33
Laboratory Results
10/09/24 10/10/24 10/10/24
21:26 05:33 10:43
PT 65.7 H 50.2 H
INR > 8.0 H* 5.67 H* D
pH 7.19 L*
pCO2 70 H
pO2 97
HCO3 26.7
O2 Delivery Level room air
Diagnostic Testing:
Physical Exam
-
HEENT: Normocephalic, Other (Large neck, pallorous) and Other (Poor dentition)
Cardiovascular: S1/S2, Regular Rhythm, Murmur (n), Rub (n) and Peripheral Edema (Chronic venous stasis changes, some skin breakdown)
Respiratory: Wheeze (n), Rales (n), Rhonchi (n) and Other (Decreased breath sounds)
GI: Soft, Non Distended (Morbidly obese) and Other (Large right-sided abdominal hernia, soft, nontender)
Neurology: Other (Lethargic but arousable)
Skin: Other (Pallorous, cool)
General: Comfortable (Lethargic)
Assessment
-
74-year-old female with complex medical history including right ureteral obstruction which is chronic with double-J stent with every 6 month change, due but presents with increased lethargy, nausea, right ureteral obstruction. Patient underwent
cystoscopy, right ureteroscopic, stone manipulation, right ureteral stent change. Stent was apparently difficult to remove due to encrustation. Postoperatively patient had hypotension transferred from PACU to ICU 10/10/2024
Septic shock, hypotension
Requiring pressors
Right ureteral obstruction
Chronic right double-J stent
Coagulopathy, INR greater than 8 on admission
On Coumadin
Received vitamin K
Chronic low-dose prednisone therapy
Self treats for asthma, bronchitis
Leukocytosis
Acute metabolic acidemia, respiratory acidemia
Acute renal insufficiency, creatinine 1.3
History of CKD stage III
Conditions present prior to admission
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
Chronic right ureteral stent
History of recurrent enterococcal pyelonephritis
Hypertension/hyperlipidemia
History of DVT/PE, IVC filter 2008
Suspected antiphospholipid antibody syndrome per workup at [place]
On chronic Coumadin therapy
Anemia of chronic disease
Hypothyroidism
Morbidly obese
Suspected sleep apnea, refusing sleep workup
On nocturnal oxygen
Splenic hemorrhage with splenic coils in the past
Severe restrictive lung disease, FVC 47%
History of moderate persistent asthma
Self treats with steroids
Essentially bedridden, history of falls
Plan/recommendations
At this time, patient is critically ill
History of recurrent enterococcal pyelonephritis noted
Status post right ureteral stent replacement
Now hypotensive requiring pressors
Unfortunately, patient is essentially bedridden
She self treats herself with steroids for bronchitis, asthma
She has been difficult follow-up as an outpatient.
She has refused sleep study in the past. She is also not following up with echocardiogram
She lives alone with a caregiver and her sister helps out
Presently she is lethargic but arousable, postoperative coming from the PACU
ABG 7.
Creatinine 1.3
Serum bicarbonate 29
CXR with atelectasis at the base, decreased lung volumes, morbidly obese
Abdominal CT 10/09/2024 with atelectasis at the base
Large right-sided abdominal hernia no evidence of incarceration
Moving forward
Placed on BiPAP, 13/11, maintain saturation greater than 90%
Repeat ABG in 1 to 2 hours
Follow mental status, avoid sedation or narcotics at this time. Patient appears to be comfortable
Empiric stress dose steroids.
Patient self treats with low-dose prednisone chronically despite multiple attempts at weaning off
IV fluids
Norepinephrine as able
Remains on broad-spectrum antibiotics, Zosyn. ID is following
Head of bed elevated, aspiration precautions
Patient with history of DVT/PE/IVC filter
Old records suggest history of antiphospholipid antibody syndrome on chronic Coumadin therapy
Received vitamin K preprocedure, INR 5+
Follow coagulations, follow for bleeding
Would send type and screen
Given morbid obesity and multiple chronic morbidities, patient would be considered high risk for deterioration, intubation with mechanical ventilation
She remains full code
Will try to touch base with sister later today
Reviewed with critical care nursing, respiratory care, primary service
TCCT 40 min
[2024-10-10] MEDS: SINGULAIR PO (12:14)
[2024-10-10] MEDS: ZESTRIL PO (12:14)
[2024-10-10] MEDS: SOLU-CORTEF 100 MG IV (12:17)
[2024-10-10] MEDS: LR 1000 IV ×2 (12:20→19:28)
[2024-10-10] MEDS: UNASYN IV ×2 (12:33→17:41)
--- NOTE | 2024-10-10 12:52 | PTCARENOTE ---
Pt received from PACU s/p cystoscopy, right ureteroscopy, stone manipulation, and right ureteral stent exchange. Hypotensive and obtunded in PACU. Initially unresponsive to sternal rub, but then opening eyes periodically and answering questions
before shutting eyes again. Neosynephrine already infusing with goal MAP > 65; infusing @ 40 mcg/min. Sinus rhythm on superintendent sales. +2 pitting LE edema. EKG obtained. SaO2 96% on room air. Shallow breaths. Diminished breath sounds. ABG obtained
and place on BiPAP 16/8; 3L. Additional NSS 1L bolus administered. Lactic acid and cortisol labs sent. Blood culture x2 drawn and sent. LR infusing @ 125 ml/hr. Scheduled Unsyn administered.
[2024-10-10 12:59] LABS: Cortisol, Random 22.9 ug/dl
[2024-10-10 13:48] LABS: B.E. -4.1 mmol/L; HCO3 22.9 mmol/L (21-28); O2 Saturation % 99.0 % (94-98); PCO2 51 mmHg (32-35); PO2 120 mmHg (83-108)
[2024-10-10 13:50] LABS: O2 Therapy BIPAP 16/8 3L
--- NOTE | 2024-10-10 15:38 | PTCARENOTE ---
Pt reassessed. Neosynephrine gtt turned off. Levophed gtt never started as MAP remains > 65. No pressors at this time. Incontinent red urine. Incontinent loose liquid brown stool. LR @ 125ml/hr. BiPAP 16 on 1L, SaO2 99%. Wound care provided.
[2024-10-10] MEDS: SOLU-CORTEF 50 MG IV (16:39)
--- NOTE | 2024-10-10 21:11 | PTCARENOTE ---
Report received from previous shift RN [id number]. Pt in bed, AAO2, forgetful/confused to time. Pt is lethargic but arousable to verbal/tactile stimuli, [facility] b/l, + hand tremors noted. Pt denies pain. Lung sounds are decreased throughout, shallow
respirations, + orthopneic, pox 94% on BiPAP 16/8 with 2L O2. Pt denies cough, denies SOB. Telemetry rhythm reveals SR, HR 80-90s, +2 edema noted in b/l LE, trace generalized anasarca present, doppler distal pulses present, weak radial pulses. Pt
ordered knee high SCDs; discussed pt's chronic lower extremity wounds w state tested nursing assistant MATERIAL HAULER, order changed to b/l foot pumps. Device applied, education provided to pt. +BS, abdomen large obese with large right sided abdominal hernia present. NPO status
maintained. Pt is incont bowel and bladder. Small brown bm at start of shift, incontinence care provided and complete CHG bath at that time. Pt received w Purewick device in place, no void this shift thus far, ,device changed during CHG bath. R
wrist int flushed and patent, capped. L wrist int with IVF per order. Skin as documented. Sternal bruise noted with moderate sized firm 'lump' at top portion. PENNIE Mar called to assess at bedside. PCXR performed, ice pack applied intermittently
tonight. Pt denies pain. Will monitor closely.
[2024-10-10] MEDS: DESENEX/MITRAZOL/ZEASORB 1 APPLIC TOPICAL (21:37)
[2024-10-11] VITALS (30 sets, daily range): BP systolic 89–137; BP diastolic 48–97; PULSE 2–85; BMI 46.4
[2024-10-11] MEDS: SOLU-CORTEF 50 MG IV ×4 (00:07→23:24)
[2024-10-11] MEDS: UNASYN IV ×5 (00:07→23:24)
[2024-10-11] MEDS: FLUSH (NSS) 1 FLUSH IV (00:08)
--- NOTE | 2024-10-11 00:44 | PTCARENOTE ---
Pt more alert than earlier in shift. Pt keeps eyes closed most of the time but will respond to verbal cues and follow simple commands. No complaints offered, denies pain. Remains on BiPAP. Pt had not voided since start of shift, bladder scan
performed @ 2250 with result of 184 ml. Repositioned pt @ 0015 and while RN in room pt voided 250ml berny/blood tinged urine via Purewick external urinary device. Will continue to monitor closely.
[2024-10-11] MEDS: LR 1000 IV (03:14)
[2024-10-11 04:20] LABS: Hematocrit 20.9 % (37.0-47.0); Hemoglobin 5.9 g/dL (12.0-16.0); INR 2.90; Mean Corp Hgb Conc. 28.2 g/dL (33.0-37.0); Mean Corpuscular Volume 80.4 fL (81.0-99.0); Nucleated Red Blood Cells % 0 %; PT 30.2 Sec (11.4-14.6); Platelet Count 239 10^3/uL (130-400); Red Cell Dist. Width 17.2 % (11.5-14.5)
[2024-10-11 04:30] LABS: B.E. -1.4 mmol/L; HCO3 24.3 mmol/L (21-28); O2 Saturation % 98.9 % (94-98); PCO2 45 mmHg (32-35); PO2 87 mmHg (83-108)
[2024-10-11 04:42] LABS: Blood Urea Nitrogen 27 mg/dl (7-17); Calcium 7.3 mg/dl (8.4-10.2); Carbon Dioxide 25 mmol/L (22-30); Chloride 117 mmol/L (98-107); Estimated Creatinine Clearance 60 ml/min; Glucose 105 mg/dl (70-99); Potassium 4.1 mmol/L (3.5-5.1); Sodium 144 mmol/L (135-145); eGFR 53.06
--- NOTE | 2024-10-11 05:30 | PTCARENOTE ---
Reviewed pt's AM lab results with PENNIE Mar. COMPUTER REPAIR INSTRUCTOR obtained blood consent and 1 unit PRBC was ordered. Transfusion initiated without incidence.
Pt incontinent moderate amt berny/blood tinged urine. Not all collected by purewick external urinary device. Pt also incont sm-mod loose brown bm. Incontinence care provided, barrier cream applied, new purewick device placed.
Will continue to monitor closely.
--- NOTE | 2024-10-11 08:13 | W.PN.INTV ---
Today's Communication / Plan
Recommendations
- Discontinue IV fluids
- Continue nightly BiPAP therapy
- Patient can be transferred out of ICU, to telemetry floor
- Pulmonary service will continue to follow along
Assessment
-
74-year-old female with complex medical history including right ureteral obstruction which is chronic with double-J stent with every 6 month change, due but presents with increased lethargy, nausea, right ureteral obstruction. Patient underwent
cystoscopy, right ureteroscopic, stone manipulation, right ureteral stent change. Stent was apparently difficult to remove due to encrustation. Postoperatively patient had hypotension transferred from PACU to ICU 10/10/2024
Conditions present prior to admission
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
Chronic right ureteral stent
History of recurrent enterococcal pyelonephritis
Hypertension/hyperlipidemia
History of DVT/PE, IVC filter 2008
Suspected antiphospholipid antibody syndrome per workup at [place]
On chronic Coumadin therapy
Anemia of chronic disease
Hypothyroidism
Morbidly obese
Suspected sleep apnea, refusing sleep workup
On nocturnal oxygen
Splenic hemorrhage with splenic coils in the past
Severe restrictive lung disease, FVC 47%
History of moderate persistent asthma
Self treats with steroids
Essentially bedridden, history of falls
Assessment and plan
#1. Septic shock due to complicated UTI with obstructive uropathy
-Right ureteral obstruction, chronic right double-J stent, s/p cystoscopy and stent exchange
- Urology and infectious disease service on case. Prior history of Enterococcus. Currently on IV ampicillin with sulbactam
- Patient is off pressors since 10/10. Discontinue IV fluids.
#2. Coagulopathy, INR greater than 8 on admission
- On Coumadin. History of DVT/PE in past. Concern for antiphospholipid antibody syndrome.
- Received vitamin K
- INR 2.9 this morning
- Large sternal hematoma noted on exam
#3. Chronic low-dose prednisone therapy
- Self treats for asthma, bronchitis
- Patient on hydrocortisone 50 mg IV Q8 now, can be tapered over coming days and then resume home dose of prednisone
#4. Acute hypercapnic respiratory failure.
- Initial blood gas 7.19, 70 consistent with acute hypercapnia.
- Responded well to BiPAP therapy, blood gas 7.3/45 this morning
- Continue nightly BiPAP while in the hospital
- Suspect patient has underlying obstructive sleep apnea and possibly obesity hypoventilation syndrome. She has declined sleep apnea workup in the past. Uses nocturnal oxygen
- Avoid sedation, minimize pain medications
- In view of underlying morbid obesity, hypercapnia, patient at risk of worsening respiratory failure
#5. Acute kidney injury with underlying CKD stage III.
- Creatinine 1.1 this morning from 1.3 yesterday
- In view of lymphedema and developing pedal edema in addition, will discontinue IV fluids
#6. Anemia, suspect acute blood loss.
- Hemoglobin dropped down to 5.9 this morning, patient received blood transfusion, follow-up hemoglobin 8.1.
- Large sternal hematoma noted. Patient had supratherapeutic INR, >8 on admission, currently down to 2.9
- Monitor H&H
#7. Reported h/o Asthma
- Continue montelukast.
- Patient has been taking prednisone chronically.
- Recommend outpatient follow-up with pulmonary clinic
DVT prophylaxis, INR is therapeutic. Once it drifts below 2, will need to resume Coumadin
Patient follows up with Dr. Morton at [facility] pulmonary clinic. Will resume outpatient follow-up
Critical Care time 52 mins -- The patient is admitted for acute critical illness for the treatment of vital organ failure and/or prevention of further life-threatening conditions. Total care includes time spent in review of history, physical exam,
medications, hemodynamic/ventilator parameters, laboratory data, imaging and discussion with house staff, pharmacy, respiratory therapy, soap press feeder, and nursing.
Subjective Dataa
Subjective Data
Date of Service:
Date of Service: October 11, 2024
Subjective:
Patient comfortably lying in bed in no acute distress. Off BiPAP now, off pressors.
Review of Systems
Genitourinary: Other (No new symptoms reported. ROS)
Objective Data
Data Reviewed
Vital Signs / I&O / Oxygen:
Vital Signs
Temp Pulse Resp BP Pulse Ox
97.5 F 86 16 127/66 98
10/11/24 05:47 10/11/24 06:13 10/11/24 06:13 10/11/24 06:13 10/11/24 06:13
Intake and Output
10/10/24 10/11/24 10/12/24
06:59 06:59 06:59
Intake Total 4320 / 4320
Output Total 550 / 550
Balance 3770 / 3770
SaO2 98
Nasal Cannula flow liters per 2
minute
Physical Exam
General: Comfortable
HEENT: Normocephalic
Cardiovascular: S1-S2 and Peripheral Edema (Chronic lymphedema)
Respiratory: Clear and Non-Labored Respirations
GI: Soft and Non Distended
Neurology: Awake and Alert
Skin: Warm
Labs/Micro/Reports
Lab Data
10/11/24 04:03
Laboratory Results
10/10/24 10/10/24 10/11/24
10:43 13:39 04:03
PT 30.2 H
INR 2.90 D
pH 7.19 L* 7.26 L
pCO2 70 H 51 H
pO2 97 120 H
HCO3 26.7 22.9
O2 Delivery Level room air Bipap 16/8 3l
10/11/24
04:19
PT
INR
pH 7.34 L
pCO2 45 H
pO2 87
HCO3 24.3
O2 Delivery Level
Microbiology
10/09/24 21:26 Blood/Venous Blood Culture - Preliminary
No Growth in 24 hours- Final report to follow
10/09/24 21:26 Blood/Venous Blood Culture - Preliminary
Positive culture in progress
10/09/24 21:26 Blood/Venous Gram Stain - Preliminary
--- NOTE | 2024-10-11 08:20 | W.PN.HOSP.TC ---
Today's Communication/Plan
-
IV antibiotics
Assessment / Plan
Assessment / Plan
Physical exam:
General: Acutely ill
HEENT: Pupils equal round reactive to light accommodation. Normocephalic, Atraumatic and dry mucous Membranes
Respiratory: Decreased breath sounds bilateral; Clear to Auscultation; Negative Wheezes, Rales or Rhonchi
Cardiac: Regular Rhythm and S1/S2. Hematoma in the chest area.
GI: Soft, Nontender and Distended, Obese. Large abdominal hernia without incarceration.
Musculoskeletal: No Clubbing, No Cyanosis. Bilateral lower extremity edema and wounds present.
Neuro: Alert oriented and generalized weakness but no neurological deficits
A/P:
Septic shock:
On IV fluids-might be able to decrease
Off pressors
On IV antibiotics, Unasyn 3 g every 6 hours per ID
On stress doses of steroids-might be able to start tapering down
Discharge Specialist urology and ID on board--> follow-up further recommendations
Acute blood loss anemia and underlying anemia of chronic disease:
Blood transfusion today
Continue to monitor hemoglobin closely
Acute respiratory insufficiency:
On BiPAP
Chest x-ray clear except with some atelectasis
Acute toxic-metabolic encephalopathy:
Due to sepsis
No need for CT scan so canceled
Speech therapy for swallowing eval
Continue to monitor mental status
Hypertension:
Holding EMMA inhibitor due to hypotension
Monitor and restart down the road
CKD stage III:
Avoid nephrotoxic
Monitor renal function closely
Ureteral stent and bilateral congenital ureteropelvic junction obstruction:
Urology consulted and taken to the OR status post ureteral stent exchanged on 10/10
Discussed with urology in person today
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
INR >8-->2.9 today
He had received some vitamin K before procedure
Holding warfarin
Check INR in a.m.
DVT prophylaxis:
On warfarin and INR supratherapeutic
CODE STATUS:
Full code
Total time spent on today's encounter was 52 minutes which included time spent in counseling the patient/family regarding diagnosis and treatment plan as listed above, goals of care, and symptom management. Case was discussed with nursing staff,
specialists, and care coordinators/case management. All labs and imaging personally reviewed by me. Remainder the time spent in detailed review of previous records, lab data, imaging, and other medical provider documentation.
Anticipated Discharge: > 48 hours
Subjective/Interval History
-
Date of Service: October 11, 2024
Patient feels better today. More alert. On BiPAP. Off pressors. Mild hematuria. Afebrile
Objective Data
-
Labs:
Laboratory Results
10/11/24 10/11/24 10/11/24
04:03 04:19 11:00
WBC 7.9
Hgb 5.9 L* D Cancelled
Hct 20.9 L* Cancelled
Plt Count 239
PT 30.2 H
INR 2.90 D
HCO3 24.3
Sodium 144
Potassium 4.1
Chloride 117 H
Carbon Dioxide 25
BUN 27 H
Creatinine 1.1 H
Glucose 105 H
Calcium 7.3 L
10/11/24 10/11/24
12:00 18:00
WBC
Hgb Pending Pending
Hct Pending Pending
Plt Count
PT
INR
HCO3
Sodium
Potassium
Chloride
Carbon Dioxide
BUN
Creatinine
Glucose
Calcium
Vital Signs:
Vital Signs
Temp Pulse Resp BP Pulse Ox
97.5 F 86 16 127/66 98
10/11/24 05:47 10/11/24 06:13 10/11/24 06:13 10/11/24 06:13 10/11/24 06:13
I&O
10/10/24 10/11/24 10/12/24
06:59 06:59 06:59
Intake Total 4320 / 4320
Output Total 550 / 550
Balance 3770 / 3770
--- NOTE | 2024-10-11 08:30 | PTCARENOTE ---
Received pt sitting up in bed with BiPap mask on 13/11 w/2 liters nasal cannula. Pulse ox 98%. She easily awakens to gentler verbal and tactile stimuli. She is able to make her needs known. She is asking what happened to her. She was informed that
her Co2 level was dangerously high yesterday and was brought here for BiPap mask. She is morbidly obese and unable to make any major position changes on her own. Large rotund pannus with large round protruding area on the right side of her abdomen.
Left FA#22g protective catheter with LR 125ml/hr. Right FA#20g with PRBC infusing. Doppler pedal pulses, weak radial pulses. +1 anasarca. Protective foam dressings on her heels, Left buttock with SBD CDI. Sacrum with moisture barrier. MASD to skin
folds in her groin & breasts. Desenex powder applied. Lungs CTA, dim i the bases. Poor inspiratory effort. +BSX4. Pur wick intact. Bulky gauze dressings to her L/E's. Foot pumps intact. Mid sternum with large hematoma, blue in color. Ice pack
intact. She had difficult time swallowing her pill whole with thin liquids. Dr. Alejandre made aware. Remained hemodynamically stable overnight. She was informed of the plan of care regarding turning, and putting the BiPap on for when she naps. Her
tongue is crusted with thick brown debris. She stated her caregiver does not really help her with brushing her teeth or rinsing out her mouth. Mouth care perfrmed and attempted to remove/loosen up some of the thick layerd brown debris on her tongue.
Safe environment maintained.
--- NOTE | 2024-10-11 08:49 | W.PN.URO.CBU ---
Today's Communication / Plan
-
Continue antibiotics
Assessment / Plan
-
74F with solitary kidney and chronic R ureteral stent for chronic UPJ obstruction
Hx of recurrent enterococcus UTI
Admitted with JACKIE and suspected UTI
s/p R ureteral stent exchange 10/10 requiring ureteroscopy to dislodge stent encrustation
- Sepsis critical care per ICU
- Continue abx course per ID, cultures pending
- Anemia - supratherapeutic INR and some post procedural bleeding though there is little to no hematuria as of this AM. 1 unit transfusion today
- Okay to resume warfarin from urology standpoint once INR returns to therapeutic level and HGB stable
- Follow up urine cultures
- Outpatient follow up with Dr. Villagran after discharge
Diagnosis
-
Date of Service: October 11, 2024
-
Patient Diagnosis:
Solitary kidney
Chronic R ureteral obstruction
Sepsis
Anemia
Post Op Day: s/p R ureteral stent change 10/10
Objective
-
Vital Signs
Temp Pulse Resp BP Pulse Ox
97.5 F 86 16 127/66 98
10/11/24 05:47 10/11/24 06:13 10/11/24 06:13 10/11/24 06:13 10/11/24 06:13
Intake and Output
10/10/24 10/11/24 10/12/24
06:59 06:59 06:59
Intake Total 4320 / 4320
Output Total 550 / 550
Balance 3770 / 3770
Intake:
IV fluids (Total) 2700 / 2700
Lr 1,000 ml @ 125 mls/hr IV . 2200 / 2200
Q8H MICHELA Rx#:[id number]
normosol 500 / 500
IV piggybacks 1620 / 1620
Blood Product Amount Infused ( 0 / 0
mL)
Packed Rbc Leukoreduced Unit 0 / 0
[id number]
Output:
Urine, Voided 550 / 550
Other:
How many times incontinent 1 1
MODERATE amount urine
Laboratory Results
10/11/24 04:03
Physical Exam
-
General - well developed, well nourished, no acute distress
Chest - clear bilaterally
Abdomen - soft, non-tender
[2024-10-11] MEDS: SINGULAIR 10 MG PO (08:51)
[2024-10-11] MEDS: DESENEX/MITRAZOL/ZEASORB 1 APPLIC TOPICAL ×2 (08:52→20:56)
[2024-10-11] MEDS: LR IV (11:22)
--- NOTE | 2024-10-11 11:36 | W.PN.ID1 ---
Date of Service
Date of Service: October 11, 2024
Today's Communication
Continue Unasyn
Assessment / Plan
# Complicated UTI
# Post urological procedure septic shock, now off pressor
# s/p Hypercapnic resp failure
# Coag neg staph bacteremia 1 of 2 sets, contaminant
# Chronic right ureter stent s/p cystoscopy, R ureteroscopy, stone manipulation, R ureteral stent change 10/10/24
# hx recurrent Enterocccous UTI
-CXR neg
- Repeat Blood cx's pending
- await Ucx.
-Continue Unasyn 3g IV q6h.
# Conditions [employer] PACK[employer]
Asthma
Restrictive lung disease
CKD 3
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
DVT/PE status post IVC filter placement
Hypothyroidism
Class III obesity BMI 45
Suspected sleep apnea
Chronic LE wounds
History of splenic aneurysm status post coiling
Chief Complaint
-: Clinical Sepsis and UTI
Subjective / Review of Systems
Alert today
Vital Signs / Physical Exam
Vital Signs
Vital Signs
Temp Pulse Resp BP Pulse Ox
98.3 F 94 20 118/58 94
10/11/24 11:06 10/11/24 09:19 10/11/24 09:19 10/11/24 09:19 10/11/24 09:19
Physical Exam
Constitutional: No Acute Distress
Eyes: No Conjunctival Hemorrhage and Sclera Anicteric
Cardiovascular: Regular Rate and S1/S2
Pulmonary: Clear
Gastrointestinal: Soft, Non Tender and Non Distended
Extremities: Edema
Neurological: Awake and Alert
Objective Data
Lab Data
Lab Results
10/11/24 04:03
PT 30.2 Sec (11.4-14.6) H 10/11/24 04:03
INR 2.90 D 10/11/24 04:03
Estimated Creat Clear 60 ml/min 10/11/24 04:03
Lactic Acid 1.0 mmol/L (0.7-2.0) 10/10/24 11:28
Total Bilirubin 0.5 mg/dl (0.2-1.3) 10/09/24 18:45
AST 12 U/L (14-36) L 10/09/24 18:45
ALT < 10 U/L (0-35) 10/09/24 18:45
Alkaline Phosphatase 88 U/L (38-126) 10/09/24 18:45
Most recent labs reviewed.
Micro Results:
10/09/24 21:26 Blood Culture - Preliminary
Blood/Venous Coagulase neg. staphylococcus
Additional testing on request
Gram Stain - Preliminary
10/10/24 06:45 MRSA Screen - Final
Nose No Methicillin Resistant Staphylococcus aureus isolated.
10/09/24 21:26 Blood Culture - Preliminary
Blood/Venous No Growth in 24 hours- Final report to follow
10/10/24 11:46 Blood Culture - Pending
Blood/Venous
10/10/24 11:52 Blood Culture - Pending
Blood/Venous
10/09/24 19:10 Urine Culture - Pending
Urine
10/10/24 CXR: No acute disease of the chest.
10/09/24 CT a/p: Right ureteral JJ stent is in appropriate position. No right hydronephrosis. Chronic long-standing severe hydronephrosis of the left kidney, with severe left renal cortical atrophy. Large right-sided lateral abdominal hernia,
containing multiple loops of small and large intestine. No evidence of incarceration or intestinal obstruction, and no significant change compared to prior CT.
--- NOTE | 2024-10-11 11:59 | PTOTSP ---
Speech Therapy Evaluation:
Pt with chronic risk factors of dysphagia including hx of restrictive lung disease, COPD/asthma, and pt reported dysphagia with recurrent aspiration (reported during previous evaluation but denied today). Oral phase was mildly prolonged, however
suspect related to edentulous state versus true oral dysphagia. No overt s/sx of aspiration across session. Pt remains at increased risk of aspiration and related pulmonary complications given poor oral hygiene and GI hx with large abdominal hernia.
CXR without pneumonia, WBC WNL, pt afebrile, and on room air.
Recommend:
1. Initiate IDDSI Level 6 (soft and bite sized solids) and thin liquids
2. Medications whole vs crushed in puree
3. Strict aspiration precautions, general reflux precautions
4. DESIGN PRINTING MACHINE SET UP OPERATOR to follow to monitor tolerance of diet and determine if pt would benefit from instrumental assessment
--- NOTE | 2024-10-11 12:00 | PTCARENOTE ---
Pt's sister at the bedside, emotional over the events leading up to her hospitalization. She stated she is difficult to care for at home because she refuses to wear her sleep mask and refuses things. I witnesses her DEMANDING gingerale to her
sister, 'Get me more gingerale' in a mean tone. Pt was corrected and that she already has 2 cups on her table of gingerale within reach. Repositioned on bed . Blood sent to lab for repeat HH. No changes otherwise.
--- NOTE | 2024-10-11 12:13 | WOUNDNOTE ---
R LOWER LEG AND KNEE
--- NOTE | 2024-10-11 12:13 | WOUNDNOTE ---
R MEDIAL LOWER LEG
--- NOTE | 2024-10-11 12:18 | WOUNDNOTE ---
WON RN note: Patient admitted with Acute UTI and Anemia.
See H&P for complete history. Lives alone.
PMH: Obesity, venous leg ulcers, b/l ureteral stents, PE, COPD, DVT, IVC filter, Kyphosis, balance issues.
Wound Location and type/assessment: Patient last seen by wound care 08/04/23 for L leg venous ulcer. Now admitted with: B/L lower leg venous ulcers, pink and shallow base, moderate drainage, R>L. Both legs with hemosiderin staining evident, +
palpable pedal pulses, skin flaky and moist. Patient reports she does not use compression. R & L heel blanchable red, pillows under calves. Patient assessed with help by nurse Garces. L great toe with dried blood at base of nail bed, no drainage.
Buttocks with MASD, vs stage 2 PI. Has skin breakdown in skin folds, using fungal powder. Purwick in use.
Appetite: TBD.
Pressure redistribution devices in place: On Air mattress, recommend keep on air mattress, pillow under calves.
Plan: Applied silicone foams on heels. Skin prepped L great toe nail, local wound care done to legs. Will confirm orders with hospitalist and updated nurse Garces. Updated care plan and will follow as needed.
Note to case management of equipment requested for discharge: VN or caregivers if home.
Recommend follow up at wound care center upon discharge.
[2024-10-11 12:44] LABS: Hematocrit 27.5 % (37.0-47.0); Hemoglobin 8.1 g/dL (12.0-16.0)
--- NOTE | 2024-10-11 14:25 | CM ---
Initial assessment completed with patient with sister in room. Patient lives alone in a 2 story home plus basement with set up on 1st floor and 4 steps to enter the home. Patient has private aides for 6 hours a day Friday through Friday and sister
provides care on weekends. No other in-home services. Patient has a RW, W/CH, hospital bed and shower chair. She also has an O2 concentrator and 1 small tank. Patient says she does not use the O2. She does not recall why she has the concentrator or
for how long. Sister is HC-POA. HVAC ENGINEER is Karla Rojas through [facility] for home visits. Pharmacy is [facility] in [place]. Discharge POC: TBD. Awaiting therapy evaluation and recommendation.
--- NOTE | 2024-10-11 14:58 | PTCARENOTE ---
PM care provided. SHe voided 100ml dark berny urine collected by mercedes and bed pad was saturated with large amount of urine. Complete CHG bath given. Desenex powder to breast foldsm bdominal folds and groin. Barrier cream applied to buttock. Heels
remain elevated on pillows. I asked who woould be home to help her put her BiPap mask on she responses 'someone will', but would not tell me who is home to help her at bed time.
--- NOTE | 2024-10-11 15:09 | PTCARENOTE ---
Spoke with Sister Dana informing her that she is being transferred to [facility]. I expressed my concern regarding her safety going home due to the level of care she requires due to bowel and bladder incontinence. Her inability to participate with care and
feed herself. Per Dana, her sister, she said her food is kept in a cooler next to her and she only eats once a day. She has sporadic caregivers for 6 hours a day at different times. Her caregiver is supposed to split the shift 3 hours in the
morning ans 3 hours at night but comes for a lump time of 6 hours then she is home alone for 18 hours/day. Her sister says she sees her on the weekends. Again I informed her of my discomfort with her going home in that situation. Supportive care
provided. This information was passed on to case management. Supportive care provided to her sister Dana.
--- NOTE | 2024-10-11 15:38 | TRANSFER ---
Report called to [facility] for room 414. Pt to be transferred via bed.
[2024-10-11 18:02] LABS: Hematocrit 25.9 % (37.0-47.0); Hemoglobin 7.6 g/dL (12.0-16.0)
--- NOTE | 2024-10-11 18:18 | PTCARENOTE ---
Patient received awake and alert , bedbound from ICU . Able to answers questions appropriately . Denies pain or discomfort at present . Oriented to room, call villarreal in reach .
[2024-10-11] MEDS: TYLENOL 1000 MG PO (20:55)
[2024-10-12] VITALS (10 sets, daily range): BP systolic 103–157; BP diastolic 64–98; PULSE 2–83
[2024-10-12 00:49] LABS: Hematocrit 23.2 % (37.0-47.0); Hemoglobin 7.1 g/dL (12.0-16.0)
--- NOTE | 2024-10-12 01:28 | W.PN.UPDATE ---
Update Note
Progress Note Update
Repeat H&H at midnight, Hgb 7.1/Hct 23.2. Ordered 1 unit PRBC's to transfuse. Repeat labs ordered for AM.
[2024-10-12] MEDS: TYLENOL 1000 MG PO ×2 (05:04→20:32)
[2024-10-12] MEDS: UNASYN IV ×4 (05:05→23:50)
[2024-10-12 07:36] LABS: Hematocrit 26.8 % (37.0-47.0); Hemoglobin 8.2 g/dL (12.0-16.0); Mean Corp Hgb Conc. 30.6 g/dL (33.0-37.0); Mean Corpuscular Volume 81.7 fL (81.0-99.0); Nucleated Red Blood Cells % 0.5 %; Platelet Count 235 10^3/uL (130-400); Red Cell Dist. Width 17.9 % (11.5-14.5)
[2024-10-12 07:56] LABS: INR 2.05; PT 23.2 Sec (11.4-14.6)
[2024-10-12 08:21] LABS: Blood Urea Nitrogen 29 mg/dl (7-17); Calcium 7.6 mg/dl (8.4-10.2); Carbon Dioxide 26 mmol/L (22-30); Chloride 113 mmol/L (98-107); Estimated Creatinine Clearance 56 ml/min; Glucose 137 mg/dl (70-99); Potassium 3.9 mmol/L (3.5-5.1); Sodium 141 mmol/L (135-145); eGFR 47.80
--- NOTE | 2024-10-12 08:31 | W.PN.HOSP.TC ---
Addendum entered and electronically signed by Jay Jay Alejandre MD 10/12/24 18:51:
CT chest and Abd-Pelvis no major bleed but chest hematoma. Noticed urology ok with Warfarin. Will restart Warfarin tonight.
Original Note:
Today's Communication/Plan
-
IV antibiotics. Decrease IV steroids. CT of the chest and abdomen.
Assessment / Plan
Assessment / Plan
Physical exam:
General: Acutely ill
HEENT: Pupils equal round reactive to light accommodation. Normocephalic, Atraumatic and dry mucous Membranes
Respiratory: Decreased breath sounds bilateral; Clear to Auscultation; Negative Wheezes, Rales or Rhonchi
Cardiac: Regular Rhythm and S1/S2. Hematoma in the chest area.
GI: Soft, Nontender and Distended, Obese. Large abdominal hernia without incarceration.
Musculoskeletal: No Clubbing, No Cyanosis. Bilateral lower extremity edema and wounds present.
Neuro: Alert oriented and generalized weakness but no neurological deficits
A/P:
Septic shock due to UTI:
Improved
Blood cultures positive but likely contaminant
Off IV fluid
Off pressors
On IV antibiotics, Unasyn 3 g every 6 hours per ID
On stress doses of steroids-hydrocortisone 50 mg every 8 hours decrease to every 12 hours today and hopefully switch to oral tomorrow
Follow up ID further recommendations
Acute blood loss anemia and underlying anemia of chronic disease:
Blood transfusion again today
We will repeat CT of the abdomen today and CT of the chest in light of repeated requirements of blood transfusions
Continue to monitor hemoglobin closely
Restart B12 supplementation
Acute respiratory insufficiency:
Off BiPAP
Chest x-ray clear except with some atelectasis
Acute toxic-metabolic encephalopathy:
Due to sepsis
Improved
No need for CT scan so canceled
Speech therapy for swallowing eval cleared her for diet-on IDDSI level 6
Continue to monitor mental status
Hypertension:
Will restart Norvasc today since blood pressure starting to go up.
Continue holding EMMA inhibitor and will restart tomorrow or later today if needed.
CKD stage III:
Avoid nephrotoxic
Monitor renal function closely
Ureteral stent and bilateral congenital ureteropelvic junction obstruction:
Urology consulted and taken to the OR status post ureteral stent exchanged on 10/10
Discussed with urology prior
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
INR >8-->2.05 today
He had received some vitamin K before procedure
Holding warfarin and likely restart in a.m.
Check INR in a.m.
Hypothyroidism:
Restart levothyroxine
GERD:
Restart famotidine
DVT prophylaxis:
On warfarin and INR therapeutic
CODE STATUS:
Full code
Total time spent on today's encounter was 55 minutes which included time spent in counseling the patient/family regarding diagnosis and treatment plan as listed above, goals of care, and symptom management. Case was discussed with nursing staff,
specialists, and care coordinators/case management. All labs and imaging personally reviewed by me. Remainder the time spent in detailed review of previous records, lab data, imaging, and other medical provider documentation.
Anticipated Discharge: 24 - 48 hours
Subjective/Interval History
-
Date of Service: October 12, 2024
Patient denies lightheadedness or shortness of breath. Mild hematuria reported. Afebrile
Objective Data
-
Labs:
Laboratory Results
10/12/24 10/12/24
00:15 07:05
WBC 7.9
Hgb 7.1 L 8.2 L
Hct 23.2 L 26.8 L
Plt Count 235
PT 23.2 H
INR 2.05
Sodium 141
Potassium 3.9
Chloride 113 H
Carbon Dioxide 26
BUN 29 H
Creatinine 1.2 H
Glucose 137 H
Calcium 7.6 L
Vital Signs:
Vital Signs
Temp Pulse Resp BP Pulse Ox
97.7 F 84 18 153/82 96
10/12/24 08:08 10/12/24 08:08 10/12/24 08:08 10/12/24 08:08 10/12/24 08:08
I&O
10/11/24 10/12/24 10/13/24
06:59 06:59 06:59
Intake Total 4320 / 4445 3135 / 3135
Output Total 550 / 550 200 / 200
Balance 3770 / 3895 2935 / 2935
[2024-10-12] MEDS: SOLU-CORTEF 50 MG IV (08:59)
[2024-10-12] MEDS: DESENEX/MITRAZOL/ZEASORB 1 APPLIC TOPICAL ×2 (09:00→20:33)
[2024-10-12] MEDS: SINGULAIR 10 MG PO (09:00)
--- NOTE | 2024-10-12 09:31 | W.PN.PUL3 ---
Today's Communication / Plan
-
Stop hydrocortisone, resume OP prednisone dose
Will set up BIPAP as OP, PSG if needed--our office will arrange
IV abx continued for UTI, transition to PO per ID
Anemia w/u ongoing, CT imaging
PT/OT, wheelchair bound at baseline
Has OP FU with Dr Motron in November, can keep visit
Assessment
-
74-year-old female with complex medical history including right ureteral obstruction which is chronic with double-J stent with every 6 month change, due but presents with increased lethargy, nausea, right ureteral obstruction. Patient underwent
cystoscopy, right ureteroscopic, stone manipulation, right ureteral stent change. Stent was apparently difficult to remove due to encrustation. Postoperatively patient had hypotension transferred from PACU to ICU 10/10/2024
Septic shock, hypotension requiring pressors
Right ureteral obstruction w/ chronic right double-J stent
Coagulopathy, INR greater than 8 on admission, on Coumadin s/p vitamin K
Chronic low-dose prednisone therapy
Self treats for asthma, bronchitis
Leukocytosis
Acute metabolic acidemia, respiratory acidemia
Acute renal insufficiency, creatinine 1.3 on CKD stage III
Acute hypercapnic respiratory failure
Anemia, suspect acute blood loss
Suspect underlying JOHN/OHS
Conditions present prior to admission
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
Chronic right ureteral stent
History of recurrent enterococcal pyelonephritis
Hypertension/hyperlipidemia
History of DVT/PE, IVC filter 2008
Suspected antiphospholipid antibody syndrome per workup at [place]
On chronic Coumadin therapy
Anemia of chronic disease
Hypothyroidism
Morbidly obese, BMI 46
Suspected sleep apnea, refusing sleep workup
On nocturnal oxygen
Splenic hemorrhage with splenic coils in the past
Severe restrictive lung disease, FVC 47%
History of moderate persistent asthma
Self treats with steroids
Essentially bedridden, history of falls
Plan
Acute hypercapnic respiratory failure.
Initial blood gas 7.19, 70 consistent with acute hypercapnia.
Responded well to BiPAP therapy, blood gas 7.3/45 this morning
Continue nightly BiPAP while in the hospital
Suspect patient has underlying obstructive sleep apnea and possibly obesity hypoventilation syndrome.
She has declined sleep apnea workup in the past. Uses nocturnal oxygen
Avoid sedation, minimize pain medications
In view of underlying morbid obesity, hypercapnia, patient at risk of worsening respiratory failure, she is in agreement for PAP use at home
We will arrange through our office for BIPAP, arrange PSG if needed
Septic shock due to complicated UTI with obstructive uropathy
Right ureteral obstruction, chronic right double-J stent, s/p cystoscopy and stent exchange
Urology and infectious disease service on case. Prior history of Enterococcus. Currently on IV ampicillin with sulbactam
Patient is off pressors since 10/10. Discontinue IV fluids.
Reported h/o Asthma, confounded by bedridden status/morbid obesity
Chronic SOB may be multifactorial
Continue montelukast/Patient has been taking prednisone chronically
Self treats for asthma, bronchitis
Patient on hydrocortisone 50 mg IV Q8 now, can stop and resume home dose of prednisone (only on short term usage, no need to wean)
Acute kidney injury with underlying CKD stage III.
Creatinine 1.1 this morning from 1.3 yesterday
In view of lymphedema and developing pedal edema in addition, will discontinue IV fluids
Anemia, suspect acute blood loss.
Hemoglobin dropped down to 5.9 s/p blood transfusion, follow-up hemoglobin 8.1.
Large sternal hematoma noted. Patient had supratherapeutic INR, >8 on admission, currently down to 2.9
On Coumadin. History of DVT/PE in past
Monitor H&H
DVT prophylaxis, INR is therapeutic. Once it drifts below 2, will need to resume Coumadin
Patient follows up with Dr. Morton at [facility] pulmonary clinic. Will resume outpatient follow-up
Diagnostic Data
Chest X-Ray: 10/10/24- There is linear atelectasis projecting over the mid/lower lungs bilaterally.
05/17/23- The lungs are clear.
CT Scan: AP 2021 Lungs - Linear densities are present within both lower lungs, similar to previous CT examination, compatible with linear scarring. There is no significant pleural or pericardial effusion. There is a minimal central hiatal hernia.
Echo: 2010- Left Ventricle: Normal contractility of all stratton with normal left ventricular function. There is mild left ventricular hypertrophy present. The estimated ejection fraction is 60%.
Right Ventricle: Normal size and function. Right Atrium: Normal. Left Atrium: Normal. Mitral Valve: Structurally normal. There is no significant mitral regurgitation seen. Aortic Valve: Trileaflet and normal. There is no aortic stenosis nor aortic
insufficiency. Tricuspid Valve: The tricuspid valve appears normal. There is trace tricuspid regurgitation present. The estimated right ventricular systolic pressure is normal at 23 mmHg.
PFT's:
Reports and relevant images were personally reviewed.
Total time spent on this consultation/encounter __51__ minutes which includes review of history, physical exam, medications, laboratory data, personal review of imaging, extensive review of outpatient records, discussion with care team and
respiratory therapy.
Subjective Data
-
Date of Service:
Date of Service: October 12, 2024
Chief Complaint: Pulmonary Follow Up
Subjective:
No new complaints, feeling better
Complying with BIPAP and will use if we can arrange at home
Objective Data
Data Reviewed
Vital Signs / I&O / Oxygen:
Vital Signs
Temp Pulse Resp BP Pulse Ox
97.7 F 84 18 153/82 96
10/12/24 08:08 10/12/24 08:08 10/12/24 08:08 10/12/24 08:08 10/12/24 08:08
Intake and Output
10/11/24 10/12/24 10/13/24
06:59 06:59 06:59
Intake Total 4320 / 4445 3135 / 3135
Output Total 550 / 550 200 / 200
Balance 3770 / 3895 2935 / 2935
SaO2 96
Nasal Cannula flow liters per 2
minute
Physical Exam
General: Comfortable and Other (NAD, morbidly obese, deconditioned appearing)
HEENT: Normocephalic, Anicteric and Moist Mucous Membranes
Cardiovascular: S1-S2 and Regular Rhythm
Respiratory: Clear (overall diminished) and Non-Labored Respirations
GI: Soft, Non Distended and Non Tender
Neurology: Awake, Alert, Oriented and No Motor Deficits
Skin: Warm, Dry and Good Color
Labs/Micro/Reports
Lab Data
10/12/24 07:05
10/12/24 07:05
Laboratory Results
10/12/24
07:05
PT 23.2 H
INR 2.05
Microbiology
10/09/24 21:26 Blood/Venous Blood Culture - Preliminary
No Growth in 48 hours- Final report to follow
10/09/24 19:10 Urine Urine Culture - Final
10/10/24 11:46 Blood/Venous Blood Culture - Preliminary
No Growth in 24 hours- Final report to follow
10/10/24 11:52 Blood/Venous Blood Culture - Preliminary
No Growth in 24 hours- Final report to follow
10/09/24 21:26 Blood/Venous Blood Culture - Preliminary
Coagulase neg. staphylococcus
Additional testing on request
10/09/24 21:26 Blood/Venous Gram Stain - Preliminary
10/10/24 06:45 Nose MRSA Screen - Final
No Methicillin Resistant Staphylococcus aureus isolated.
--- NOTE | 2024-10-12 11:16 | W.PN.ID1 ---
Date of Service
Date of Service: October 12, 2024
Today's Communication
-Continue Unasyn 3g IV q6h (d3) .
- At time of dc, transition to Augmentin 875mg po bid through 10/22/24.
Assessment / Plan
# Complicated UTI
# Post urological procedure septic shock, now off pressor
# s/p Hypercapnic resp failure
# Coag neg staph bacteremia 1 of 2 sets, contaminant
# Chronic right ureter stent s/p cystoscopy, R ureteroscopy, stone manipulation, R ureteral stent change 10/10/24
# hx recurrent Enterococcus UTI
-CXR neg
- Repeat Blood cx's neg to date
- UCx: mixed robbin/contaminant
-Continue Unasyn 3g IV q6h (d3) .
- At time of dc, transition to Augmentin 875mg po bid through 10/22/24.
# Conditions [employer]
Asthma
Restrictive lung disease
CKD 3
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
DVT/PE status post IVC filter placement
Hypothyroidism
Class III obesity BMI 45
Suspected sleep apnea
Chronic LE wounds
History of splenic aneurysm status post coiling
Chief Complaint
-: Clinical Sepsis and UTI
Subjective / Review of Systems
Feels cold.
Vital Signs / Physical Exam
Vital Signs
Vital Signs
Temp Pulse Resp BP Pulse Ox
97.7 F 84 18 153/82 96
10/12/24 08:08 10/12/24 08:08 10/12/24 08:08 10/12/24 08:08 10/12/24 08:08
Physical Exam
Constitutional: Chronically Ill
Eyes: No Conjunctival Hemorrhage and Sclera Anicteric
Cardiovascular: Regular Rate and S1/S2
Pulmonary: Clear
Gastrointestinal: Soft, Non Tender and Non Distended
Extremities: Edema
Neurological: Awake and Alert
Objective Data
Lab Data
Lab Results
10/12/24 07:05
10/12/24 07:05
PT 23.2 Sec (11.4-14.6) H 10/12/24 07:05
INR 2.05 10/12/24 07:05
Estimated Creat Clear 56 ml/min 10/12/24 07:05
Lactic Acid 1.0 mmol/L (0.7-2.0) 10/10/24 11:28
Total Bilirubin 0.5 mg/dl (0.2-1.3) 10/09/24 18:45
AST 12 U/L (14-36) L 10/09/24 18:45
ALT < 10 U/L (0-35) 10/09/24 18:45
Alkaline Phosphatase 88 U/L (38-126) 10/09/24 18:45
Most recent labs reviewed.
Micro Results:
10/09/24 21:26 Blood Culture - Preliminary
Blood/Venous No Growth in 48 hours- Final report to follow
10/09/24 19:10 Urine Culture - Final
Urine
10/10/24 11:46 Blood Culture - Preliminary
Blood/Venous No Growth in 24 hours- Final report to follow
10/10/24 11:52 Blood Culture - Preliminary
Blood/Venous No Growth in 24 hours- Final report to follow
10/09/24 21:26 Blood Culture - Preliminary
Blood/Venous Coagulase neg. staphylococcus
Additional testing on request
Gram Stain - Preliminary
10/10/24 06:45 MRSA Screen - Final
Nose No Methicillin Resistant Staphylococcus aureus isolated.
10/10/24 CXR: No acute disease of the chest.
10/09/24 CT a/p: Right ureteral JJ stent is in appropriate position. No right hydronephrosis. Chronic long-standing severe hydronephrosis of the left kidney, with severe left renal cortical atrophy. Large right-sided lateral abdominal hernia,
containing multiple loops of small and large intestine. No evidence of incarceration or intestinal obstruction, and no significant change compared to prior CT.
[2024-10-12] MEDS: PEPCID 20 MG PO (12:00)
[2024-10-12] MEDS: NORVASC 2.5 MG PO (12:00)
[2024-10-12] MEDS: VITAMIN B-12 1000 MCG PO (12:00)
--- NOTE | 2024-10-12 17:29 | W.PN.URO.CBU ---
Today's Communication / Plan
-
- Continue antibiotic course per ID - Augmentin through 10/22
- Anemia - supratherapeutic INR and some post procedural bleeding though there has been no additional hematuria. s/p transfusion
- Okay to resume warfarin from urology standpoint once INR returns to therapeutic level and HGB stable
- Outpatient follow up with Dr. Villagran after discharge in about 2 months - urology office will call to schedule
Assessment / Plan
-
74F with solitary kidney and chronic R ureteral stent for chronic UPJ obstruction
Hx of recurrent enterococcus UTI
Admitted with [facility] and suspected UTI
s/p R ureteral stent exchange 10/10 requiring ureteroscopy to dislodge stent encrustation
- Continue antibiotic course per ID - Augmentin through 10/22
- Anemia - supratherapeutic INR and some post procedural bleeding though there has been no additional hematuria. s/p transfusion
- Okay to resume warfarin from urology standpoint once INR returns to therapeutic level and HGB stable
- Outpatient follow up with Dr. Villagran after discharge in about 2 months - urology office will call to schedule
Diagnosis
-
Date of Service: October 12, 2024
-
Patient Diagnosis:
Solitary kidney
Chronic R ureteral obstruction
Sepsis
Anemia
Post Op Day: s/p R ureteral stent change 10/10
Subjective
-
Feeling better today
No voiding issues
Objective
-
Vital Signs
Temp Pulse Resp BP Pulse Ox
98.6 F 98 18 147/98 96
10/12/24 15:50 10/12/24 15:50 10/12/24 15:50 10/12/24 15:50 10/12/24 15:50
Intake and Output
10/11/24 10/12/24 10/13/24
06:59 06:59 06:59
Intake Total 4320 / 4445 3135 / 3135
Output Total 550 / 550 200 / 200
Balance 3770 / 3895 2935 / 2935
Intake:
Oral fluids 1520 / 1520
IV fluids (Total) 2700 / 2825 625 / 625
Lr 1,000 ml @ 85 mls/hr IV . 2200 / 2325 625 / 625
[id number] [facility] Rx#:[id number]
normosol 500 / 500
IV piggybacks 1620 / 1620 490 / 490
Blood Product Amount Infused ( 0 / 0 500 / 500
mL)
Packed Rbc Leukoreduced Unit 250 / 250
[id number]
Packed Rbc Leukoreduced Unit 0 / 0 250 / 250
[id number]
Output:
Urine, Voided 550 / 550 200 / 200
Other:
How many times incontinent 1
MODERATE amount urine
How many times incontinent 2
SATURATED amount urine
Laboratory Results
10/12/24 07:05
10/12/24 07:05
Physical Exam
-
General - well developed, well nourished, no acute distress
Chest - clear bilaterally
Abdomen - soft, non-tender
[2024-10-12] MEDS: COUMADIN 4 MG PO (20:33)
[2024-10-13 02:53] VITALS: BP 124/64
[2024-10-13] MEDS: SYNTHROID 100 MCG PO (05:26)
[2024-10-13] MEDS: UNASYN IV ×2 (05:26→11:34)
[2024-10-13 05:33] LABS: Hematocrit 27.7 % (37.0-47.0); Hemoglobin 8.3 g/dL (12.0-16.0); Mean Corp Hgb Conc. 30.0 g/dL (33.0-37.0); Mean Corpuscular Volume 82.4 fL (81.0-99.0); Nucleated Red Blood Cells % 0 %; Platelet Count 229 10^3/uL (130-400); Red Cell Dist. Width 18.4 % (11.5-14.5)
[2024-10-13 05:40] LABS: INR 2.39; PT 26.1 Sec (11.4-14.6)
[2024-10-13 06:04] LABS: Blood Urea Nitrogen 30 mg/dl (7-17); Calcium 7.7 mg/dl (8.4-10.2); Carbon Dioxide 28 mmol/L (22-30); Chloride 115 mmol/L (98-107); Estimated Creatinine Clearance 61 ml/min; Glucose 94 mg/dl (70-99); Potassium 3.7 mmol/L (3.5-5.1); Sodium 142 mmol/L (135-145); eGFR 53.06
[2024-10-13] MEDS: TYLENOL 1000 MG PO (06:38)
[2024-10-13] MEDS: ZOLOFT 50 MG PO (07:36)
[2024-10-13] MEDS: VITAMIN B-12 1000 MCG PO (07:37)
[2024-10-13] MEDS: NORVASC 2.5 MG PO (07:37)
[2024-10-13] MEDS: ZESTRIL 5 MG PO (07:37)
[2024-10-13] MEDS: PEPCID 20 MG PO (07:37)
[2024-10-13] MEDS: SINGULAIR 10 MG PO (07:37)
[2024-10-13] MEDS: DELTASONE 10 MG PO (07:37)
[2024-10-13] MEDS: DESENEX/MITRAZOL/ZEASORB 1 APPLIC TOPICAL (07:38)
[2024-10-13 07:59] VITALS: BP 141/79
--- NOTE | 2024-10-13 09:54 | W.PN.HOSP.TC ---
Addendum entered and electronically signed by Jay Jay Alejandre MD 10/13/24 14:39:
Yes, stage 1 pressure injury bilateral heels and suspected stage 2 pressure injury buttocks, POA
Original Note:
Today's Communication/Plan
-
Discharge planning
Assessment / Plan
Assessment / Plan
Physical exam:
General: No acute distress. Chronically ill
HEENT: Pupils equal round reactive to light accommodation. Normocephalic, Atraumatic and dry mucous Membranes
Respiratory: Decreased breath sounds bilateral; Clear to Auscultation; Negative Wheezes, Rales or Rhonchi
Cardiac: Regular Rhythm and S1/S2. Hematoma in the chest area.
GI: Soft, Nontender and Distended, Obese. Large abdominal hernia without incarceration.
Musculoskeletal: No Clubbing, No Cyanosis. Bilateral lower extremity edema and wounds present.
Neuro: Alert oriented and generalized weakness but no neurological deficits
A/P:
Septic shock due to UTI:
Improved
Blood cultures positive but likely contaminant
Off IV fluid
Off pressors
On IV antibiotics, Unasyn 3 g every 6 hours per ID--> switch to oral Augmentin today
IV stress doses of steroids switched to oral prednisone today
Discussed with patient case coordinator-->Plan to discharge today
Acute blood loss anemia and underlying anemia of chronic disease:
Hemoglobin stable and restarted warfarin yesterday
CT scan of the chest and abdomen unremarkable
Continue to monitor hemoglobin as outpatient
Continue B12 supplementation
Acute respiratory insufficiency:
Off BiPAP
Chest x-ray clear except with some atelectasis
Acute toxic-metabolic encephalopathy:
Due to sepsis
Improved
No need for CT scan so canceled
Speech therapy for swallowing eval cleared her for diet-on IDDSI level 6
Continue to monitor mental status
Hypertension:
Back on his home antihypertensive regimen
CKD stage III:
Avoid nephrotoxic
Monitor renal function closely
Ureteral stent and bilateral congenital ureteropelvic junction obstruction:
Urology consulted and taken to the OR status post ureteral stent exchanged on 10/10
Discussed with urology prior
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
INR >8-->2.39 today
He had received some vitamin K before procedure
Restarted warfarin yesterday
Continue monitor INR as outpatient
Hypothyroidism:
Restart levothyroxine
GERD:
Restart famotidine
DVT prophylaxis:
On warfarin and INR therapeutic
CODE STATUS:
Full code
Anticipated Discharge: Today
Subjective/Interval History
-
Date of Service: October 13, 2024
Patient feels well overall. Mild discomfort sternal area. No hematuria. Afebrile
Objective Data
-
Labs:
Laboratory Results
10/13/24
05:03
WBC 7.0
Hgb 8.3 L
Hct 27.7 L
Plt Count 229
PT 26.1 H
INR 2.39
Sodium 142
Potassium 3.7
Chloride 115 H
Carbon Dioxide 28
BUN 30 H
Creatinine 1.1 H
Glucose 94
Calcium 7.7 L
Vital Signs:
Vital Signs
Temp Pulse Resp BP Pulse Ox
98.4 F 84 16 141/79 94
10/13/24 07:59 10/13/24 07:59 10/13/24 07:59 10/13/24 07:59 10/13/24 07:59
I&O
10/12/24 10/13/24 10/14/24
06:59 06:59 06:59
Intake Total 3135 / 3135 1780 / 1780
Output Total 200 / 200 325 / 325
Balance 2935 / 2935 1455 / 1455
[2024-10-13 11:07] VITALS: BP 137/71
--- NOTE | 2024-10-13 11:21 | W.PN.PUL3 ---
Addendum entered and electronically signed by Camila Peña, 10/15/24 16:28:
Patient had initially responded to BIPAP but developed intolerance throughout her admission. As reviewed and documented on prior respiratory therapists notes, patient had intolerance to BIPAP on several occasions (10/12/24 and 10/11/24). Patient had
requested mask exchange, lowering pressure and adjustments and could not tolerate-noting it was not 'comfortable' and would not be able to tolerate it 'all night.'
Based on this history of BIPAP intolerance, we will proceed with NIV set up.
If there is denial of treatment following last documentation with adverse outcomes on this patient, this will be at the liability of the DME and Insurance companies for delay in care.
Addendum entered and electronically signed by Camila Peña, 10/14/24 15:04:
Acute on chronic hypercapnic respiratory failure
COPD with severe obstruction
Addendum entered and electronically signed by Camila Peña, 10/14/24 10:06:
Acute hypercarbic respiratory failure
Initial blood gas 7.19, pCO2 70 consistent with acute hypercapnia.
Responded well to BiPAP therapy, blood gas 7.3/45 this morning, continue nightly BiPAP while in the hospital
The PFT that was from 2022 was COPD and does not show FEV1 FEC ratio to be normal.
These results indicate severe obstructive lung disease.
Bilateral/RAD has been considered and ruled out as volume requirements are not met by bilevel devices. The patient has COPD and chronic respiratory failure requiring the need for NIMV�Target tidal volume with adjustable pressures will help reduce
pCO2 levels, increased oxygenation, and help improve overall respiratory status and readmission to the hospital. The patient also requires continuous alarms, battery backup and portability which are not possible with bilevel/RAD devices as
interruption or power failure may cause serious respiratory medical consequences and/or are even life-threatening.
Original Note:
Today's Communication / Plan
-
Will arrange AVAPS set up as an outpatient, she is unable to transport to outpatient sleep study testing
Otherwise, defer further management to team regarding medical treatment
Outpatient follow-up to be arranged
Discharge planning per team
Assessment
-
74-year-old female with complex medical history including right ureteral obstruction which is chronic with double-J stent with every 6 month change, due but presents with increased lethargy, nausea, right ureteral obstruction. Patient underwent
cystoscopy, right ureteroscopic, stone manipulation, right ureteral stent change. Stent was apparently difficult to remove due to encrustation. Postoperatively patient had hypotension transferred from PACU to ICU 10/10/2024
Septic shock, hypotension requiring pressors
Right ureteral obstruction w/ chronic right double-J stent
Coagulopathy, INR greater than 8 on admission, on Coumadin s/p vitamin K
Chronic low-dose prednisone therapy
Self treats for asthma, bronchitis
Leukocytosis
Acute metabolic acidemia, respiratory acidemia
Acute renal insufficiency, creatinine 1.3 on CKD stage III
Acute hypercapnic respiratory failure
Anemia, suspect acute blood loss
Suspect underlying JOHN/OHS
Conditions present prior to admission
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
Chronic right ureteral stent
History of recurrent enterococcal pyelonephritis
Hypertension/hyperlipidemia
History of DVT/PE, IVC filter 2008
Suspected antiphospholipid antibody syndrome per workup at [place]
On chronic Coumadin therapy
Anemia of chronic disease
Hypothyroidism
Morbidly obese, BMI 46
Suspected sleep apnea, refusing sleep workup
On nocturnal oxygen
Splenic hemorrhage with splenic coils in the past
Severe restrictive lung disease, FVC 47%
History of moderate persistent asthma
Self treats with steroids
Essentially bedridden, history of falls
Plan
Acute hypercapnic respiratory failure.
Initial blood gas 7.19, 70 consistent with acute hypercapnia.
Responded well to BiPAP therapy, blood gas 7.3/45 this morning
Continue nightly BiPAP while in the hospital
Suspect patient has underlying obstructive sleep apnea and possibly obesity hypoventilation syndrome.
She has declined sleep apnea workup in the past. Uses nocturnal oxygen
Avoid sedation, minimize pain medications
In view of underlying morbid obesity, hypercapnia, patient at risk of worsening respiratory failure, she is in agreement for PAP use at home
We will arrange through our office for AVAPs, she is unable to obtain PSG as an outpatient due to transportation
Septic shock due to complicated UTI with obstructive uropathy
Right ureteral obstruction, chronic right double-J stent, s/p cystoscopy and stent exchange
Urology and infectious disease service on case. Prior history of Enterococcus. Currently on IV ampicillin with sulbactam
Patient is off pressors since 10/10. Discontinue IV fluids.
Reported h/o Asthma, confounded by bedridden status/morbid obesity
Chronic SOB may be multifactorial
Continue montelukast/Patient has been taking prednisone chronically
Self treats for asthma, bronchitis
Patient on hydrocortisone 50 mg IV Q8 now, can stop and resume home dose of prednisone (only on short term usage, no need to wean)
Acute kidney injury with underlying CKD stage III.
Creatinine 1.1 this morning from 1.3 yesterday
In view of lymphedema and developing pedal edema in addition, will discontinue IV fluids
Anemia, suspect acute blood loss.
Hemoglobin dropped down to 5.9 s/p blood transfusion, follow-up hemoglobin 8.1.
Large sternal hematoma noted. Patient had supratherapeutic INR, >8 on admission, currently down to 2.9
On Coumadin. History of DVT/PE in past
Monitor H&H
DVT prophylaxis, INR is therapeutic. Once it drifts below 2, will need to resume Coumadin
Patient follows up with Dr. Morton at [facility] pulmonary clinic. Will resume outpatient follow-up
Diagnostic Data
Chest X-Ray: 10/10/24- There is linear atelectasis projecting over the mid/lower lungs bilaterally.
05/17/23- The lungs are clear.
CT Scan: AP 2021 Lungs - Linear densities are present within both lower lungs, similar to previous CT examination, compatible with linear scarring. There is no significant pleural or pericardial effusion. There is a minimal central hiatal hernia.
Echo: 2011- Left Ventricle: Normal contractility of all stratton with normal left ventricular function. There is mild left ventricular hypertrophy present. The estimated ejection fraction is 60%.
Right Ventricle: Normal size and function. Right Atrium: Normal. Left Atrium: Normal. Mitral Valve: Structurally normal. There is no significant mitral regurgitation seen. Aortic Valve: Trileaflet and normal. There is no aortic stenosis nor aortic
insufficiency. Tricuspid Valve: The tricuspid valve appears normal. There is trace tricuspid regurgitation present. The estimated right ventricular systolic pressure is normal at 23 mmHg.
PFT's:
Reports and relevant images were personally reviewed.
Total time spent on this consultation/encounter __47__ minutes which includes review of history, physical exam, medications, laboratory data, personal review of imaging, extensive review of outpatient records, discussion with care team and
respiratory therapy.
Subjective Data
-
Date of Service:
Date of Service: October 13, 2024
Chief Complaint: Pulmonary Follow Up
Subjective:
Asleep on my arrival, no new complaints
Tolerating BiPAP
Objective Data
Data Reviewed
Vital Signs / I&O / Oxygen:
Vital Signs
Temp Pulse Resp BP Pulse Ox
98.4 F 85 18 137/71 94
10/13/24 11:07 10/13/24 11:07 10/13/24 11:07 10/13/24 11:07 10/13/24 11:07
Intake and Output
10/12/24 10/13/24 10/14/24
06:59 06:59 06:59
Intake Total 3135 / 3135 1780 / 1780
Output Total 200 / 200 325 / 325
Balance 2935 / 2935 1455 / 1455
SaO2 94
Nasal Cannula flow liters per 2
minute
Physical Exam
General: Comfortable and Other (NAD, morbidly obese, deconditioned appearing)
HEENT: Normocephalic, Anicteric and Moist Mucous Membranes
Cardiovascular: S1-S2 and Regular Rhythm
Respiratory: Clear (overall diminished) and Non-Labored Respirations
GI: Soft, Non Distended and Non Tender
Neurology: Awake, Alert, Oriented and No Motor Deficits
Skin: Warm, Dry and Good Color
Labs/Micro/Reports
Lab Data
10/13/24 05:03
10/13/24 05:03
Laboratory Results
10/13/24
05:03
PT 26.1 H
INR 2.39
Microbiology
10/09/24 21:26 Blood/Venous Blood Culture - Preliminary
No Growth in 72 hours- Final report to follow
10/10/24 11:52 Blood/Venous Blood Culture - Preliminary
No Growth in 48 hours- Final report to follow
10/10/24 11:46 Blood/Venous Blood Culture - Preliminary
No Growth in 48 hours- Final report to follow
10/09/24 19:10 Urine Urine Culture - Final
10/09/24 21:26 Blood/Venous Blood Culture - Preliminary
Coagulase neg. staphylococcus
Additional testing on request
10/09/24 21:26 Blood/Venous Gram Stain - Preliminary
10/10/24 06:45 Nose MRSA Screen - Final
No Methicillin Resistant Staphylococcus aureus isolated.
--- NOTE | 2024-10-13 12:03 | W.PN.ID1 ---
Date of Service
Date of Service: October 13, 2024
Today's Communication
At time of dc, transition to Augmentin 875mg po bid through 10/22/24.
Assessment / Plan
# Complicated UTI
# Post urological procedure septic shock, now off pressor
# s/p Hypercapnic resp failure
# Coag neg staph bacteremia 1 of 2 sets, contaminant
# Chronic right ureter stent s/p cystoscopy, R ureteroscopy, stone manipulation, R ureteral stent change 10/10/24
# hx recurrent Enterococcus UTI
-CXR neg
- Repeat Blood cx's neg to date
- UCx: mixed robbin/contaminant
-Continue Unasyn 3g IV q6h (d4) .
- At time of dc, transition to Augmentin 875mg po bid through 10/22/24.
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
Asthma
Restrictive lung disease
CKD 3
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
DVT/PE status post IVC filter placement
Hypothyroidism
Class III obesity BMI 45
Suspected sleep apnea
Chronic LE wounds
History of splenic aneurysm status post coiling
Chief Complaint
-: Clinical Sepsis and UTI
Subjective / Review of Systems
Wants to eat regular diet.
Vital Signs / Physical Exam
Vital Signs
Vital Signs
Temp Pulse Resp BP Pulse Ox
98.4 F 85 18 137/71 94
10/13/24 11:07 10/13/24 11:07 10/13/24 11:07 10/13/24 11:07 10/13/24 11:07
Physical Exam
Constitutional: Chronically Ill
Gastrointestinal: Soft, Non Tender and Non Distended
Extremities: Edema
Skin: Other (right-mid chest ecchymotic)
Neurological: AO x 3
Objective Data
Lab Data
Lab Results
10/13/24 05:03
10/13/24 05:03
PT 26.1 Sec (11.4-14.6) H 10/13/24 05:03
INR 2.39 10/13/24 05:03
Estimated Creat Clear 61 ml/min 10/13/24 05:03
Lactic Acid 1.0 mmol/L (0.7-2.0) 10/10/24 11:28
Total Bilirubin 0.5 mg/dl (0.2-1.3) 10/09/24 18:45
AST 12 U/L (14-36) L 10/09/24 18:45
ALT < 10 U/L (0-35) 10/09/24 18:45
Alkaline Phosphatase 88 U/L (38-126) 10/09/24 18:45
Most recent labs reviewed.
Micro Results:
10/10/24 11:46 Blood Culture - Preliminary
Blood/Venous No Growth in 72 hours- Final report to follow
10/10/24 11:52 Blood Culture - Preliminary
Blood/Venous No Growth in 72 hours- Final report to follow
10/09/24 21:26 Blood Culture - Preliminary
Blood/Venous No Growth in 72 hours- Final report to follow
10/09/24 19:10 Urine Culture - Final
Urine
10/09/24 21:26 Blood Culture - Preliminary
Blood/Venous Coagulase neg. staphylococcus
Additional testing on request
Gram Stain - Preliminary
10/10/24 06:45 MRSA Screen - Final
Nose No Methicillin Resistant Staphylococcus aureus isolated.
10/10/24 CXR: No acute disease of the chest.
10/09/24 CT a/p: Right ureteral JJ stent is in appropriate position. No right hydronephrosis. Chronic long-standing severe hydronephrosis of the left kidney, with severe left renal cortical atrophy. Large right-sided lateral abdominal hernia,
containing multiple loops of small and large intestine. No evidence of incarceration or intestinal obstruction, and no significant change compared to prior CT.
--- NOTE | 2024-10-13 12:16 | W.DCSUMMARY ---
Discharge Summary
Discharge Data
Date of Admission: 10/09/24
Date of Discharge: 10/13/24
Total time spent discharging patient (in min): 36
-
Pending Results: No
Hospital Course
Patient 74 years old female with multiple comorbidities including asthma, chronic steroids use, chronic bronchitis, PE DVT with IVC filter and on chronic anticoagulation, possible antiphospholipid syndrome, severe restrictive lung disease,
kyphoscoliosis, possible JOHN, nocturnal hypoxia on chronic oxygen, hypothyroidism, hypertension, hyperlipidemia, A-fib, CKD, mostly bedbound, came into the hospital with sepsis due to UTI and chronic ureteral stent. Urology consulted and she was
taken to the OR and had stent exchange on 10/10 and postop complication with hypotension and encephalopathy and had to be transferred to ICU. She was given broad-spectrum IV antibiotics, IV fluids, pressors, IV stress doses of steroids. Critical
care and ID consulted. Patient also had some acute blood loss anemia and a hematoma on her sternal area and some hematuria and required some blood transfusions. She had CT scan of the chest and abdomen with no other acute intra abdominal or intra
chest pathology to account for blood loss. Warfarin was held initially but then restarted 24 hours prior to discharge her hemoglobin has remained stable. She was transferred out of ICU and patient has done well throughout the rest of the hospital
stay. ID recommended to switch to oral antibiotics and will complete course as outpatient. Patient is hemodynamically stable and afebrile. She will be discharged in relatively stable condition today.
Discharge duration: 36 minutes
Discharge Plan
-
Patient Disposition: Home with Home Care
Discharge Diagnosis/Procedures: Septic shock due to urinary tract infection. Acute blood loss anemia. Acute respiratory insufficiency and hypercapnic respiratory failure. Contaminant blood cultures. Acute toxic metabolic encephalopathy. Chronic
ureteral stent status post ureteral stent exchange on 10/10. Venous thromboembolism on chronic anticoagulation.
Diet: Other diet
Additional Diets: Pur�e diet
Activity: As tolerated
Blood Work: Please PCP to order CBC, BMP and INR within 1 week
Other Services: VN
Activity Restrictions/Additional Instructions:
Wound Care Instructions
Legs: clean with saline, Xeroform to open ulcers, abd pads and kerlix, change daily and prn drainage. (*Can add alginate over xeroform for increased drainage)
R great toe: skin prep daily
heels: foams to protect change q 3 days
L buttock: clean with soap and water, silicone foam change q 2-3 days and prn soilage.
air mattress with turning schedule
pillow under calves, leg elevation when sitting
offloading cushion when sitting
Follow up at wound care center call for an appointment.
Referrals:
Mathew Morton MD [Active, Pulmonary Medicine]
Referral Note: has appt in Nov,
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
PRIVATE,PHYSICIAN [Family Provider, Internal Medicine] - in less than 1 week
Prescriptions:
New
amoxicillin-pot clavulanate 875-125 mg Tablet
1 tab PO Q12 10 Days Qty: 20 0RF
Continued
sertraline 100 MG tablet
50 mg PO DAILY
levothyroxine [Synthroid] 150 mcg tablet
150 mcg PO CHISHOLM
cyanocobalamin (vitamin B-12) 1,000 mcg Tablet
1,000 mcg PO DAILY
acetaminophen [Tylenol Extra Strength] 500 mg Tablet
1,000 mg PO Q6HPRN PRN (Reason: mild pain)
famotidine [Pepcid] 20 mg Tablet
20 mg PO DAILY
montelukast [Singulair] 10 mg Tablet
10 mg PO DAILY
lisinopril 5 mg Tablet
10 mg PO DAILY
albuterol sulfate [Ventolin HFA] 90 mcg/actuation Hfa Aerosol Inhaler
2 puff INHALATION R Q6HPRN PRN (Reason: sob)
amlodipine 2.5 mg tablet
2.5 mg PO DAILY 30 Days Qty: 30 0RF
warfarin 4 mg tablet
4 mg PO DAILY 30 Days Qty: 30 2RF
prednisone 10 mg Tablet
10 mg PO DAILY
levothyroxine [Synthroid] 100 mcg Tablet
See Rx Instructions .ROUTE .COMPLEX
Rx Instructions:
100 mcg orally ;Friday, Friday, Friday, , Friday, Sat.
Discharge Orders:
Discharge Patient (As Directed); Ordered 10/13/24
Ordered By: Jay Jay Alejandre
Discharge Date and Time
Print Language: FRENCH
--- NOTE | 2024-10-13 12:18 | CM ---
Per hospitalist, patient is stable for d/c today
Spoke w/ patient and her sister, August, patient will need ambulance transport home. August will be present at the home for patient and will arrange for an aide for tomorrow. Confirmed patient's address and first floor set up.
Patient declined therapy while in hospital
IMM verbally reviewed, copy provided, copy on chart
No other CM needs at this time
Plan: Home w/ aide support
[2024-10-13] MEDS: AUGMENTIN 875 MG/125 MG 1 TABLET PO (13:09)
--- NOTE | 2024-10-13 14:06 | PN.CDI ---
CDI
- -
CDI:
Physician Documentation Request
Admit Date: 10/09/24 22:50
Dear Doctor Pili,
Please review the following and provide your response in the progress notes.
Clinical Indicators:
10/11/24 12:18 - Wound Note
#Wound Location and type/assessment:
#...R & L heel blanchable red, pillows under calves.
#...Buttocks with MASD, vs stage 2 PI.
Selected Entries
10/11/24
08:30
Pressure injury stage [Present on admission Bilateral Heel] Stage 1
Physician documentation of the type and location of wounds is required for compliant documentation. Based on the above clinical findings and your assessment, please provide the following in your progress note:
Yes, stage 1 pressure injury bilateral heels and suspected stage 2 pressure injury buttocks, POA
Stage 1 pressure injury bilateral heels, POA, only
Suspected Stage 2 pressure injury buttock, POA, only
No pressure injury(ies)
Other (please specify)
1. Location of the ulcer/wound, including laterality.
2. Type (etiology) of ulcer/wound:
- Diabetic ulcer
- Arterial (ischemic) ulcer
- Traumatic wound
- Venous stasis ulcer
- Pressure (decubitus) ulcer
- Non-healing surgical wound
- Other
3. For a pressure ulcer, please also include the stage* of the ulcer:
- Stage 1 - Skin intact, non-blanchable redness
- Stage 2 - Partial thickness loss of dermis, includes intact or open blister
- Stage 3 - Full thickness tissue not including bone, tendon or muscle
- Stage 4 - Full thickness tissue loss, including exposed bone, tendon or muscle
- Unstageable - Full thickness loss in which the base of the ulcer is covered by slough (yellow, conway, childs, green or brown) and/or eschar (conway, brown or black) in the wound bed.
- Unable to determine
Use of terms such as suspected, likely, concern for, or probable (associated with a specific diagnosis that is being evaluated, monitored, or treated as if it exists) are acceptable and can be coded in the inpatient setting, when documented at the
time of discharge.
Thank you,
Jaz Sung RN BSN CCDS
CDI Specialist
Please contact via tiger text
Please use your independent medical judgment in providing your response.
*Source: National Pressure Ulcer Advisory Panel (NPUAP)
[2024-10-13 15:18] VITALS: BP 140/92
== END 2024-10-13 16:02 | disposition home or self-care (01) | DRG 659 ==
LOC: 4 WEST ACU 22:50
PROVIDERS: Nurse Practitioner; Nurse Practitioner Family; ADMITTING PHYSICIAN Internal Medicine; ATTENDING PHYSICIAN Hospitalist; CONSULT PHYSICIAN Internal Medicine Critical Care Medicine; CONSULT PHYSICIAN Internal Medicine Infectious Disease; CONSULT PHYSICIAN Urology; EMERGENCY PHYSICIAN Student in an Organized Health Care Education/Training Program
PROC: 0TP98DZ Removal of Intraluminal Device from Ureter, Via Natural or Artificial Opening Endoscopic (ICD-10-PCS; 2024-10-10)
PROC: 0T768DZ Dilation of Right Ureter with Intraluminal Device, Via Natural or Artificial Opening Endoscopic (ICD-10-PCS; 2024-10-10)
PROC: 5A09357 Assistance with Respiratory Ventilation, Less than 24 Consecutive Hours, Continuous Positive Airway Pressure (ICD-10-PCS; 2024-10-10)
PROC: BT1D1ZZ Fluoroscopy of Right Kidney, Ureter and Bladder using Low Osmolar Contrast (ICD-10-PCS; 2024-10-10)
PROC: 30233N1 Transfusion of Nonautologous Red Blood Cells into Peripheral Vein, Percutaneous Approach (ICD-10-PCS; 2024-10-11)
DX: T83.592A Infection and inflammatory reaction due to indwelling ureteral stent, initial encounter (principal); A41.1 Sepsis due to other specified staphylococcus; G92.8 Other toxic encephalopathy; R65.21 Severe sepsis with septic shock; J96.22 Acute and chronic respiratory failure with hypercapnia; N39.0 Urinary tract infection, site not specified; Q62.39 Other obstructive defects of renal pelvis and ureter; D68.61 Antiphospholipid syndrome; D68.9 Coagulation defect, unspecified; N17.9 Acute kidney failure, unspecified; E87.29 Other acidosis; J98.11 Atelectasis; Z68.42 Body mass index [BMI] 45.0-49.9, adult; N20.1 Calculus of ureter; D62 Acute posthemorrhagic anemia; E66.2 Morbid (severe) obesity with alveolar hypoventilation; Y83.1 Surgical operation with implant of artificial internal device as the cause of abnormal reaction of the patient, or of later complication, without mention of misadventure at the time of the procedure; Y92.9 Unspecified place or not applicable; D63.1 Anemia in chronic kidney disease; J98.4 Other disorders of lung; T45.515A Adverse effect of anticoagulants, initial encounter; I89.0 Lymphedema, not elsewhere classified; E03.9 Hypothyroidism, unspecified; N18.30 Chronic kidney disease, stage 3 unspecified; E78.5 Hyperlipidemia, unspecified; L89.621 Pressure ulcer of left heel, stage 1; K21.9 Gastro-esophageal reflux disease without esophagitis; L89.611 Pressure ulcer of right heel, stage 1; I95.81 Postprocedural hypotension; J44.9 Chronic obstructive pulmonary disease, unspecified; L89.302 Pressure ulcer of unspecified buttock, stage 2; I12.9 Hypertensive chronic kidney disease with stage 1 through stage 4 chronic kidney disease, or unspecified chronic kidney disease; J45.40 Moderate persistent asthma, uncomplicated; S20.214A Contusion of middle front wall of thorax, initial encounter; X58.XXXA Exposure to other specified factors, initial encounter; Z60.2 Problems related to living alone; Z95.828 Presence of other vascular implants and grafts; Z87.440 Personal history of urinary (tract) infections; Z80.49 Family history of malignant neoplasm of other genital organs; Z82.49 Family history of ischemic heart disease and other diseases of the circulatory system; Z86.711 Personal history of pulmonary embolism; Z79.01 Long term (current) use of anticoagulants; Z86.718 Personal history of other venous thrombosis and embolism; Z91.040 Latex allergy status; Z91.018 Allergy to other foods; Z91.048 Other nonmedicinal substance allergy status; Z79.890 Hormone replacement therapy; Z79.52 Long term (current) use of systemic steroids; Z74.01 Bed confinement status; Z91.81 History of falling; Z99.3 Dependence on wheelchair
CPT/HCPCS: 36600; 71045; 71250; 74018; 74176; 76000; 80048; 80053; 81003; 81015; 82533; 82805; 83605; 84443; 85014; 85018; 85025; 85610; 86850; 86900; 86901; 86920; 87040; 87070; 87086; 87147; 87205; 92526; 92610; 93005; 94660; 96365; 96366; 99285; C1769; C2617; P9016

== ENCOUNTER 2024-11-16 17:18 | Inpatient (IN) | payer OTHER, SELFPAY ==
[2024-11-16] VITALS (16 sets, daily range): BP systolic 115–188; BP diastolic 38–137; BMI 50.0; BMI 49.4
[2024-11-16 15:57] LABS: Hematocrit 31.8 % (37.0-47.0); Hemoglobin 9.0 g/dL (12.0-16.0); Mean Corp Hgb Conc. 28.3 g/dL (33.0-37.0); Mean Corpuscular Volume 83.9 fL (81.0-99.0); Platelet Count 248 10^3/uL (130-400); Red Cell Dist. Width 18.8 % (11.5-14.5)
--- NOTE | 2024-11-16 16:02 | ED.GENMED ---
History of Present Illness
General
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
Time Seen by Provider: 11/16/24 15:24
History of Present Illness
History of Present Illness:
74-year-old female with numerous medical problems but most chiefly solitary kidney with chronic right UPJ obstruction presents to the emergency department for evaluation of lack of urine output. She last had her ureteral stent exchanged in September
this year at this hospital, states she has not urinated since early this morning. Denies any pain, fevers, or chills.
Past History
Past History
ED Past Medical History: Asthma, HTN, Renal failure, Hypothyroidism and Other (ureteral stents, PE, ARF, One kidney, IVC filter, Cellulitis, UTI, Pancreatitis)
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
Social History
Tobacco: Non-smoker
Alcohol: None
Personal: Single
Living: alone
Family History
Family History: Other (Mother with endometrial cancer, father with coronary disease)
Review of Systems
Review of Systems
Allergies reviewed?: Yes
All Other Systems: ROS reviewed and negative except as documented in HPI and ROS
Phy Exam
Physical Exam
Physical Exam:
GEN: Well appearing, NAD, WDWN
HEENT: Oral mucosa moist, no scleral icterus
Cardiac: Regular rate
Lung: No respiratory distress, no tachypnea
MSK: No gross deformity or injuries
Skin: Good color, no pallor or jaundice, no rashes
Neuro: AO x3, moves all extremities freely
Psych: Calm, cooperative
Course
Orders/Labs/Results
Orders:
Orders
11/16/24 15:26
CT Abd/pel Without Iv Or Oral Urgent
Comment:
Reason For Exam: anuric, R ureteral stent
11/16/24 15:35
Complete Blood Count/No Diff Urgent
Comprehensive Metabolic Panel Urgent
11/16/24 16:15
0.9% Sodium Chloride 1000 ml [Nss] 1,000 ml IV BOLUS
Dextrose 50%-Water [Dextrose 50% Syringe] 12.5 grams IV [id number] PRN
Dextrose 50%-Water [Dextrose 50% Syringe] 25 grams IV NOW STA
Insulin Human Regular [Novolin R] 10 units IV NOW STA
Sodium Zirconium Cyclosilicate [Lokelma] 10 gram PO NOW STA
Bedside Glucose PRE IV Insulin- HyperK+ NOW
11/16/24 16:16
Electrocardiogram (*1) Urgent
Reason for Study: QTc Monitoring
EKG- Treatment ONCE
11/16/24 16:35
Insulin Human Regular [Novolin R] 5 units IV NOW STA
Bedside Glucose PRE IV Insulin- HyperK+ NOW
11/16/24 16:39
Prothrombin Time Urgent
11/16/24 17:45
Bedside Glucose POST IV Insulin- HyperK+ Q1HX2,Q2HX2
11/16/24 18:45
Potassium Urgent
Comment: draw 2 hours after regular insulin IV administration
Abnormal Lab Results
11/16/24
15:35
RBC 3.79 L 10^6/uL
(4.20-5.40)
Hgb 9.0 L g/dL
(12.0-16.0)
Hct 31.8 L %
(37.0-47.0)
MCH 23.7 L pg
(27.0-31.0)
MCHC 28.3 L g/dL
(33.0-37.0)
RDW 18.8 H %
(11.5-14.5)
Potassium 6.2 H* mmol/L
(3.5-5.1)
Chloride 109 H mmol/L
(98-107)
BUN 38 H mg/dl
(7-17)
Creatinine 2.3 H mg/dL
(0.6-1.0)
Glucose 113 H mg/dl
(70-99)
Calcium 8.3 L mg/dl
(8.4-10.2)
Total Protein 5.9 L g/dl
(6.3-8.2)
Albumin 3.0 L g/dl
(3.5-5.0)
11/16/24 15:35
Vital Signs
Initial and Last Documented VS:
Initial Vital Signs
Temp Pulse Resp BP Pulse Ox
98.7 F 84 19 161/110 97
11/16/24 14:53 11/16/24 14:53 11/16/24 14:53 11/16/24 14:53 11/16/24 14:53
Last Documented Vital Signs
Temp Pulse Resp BP Pulse Ox
98.7 F 85 21 162/75 97
11/16/24 14:53 11/16/24 16:30 11/16/24 16:29 11/16/24 16:01 11/16/24 16:30
MDM/Problems Addressed
MDM/Problems Addressed:
Patient is found to have an occluded ureteral stent resulting in acute renal failure and significant hyperkalemia. Hyperkalemia treatment initiated in the ED, will be admitted to the hospitalist service for further management. Interventional
radiology and urology both made aware of the obstructed stent, due to obesity and anticoagulated status nephrostomy tube may be high risk. Will leave this to the discretion of the consulting specialist. Did have a discussion in detail with IR,
urology, and hospitalist however at time of admission the decision for which procedure was not immediately clear
*Pulse Oximetry
SaO2: 95
Oxygen Mode of Delivery: Room air
Patient hypoxic: no
*Critical Care Note
Total Time (30-74mins, 75-104mins- exclusive of procedures): 40 minutes
comment:
Critical care time: 40 minutes
Critical care time was exclusive of: Separately billable procedures, treating other patients, and teaching time
Critical care was necessary to treat or prevent imminent or life-threatening deterioration of the following conditions: Renal failure/hyperkalemia
Critical care time spent personally by me on the following activities:
[x] Review of old charts
[x] Obtaining history from patient or surrogate
[x] Ordering and review of the laboratory studies
[x] Ordering and review of radiographic studies
[x] Ordering and performing treatments and interventions
[x] Patient patient's response to treatment
[x] Development of treatment plan with patient or surrogate
ED Attending Note
-
Portions of this chart may have been created with voice recognition software.� Occasional wrong word or��sound alike� substitutions may have occurred due to the inherent limitations of voice recognition software.
Discharge Plan
Departure
Patient Disposition: Admit
Date of Disposition: 11/16/24
Time of Disposition: 16:30
Admit to: IMU
Presentation/result/management discussed w/ accepting MD/DO: Hospitalist
Discharge Problem:
Occlusion of ureteral stent, Acute renal failure, Acute hyperkalemia
Prescriptions:
No Action
levothyroxine [Synthroid] 150 mcg tablet
225 mcg PO CHISHOLM
cyanocobalamin (vitamin B-12) 1,000 mcg Tablet
1,000 mcg PO DAILY
acetaminophen [Tylenol Extra Strength] 500 mg Tablet
1,000 mg PO Q6HPRN PRN (Reason: mild pain)
famotidine [Pepcid] 20 mg Tablet
20 mg PO DAILY
montelukast [Singulair] 10 mg Tablet
10 mg PO DAILY
lisinopril 5 mg Tablet
5 mg PO DAILY
albuterol sulfate [Ventolin HFA] 90 mcg/actuation Hfa Aerosol Inhaler
2 puff INHALATION R Q6HPRN PRN (Reason: sob)
amlodipine 2.5 mg tablet
2.5 mg PO DAILY 30 Days Qty: 30 0RF
prednisone 10 mg Tablet
10 mg PO DAILY
acetaminophen [Tylenol Extra Strength] 500 mg Tablet
1,000 mg PO DAILY
warfarin 3 mg tablet
3 mg PO DAILY
levothyroxine [Synthroid] 150 mcg tablet
150 mcg PO MOTUWETHFRSA@0600
sertraline 50 mg Tablet
50 mg PO DAILY
Referrals:
NONE,* [Active, Internal Medicine]
Interventions
Interventions:
*Risk Screen - Suicide Last Done: 11/16/24 14:53
*General Assessment Last Done: 11/16/24 14:53
*Neglect/Abuse Screening Last Done: 11/16/24 14:53
*ED- Fall Risk Assessment Last Done: 11/16/24 14:53
*ED COVID-19 Vaccine History Last Done: 11/16/24 14:53
ED-Female Genitourinary Assessment Last Done: 11/16/24 15:02
Discharge Date and Time
Print Language: VIETNAMESE
[2024-11-16 16:13] LABS: ALT (SGPT) 12 U/L (0-35); AST (SGOT) 21 U/L (14-36); Albumin 3.0 g/dl (3.5-5.0); Alkaline Phosphatase 68 U/L (38-126); Blood Urea Nitrogen 38 mg/dl (7-17); Calcium 8.3 mg/dl (8.4-10.2); Carbon Dioxide 29 mmol/L (22-30); Chloride 109 mmol/L (98-107); Estimated Creatinine Clearance 28 ml/min; Glucose 113 mg/dl (70-99); Potassium 6.2 mmol/L (3.5-5.1); Sodium 139 mmol/L (135-145); Total Protein 5.9 g/dl (6.3-8.2); eGFR 21.90
[2024-11-16 16:28] LABS: Glucose - Point of Care 99 mg/dl (70-99)
[2024-11-16] MEDS: NSS 1000 IV (16:42)
[2024-11-16] MEDS: LOKELMA 10 GRAM PO (16:42)
[2024-11-16] MEDS: DEXTROSE 50% SYRINGE 25 GRAMS IV (16:43)
[2024-11-16] MEDS: NOVOLIN R 5 UNITS IV (16:47)
[2024-11-16 16:55] LABS: INR 4.48; PT 42.0 Sec (11.4-14.6)
--- NOTE | 2024-11-16 17:02 | HPS.HSE ---
Family Physician
-
Family Physician: NOT KNOW UNKNOWN - PT DOES
Chief Complaint
-
Decreased urine output
History of Present Illness
74-year-old female with solitary right kidney and prior right ureteral stent, comes in with complaints of decreased urine output. Had right flank pain yesterday.
Diagnosed with obstructive uropathy, right-sided hydronephrosis noted on CT scan. We were asked to admit her to the hospital. Urology has been consulted.
Medical History
Past Medical History
Past Medical History: Reports Other
Additional Past Medical History:
History of PE/DVT
JOHN/OHS
Hypothyroidism
Essential hypertension
Hyperlipidemia
Atrial fibrillation
Chronic anemia
COPD
Restrictive lung disease
CKD 3
Past Surgical History: Reports Other
Additional Past Surgical History:
IVC filter
Tonsillectomy
Right ureteral stent
Splenic coiling for aneurysm
Social History
Tobacco: Non-smoker
Alcohol: None
Drug: None
Family History
Family History: Not pertinent
Allergies / Home Medications
Allergies reflects when Allergies were last updated in [employer].
Home Medications with original date entered in [employer]
Allergy/Medication List:
Allergies
Allergy/AdvReac Type Severity Reaction Status Date / Time
animal dander Allergy Exacerbates Verified 11/16/24 14:57
asthma
banana Allergy Exacerbates Verified 11/16/24 14:57
asthma
cheese Allergy Exacerbates Verified 11/16/24 14:57
asthma
cigarette smoke Allergy Exacerbates Verified 11/16/24 14:57
asthma
house dust Allergy Exacerbates Verified 11/16/24 14:57
asthma
house dust mite Allergy Exacerbates Verified 11/16/24 14:57
asthma
latex (Latex) Allergy Exacerbates Verified 08/19/25 14:57
asthma
mold Allergy Exacerbates Verified 11/16/24 14:57
asthma
perfume Allergy Exacerbates Verified 11/16/24 14:57
asthma
pollen extracts Allergy Exacerbates Verified 11/16/24 14:57
asthma
ragweed pollen Allergy Exacerbates Verified 11/16/24 14:57
asthma
Home Medications
levothyroxine 150 mcg tablet (Synthroid) 225 mcg PO CHISHOLM Thyroid 03/11/23
acetaminophen 500 mg tablet (Tylenol Extra Strength) 1,000 mg PO Q6HPRN PRN mild pain 08/01/23
cyanocobalamin (vitamin B-12) 1,000 mcg tablet 1,000 mcg PO DAILY Supplement 08/01/23
famotidine 20 mg tablet (Pepcid) 20 mg PO DAILY Gastrointestinal Issue 08/01/23
montelukast 10 mg tablet (Singulair) 10 mg PO DAILY Lung/Breathing Issues 08/01/23
albuterol sulfate 90 mcg/actuation aerosol inhaler (Ventolin HFA) 2 puff inhalation R Q6HPRN PRN sob 11/11/23
lisinopril 5 mg tablet 5 mg PO DAILY Blood Pressure 11/11/23
amlodipine 2.5 mg tablet 2.5 mg PO DAILY Blood pressure 30 days #30 tabs 11/13/23
prednisone 10 mg tablet 10 mg PO DAILY asthma 10/09/24
acetaminophen 500 mg tablet (Tylenol Extra Strength) 1,000 mg PO DAILY 11/16/24
levothyroxine 150 mcg tablet (Synthroid) 150 mcg PO MOTUWETHFRSA@0600 11/16/24
sertraline 50 mg tablet 50 mg PO DAILY 11/16/24
warfarin 3 mg tablet 3 mg PO DAILY 11/16/24
Review of Systems
-
History Source: Patient
A 12 point ROS was completed and negative except as noted: Yes
Physical Exam
Vital Signs
Vital Signs
Temp Pulse Resp BP Pulse Ox
98.7 F 84 21 162/75 96
08/19/25 14:53 11/16/24 16:45 11/16/24 16:45 11/16/24 16:01 11/16/24 16:45
Physical Exam
General: Well Developed, Well Nourished, No Apparent Distress and Comfortable
HEENT: NormoCephalic, Anicteric and Moist mucous membranes
Respiratory: Clear
Cardiac: S1/S2 and Regular Rhythm
GI: Soft, Non Tender and Non Distended
Genito-urinary: Deferred by me
Musculoskeletal: No Clubbing, No Cyanosis, Edema, Left Lower Extremity and Edema, Right Lower Extremity
Skin: Warm, Dry and Other (Bilateral lower extremity weeping wounds)
Neuro: AO x 3
Hematologic/Lymphatic: No Lymphadenopathy
Psych: Calm
Laboratory Results
-
11/16/24 15:35
Laboratory Results
PT 42.0 Sec (11.4-14.6) H 11/16/24 16:39
INR 4.48 11/16/24 16:39
Total Bilirubin 0.7 mg/dl (0.2-1.3) 11/16/24 15:35
AST 21 U/L (14-36) 11/16/24 15:35
ALT 12 U/L (0-35) 11/16/24 15:35
Alkaline Phosphatase 68 U/L (38-126) 11/16/24 15:35
Impression/Plan
-
JACKIE -due to obstructive uropathy from blocked right ureteral stent. Admit to telemetry.
CT confirms right renal collecting system dilation. Multiple large right-sided abdominal wall hernias.
Urology consulted, keep n.p.o. awaiting stent exchange today. Discussed with Dr. Rosen.
Stress dose of IV hydrocortisone ordered on-call to the OR.
Hyperkalemia -likely due to JACKIE, hold lisinopril. Treated in the emergency room. Repeat labs pending.
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 History of Enterococcus pyelonephritis.
Coagulopathy -due to warfarin use, INR elevated at 4.4. Hold warfarin tonight recheck labs in the morning.
Hypothyroidism -continue Synthroid. TSH 3.3 in September 2024.
COPD without exacerbation -on chronic prednisone 10 mg daily.
Chronic hypoxic respiratory failure -due to combination of COPD, restrictive lung disease, obesity hypoventilation syndrome. Noncompliant with BiPAP at home.
Chronic anemia -counts are stable.
Essential hypertension -stable.
History of VTE -with history of IVC filter. Hold warfarin as above.
Super morbid obesity
Full code
--- NOTE | 2024-11-16 17:06 | CONS.URO ---
Consultation
-
Date/Time Consultation Performed: 11/16/2024 1645
Requesting Provider: ED
Performing Provider: Silas
Reason for Consultation: Anuria/solitary kidney/obstructed ureteral stent
Medical History
History of Present Illness
Pt brought to ED with anuria.
Born with a congenital bilateral UPJ obstruction. She lost her
left kidney. She underwent a dismembered pyeloplasty on the right
which was unsuccessful. She has been managed ever since with
double-J stent exchanges.
Right ureteral stent was exchanged on 10/10/[address] Yin.
She refuses a PCN tube.
Past Medical History
Past Medical History: Other (KD 3, bilateral congenital ureteropelvic junction obstruction with nonfunctioning left kidney and chronic right ureteral stent, recent Enterococcus pyelonephritis, hypertension, h/o DVT/PE, IVC filter, anemia of chronic
disease, asthma, restrictive lung disease, hypothyroidism, MORBID obesity))
Past Surgical History: Other (right open dismembered pyeloplasty; numerous right ureteral stent exchanges; IVC filter, AAA repair)
Allergies/Home Medications
Allergies
Allergy/AdvReac Type Severity Reaction Status Date / Time
animal dander Allergy Exacerbates Verified 11/16/24 14:57
asthma
banana Allergy Exacerbates Verified 11/16/24 14:57
asthma
cheese Allergy Exacerbates Verified 11/16/24 14:57
asthma
cigarette smoke Allergy Exacerbates Verified 11/16/24 14:57
asthma
house dust Allergy Exacerbates Verified 11/16/24 14:57
asthma
house dust mite Allergy Exacerbates Verified 11/16/24 14:57
asthma
latex (Latex) Allergy Exacerbates Verified 11/16/24 14:57
asthma
mold Allergy Exacerbates Verified 11/16/24 14:57
asthma
perfume Allergy Exacerbates Verified 11/16/24 14:57
asthma
pollen extracts Allergy Exacerbates Verified 11/16/24 14:57
asthma
ragweed pollen Allergy Exacerbates Verified 11/16/24 14:57
asthma
Home Medications
�Medication �Instructions �Recorded �Confirmed �Type
levothyroxine 150 mcg tablet 225 mcg PO CHISHOLM Thyroid 03/11/23 11/16/24 History
(Synthroid)
acetaminophen 500 mg tablet 1,000 mg PO Q6HPRN PRN mild pain 08/01/23 11/16/24 History
(Tylenol Extra Strength)
cyanocobalamin (vitamin B-12) 1,000 mcg PO DAILY Supplement 08/01/23 11/16/24 History
1,000 mcg tablet
famotidine 20 mg tablet (Pepcid) 20 mg PO DAILY Gastrointestinal 08/01/23 11/16/24 History
Issue
montelukast 10 mg tablet 10 mg PO DAILY Lung/Breathing 08/01/23 11/16/24 History
(Singulair) Issues
albuterol sulfate 90 mcg/actuation 2 puff inhalation R Q6HPRN PRN sob 11/11/23 11/16/24 History
aerosol inhaler (Ventolin HFA)
lisinopril 5 mg tablet 5 mg PO DAILY Blood Pressure 11/11/23 11/16/24 History
amlodipine 2.5 mg tablet 2.5 mg PO DAILY Blood pressure 30 11/13/23 11/16/24 Rx
days #30 tabs
prednisone 10 mg tablet 10 mg PO DAILY asthma 10/09/24 11/16/24 History
acetaminophen 500 mg tablet 1,000 mg PO DAILY 11/16/24 11/16/24 History
(Tylenol Extra Strength)
levothyroxine 150 mcg tablet 150 mcg PO MOTUWETHFRSA@0600 11/16/24 11/16/24 History
(Synthroid)
sertraline 50 mg tablet 50 mg PO DAILY 11/16/24 11/16/24 History
warfarin 3 mg tablet 3 mg PO DAILY 11/16/24 11/16/24 History
Physical Exam
Vital Signs
Vital Signs
Temp Pulse Resp BP Pulse Ox
98.7 F 91 20 124/83 98
11/16/24 14:53 11/16/24 17:00 11/16/24 17:00 11/16/24 17:00 11/16/24 17:00
Lab / Testing Results
Laboratory Results
11/16/24 15:35
Physical Exam
adult female on [place]
General: No Apparent Distress and Other (morbidly obese)
Musculoskeletal: Cyanosis and Edema
Neuro: Awake and Alert
Psych: Calm
Assessment / Plan
-
anuria due to rapidly obstructed right ureteral stent [~ 5 weeks]
pt refuses Right PCN tube
will bring to OR to attempt to exchange right ureteral stent
consent signed in presence of female family williams
Data Reviewed
-
Lab Data: Labs Reviewed
Old Records: Reviewed
--- NOTE | 2024-11-16 18:04 | W.IMMPOSTOP ---
Surgical Immed Post Op Note
-
Primary Surgeon: Silas
Pre-op Diagnosis: anuria; solitary right kidney; obstructed right ureteral stent
Post-op Diagnosis: same
Procedure Performed: right ureteral stent exchange -- to 8 Fr 24 cm
Anesthesia Type: LMA
Specimen / Cultures: none
Estimated Blood Loss: none
Complications: none
Operative Findings: urine per right ureter upon placement of new stent
[2024-11-16 18:21] LABS: Glucose - Point of Care 95 mg/dl (70-99)
[2024-11-16] MEDS: 0.45%NACL 1000 IV (19:23)
[2024-11-16 19:26] LABS: Glucose - Point of Care 100 mg/dl (70-99)
--- NOTE | 2024-11-16 19:50 | PTCARENOTE ---
Pt arrived from PACU, aaox3, cooperative, drowsy. vss. oriented to room. call villarreal within reach.
[2024-11-16 23:47] LABS: Glucose - Point of Care 197 mg/dl (70-99)
--- NOTE | 2024-11-17 02:54 | DOWNTIME ---
There was a [employer] Client Server Support Technician Downtime on 11/17/2024 from 0100 to 11/17/2024 at 0235. Downtime documentation of patient's care, including medication administrations, has been reconciled in the electronic record per guidelines. Refer to the
patient's paper chart under the miscellaneous tab to see printed paper medication records and downtime forms.
[2024-11-17 03:04] VITALS: BP 155/71
[2024-11-17] MEDS: 0.45%NACL 1000 IV (05:11)
[2024-11-17 05:31] VITALS: BMI 49.3
[2024-11-17] MEDS: SYNTHROID 150 MCG PO (06:10)
[2024-11-17 06:27] LABS: Hematocrit 29.9 % (37.0-47.0); Hemoglobin 8.3 g/dL (12.0-16.0); Mean Corp Hgb Conc. 27.8 g/dL (33.0-37.0); Mean Corpuscular Volume 84.2 fL (81.0-99.0); Nucleated Red Blood Cells % 0 %; Platelet Count 236 10^3/uL (130-400); Red Cell Dist. Width 18.6 % (11.5-14.5)
[2024-11-17 06:34] LABS: PT 46.9 Sec (11.4-14.6)
[2024-11-17 06:38] LABS: INR 5.08
--- NOTE | 2024-11-17 07:03 | PTCARENOTE ---
Pt's INR 5.08, house SPEECH LANGUAGE PATHOLOGY ASSISTANT notified, no orders at this time. Report given to day shift RN Stephenie.
[2024-11-17 07:10] VITALS: BP 136/86
[2024-11-17 07:22] LABS: Blood Urea Nitrogen 35 mg/dl (7-17); Calcium 8.0 mg/dl (8.4-10.2); Carbon Dioxide 26 mmol/L (22-30); Chloride 110 mmol/L (98-107); Estimated Creatinine Clearance 31 ml/min; Glucose 126 mg/dl (70-99); Potassium 5.8 mmol/L (3.5-5.1); Sodium 139 mmol/L (135-145); eGFR 24.42
[2024-11-17] MEDS: DELTASONE 10 MG PO (08:21)
[2024-11-17] MEDS: PEPCID 20 MG PO (08:21)
[2024-11-17] MEDS: SINGULAIR 10 MG PO (08:21)
[2024-11-17] MEDS: NORVASC 2.5 MG PO (08:21)
[2024-11-17] MEDS: ZOLOFT 50 MG PO (08:21)
[2024-11-17] MEDS: VITAMIN B-12 1000 MCG PO (08:23)
--- NOTE | 2024-11-17 08:24 | VNURNOTE ---
Chart reviewed. Patient is current with [facility]. Will continue to follow hospital course and DC plans.
--- NOTE | 2024-11-17 09:10 | W.PN.URO.CBU ---
Today's Communication / Plan
-
urologically stabilized
Assessment / Plan
-
copious urine output
Diagnosis
-
Date of Service: November 17, 2024
-
Patient Diagnosis: Anuria/solitary right kidney/obstructed ureteral stent; s/p emergency exchange of right ureteral stent
Post Op Day: 1
Objective
-
Vital Signs
Temp Pulse Resp BP Pulse Ox
98.9 F 95 18 136/86 94
11/17/24 07:10 11/17/24 08:21 11/17/24 07:10 11/17/24 08:21 11/17/24 08:38
Intake and Output
11/16/24 11/17/24 11/18/24
06:59 06:59 06:59
Intake Total 2175 / 2175 480 / 480
Output Total 1100 / 1100
Balance 1075 / 1075 480 / 480
Intake:
Oral fluids 960 / 960 480 / 480
IV fluids (Total) 1215 / 1215
1/2NS
Output:
Urine, Obrien 1100 / 1100
Laboratory Results
11/17/24 05:37
11/17/24 05:37
Physical Exam
-
General - well developed, well nourished, no acute distress
Chest - clear bilaterally
Abdomen - soft, non-tender, positive bowel sounds, no CVAT, no incisional pain or distention
Genitalia - normal
Rectal - normal
Skin - warm & dry with no rash
Neuro - AOx3, no motor deficits
Extremities - no clubbing, no cyanosis, no edema
Incision - clean, dry
Dressing - clean, dry, intact
--- NOTE | 2024-11-17 09:37 | WOUNDNOTE ---
SACRUM/BILATERAL BUTTOCKS, M#[id number]
--- NOTE | 2024-11-17 09:38 | WOUNDNOTE ---
RIGHT MEDIAL LOWER LEG
--- NOTE | 2024-11-17 09:38 | WOUNDNOTE ---
LEFT LATERAL LOWER LEG
--- NOTE | 2024-11-17 09:39 | WOUNDNOTE ---
BILATERAL LOWER EXTREMITIES
--- NOTE | 2024-11-17 09:40 | WOUNDNOTE ---
LEFT GREAT TOE
--- NOTE | 2024-11-17 09:45 | WOUNDNOTE ---
WON RN note: Patient admitted with occlusion of ureteral stent, acute renal failure.
See H&P for complete history. Lives alone.
PMH: Obesity, venous leg ulcers, b/l ureteral stents, PE, COPD, DVT, IVC filter, Kyphosis, balance issues.
Wound Location and type/assessment: Patient last seen by wound care 10/11/24 for venous leg ulcers. Now admitted with: B/L lower leg venous ulcers, worse compared to last seen. [place] scattered ulcers, macerated skin, large serous drainage, L > R.
Lymphedema both legs. Hemosiderin staining evident, + palpable pedal pulses, skin flaky and dry. R & L heel blanchable red, pillows under calves. Patient assessed with help by nurse Zachariah. L great toe with same dried blood at base of nail bed, no
drainage. Buttocks with MASD, L buttock stage 2 PI, R buttock stage 1 PI. MASD in skin folds. Patient states she is incontinent of urine, difficulty ambulating and needs 2 assist turning.
Appetite: Good.
Pressure redistribution devices in place: On Accumax, called bed tech Christian for an air mattress either bariatric or regular. Nurse Huma made aware of new bed requested. Pillow under calves, foams applied to heels to protect.
Plan: Adaptic, alginate, abd pad and kerlix applied both legs with erin wraps knee high. Will order fungal powder for skin folds and mineral oil for dry skin on legs and feet. Recommended to nurse to apply Purwick for continence control. Will confirm
orders with hospitalist and updated nurse. Updated care plan and will follow as needed.
Note to case management of equipment requested for discharge: VN or caregivers if home.
Recommend follow up at wound care center upon discharge.
[2024-11-17 11:00] VITALS: BP 110/62
[2024-11-17] MEDS: LOKELMA 10 GRAM PO ×3 (11:32→19:32)
--- NOTE | 2024-11-17 11:34 | CM ---
CM following re: discharge planning.
Reviewed pt's chart, met with pt.
Pt is a 74 year old female, admitted with primary dx of JACKIE. PMH: History of PE/DVTOSA/OHS, Hypothyroidism, Essential hypertension,
Hyperlipidemia, Atrial fibrillation, Chronic anemia, COPD, Restrictive lung disease, CKD 3.
Pt reports she lives alone 2SH, has supportive sister who lives 15 minutes away and she helps as needed. Pt reports she mostly ambulates with a walker, has w/c, hospital bed, BSC. Pt stated she just released from [facility] last Friday, current
with [facility]. Pt expressed her strong desire to return back home with [facility], caregiver services and sister's support. Pt expressed her negative feelings being at a SNF. Pt reports she has 4-5 hours of private duty caregiver services daily.
[facility] liaison following.
PCP: Jeannette Allen - home visiting PCP
Pharmacy: [facility].
D/C plan: per pt's strong request, home with resumptions of [facility], caregiver services and sister support.
CM will follow with discharge plan updates as hospitalization progresses
--- NOTE | 2024-11-17 11:44 | CM ---
CM following re: discharge planning.
Reviewed pt's chart, met with pt.
Pt is a 74 year old female, admitted with primary dx of JACKIE. PMH: History of PE/DVTOSA/OHS, Hypothyroidism, Essential hypertension,
Hyperlipidemia, Atrial fibrillation, Chronic anemia, COPD, Restrictive lung disease, CKD 3.
Pt reports she lives alone 2SH, has supportive sister who lives 15 minutes away and she helps as needed. Pt reports she mostly ambulates with a walker, has w/c, hospital bed, BSC. Pt stated she was at SNF in the past did not have a good experience,
current with [facility]. Pt expressed her strong desire to return back home with [facility], caregiver services and sister's support. Pt expressed her negative feelings being at a SNF. Pt reports she has 4-5 hours of private duty caregiver services daily.
[facility] liaison following.
PCP: Jeannette Allen - home visiting PCP
Pharmacy: [facility].
D/C plan: per pt's strong request, home with resumptions of [facility], caregiver services and sister support.
CM will follow with discharge plan updates as hospitalization progresses
--- NOTE | 2024-11-17 12:05 | W.PN.HOSP.TC ---
Today's Communication/Plan
-
Continue IV fluids
Oral vitamin K
Repeat labs in the morning
Assessment / Plan
Assessment / Plan
Gen-AAOx3, NAD, morbid obesity
HEENT-NC, AT, anicteric, clear oral mm
Neck-supple
CV-reg, no M, +S1/S2
Lungs-clear B/L
Abd-soft, NT, ND
Ext-no edema
Musculoskeletal-no cyanosis, clubbing, bilateral lower extremity Donnell wraps
Skin-warm and dry
Neuro-grossly non-focal
Psych-calm, cooperative
JACKIE -due to obstructive uropathy from blocked right ureteral stent. CT confirms right renal collecting system dilation. Multiple large right-sided abdominal wall hernias.
Patient underwent right ureteral stent exchange, 11/16. Urology following. Good urine output since stent exchange.
Obrien catheter removed, now has pure wick. Monitor I's and O's.
Creatinine starting to come down, 2.1.
Hyperkalemia -likely due to JACKIE, hold lisinopril. Potassium starting to come down, 5.8. Continue Lokelma.
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 History of Enterococcus pyelonephritis.
Coagulopathy -due to warfarin use. INR still elevated at 5.0, will give a small dose of oral vitamin K. Recheck INR in the morning. Continue to hold warfarin. No obvious bleeding.
Hypothyroidism -continue Synthroid. TSH 3.3 in September 2024.
COPD without exacerbation -on chronic prednisone 10 mg daily.
Chronic hypoxic respiratory failure -due to combination of COPD, restrictive lung disease, obesity hypoventilation syndrome. Noncompliant with BiPAP at home.
Refused BiPAP last night.
Chronic anemia -counts are stable.
Essential hypertension -stable.
History of VTE -with history of IVC filter. Hold warfarin as above.
Super morbid obesity
Full code
Offered PT/OT consult but patient declined and wants to resume home PT on discharge.
Dispo -discharge when renal function, potassium levels, INR improved.
Anticipated Discharge: Within 24 hours
Subjective/Interval History
-
Date of Service: November 17, 2024
Patient seen and examined. No complaints.
Objective Data
-
Labs:
Laboratory Results
11/17/24
05:37
WBC 7.5
Hgb 8.3 L
Hct 29.9 L
Plt Count 236
PT 46.9 H
INR 5.08 H*
Sodium 139
Potassium 5.8 H
Chloride 110 H
Carbon Dioxide 26
BUN 35 H
Creatinine 2.1 H
Glucose 126 H
Calcium 8.0 L
Vital Signs:
Vital Signs
Temp Pulse Resp BP Pulse Ox
99.1 F 93 18 110/62 95
11/17/24 11:00 11/17/24 11:00 11/17/24 11:00 11/17/24 11:00 11/17/24 11:00
I&O
11/16/24 11/17/24 11/18/24
06:59 06:59 06:59
Intake Total 2175 / 2175 480 / 480
Output Total 1100 / 1100
Balance 1075 / 1075 480 / 480
Review of Systems
-
History Source: Patient
All other systems: Reviewed and negative
[2024-11-17 12:17] VITALS: BMI 49.3
[2024-11-17] MEDS: MEPHYTON 2.5 MG PO (13:14)
[2024-11-17 15:10] VITALS: BP 112/57
--- NOTE | 2024-11-17 15:26 | VNURNOTE ---
PM-[facility] resumption referral accepted in [facility].
[2024-11-17 19:45] VITALS: BP 132/71
[2024-11-17] MEDS: DESENEX/MITRAZOL/ZEASORB 1 APPLIC TOPICAL (20:10)
[2024-11-17 22:55] VITALS: BP 128/69
[2024-11-18 03:00] VITALS: BP 127/57
[2024-11-18] MEDS: SYNTHROID 150 MCG PO (05:00)
[2024-11-18 06:00] LABS: INR 1.91; PT 22.4 Sec (11.4-14.6)
[2024-11-18 06:13] LABS: Blood Urea Nitrogen 40 mg/dl (7-17); Calcium 8.3 mg/dl (8.4-10.2); Carbon Dioxide 31 mmol/L (22-30); Chloride 109 mmol/L (98-107); Estimated Creatinine Clearance 38 ml/min; Glucose 98 mg/dl (70-99); Potassium 5.1 mmol/L (3.5-5.1); Sodium 143 mmol/L (135-145); eGFR 31.47
[2024-11-18] MEDS: LOKELMA 10 GRAM PO (07:00)
[2024-11-18 09:00] VITALS: BP 132/66
--- NOTE | 2024-11-18 09:48 | W.PN.URO.CBU ---
Today's Communication / Plan
-
d/c per medical team
to f/u with Dr Villagran to consider options for management of problematic right ureteral obstruction
Assessment / Plan
-
improving renal fxn
Diagnosis
-
Date of Service: November 18, 2024
-
Patient Diagnosis: Anuria/solitary right kidney/obstructed ureteral stent; s/p emergency exchange of right ureteral stent
Post Op Day: 2
Objective
-
Vital Signs
Temp Pulse Resp BP Pulse Ox
98.4 F 74 18 132/66 96
11/18/24 09:00 11/18/24 09:00 11/18/24 09:00 11/18/24 09:00 11/18/24 09:00
Intake and Output
11/17/24 11/18/24 11/19/24
06:59 06:59 06:59
Intake Total 2175 / 2175 2400 / 2400
Output Total 1100 / 1100 400 / 400
Balance 1075 / 1075 2000 / 2000
Intake:
Oral fluids 960 / 960 2400 / 2400
IV fluids (Total) 1215 / 1215
1/2NS 15 / 15
Output:
Urine, Obrien 1100 / 1100
Urine, Voided 400 / 400
Other:
How many times incontinent 3
SATURATED amount urine
Laboratory Results
11/17/24 05:37
11/18/24 05:08
Physical Exam
-
General - well developed, well nourished, no acute distress
Chest - clear bilaterally
Abdomen - soft, non-tender, positive bowel sounds, no CVAT, no incisional pain or distention
Genitalia - normal
Rectal - normal
Skin - warm & dry with no rash
Neuro - AOx3, no motor deficits
Extremities - no clubbing, no cyanosis, no edema
Incision - clean, dry
Dressing - clean, dry, intact
--- NOTE | 2024-11-18 10:17 | PN.CDI ---
CDI
- -
CDI:
Physician Documentation Request
Admit Date: 11/16/24 17:18
Dear Doctor Jai,
Clinical Indicators:
Patient admitted with JACKIE due to obstructive uropathy.
11/17 [facility] RN skin/wound assessment: Left Buttock Stage 2 Pressure Injury, POA
Right Buttock Stage 1 Pressure Injury, POA
Treatment:Silicone border foam dressings
Physician documentation of the type and location of wounds is required for compliant documentation. Based on the above clinical findings and your assessment, please provide the following in your progress note:
1. Location of the ulcer/wound, including laterality.
2. Type (etiology) of ulcer/wound:
- Pressure (decubitus) ulcer
- Other, please specify
3. If a pressure ulcer, please also include the stage* of the ulcer:
- Stage 1 - Skin intact, non-blanchable redness
- Stage 2 - Partial thickness loss of dermis, includes intact or open blister
- Stage 3 - Full thickness tissue not including bone, tendon or muscle
- Stage 4 - Full thickness tissue loss, including exposed bone, tendon or muscle
- Unstageable - Full thickness loss in which the base of the ulcer is covered by slough (yellow, conway, childs, green or brown) and/or eschar (conway, brown or black) in the wound bed.
- Unable to determine
Use of terms such as suspected, likely, concern for, or probable (associated with a specific diagnosis that is being evaluated, monitored, or treated as if it exists) are acceptable and can be coded in the inpatient setting, when documented at the
time of discharge.
Thank you,
LILIA Gabriel RN
CDI Specialist
available via tiger text
Please use your independent medical judgment in providing your response.
*Source: National Pressure Ulcer Advisory Panel (NPUAP)
--- NOTE | 2024-11-18 10:18 | W.PN.HOSP.TC ---
Addendum entered and electronically signed by Lionel Vergara DO 11/18/24 14:42:
Left Buttock Stage 2 Pressure Injury, POA
Right Buttock Stage 1 Pressure Injury, POA
Original Note:
Today's Communication/Plan
-
Discharge
Assessment / Plan
Assessment / Plan
Gen-AAOx3, NAD, morbid obesity
HEENT-NC, AT, anicteric, clear oral mm
Neck-supple
CV-reg, no M, +S1/S2
Lungs-clear B/L
Abd-soft, NT, ND
Ext-no edema
Musculoskeletal-no cyanosis, clubbing, bilateral lower extremity Donnell wraps
Skin-warm and dry
Neuro-grossly non-focal
Psych-calm, cooperative
JACKIE -due to obstructive uropathy from blocked right ureteral stent. CT confirms right renal collecting system dilation. Multiple large right-sided abdominal wall hernias.
Patient underwent right ureteral stent exchange, 11/16. Urology following. Good urine output since stent exchange.
Obrien catheter removed, now has pure wick. Monitor I's and O's.
Creatinine down to 1.7. Check BMP next week as outpatient.
Hyperkalemia -likely due to JACKIE, hold lisinopril. Potassium improved to 5.1. Low potassium diet on discharge. Discussed with patient. BMP next week.
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 History of Enterococcus pyelonephritis.
Coagulopathy -due to warfarin use. INR improved to 1.9 today. Received vitamin K yesterday. Resume warfarin tonight, discussed with patient. INR on Friday as an outpatient. Patient states visiting nursing checks her labs at home.
Hypothyroidism -continue Synthroid. TSH 3.3 in September 2024.
COPD without exacerbation -on chronic prednisone 10 mg daily.
Chronic hypoxic respiratory failure -due to combination of COPD, restrictive lung disease, obesity hypoventilation syndrome. Noncompliant with BiPAP at home.
Refused BiPAP last night.
Chronic anemia -counts are stable.
Essential hypertension -stable.
History of VTE -with history of IVC filter. Resume warfarin tonight. Discussed with patient.
Super morbid obesity
Full code
Offered PT/OT consult but patient declined and wants to resume home PT on discharge.
Dispo -medically stable for discharge home today. Discussed with case management and nursing. Outpatient follow-up with PCP and urology.
35 minutes spent in discharge process.
Anticipated Discharge: Today
Subjective/Interval History
-
Date of Service: November 18, 2024
Patient seen and examined. Complaining of sore throat. Denies cough.
Objective Data
-
Labs:
Laboratory Results
11/18/24
05:08
PT 22.4 H
INR 1.91 D
Sodium 143
Potassium 5.1
Chloride 109 H
Carbon Dioxide 31 H
BUN 40 H
Creatinine 1.7 H
Glucose 98
Calcium 8.3 L
Vital Signs:
Vital Signs
Temp Pulse Resp BP Pulse Ox
98.4 F 74 18 132/66 96
11/18/24 09:00 11/18/24 09:00 11/18/24 09:00 11/18/24 09:00 11/18/24 09:00
I&O
11/17/24 11/18/24 11/19/24
06:59 06:59 06:59
Intake Total 2175 / 2175 2400 / 2400
Output Total 1100 / 1100 400 / 400
Balance 1075 / 1075 1999 / 1999
Review of Systems
-
History Source: Patient
All other systems: Reviewed and negative
--- NOTE | 2024-11-18 10:24 | W.DS.TRANS ---
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
-
Discharge Instructions:
Discharge Diagnosis/Procedures Obstructive uropathy, acute kidney injury,
hyperkalemia, blocked right ureteral stent,
stent exchange
Diet Other diet
Additional Diets Low sodium, low potassium diet
Activity As tolerated
Driving Restrictions No driving
Bathing Restrictions None
Blood Work INR, BMP on November 22
Other Services VN
Instructions:
Stand-Alone Forms:
Changes to Home Medications: Yes
Discharge Medications:
DC Medications w/original date entered in [facility]
levothyroxine 150 mcg tablet (Synthroid) 225 mcg PO CHISHOLM Thyroid 03/11/23
acetaminophen 500 mg tablet (Tylenol Extra Strength) 1,000 mg PO Q6HPRN PRN mild pain 08/01/23
cyanocobalamin (vitamin B-12) 1,000 mcg tablet 1,000 mcg PO DAILY Supplement 08/01/23
famotidine 20 mg tablet (Pepcid) 20 mg PO DAILY Gastrointestinal Issue 08/01/23
montelukast 10 mg tablet (Singulair) 10 mg PO DAILY Lung/Breathing Issues 08/01/23
albuterol sulfate 90 mcg/actuation aerosol inhaler (Ventolin HFA) 2 puff inhalation R Q6HPRN PRN sob 11/11/23
amlodipine 2.5 mg tablet 2.5 mg PO DAILY Blood pressure 30 days #30 tabs 11/13/23
prednisone 10 mg tablet 10 mg PO DAILY asthma 10/09/24
acetaminophen 500 mg tablet (Tylenol Extra Strength) 1,000 mg PO DAILY 11/16/24
levothyroxine 150 mcg tablet (Synthroid) 150 mcg PO MOTUWETHFRSA@0600 11/16/24
sertraline 50 mg tablet 50 mg PO DAILY 11/16/24
warfarin 3 mg tablet 3 mg PO DAILY 11/16/24
Home Medication Changes
Stop lisinopril
Pending Results: No
[2024-11-18] MEDS: DELTASONE 10 MG PO (10:26)
[2024-11-18] MEDS: VITAMIN B-12 1000 MCG PO (10:28)
[2024-11-18] MEDS: ZOLOFT 50 MG PO (10:28)
[2024-11-18] MEDS: NORVASC 2.5 MG PO (10:28)
[2024-11-18] MEDS: SINGULAIR 10 MG PO (10:28)
[2024-11-18] MEDS: TYLENOL 650 MG PO (10:33)
[2024-11-18] MEDS: DESENEX/MITRAZOL/ZEASORB 1 APPLIC TOPICAL (10:37)
[2024-11-18] MEDS: HYDROPHOR 1 APPLIC TOPICAL (10:38)
--- NOTE | 2024-11-18 10:42 | CM ---
Addendum entered by Hesham Cruz 11/18/24 11:00:
Ambulance auth for Acute care Medical transport: [id number]
Original Note:
CM following re: discharge planning.
Reviewed pt's chart, met with pt.
Discharge order noted. Pt is aware, expressed her agreement . IMM reviewed, placed on chart, pt has a copy.
Pt called her caregiver and caregiver will be at pt's home at 2:00 p.m. Pt is requested ambulance transport BLS with strip picker time 2:00 p.m.
VN will resume VN services upon the discharge.
[facility] to arrange ambulance transport BLS with strip picker time 2:00 p.m. PMNC completed and left with . CM is calling [facility] to obtain an ambulance auth.
Please fax discharge instructions to [facility] at [phone]
D/C plan: home with VN, resumptions of caregiver services and sister support.
[2024-11-18 12:00] VITALS: BP 131/73
== END 2024-11-18 15:28 | disposition home health service (06) | DRG 660 ==
LOC: 2 SOUTH 17:18
PROVIDERS: Physician Assistant; ADMITTING PHYSICIAN Hospitalist; CONSULT PHYSICIAN Specialist; EMERGENCY PHYSICIAN Emergency Medicine
PROC: 0T768DZ Dilation of Right Ureter with Intraluminal Device, Via Natural or Artificial Opening Endoscopic (ICD-10-PCS; 2024-11-16)
PROC: 0TP98DZ Removal of Intraluminal Device from Ureter, Via Natural or Artificial Opening Endoscopic (ICD-10-PCS; 2024-11-16)
DX: T83.192A Other mechanical complication of indwelling ureteral stent, initial encounter (principal); E66.2 Morbid (severe) obesity with alveolar hypoventilation; N17.9 Acute kidney failure, unspecified; Q62.39 Other obstructive defects of renal pelvis and ureter; J96.11 Chronic respiratory failure with hypoxia; Z68.43 Body mass index [BMI] 50.0-59.9, adult; E03.9 Hypothyroidism, unspecified; N18.30 Chronic kidney disease, stage 3 unspecified; I12.9 Hypertensive chronic kidney disease with stage 1 through stage 4 chronic kidney disease, or unspecified chronic kidney disease; E78.5 Hyperlipidemia, unspecified; I48.91 Unspecified atrial fibrillation; D63.1 Anemia in chronic kidney disease; J44.89 Other specified chronic obstructive pulmonary disease; J98.4 Other disorders of lung; E87.5 Hyperkalemia; R79.1 Abnormal coagulation profile; T45.515A Adverse effect of anticoagulants, initial encounter; Y73.2 Prosthetic and other implants, materials and accessory gastroenterology and urology devices associated with adverse incidents; L89.322 Pressure ulcer of left buttock, stage 2; L89.311 Pressure ulcer of right buttock, stage 1; Z74.01 Bed confinement status; Z91.199 Patient's noncompliance with other medical treatment and regimen due to unspecified reason; Z86.718 Personal history of other venous thrombosis and embolism; Z86.711 Personal history of pulmonary embolism; Z79.01 Long term (current) use of anticoagulants
CPT/HCPCS: 74018; 74176; 76000; 80048; 80053; 82962; 85025; 85027; 85610; 93005; 94640; 96374; 96375; 99291; C2617

== ENCOUNTER 2025-02-12 16:10 | Emergency (ER) | payer OTHER, SELFPAY ==
[2025-02-12 16:16] VITALS: BMI 50.0
[2025-02-12 16:20] VITALS: BP 145/66
[2025-02-12 16:21] VITALS: BP 145/66
[2025-02-12 16:38] LABS: Hematocrit 33.8 % (37.0-47.0); Hemoglobin 8.9 g/dL (12.0-16.0); Mean Corp Hgb Conc. 26.3 g/dL (33.0-37.0); Mean Corpuscular Volume 81.1 fL (81.0-99.0); Nucleated Red Blood Cells % 0 %; Platelet Count 292 10^3/uL (130-400); Red Cell Dist. Width 18.6 % (11.5-14.5)
[2025-02-12 16:53] LABS: ALT (SGPT) < 10 U/L (0-35); AST (SGOT) 13 U/L (14-36); Albumin 3.1 g/dl (3.5-5.0); Alkaline Phosphatase 96 U/L (38-126); Blood Urea Nitrogen 19 mg/dl (7-17); Calcium 8.2 mg/dl (8.4-10.2); Chloride 104 mmol/L (98-107); Estimated Creatinine Clearance 80 ml/min; Glucose 94 mg/dl (70-99); Potassium 4.4 mmol/L (3.5-5.1); Sodium 141 mmol/L (135-145); Total Protein 6.0 g/dl (6.3-8.2); eGFR > 60.00
[2025-02-12 17:00] VITALS: BP 148/86
[2025-02-12 17:02] LABS: Carbon Dioxide 35 mmol/L (22-30)
[2025-02-12 18:00] VITALS: BP 138/74
--- NOTE | 2025-02-12 18:33 | ED.GENMED ---
History of Present Illness
General
Chief Complaint: Skin Problem
Source: patient
Time Seen by Provider: 02/12/25 17:11
History of Present Illness
History of Present Illness:
Note:
CHIEF COMPLAINT(S)
Leg wounds and decreased mobility.
HISTORY OF PRESENT ILLNESS
The patient is a 75-year-old female with a history of decreased mobility, presenting for evaluation of chronic wounds on her lower extremities. She has not been walking for two years, although the patient initially stated it had only been a few
months. The patients economic analyst reported that home care nurses have been monitoring her condition and identified concerning features of her leg wounds, including redness, scabbing, and greenish discoloration with possible purulence.
The patient has not been consuming adequate fluids, leading the nurse to suspect dehydration. The patient also exhibits reduced appetite. The family member confirmed she has not been running any fevers. Her skin is thin and prone to cutting, with
recent excoriations noted after removing tight bandages. The caregiver noted that the wounds are more scabby and bloody compared to their usual appearance. Chronic nature of the wounds with insufficient venous and lymphatic drainage complicates
healing.
PAST MEDICAL AND SURGICAL HISTORY
The patient reportedly has a history of lymphedema as mentioned by her family member. She also has a urinal 'scent,' likely indicating a urinary stent placement.
ADDITIONAL HISTORY OBTAINED FROM SOURCES OTHER THAN THE PATIENT
According to the family member, the patient was able to ambulate slightly when returning from rehabilitation in May or May 2003 but displayed declining lung capacity and increased fear of movement. Family member also noted that the legs have
been described as potentially infected by home nurses due to their appearance. The family member has expressed frustration regarding restrictions on wound care provided by family or caregivers.
EXTERNAL RECORDS REVIEWED
The family member mentioned that the patient is scheduled for a follow-up with a specialist. There is a mention of regular visits by a insulation cutter and former every couple of months.
PHYSICAL EXAM
General: Alert, no acute distress.
Skin: Warm, dry, with significant scaling, dark discoloration, and excoriations in the bilateral lower extremities. Skin is thin and susceptible to cuts.
Cardiovascular: Normal peripheral perfusion. Feet are warm, well-perfused, and normal in color. No proximal edema noted.
Respiratory: Respiration is non-labored, with no respiratory distress.
Musculoskeletal: Decreased mobility, reportedly kyphotic and obese.
Psychiatric: Cooperative, appropriate mood and affect.
PROBLEM LIST
Acute:
1. Suspected infection in bilateral lower extremity wounds.
2. Dehydration.
Chronic:
1. Immobility.
2. Chronic wounds due to compromised venous and lymphatic drainage.
PLAN
1. Obtain laboratory tests to assess for infection and dehydration.
2. Arrange for nurse to perform regular wound care and change bandages.
3. Ensure improved hydration and monitor intake.
4. Follow-up in clinic for possible infection management and to review lab results.
DIFFERENTIAL DIAGNOSIS
The Differential Diagnosis includes, in no particular order and is not limited to:
1. Cellulitis.
2. Chronic venous insufficiency.
3. Lymphedema.
4. Peripheral arterial disease.
5. Stasis dermatitis.
6. Necrotizing fasciitis.
7. Contact dermatitis.
8. Venous ulcers.
9. Pyoderma gangrenosum.
10. Superimposed skin infection.
Disposition:
SUMMARY OF ENCOUNTER
The patient, a 75-year-old female with chronic lymphedema of the bilateral lower extremities, presented due to concerns over the appearance of her legs. She is chronically bedbound and under home care. Her family stated the leg condition appeared to
be at baseline and her dressings had remained intact for approximately a week. Physical examination noted thickened, scaled skin with some open lesions on the left lateral lower extremity, but no obvious purulent drainage. Labs showed a normal CBC
with a white blood cell count of 10.3 and baseline hemoglobin of 8.9. Chemistries revealed normal creatinine and sodium levels, and liver function tests were unremarkable. It appears she needs more aggressive wound care management, which has been
met with some hesitancy from the patient.
DISPOSITION
Discharge with outpatient management.
PLAN
The patient will have clean dressings applied and will be referred to outpatient wound care for further management of her chronic leg wounds.
INDEPENDENT REVIEW OF LABS AND INTERPRETATION OF TESTS
My independent review of CBC is normal with a white blood cell count of 10.3 and baseline hemoglobin at 8.9.
My independent review of chemistry panel indicates normal creatinine and sodium.
Liver function tests are grossly unremarkable.
PATIENT EDUCATION AND COUNSELING
The patient was advised on the importance of compliance with wound care management and the significance of following up with outpatient wound care services to prevent further complications.
FOLLOW-UP INSTRUCTIONS
The patient will be referred to outpatient wound care services for further management and advised to maintain the integrity of dressings.
MEDICAL DECISION MAKING
-Complexity of Data Reviewed: Chronic conditions affecting care include chronic lymphedema.
-Data:
Category 2
Clinical information was obtained from an independent historian, noting the familys observation that the patients leg condition is at baseline.
-Risk:
'Consideration of Admission/Observation: Escalation of care including admission/observation was considered given the complexity and risk of the patients presenting complaint, exam findings, and/or their underlying comorbidities. However, ultimately
I feel the patient is safe for outpatient management with close follow-up. Reasoning: Work-up reassuring, does not reveal any acute life/organ-threatening processes, patients symptoms well controlled upon reevaluation, reexamination is reassuring,
vitals are stable, patient agreeable with discharge, reliable for follow-up.'
DIAGNOSIS
Lymphedema (ICD-10: I89.0)
Nonpurulent wound on the left lower extremity (ICD-10: L98.49)
Past History
Past History
ED Past Medical History: Asthma, HTN, Renal failure, Hypothyroidism and Other (ureteral stents, PE, ARF, One kidney, IVC filter, Cellulitis, UTI, Pancreatitis)
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
Social History
Tobacco: Non-smoker
Alcohol: None
Personal: Single
Living: alone
Family History
Family History: Other (Mother with endometrial cancer, father with coronary disease)
Phy Exam
Physical Exam
Physical Exam:
.
Course
Orders/Labs/Results
Orders:
Orders
02/12/25 16:16
Electrocardiogram (*1) Urgent
Reason for Study: Other
Other Reason for Exam: Possible Sepsis
Cardiac Monitoring- Treatment ONCE
IV Insert/Care/Rem.- Treatment PRN
O2 Therapy [RESP] Urgent
Titrate/Wean O2 to maintain O2 sat greater than (%): 93
Special Instructions: TO MAINTAIN CONTINUOUS O2 SATS > OR = 93%
Pulse Ox/cont/shift [RESP] Urgent
Quantity: 1
Special Instructions: CONTINUOUS
02/12/25 16:17
EKG- Treatment ONCE
02/12/25 16:24
Complete Blood Count/With Diff Urgent
Comprehensive Metabolic Panel Urgent
Lactic Acid Q4H
Comment: ON ICE, CANCEL 2ND ORDER IF FIRST LACTIC ACID LEVEL <2
02/12/25 16:25
Blood Culture Q20M
GABRIELLA Source: Blood/Venous
Specimen Description:
Comment: Urgent from separate sites. If patient screens positive for possible sepsis
Blood Culture Q20M
GABRIELLA Source: Blood/Venous
Specimen Description:
Comment: Urgent from separate sites. If patient screens positive for possible sepsis
Abnormal Lab Results
02/12/25
16:24
RBC 4.17 L 10^6/uL
(4.20-5.40)
Hgb 8.9 L g/dL
(12.0-16.0)
Hct 33.8 L %
(37.0-47.0)
MCH 21.3 L pg
(27.0-31.0)
MCHC 26.3 L g/dL
(33.0-37.0)
RDW 18.6 H %
(11.5-14.5)
Abs Immat Gran (auto) 0.1 H 10^3/uL
(0-0.05)
Absolute Neuts (auto) 8.7 H 10^3/uL
(1.4-6.5)
Absolute Lymphs (auto) 0.8 L 10^3/uL
(1.2-3.4)
Neutrophils % 84.3 H %
(42.2-75.2)
Lymphocytes % 7.8 L %
(20.5-51.1)
Carbon Dioxide 35 H mmol/L
(22-30)
BUN 19 H mg/dl
(7-17)
Calcium 8.2 L mg/dl
(8.4-10.2)
AST 13 L U/L
(14-36)
Total Protein 6.0 L g/dl
(6.3-8.2)
Albumin 3.1 L g/dl
(3.5-5.0)
02/12/25 16:24
02/12/25 16:24
Vital Signs
Initial and Last Documented VS:
Initial Vital Signs
BP
145/66
02/12/25 16:20
Last Documented Vital Signs
Temp Pulse Resp BP Pulse Ox
98.2 F 71 24 148/86 92
02/12/25 16:21 02/12/25 17:15 02/12/25 17:15 02/12/25 17:00 02/12/25 17:15
*Pulse Oximetry
SaO2: 92
Oxygen Mode of Delivery: Room air
Patient hypoxic: yes (mild)
*Critical Care Note
Total Time (30-74mins, 75-104mins- exclusive of procedures): Not Applicable
ED Attending Note
-
Portions of this chart may have been created with voice recognition software.� Occasional wrong word or��sound alike� substitutions may have occurred due to the inherent limitations of voice recognition software.
Discharge Plan
Departure
Patient with high blood pressure during this ER visit?: Yes
Discharge Problem:
Chronic acquired lymphedema, chronic venous stasis changes
Instructions: [facility], BLOOD PRESSURE
Prescriptions:
No Action
levothyroxine [Synthroid] 150 mcg tablet
225 mcg PO CHISHOLM
cyanocobalamin (vitamin B-12) 1,000 mcg Tablet
1,000 mcg PO DAILY
acetaminophen [Tylenol Extra Strength] 500 mg Tablet
1,000 mg PO Q6HPRN PRN (Reason: mild pain)
famotidine [Pepcid] 20 mg Tablet
20 mg PO DAILY
montelukast [Singulair] 10 mg Tablet
10 mg PO DAILY
albuterol sulfate [Ventolin HFA] 90 mcg/actuation Hfa Aerosol Inhaler
2 puff INHALATION R Q6HPRN PRN (Reason: sob)
amlodipine 2.5 mg tablet
2.5 mg PO DAILY 30 Days Qty: 30 0RF
prednisone 10 mg Tablet
10 mg PO DAILY
acetaminophen [Tylenol Extra Strength] 500 mg Tablet
1,000 mg PO DAILY
warfarin 3 mg tablet
3 mg PO DAILY
levothyroxine [Synthroid] 150 mcg tablet
150 mcg PO MOTUWETHFRSA@0600
sertraline 50 mg Tablet
50 mg PO DAILY
Referrals:
UNKNOWN,NO INTERVIEW [Family Provider]
Activity Restrictions/Additional Instructions:
Return immediately for fevers, pustulous drainage from the wound, redness of the lower extremities, pain or any other concerns. Please see wound care or your wound care nurse in the next 48 hours for follow-up and reevaluation. Please keep wounds
clean and dry.
Interventions
Interventions:
*Risk Screen - Suicide Last Done: 02/12/25 16:17
*General Assessment Last Done: 02/12/25 16:18
*Neglect/Abuse Screening Last Done: 02/12/25 16:17
*ED COVID-19 Vaccine History Last Done: 02/12/25 16:17
*ED Influenza Vaccine History Last Done: 02/12/25 16:17
Discharge Date and Time
Print Language: FRISIAN
[2025-02-12 19:00] VITALS: BP 131/83
== END 2025-02-12 20:23 | disposition home or self-care (01) ==
LOC: EMR 16:10
PROVIDERS: Student in an Organized Health Care Education/Training Program; EMERGENCY PHYSICIAN Emergency Medicine
DX: I89.0 Lymphedema, not elsewhere classified (principal); I87.8 Other specified disorders of veins; Z74.09 Other reduced mobility
CPT/HCPCS: 99284; 80053; 83605; 85025; 87040; 93005

== ENCOUNTER 2025-02-15 06:29 | Day surgery (SDC) | payer OTHER, SELFPAY ==
--- NOTE | 2025-02-10 14:59 | PTCARENOTE ---
Abn ECG, See prior ECG's dated 04/04/20 and 03/12/23 noting prior history.
--- NOTE | 2025-02-14 11:22 | PTCARENOTE ---
Janessa in office made aware pt has not stopped warfarin, took her 3mg as normal this morning.
[2025-02-15] VITALS (17 sets, daily range): BP systolic 103–177; BP diastolic 58–91; PULSE 2–89; BMI 49.4
--- NOTE | 2025-02-15 18:57 | HPS.HSE ---
Addendum entered and electronically signed by Indio Francis MD 02/15/25 20:36:
This is an addendum to H&P written by Francesca Al on 02/15/2025. �Patient seen and examined independently with PA.
75-year-old female past medical history of CKD, nonfunctional left kidney, bilateral congenital ureteropelvic junction obstruction, chronic right ureteral stenosis status post stent, DVT/PE on Coumadin, hypothyroidism, chronic anemia, hypertension,
anxiety, obesity, obstructive sleep apnea supposed to be on BiPAP, obesity hypoventilation, presenting with routine stent exchange.
Patient underwent stent exchange without any problems. �After the procedure she had been on 4 L oxygen saturating 95%.
Patient is bedbound at baseline and only has patient intake coordinator so could not be picked up.
Patient with hypoxia postanesthesia in the setting of obstructive sleep apnea/obesity hypoventilation. �Should hopefully be weaned off oxygen by the morning. �Case management for discharge.
INR 3.35 so hold coumadin.
Original Note:
Family Physician
-
Family Physician: NOT KNOW UNKNOWN - PT DOES
Chief Complaint
-
Ureteral Stent Exchange
History of Present Illness
Patient is a 75 y/o female past medial history of asthma, hypothyroidism, chronic kidney disease with non-functioning left kidney, chronic right ureteral stenosis, obesity and obstructive sleep apnea who presents following right ureteral stent
exchange. Patient underwent routine right ureteral stent exchange today. Patient lives alone, is bed-bound with a patient intake coordinator who arrived to the hospital today via ambulance. Patient's family is unable to stay with her overnight tonight
following the procedure.
Medical History
Past Medical History
Past Medical History: Reports Other
Additional Past Medical History:
Asthma / Restrictive Lung Disease
Essential Hypertension
CKD III / Non-Functioning L Kidney
Chronic Right Ureteral Stenosis
Hypothyroidism
History of DVT / PE
Incisional Hernia with bowel obstruction
Spigelian Hernia
Anemia of Chronic Disease
Obstructive Sleep Apnea
Morbid Obesity
Past Surgical History: Reports Other
Additional Past Surgical History:
IVC filter
Splenic artery aneurysm coiling
Right Ureteral Stent
Social History
Tobacco: Non-smoker
Alcohol: None
Personal: Single
Living: Long-Term
Employment: Employed
Family History
Family History: Not pertinent
Allergies / Home Medications
Allergies reflects when Allergies were last updated in [employer].
Home Medications with original date entered in [employer]
Allergy/Medication List:
Allergies
Allergy/AdvReac Type Severity Reaction Status Date / Time
animal dander Allergy Exacerbates Verified 02/15/25 13:43
asthma
banana Allergy Exacerbates Verified 02/15/25 13:43
asthma
cheese Allergy Exacerbates Verified 02/15/25 13:43
asthma
cigarette smoke Allergy Exacerbates Verified 02/15/25 13:43
asthma
house dust Allergy Exacerbates Verified 02/15/25 13:43
asthma
house dust mite Allergy Exacerbates Verified 02/15/25 13:43
asthma
latex (Latex) Allergy no contact Verified 02/15/25 13:43
issues,
Exacerbates
asthma
mold Allergy Exacerbates Verified 02/15/25 13:43
asthma
perfume Allergy Exacerbates Verified 02/15/25 13:43
asthma
pollen extracts Allergy Exacerbates Verified 02/15/25 13:43
asthma
ragweed pollen Allergy Exacerbates Verified 02/14/25 09:46
asthma
Home Medications
levothyroxine 150 mcg tablet (Synthroid) 225 mcg PO CHISHOLM Thyroid 03/11/23
acetaminophen 500 mg tablet (Tylenol Extra Strength) 1,000 mg PO Q6HPRN PRN mild pain 08/01/23
cyanocobalamin (vitamin B-12) 1,000 mcg tablet 1,000 mcg PO DAILY Supplement 08/01/23
famotidine 20 mg tablet (Pepcid) 20 mg PO DAILY Gastrointestinal Issue 08/01/23
montelukast 10 mg tablet (Singulair) 10 mg PO DAILY Lung/Breathing Issues 08/01/23
albuterol sulfate 90 mcg/actuation aerosol inhaler (Ventolin HFA) 2 puff inhalation R Q6HPRN PRN sob 11/11/23
amlodipine 2.5 mg tablet 2.5 mg PO DAILY Blood pressure 30 days #30 tabs 11/13/23
acetaminophen 500 mg tablet (Tylenol Extra Strength) 1,000 mg PO DAILY 11/16/24
levothyroxine 150 mcg tablet (Synthroid) 150 mcg PO MOTUWETHFRSA@0600 11/16/24
sertraline 50 mg tablet 50 mg PO DAILY 11/16/24
warfarin 3 mg tablet 3 mg PO DAILY 11/16/24
levofloxacin 500 mg tablet 500 mg PO DAILY 02/14/25
Review of Systems
-
A 12 point ROS was completed and negative except as noted: Yes
Constitutional: Denies Fever or Chills
Respiratory: Denies Cough or Trouble Breathing
Cardiac: Denies Chest Pain or Palpitations
Physical Exam
Vital Signs
Vital Signs
Temp Pulse Resp BP Pulse Ox
97.6 F 95 20 127/91 97
02/15/25 17:50 02/15/25 18:45 02/15/25 18:45 02/15/25 18:30 02/15/25 18:50
Physical Exam
General: Comfortable and Conversant
HEENT: Anicteric and Moist mucous membranes
Respiratory: Clear and Non Labored Respirations
Cardiac: S1/S2 and Regular Rhythm
GI: Soft and Non Tender
Rectal: Deferred by Provider
Musculoskeletal: No Clubbing, No Cyanosis and Other (Chronic lower extremity lymphedema)
Skin: Other (Bilateral leg wrapped in Nelson)
Neuro: Awake, Alert and Nonfocal/grossly intact
Psych: Calm
Laboratory Results
-
Laboratory Tests
02/12/25
16:24
WBC 10.3
Hgb 8.9 L
Hct 33.8 L
Plt Count 292
Sodium 141
Potassium 4.4
Chloride 104
Carbon Dioxide 35 H
BUN 19 H
Creatinine 0.8
Glucose 94
Data Reviewed
-
Lab Data: Labs Reviewed by me
Old Records: Reviewed
Impression/Plan
-
Chronic Right Ureteral Stenosis s/p Right Ureteral Stent Exchange on Feb 15
-Care as per Urology
-Consult Case Management for discharge planning
Hx DVT/PE on chronic anticoagulation
-Check PT/INR Now
-Coumadin dosing based on INR
Obstructive Sleep Apnea / Obesity Hypoventilation Syndrome
-Patient is non-compliant with BiPAP at home
-Continue BiPAP during hospitalization
Hypothyroidism
-Continue levothyroxine
CKD III / Non-Functioning L Kidney
-Creatinine at baseline
Anemia of Chronic Disease
-Hgb at baseline
Class III Obesity due Excess Calories
-Affects all aspects of care
DVT proph: Coumadin
Code Status: Full Code
[2025-02-15 19:32] LABS: INR 3.35; PT 33.7 Sec (11.4-14.6)
--- NOTE | 2025-02-15 23:26 | TRANSFER ---
Received pt from PACU@1940 s/p RIGHT CYSTO,STENT EXCHANGE. Pt AAOx3, drowsy - per family this is baseline. Pt actively fell asleep during assessment. VS WNL. Pt denied pain. BiPAP applied by resp at HS. CAll villarreal within reach, bed in lowest
position.
[2025-02-16 03:00] VITALS: BP 161/77
--- NOTE | 2025-02-16 03:33 | DOWNTIME ---
There was a [facility] Downtime on 02/16/2025 from 0100 to 02/16/2025 at 0255. Downtime documentation of patient's care, including medication administrations, has been reconciled in the electronic record per guidelines. Refer to the
patient's paper chart under the miscellaneous tab to see printed paper medication records and downtime forms.
[2025-02-16 03:39] VITALS: PULSE 2; PULSE 84
[2025-02-16] MEDS: SYNTHROID 150 MCG PO (05:21)
[2025-02-16 06:41] LABS: INR 3.77; PT 36.9 Sec (11.4-14.6)
[2025-02-16 07:05] VITALS: BP 131/72
[2025-02-16 08:47] LABS: Hematocrit 30.9 % (37.0-47.0); Hemoglobin 8.1 g/dL (12.0-16.0); Mean Corp Hgb Conc. 26.2 g/dL (33.0-37.0); Mean Corpuscular Volume 80.5 fL (81.0-99.0); Nucleated Red Blood Cells % 0 %; Platelet Count 284 10^3/uL (130-400); Red Cell Dist. Width 18.2 % (11.5-14.5)
[2025-02-16 08:59] LABS: Blood Urea Nitrogen 14 mg/dl (7-17); Calcium 7.7 mg/dl (8.4-10.2); Carbon Dioxide 35 mmol/L (22-30); Chloride 102 mmol/L (98-107); Estimated Creatinine Clearance 71 ml/min; Glucose 96 mg/dl (70-99); Potassium 5.1 mmol/L (3.5-5.1); Sodium 140 mmol/L (135-145); eGFR > 60.00
[2025-02-16] MEDS: NORVASC 2.5 MG PO (08:59)
[2025-02-16] MEDS: ANTIFUNGAL CLEAR 1 APPLIC TOPICAL (08:59)
[2025-02-16] MEDS: ZOLOFT 50 MG PO (08:59)
[2025-02-16] MEDS: SINGULAIR 10 MG PO (08:59)
[2025-02-16] MEDS: PEPCID 20 MG PO (08:59)
--- NOTE | 2025-02-16 09:11 | CM ---
Cm reviewed medical records. CM spoke with sister Dana who stated that patient has daily caregivers but only during the day. Patient is currently bedbound. Sister stated that she has an air mattress with a trapeze bar to assist with repositioning.
Patient is currently known to [facility] care who provide wound care three times per week.
Patient's personal care service provider will be unavailable today, but sister will be at the patient's house to accept patient home when ready for transport. Cm will send referral to [facility] for JAZMIN.
PLAN: Home with [facility] and 7 day per week caregivers.
[2025-02-16 09:20] LABS: Anisocytosis 1+; Hypochromasia 2+; Microcytosis 1+; Normal RBC Morphology No
--- NOTE | 2025-02-16 10:32 | WOUNDNOTE ---
BILATERAL LOWER EXTREMITIES
--- NOTE | 2025-02-16 10:32 | WOUNDNOTE ---
RIGHT LATERAL LOWER LEG
--- NOTE | 2025-02-16 10:33 | WOUNDNOTE ---
LEFT ANTEROMEDIAL LOWER LEG
--- NOTE | 2025-02-16 10:33 | WOUNDNOTE ---
RIGHT POSTERIOR LOWER LEG
--- NOTE | 2025-02-16 10:34 | WOUNDNOTE ---
LEFT POSTERIOR LOWER LEG
--- NOTE | 2025-02-16 10:36 | WOUNDNOTE ---
WON RN note: Patient admitted with occlusion of ureteral stent, J stent placed on admission.
See H&P for complete history. Lives alone.
PMH: Obesity, venous leg ulcers, buttock PI's, b/l ureteral stents, PE, COPD, DVT, IVC filter, Kyphosis, balance issues.
Wound Location and type/assessment: Patient last seen by wound care 11/17/24 for venous leg ulcers and PI on buttocks. Now admitted with: same B/L lower leg venous ulcers, steam cleaner compared to last seen. Cochrane scattered ulcers, bleeds easily,
moderate serosanguineous drainage. + palpable faint pedal pulses as reported by nurse Raquel. Lymphedema both legs. Hemosiderin staining evident, skin flaky and dry. R & L heel boggy, stage 1 PI, pillows under calves. Patient assessed with help by
nurse Zachariah. Buttocks with chronic discolored skin from prolonged sitting. L &R buttocks stage 2 PI mixed with shearing and friction. MASD in skin folds, miconazole cream already in use.
Appetite: Good.
Pressure redistribution devices in place: On Air overlay, turned to R semi side lying position with assist. Pillow under calves, foams applied to heels to protect. If not being discharged and remains sluggish, recommend air mattress.
Plan: Adaptic, alginate, abd pad and kerlix applied both legs with erin wraps knee high. Will order mineral oil for dry skin on legs and feet. Silicone foams applied to buttocks and sacral silicone foam to protect intact sacrum.
Will confirm orders with hospitalist and updated nurse. Updated care plan and will follow as needed.
Note to case management of equipment requested for discharge: VN or caregivers if home.
Recommend follow up at wound care center upon discharge.
[2025-02-16 11:15] VITALS: BP 167/93
--- NOTE | 2025-02-16 12:09 | W.PN.HOSP.TC ---
Today's Communication/Plan
-
Monitor vitals and see plan
Continue to hold Coumadin
INR check outpatient 02/18
Discharge today
Encourage BiPAP use at home
Assessment / Plan
Assessment / Plan
General: Comfortable and Conversant
HEENT: Anicteric and Moist mucous membranes
Respiratory: Clear and Non Labored Respirations
Cardiac: S1/S2 and Regular Rhythm
Musculoskeletal:Other (Chronic lower extremity lymphedema)
Skin: Other (Bilateral leg wrapped in Nelson)
Neuro: Awake, Alert and Nonfocal/grossly intact
Psych: Calm
Chronic Right Ureteral Stenosis s/p Right Ureteral Stent Exchange on Feb 15
-Care as per Urology
-Consult Case Management for discharge planning
Hx DVT/PE on chronic anticoagulation
Postop patient had acute hypoxic respiratory insufficiency likely secondary to obstructive sleep apnea/obesity hypoventilation syndrome. Now weaned off oxygen. Baseline BiPAP at home
- Supratherapeutic INR, continue to hold Coumadin
-Coumadin dosing based on INR
Obstructive Sleep Apnea / Obesity Hypoventilation Syndrome
-Patient is non-compliant with BiPAP at home
-Continue BiPAP during hospitalization
Patient currently answering questions appropriately. While awake she is greater than 92% on room air
Hypothyroidism
-Continue levothyroxine
CKD III / Non-Functioning L Kidney
-Creatinine at baseline
Anemia of Chronic Disease
-Hgb at baseline
Class III Obesity due Excess Calories
-Affects all aspects of care
DVT proph: supratherapeutic INR
Code Status: Full Code
Anticipated Discharge: Today
Subjective/Interval History
-
Date of Service: February 16, 2025
denies pain
Objective Data
-
Labs:
Laboratory Results
02/16/25 02/16/25
05:14 05:15
WBC 8.5
Hgb 8.1 L
Hct 30.9 L
Plt Count 284
PT 36.9 H
INR 3.77
Sodium 140
Potassium 5.1
Chloride 102
Carbon Dioxide 35 H
BUN 14
Creatinine 0.9
Glucose 96
Calcium 7.7 L
Vital Signs:
Vital Signs
Temp Pulse Resp BP Pulse Ox
96.9 F L 77 17 167/93 99
02/16/25 11:15 02/16/25 11:15 02/16/25 11:15 02/16/25 11:15 02/16/25 11:15
--- NOTE | 2025-02-16 12:12 | W.PN.URO.CBU ---
Today's Communication / Plan
-
no gu intervetions
Assessment / Plan
-
urologically stable plan pr hospitalist
Diagnosis
-
Date of Service: February 16, 2025
-
Patient Diagnosis:post op sob which is baseline for pt but pt lives at [facility] alone an coud not be discharged safely with low O2 stat
Post Op Day:
Subjective
-
feels baseline
Objective
-
Vital Signs
Temp Pulse Resp BP Pulse Ox
96.9 F L 77 17 167/93 99
02/16/25 11:15 02/16/25 11:15 02/16/25 11:15 02/16/25 11:15 02/16/25 11:15
Intake and Output
02/15/25 02/16/25 02/17/25
06:59 06:59 06:59
Other:
How many times incontinent 2
SATURATED amount urine
Laboratory Results
02/16/25 05:15
02/16/25 05:15
Review of Systems
-
: Urgency
Physical Exam
-
General - well developed, well nourished, no acute distress
Chest - clear bilaterally
Abdomen - soft, non-tender, positive bowel sounds, no CVAT, no incisional pain or distention
Genitalia - normal
Rectal - normal
Skin - warm & dry with no rash
Neuro - AOx3, no motor deficits
Extremities - no clubbing, no cyanosis, no edema
Incision - clean, dry
Dressing - clean, dry, intact
Counseling
-
plan per hospitalist and case mangement
Care Review
Data Reviewed
Discussed with: Nursing
--- NOTE | 2025-02-16 12:32 | W.DCSUMMARY ---
Discharge Summary
Discharge Data
Date of Admission: 02/15/25
Date of Discharge: 02/16/25
-
Pending Results: No
Hospital Course
75-year-old female with past medical history of obstructive sleep apnea/obesity hypoventilation syndrome on BiPAP, hypothyroidism, CKD, nonfunctional left kidney, anemia of chronic disease, obesity, history of DVT/PE on chronic anticoagulation,
chronic right ureteral stenosis status post right ureteral stent exchange came to the hospital for elective right ureteral stent exchange. Postop patient developed mild acute hypoxic respiratory insufficiency secondary to postanesthesia. Patient
was monitored overnight on BiPAP which at times she is not compliant at home. She also had supratherapeutic INR so her Coumadin was held. On discharge she was directed to get repeat INR done on 04/20/2024 and to restart Coumadin when her INR is
therapeutic. Her oxygenation continue to improve and she was greater than 92% on room air prior to discharge. Since her symptoms got better, she was then discharged home with instructions to follow-up with all her physicians outpatient.
Discharge Plan
-
Patient Disposition: Home with Home Care
Discharge Diagnosis/Procedures: Ambulatory dysfunction
Acute hypoxic respiratory insufficiency likely secondary to postanesthesia in the setting obstructive sleep apnea/obesity hypoventilation syndrome
Status post routine urologic stent exchange
Condition: Fair
Diet: 2 Gram Sodium
Activity: With assistance and As tolerated
Driving Restrictions: No driving
Bathing Restrictions: None
Blood Work: INR check with your outpatient physician 02/18
Activity Restrictions/Additional Instructions:
Wound Care Instructions
buttocks: clean with soap and water, silicone foams, change q 2-3 days and prn soilage
legs: moisturize with mineral oil after cleaning with soap and water, Adaptic, abd pads and kerlix change daily and prn drainage.
leg elevation when sitting
erin wraps or equivalent compression knee high daily, can remove at hs
Follow up at wound care center call for an appointment.
Referrals:
Michel Villagran MD [Active, Urology]
UNKNOWN - PT DOES,NOT KNOW [Family Provider, Internal Medicine] - in less than 1 week
Prescriptions:
New
Critic-Aid Clear AF(miconazol) 2 % Ointment
1 applic topical BID Qty: 1200 0RF
Aquaphor Healing 41 % Ointment
1 applic topical DAILY Qty: 20 0RF
Continued
levothyroxine [Synthroid] 150 mcg tablet
225 mcg PO CHISHOLM
cyanocobalamin (vitamin B-12) 1,000 mcg Tablet
1,000 mcg PO DAILY
famotidine [Pepcid] 20 mg Tablet
20 mg PO DAILY
montelukast [Singulair] 10 mg Tablet
10 mg PO DAILY
albuterol sulfate [Ventolin HFA] 90 mcg/actuation Hfa Aerosol Inhaler
2 puff INHALATION R Q6HPRN PRN (Reason: sob)
amlodipine 2.5 mg tablet
2.5 mg PO DAILY 30 Days Qty: 30 0RF
acetaminophen [Tylenol Extra Strength] 500 mg Tablet
1,000 mg PO DAILY
levothyroxine [Synthroid] 150 mcg tablet
150 mcg PO MOTUWETHFRSA@0600
sertraline 50 mg Tablet
50 mg PO DAILY
levofloxacin 500 mg Tablet
500 mg PO DAILY
Changed
acetaminophen [Tylenol Extra Strength] 500 mg Tablet
1,000 mg PO Q8HPRN PRN (Reason: mild pain) Qty: 0 0RF
Held
warfarin 3 mg tablet
3 mg PO DAILY
Hold Instructions: Restart when INR is therapeutic
Discharge Orders:
Discharge Patient (As Directed); Ordered 02/16/25
Ordered By: Gui Olivera
Discharge Date and Time
Discharge Date/Time: 02/16/25 15:03
Print Language: [place]
--- NOTE | 2025-02-16 12:40 | CM ---
Addendum entered by Gisele Coffman RN 02/16/25 12:59:
Acute Care Ambulance Authorization
[id number]
Original Note:
CM sent updated clinical to [facility]. CM updated Christine with discharge plan.
CM will updated patient's sister with ambulance time so she is available to receive patient.
PLAN: Home with [facility], and care givers.
[2025-02-16] MEDS: HYDROPHOR 1 APPLIC TOPICAL (13:29)
[2025-02-16 15:03] VITALS: BP 108/52
== END 2025-02-16 15:03 | disposition home health service (06) ==
LOC: SDS 06:29
PROVIDERS: Physician Assistant Medical; ATTENDING PHYSICIAN Internal Medicine; CONSULT PHYSICIAN Specialist
DX: Q62.39 Other obstructive defects of renal pelvis and ureter (principal)
CPT/HCPCS: 52332; 74420; 76000; 80048; 85025; 85610; 94660; J1580